=== PATIENT | female | born 1950 | race African-American/Black ===

== ENCOUNTER 2017-06-01 11:05 | Inpatient (IN) | payer MEDICARE, BC ==
[2017-06-01] VITALS (19 sets, daily range): BP systolic 58–170; BP diastolic 27–93; PULSE 69–98; RESP 14–34; TEMP 97.9–98; O2SAT 94–100
[~2017-06-01] VITALS: Ht 172.7 cm; Wt 122.0 kg
[~2017-06-01 11:05] MED LIST: ASPI81TA11 PO; BENZ100 PO; CLON.5 PO; COLA100C3 PO; CYCL1TAB29 PO; GABA300C5 PO; HYDR-3133 PO; HYDR-3535 PO; IPRASOL NEB; MIAC200S NASAL; MIDO10TA PO; NEXI40CA PO; PAXI30TA7 PO; PENT400T PO; RENATAB5 PO; SENS90TA PO; SEVE800T PO; SPIRCAP INH
--- NOTE | 2017-06-01 11:32 | PD ---
HPI Chief Complaint: CARDIAC ARREST Time Seen by Provider: 11:21 Travel History International Travel<30 days: No Contact w/Intl Traveler<30days: No Traveled to known affect area: No History of Present Illness HPI WHILE AT [facility], PATIENT BECAME UNRESPONSIVE, DIALYSIS WAS BARELY INITIATED. PATIENT HAD 10MIN OF CPR BY DAVITA, EMS ANOTHER 20MIN AND THEN CPR ON ARRIVAL TO ER IN WHICH WE HAD ROSC... PFSH Past Medical History Arthritis: Yes Asthma: Yes Blood Disorders: No Depression: Yes Heart Rhythm Problems: No Cancer: No Cardiovascular Problems: Yes High Cholesterol: No Chemotherapy: No Chest Pain: No Congestive Heart Failure: Yes Cerebrovascular Accident: Yes Diabetes: No Dialysis: Yes (MWF) Diminished Hearing: No Endocrine: Yes Gastrointestinal Disorders: Yes (GERD) GERD: Yes Glaucoma: No Gout: Yes Genitourinary: Yes Headaches: Yes Hepatitis: No Hiatal Hernia: No Hypertension: Yes Immune Disorder: No Implanted Vascular Access Dvce: No Kidney Stones: No Musculoskeletal: Yes (NO TOES ON EITHER FOOT) Neurologic: Yes (Pinched nerve in neck) Psychiatric: No Reproductive: No Respiratory: Yes Immunizations Current: Yes Migraines: No Radiation Therapy: No Renal Failure: Yes Seizures: No Sickle Cell Disease: No Sleep Apnea: Yes (C PAP AT HOME) Thyroid Disease: Yes (HYPOTHYROID) Menopausal: Yes : 3 Para: 3 Miscarriage: 0 : 0 Past Surgical History Abdominal Surgery: Yes (POSSIBLE MASS REMOVED 07/2011, PEG TUBE PLACEMENT/ REMOVED,CHOLECYSTECTOMY ) AICD: No Appendectomy: Yes Arteriovenous Shunt: Yes (LUE FISTULA) Body Medical Devices: VAS CATH RIGHT UPPER CHEST Cardiac Surgery: No Section: Yes (X 3) Cholecystectomy: Yes Ear Surgery: No Endocrine Surgery: No Genitourinary Surgery: No Gynecologic Surgery: No Hysterectomy: Yes (PARTIAL) Joint Replacement: No Neurologic Surgery: Yes Oral Surgery: No Pacemaker: No Thoracic Surgery: No Other Surgery: Yes (VAS CATH PLACEMENT, LEFT BREAST LUMPECTOMY , LUE FISTULA) Social History Alcohol Use: No Tobacco Use: No Substance Use: No Allergies-Medications (Allergen,Severity, Reaction): Coded Allergies: diatrizoate meglumine (Unverified Allergy, Severe, Joint Pain, 05/15/17) pt states she is not allergic to this gadobenic acid (Unverified Allergy, Severe, Joint Pain, 05/15/17) pt states she is not allergic to this gadodiamide (Unverified Allergy, Severe, Joint Pain, 05/15/17) pt states she is not allergic to this gadoteridol (Unverified Allergy, Severe, Joint Pain, 05/15/17) pt states she is not allergic to this iodine (Unverified Allergy, Severe, ORAL CONTRAST OK, 05/15/17) pt states she is not allergic to this iodixanol (Unverified Allergy, Severe, Joint Pain, 05/15/17) pt states she is not allergic to this iohexol (Unverified Allergy, Severe, Joint Pain, 05/15/17) pt states she is not allergic to this morphine (Unverified Allergy, Severe, ITCH, 05/15/17) pt states she is not allergic to this potassium iodide (Unverified Allergy, Severe, ORAL CONTRAST OK, 05/15/17) pt states she is not allergic to this povidone-iodine (Unverified Allergy, Severe, ORAL CONTRAST OK, 05/15/17) pt states she is not allergic to this sodium iodide (Unverified Allergy, Severe, ORAL CONTRAST OK, 05/15/17) pt states she is not allergic to this sodium iodide (Unverified Allergy, Severe, ORAL CONTRAST OK, 05/15/17) pt states she is not allergic to this vancomycin (Unverified Allergy, Unknown, 05/15/17) PT STATES UNKNOWN IF SHE IS ALLERGIC. *MDRO Multi-Drug Resistant Organism (Verified Adverse Reaction, Unknown, 09/09/16) KPC (sputum) - 09/09/11, 09/29/11 KPC & ESBL (wound) - 03/18/13 MRSA (wounds) - 02/12/13, 06/30/13, 02/25/14 Reported Meds & Prescriptions Reported Meds & Active Scripts Active Reported Colace (Docusate Sodium) 100 Mg Capsule 100 Mg PO DAILY Pentoxifylline ER (Pentoxifylline) 400 Mg Tab 400 Mg PO DAILY Spiriva Handihaler (Tiotropium Inh) 18 Mcg Cap 1 Puff INH DAILY 1 capsule = 18 mcg Renagel (Sevelamer HCl) 800 Mg Tab 800 Mg PO TID Nayely-Shadi (B-Complex W/ C & Folic Acid) 1 Tab 1 Tab PO DAILY Paxil (Paroxetine HCl) 30 Mg Tab 30 Mg PO DAILY Midodrine 10 Mg Tab 10 Mg PO Take 1 tablet (10mg) on Sunday,Sunday and Sunday Duoneb (Ipratropium-Albuterol Neb) 0.5-2.5 Mg/3 Ml Neb 1 Vial NEB Q6HR PRN Lortab (Hydrocodone-Acetaminophen) 10-325 Mg Tab 1 Tab PO Q4H PRN Gabapentin 300 Mg Cap 300 Mg PO TID Nexium (Esomeprazole DR) 40 Mg Capdr 40 Mg PO DAILY Flexeril (Cyclobenzaprine HCl) 10 Mg Tab 10 Mg PO HS PRN Klonopin (Clonazepam) 0.5 Mg Tab 0.5 Mg PO BID PRN Sensipar (Cinacalcet) 90 Mg Tab 90 Mg PO DAILY Miacalcin Nasal [place] (Calcitonin [place]) 200 Units/Act Soln 1 [place] NASAL DAILY Alternate Nostrils Tessalon Perles (Benzonatate) 100 Mg Cap 100 Mg PO DAILY PRN Hydroxyzine HCl 25 Mg Tab 25 Mg PO BID PRN Aspirin EC (Aspirin) 81 Mg Tabdr 81 Mg PO DAILY Review of Systems ROS Limitations: Clinical Condition Except as stated in HPI: all other systems reviewed are Neg Physical Exam Exam Limitations: Clinical Condition Narrative GENERAL: SKIN: Warm and dry. HEAD: Atraumatic. Normocephalic. EYES: Pupils equal and round. BUT WITHOUT REACTIVITY/ACCOMODATION ...neg oculocephalic reflex, neg corneal reflex ENT: No nasal bleeding or discharge. Mucous membranes pink and moist....neg gag reflex NECK: Trachea midline. No JVD. CARDIOVASCULAR: Regular rate and rhythm. RESPIRATORY: No respiratory drive noted, with respirator assistance has Clear to auscultation. Breath sounds equal bilaterally. INTUBATED WITH 7-0 ETT, 21 AT THE LIP GASTROINTESTINAL: Abdomen soft, non-tender, nondistended. MUSCULOSKELETAL: Extremities NOTED TO HAVE VARIOUS AMPUTATIONS (LEFT MIDFOOT, RIGHT TOE AMPUTATIONS). LEFT I/O IN PLACE USED DURING CODE NEUROLOGICAL: [id number] PSYCHIATRIC: unable to examine Data Data Last Documented VS Vital Signs Date Time Temp Pulse Resp B/P (MAP) Pulse Ox O2 Delivery O2 Flow Rate FiO2 06/01/17 14:34 94 60 06/01/17 14:30 98 16 128/61 (83) Ventilator 06/01/17 12:05 97.9 Orders Orders Electrocardiogram (06/01/17 11:21) Complete Blood Count With Diff (06/01/17 11:21) Comprehensive Metabolic Panel (06/01/17 11:21) Troponin I (06/01/17 11:21) Blood Culture (06/01/17 11:21) Lipase (06/01/17 11:21) Urine Culture (06/01/17 11:21) Influenzae A/B Antigen (06/01/17 11:21) Chest, Single Ap (06/01/17 11:21) Iv Access Insert/Monitor (06/01/17 11:21) Ecg Monitoring (06/01/17 11:21) Oximetry (06/01/17 11:21) Urinary Catheter Insert/Apply (06/01/17 11:21) Sharon-Gastric Tube Insert/Mon (06/01/17 11:21) Drug Screen, Random Urine (06/01/17 11:21) Alcohol (Ethanol) (06/01/17 11:21) Salicylates (Aspirin) (06/01/17 11:21) Tylenol (Acetaminophen) (06/01/17 11:21) Dopamine Inj Premix (Dopamine Inj Premix (06/01/17 11:45) Terbutaline Inj (Brethine Inj) (06/01/17 11:45) Calcium Gluconate Inj (Calcium Gluconate (06/01/17 13:30) Arterial Blood Gas (Abg) (06/01/17 13:35) Ct Brain W/O Iv Contrast(Rout) (06/01/17 14:06) Admit To Inpatient (06/01/17 ) Code Status (06/01/17 14:13) Vital Signs (Adult) BEV.Q1H (06/01/17 14:13) Activity Bed Rest (06/01/17 14:13) Elevate Head Of Bed (06/01/17 14:13) Neuro Checks . ORDERED (06/01/17 14:13) Pantoprazole Inj (Protonix Inj) (06/01/17 14:15) Albuterol-Ipratropium Neb (Duoneb Neb) (06/01/17 16:00) Complete Blood Count With Diff (06/02/17 04:00) Hearing Healthcare Practitioner / Telemetry BEV.Q8H (06/01/17 14:13) Scd Bilateral/Knee High BEV.BID (06/01/17 14:13) ^ Initiate Protocol (06/01/17 14:13) Instruction (06/01/17 14:13) [facility] (06/01/17 14:15) Chlorhexidine 2% Cloth (Chlorhexidine 2% (06/02/17 04:00) Chlorhexidine 2% Cloth (Chlorhexidine 2% (06/01/17 14:15) Mrsa Pcr Surveillance (06/01/17 14:13) Docusate Sodium-Senna (Pat-Colace) (06/01/17 21:00) Magnesium Hydroxide Liq (Milk Of Magnesi (06/01/17 14:15) Sennosides (Senokot) (06/01/17 14:15) Bisacodyl Supp (Dulcolax Supp) (06/01/17 14:15) Lactulose Liq (Lactulose Liq) (06/01/17 14:15) Inpatient Certification (06/01/17 ) Lactic Acid (06/01/17 14:13) Creatine Kinase (Cpk) (06/01/17 18:00) Ckmb (Isoenzyme) Profile (06/01/17 14:13) Troponin I (06/01/17 18:00) Troponin I (06/02/17 06:00) Prothrombin Time / Inr (Pt) (06/01/17 14:18) Consult Nephrology (06/01/17 ) Echo 2d Comp With Doppler (06/01/17 ) Neurological Rass Scale Q30MX2,Q2HX4,Q4H (06/01/17 14:18) Fentanyl Drip (Fentanyl Drip) (06/01/17 14:30) Sputum Culture And Gram Stain (06/01/17 14:18) (Hub Use Only)Inp Phy Cons/Ref (06/01/17 ) Admit Order (Ed Use Only) (06/01/17 15:27) CKMB (06/01/17 18:56) CKMB% (06/01/17 18:56) Basic Metabolic Panel (Bmp) (06/02/17 00:56) Labs Laboratory Tests Test 06/01/17 11:30 06/01/17 11:45 06/01/17 13:35 White Blood Count 12.7 TH/MM3 Red Blood Count 3.87 MIL/MM3 Hemoglobin 10.5 GM/DL Hematocrit 34.6 % Mean Corpuscular Volume 89.3 FL Mean Corpuscular Hemoglobin 27.1 PG Mean Corpuscular Hemoglobin Concent 30.3 % Red Cell Distribution Width 17.3 % Platelet Count 195 TH/MM3 Mean Platelet Volume 8.2 FL Neutrophils (%) (Auto) 66.9 % Lymphocytes (%) (Auto) 24.8 % Monocytes (%) (Auto) 6.1 % Eosinophils (%) (Auto) 1.4 % Basophils (%) (Auto) 0.8 % Neutrophils # (Auto) 8.5 TH/MM3 Lymphocytes # (Auto) 3.2 TH/MM3 Monocytes # (Auto) 0.8 TH/MM3 Eosinophils # (Auto) 0.2 TH/MM3 Basophils # (Auto) 0.1 TH/MM3 CBC Comment DIFF FINAL Differential Comment Blood Urea Nitrogen 40 MG/DL Creatinine 6.23 MG/DL Random Glucose 154 MG/DL Total Protein 7.5 GM/DL Albumin 2.5 GM/DL Calcium Level 7.4 MG/DL Alkaline Phosphatase 160 U/L Aspartate Amino Transf (AST/SGOT) 52 U/L Alanine Aminotransferase (ALT/SGPT) 28 U/L Total Bilirubin 0.8 MG/DL Sodium Level 135 MEQ/L Potassium Level 4.1 MEQ/L Chloride Level 96 MEQ/L Carbon Dioxide Level 24.4 MEQ/L Anion Gap 15 MEQ/L Estimat Glomerular Filtration Rate 8 ML/MIN Protein Corrected Calcium 7.3 MG/DL Troponin I 0.02 NG/ML Lipase 130 U/L Acetaminophen Level LESS THAN 2.0 MCG/ML Ethyl Alcohol Level LESS THAN 3 MG/DL Salicylates Level LESS THAN 1.7 MG/DL Blood Gas Puncture Site RT RADIAL Blood Gas Patient Temperature 98.6 Blood Gas HCO3 27 mmol/L Blood Gas Base Excess 2.1 mmol/L Blood Gas Oxygen Saturation 97 % Arterial Blood pH 7.39 Arterial Blood Partial Pressure CO2 45 mmHg Arterial Blood Partial Pressure O2 238 mmHG Arterial Blood Oxygen Content 16.2 Vol % Arterial Blood Carboxyhemoglobin 0.4 % Arterial Blood Methemoglobin 0.5 % Blood Gas Hemoglobin 11.4 G/DL Oxygen Delivery Device VENTILATOR Blood Gas Ventilator Setting 500/16/5PEEP Blood Gas Inspired Oxygen 100 % MDM Medical Decision Making Medical Screen Exam Complete: Yes Emergency Medical Condition: Yes Medical Record Reviewed: Yes Differential Diagnosis HYPERKALEMIA/CALCIUM ETC ABNORMALITY OF ELECTROLYTE, Narrative Course patient coded with cpr, 2 epi, 2 bicarb and 1 amp d50 given with eventual rosc, placed on dopamine post code resus ensued, hydraulic plumber helper made aware....due to nl temp, no gag/corneal reflex unlikely that code cool would help, patient will have continued management per hydraulic plumber helper. Critical Care Narrative CRITICAL CARE NOTE: With evaluation of the patient, labs, EKG, receipt of radiologic studies, administration of medications, reevaluation the patient and discussion of the patient with the admitting physicians, the total critical care time was [60] minutes. Time to perform other separately billable procedures was not included in the critical care time. Diagnosis Primary Impression: S/P CARDIAC ARREST WITH ROSC Edmund Marquis MD Jun 01, 2017 11:32
[2017-06-01] MEDS ORDERED: DOPamine INJ PREMIX 500 ML IV PRN (11:45)
[2017-06-01] MEDS ORDERED: TERBUTALINE INJ 1 MG/ML AMP SQ PRN (11:45)
[2017-06-01 12:07] LABS: AUTOMATED NEUTROPHIL # 8.5 TH/MM3 (1.8-7.7); BASOPHIL # 0.1 TH/MM3 (0-0.2); BASOPHIL % 0.8 % (0.0-2.0); EOSINOPHIL # 0.2 TH/MM3 (0-0.4); EOSINOPHIL % 1.4 % (0.0-4.0); HEMATOCRIT 34.6 % (35.0-46.0); HEMO FLAGS DIFF FINAL; LYMPH % 24.8 % (9.0-44.0); LYMPHOCYTE # 3.2 TH/MM3 (1.0-4.8); MEAN CELL VOLUME 89.3 FL (80.0-100.0); MEAN CORPUSCULAR HEMOGLOBIN 27.1 PG (27.0-34.0); MEAN CORPUSCULAR HGB CONC 30.3 % (32.0-36.0); MONO % 6.1 % (0.0-8.0); NEUT % 66.9 % (16.0-70.0); PLATELET COUNT 195 TH/MM3 (150-450); RED BLOOD COUNT 3.87 MIL/MM3 (4.00-5.30); RED CELL DISTRIBUTION WIDTH 17.3 % (11.6-17.2); WHITE BLOOD COUNT 12.7 TH/MM3 (4.0-11.0)
[2017-06-01] MEDS ORDERED: COLA100C PO (12:08)
[2017-06-01 12:49] LABS: ALKALINE PHOSPHATASE 160 U/L (45-117); ALT (GPT) 28 U/L (10-53); ANION GAP 15 MEQ/L (5-15); AST (GOT) 52 U/L (15-37); BICARBONATE 24.4 MEQ/L (21.0-32.0); BLOOD UREA NITROGEN 40 MG/DL (7-18); CHLORIDE 96 MEQ/L (98-107); GLOMERULAR FILTRATION RATE 8 ML/MIN (>89); POTASSIUM 4.1 MEQ/L (3.5-5.1); SODIUM (NA) 135 MEQ/L (136-145); TOTAL BILIRUBIN ADULT 0.8 MG/DL (0.2-1.0)
[2017-06-01 13:03] LABS: ACETAMINOPHEN LESS THAN 2.0 MCG/ML (10.0-30.0); ALCOHOL LESS THAN 3 MG/DL (0-5)
[2017-06-01 13:04] LABS: CALCIUM-PROTEIN CORRECTED 7.3 MG/DL (8.5-10.1)
[2017-06-01 13:42] LABS: BLOOD GAS BASE EXCESS 2.1 mmol/L (-2-2); BLOOD GAS CARBOXYHEMOGLOBIN 0.4 % (0-4); BLOOD GAS HCO3 27 mmol/L (22-26); BLOOD GAS METHEMOGLOBIN 0.5 % (0-2); BLOOD GAS O2 HGB SATURATION 97 % (90-100); BLOOD GAS OXYGEN CONTENT 16.2 Vol % (12.0-20.0); BLOOD GAS PCO2 45 mmHg (38-42); BLOOD GAS PO2 238 mmHG (61-120); BLOOD GAS TOTAL HGB 11.4 G/DL (12.0-16.0); CRITICAL VALUE NO; DRAW SITE RT RADIAL; FIO2 100 %; NUMBER OF ARTERIAL PUNCTURES 1; OXYGEN DEVICE VENTILATOR; STAT YES; TEMP CORR TO 98.6; ULNAR PULSE PRESENT; VENT SETTINGS 500/16/5PEEP
[2017-06-01] MEDS ORDERED: MISCELLANEOUS NURSING INFORMATION XX SCH (14:15)
[2017-06-01] MEDS: PANTOPRAZOLE SODIUM 40 MG VIAL IV SCH (14:15)
[2017-06-01] MEDS ORDERED: SENNOSIDES 8.6 MG TAB PO PRN (14:15)
[2017-06-01] MEDS ORDERED: LACTULOSE SYRUP 20 GM/30 ML CUP PO PRN (14:15)
[2017-06-01] MEDS ORDERED: MAGNESIUM HYDROXIDE SUSP 30 ML CUP PO PRN (14:15)
[2017-06-01] MEDS ORDERED: CHLORHEXIDINE GLUCONATE 2 % 1 PACK (2 CLOTHS) TOP PRN (14:15)
[2017-06-01] MEDS: CALCIUM GLUCONATE INJ 2 GM in DEXTROSE 5% IN WATER 100ML INJ 100 ML IV ONE ×4 (14:23→14:57)
[2017-06-01] MEDS ORDERED: PIPERACIL-TAZO 3.375 GM PREMIX 50 ML IV SCH (14:30)
--- NOTE | 2017-06-01 14:53 | RADRPT ---
EXAM DATE/TIME: 06/01/2017 13:54 [facility] COMPARISON: CHEST SINGLE AP, May 15, 2016, 11:23. INDICATIONS : Short of breath. Endotracheal tube placement. MEDICAL HISTORY : Chronic obstructive pulmonary disease. SURGICAL HISTORY : None. ENCOUNTER: Initial ACUITY: 1 day PAIN SCORE: Non-responsive. LOCATION: Bilateral chest FINDINGS: A single portable frontal view of the chest is oblique towards the right and breathing motion artifac t blurs the study. An endotracheal tube is seen with the tip approximately 4 cm cephalad to the sheela a. Nasogastric tube courses off the inferior margin of the film. Consolidation is seen involving the right perihilar region as well as the left perihilar region and left lower lobe. No gross effusions. Elevation of the right hemidiaphragm. Heart is mildly enlarged. Calcified pleural plaque involving th e right hemithorax laterally. CONCLUSION: 1. Limited study. 2. Bilateral pulmonary infiltrates. Timothy Roper Jr., MD on June 01, 2017 at 14:50 Board Certified Radiologist. This report was verified electronically.
--- NOTE | 2017-06-01 15:09 | PD.CONS ---
HPI Service Nephrology Consult Requested By Reason for Consult ESRD on HD Primary Care Physician Unknown History of Present Illness This is an obese chronically ill AAF 67 years of age. She has ESRD and we follow her outpatient, currently in the process of converting to home HD. She was to have HD Mon-Fri, 2.5 hrs/treatment.. She was at the center receiving training when she reported to staff that she did not feel well, could not articulate her concerns. I spoke with the granddaughter who reports she had been complaining of shortness of breath and recent GI issues. PMH listed below. She became unresponsive in the clinic, was given CPR for approximately 30 minutes. She was in a shockable rhythm on arrival to the hospital. She was intubated and is on dopamine. There are no acute electrolyte disorders, no evidence of fluid overload.She is a full code. We were consulted for dialysis management. She has her AVF still accessed on left arm from earlier today, had approximately 10 minutes. (Amberly Stevenson) Review of Systems ROS Limitations: Intubated, Unresponsive (Amberly Stevenson) Past Family Social History Allergies: Coded Allergies: diatrizoate meglumine (Unverified Allergy, Severe, Joint Pain, 05/15/17) pt states she is not allergic to this gadobenic acid (Unverified Allergy, Severe, Joint Pain, 05/15/17) pt states she is not allergic to this gadodiamide (Unverified Allergy, Severe, Joint Pain, 05/15/17) pt states she is not allergic to this gadoteridol (Unverified Allergy, Severe, Joint Pain, 05/15/17) pt states she is not allergic to this iodine (Unverified Allergy, Severe, ORAL CONTRAST OK, 05/15/17) pt states she is not allergic to this iodixanol (Unverified Allergy, Severe, Joint Pain, 05/15/17) pt states she is not allergic to this iohexol (Unverified Allergy, Severe, Joint Pain, 05/15/17) pt states she is not allergic to this morphine (Unverified Allergy, Severe, ITCH, 05/15/17) pt states she is not allergic to this potassium iodide (Unverified Allergy, Severe, ORAL CONTRAST OK, 05/15/17) pt states she is not allergic to this povidone-iodine (Unverified Allergy, Severe, ORAL CONTRAST OK, 05/15/17) pt states she is not allergic to this sodium iodide (Unverified Allergy, Severe, ORAL CONTRAST OK, 05/15/17) pt states she is not allergic to this sodium iodide (Unverified Allergy, Severe, ORAL CONTRAST OK, 05/15/17) pt states she is not allergic to this vancomycin (Unverified Allergy, Unknown, 05/15/17) PT STATES UNKNOWN IF SHE IS ALLERGIC. *MDRO Multi-Drug Resistant Organism (Verified Adverse Reaction, Unknown, 09/09/16) KPC (sputum) - 09/09/11, 09/29/11 KPC & ESBL (wound) - 03/18/13 MRSA (wounds) - 02/12/13, 06/30/13, 02/25/14 Past Medical History ESRD on HD M-W-F HTN with hypotension during dialysis Hyperlipidemia Anemia of chronic disease Arthritis CHf CVA GERD LIBERTAD on CPAP Qhs hypothyroid Vertigo Depression/Anxiety Past Surgical History bilateral midfoot Amputation Cesarian x 3 LUE AVF L breast lumpectomy Partial hysterectomy Reported Medications Colace (Docusate Sodium) 100 Mg Capsule 100 Mg PO DAILY Pentoxifylline ER (Pentoxifylline) 400 Mg Tab 400 Mg PO DAILY Spiriva Handihaler (Tiotropium Inh) 18 Mcg Cap 1 Puff INH DAILY 1 capsule = 18 mcg Renagel (Sevelamer HCl) 800 Mg Tab 800 Mg PO TID Nayely-Shadi (B-Complex W/ C & Folic Acid) 1 Tab 1 Tab PO DAILY Paxil (Paroxetine HCl) 30 Mg Tab 30 Mg PO DAILY Midodrine 10 Mg Tab 10 Mg PO MOWEFR Take 1 tablet (10mg) on Sunday,Sunday and Sunday Duoneb (Ipratropium-Albuterol Neb) 0.5-2.5 Mg/3 Ml Neb 1 Vial NEB Q6HR PRN Lortab (Hydrocodone-Acetaminophen) 10-325 Mg Tab 1 Tab PO Q4H PRN Gabapentin 300 Mg Cap 300 Mg PO TID Nexium (Esomeprazole DR) 40 Mg Capdr 40 Mg PO DAILY Flexeril (Cyclobenzaprine HCl) 10 Mg Tab 10 Mg PO HS PRN Klonopin (Clonazepam) 0.5 Mg Tab 0.5 Mg PO BID PRN Sensipar (Cinacalcet) 90 Mg Tab 90 Mg PO DAILY Miacalcin Nasal [place] (Calcitonin [place]) 200 Units/Act Soln 1 [place] NASAL DAILY Alternate Nostrils Tessalon Perles (Benzonatate) 100 Mg Cap 100 Mg PO DAILY PRN Hydroxyzine HCl 25 Mg Tab 25 Mg PO BID PRN Aspirin EC (Aspirin) 81 Mg Tabdr 81 Mg PO DAILY Active Ordered Medications Current Medications Medications (Trade) Dose Ordered Sig/Lois Route Start Time Stop Time Status Last Admin Dopamine HCl/ Dextrose 500 ml @ 13.5 mls/hr TITRATE PRN IV 06/01/17 11:45 06/01/17 14:25 (Brethine Inj) 1 mg UNSCH PRN SQ 06/01/17 11:45 (Protonix Inj) 40 mg DAILY IV 06/01/17 14:15 UNV (Duoneb Neb) 1 ampule Q6HR NEB INH 06/01/17 16:00 UNV Miscellaneous Information 1 Q361D XX 06/01/17 14:15 UNV (Chlorhexidine 2% Cloth) 3 pack Taper DAILY@04 TOP 06/02/17 04:00 05/29/18 03:59 UNV (Chlorhexidine 2% Cloth) 3 pack UNSCH PRN TOP 06/01/17 14:15 UNV (Pat-Colace) 1 tab BID PO 06/01/17 21:00 UNV (Milk Of Magnesia Liq) 30 ml Q12H PRN PO 06/01/17 14:15 UNV (Senokot) 17.2 mg Q12H PRN PO 06/01/17 14:15 UNV (Dulcolax Supp) 10 mg DAILY PRN RECTAL 06/01/17 14:15 UNV (Lactulose Liq) 30 ml DAILY PRN PO 06/01/17 14:15 UNV Fentanyl Citrate 250 ml @ 5 mls/hr TITRATE PRN IV 06/01/17 14:30 UNV Piperacillin Sod/ Tazobactam Sod 50 ml @ 100 mls/hr Q8H IV 06/01/17 14:30 UNV Family History unable to obtain Social History . lives with no smoking or ETOH uses walker unemployed full code (Amberly Stevenson) Physical Exam Vital Signs Vital Signs Date Time Temp Pulse Resp B/P (MAP) Pulse Ox O2 Delivery O2 Flow Rate FiO2 06/01/17 14:34 94 60 06/01/17 14:25 95 109/56 06/01/17 14:00 95 16 109/56 (73) 95 Ventilator 60 06/01/17 13:00 93 16 88/44 (59) 100 Ventilator 100 06/01/17 12:45 92 16 92/47 (62) 99 Ventilator 100 06/01/17 12:30 83 16 62/27 (39) 99 Ventilator 100 06/01/17 12:05 97.9 72 16 58/ 100 Ventilator 100 Automatic Cuff 06/01/17 11:50 69 16 100 Ventilator 100 06/01/17 11:30 72 16 100 Ventilator 100 06/01/17 11:25 83 16 84/50 (61) 100 Ventilator 100 06/01/17 11:20 100 100 06/01/17 11:20 100 06/01/17 11:20 71 16 100 Bag Valve 06/01/17 11:18 89 16 99/51 (67) 100 Ventilator 100 06/01/17 11:16 92 20 142/62 (88) 99 Physical Exam Obese AAF, intubated, unresponsive CV: S1,S2, RRR, rate 80s, no murmur Resp: vented lung sounds, decreased in bases GI: round, obese, soft Ext: no edema, bilateral midfoot amputation per hx AVF LUE, needles in place, no active bleeding Laboratory Laboratory Tests Test 06/01/17 11:30 06/01/17 11:45 06/01/17 13:35 White Blood Count 12.7 Red Blood Count 3.87 Hemoglobin 10.5 Hematocrit 34.6 Mean Corpuscular Volume 89.3 Mean Corpuscular Hemoglobin 27.1 Mean Corpuscular Hemoglobin Concent 30.3 Red Cell Distribution Width 17.3 Platelet Count 195 Mean Platelet Volume 8.2 Neutrophils (%) (Auto) 66.9 Lymphocytes (%) (Auto) 24.8 Monocytes (%) (Auto) 6.1 Eosinophils (%) (Auto) 1.4 Basophils (%) (Auto) 0.8 Neutrophils # (Auto) 8.5 Lymphocytes # (Auto) 3.2 Monocytes # (Auto) 0.8 Eosinophils # (Auto) 0.2 Basophils # (Auto) 0.1 CBC Comment DIFF FINAL Differential Comment Blood Urea Nitrogen 40 Creatinine 6.23 Random Glucose 154 Total Protein 7.5 Albumin 2.5 Calcium Level 7.4 Alkaline Phosphatase 160 Aspartate Amino Transf (AST/SGOT) 52 Alanine Aminotransferase (ALT/SGPT) 28 Total Bilirubin 0.8 Sodium Level 135 Potassium Level 4.1 Chloride Level 96 Carbon Dioxide Level 24.4 Anion Gap 15 Estimat Glomerular Filtration Rate 8 Protein Corrected Calcium 7.3 Troponin I 0.02 Lipase 130 Acetaminophen Level LESS THAN 2.0 Ethyl Alcohol Level LESS THAN 3 Salicylates Level LESS THAN 1.7 Blood Gas Puncture Site RT RADIAL Blood Gas Patient Temperature 98.6 Blood Gas HCO3 27 Blood Gas Base Excess 2.1 Blood Gas Oxygen Saturation 97 Arterial Blood pH 7.39 Arterial Blood Partial Pressure CO2 45 Arterial Blood Partial Pressure O2 238 Arterial Blood Oxygen Content 16.2 Arterial Blood Carboxyhemoglobin 0.4 Arterial Blood Methemoglobin 0.5 Blood Gas Hemoglobin 11.4 Oxygen Delivery Device VENTILATOR Blood Gas Ventilator Setting 500/16/5PEEP Blood Gas Inspired Oxygen 100 Date/Time Source Procedure Growth Status 06/01/17 11:40 Blood Peripheral Aerobic Blood Culture Pending Received 06/01/17 11:40 Blood Peripheral Anaerobic Blood Culture Pending Received 06/01/17 10:52 Nasal Washing Influenza Types A,B Antigen (SOHAIL) - Final NEGATIVE FOR FLU A AND B ANTIGEN.... Complete (Amberly Stevenson) Result Diagram: 06/01/17 1130 06/01/17 1130 Assessment and Plan Problem List: (1) Cardiac arrest ICD Codes: I46.9 - Cardiac arrest, cause unspecified Plan: she is unresponsive on ventilator etiology of cardiac arrest uncertain it remains to be seen if she will recover , consider palliative care evaluation vent settings: 16/500/60/5 (2) ESRD (end stage renal disease) ICD Codes: N18.6 - End stage renal disease Status: Chronic Plan: she is on Mon-Fri HD, had 10 min today we will dialyze her later today monitor electrolytes, fluid status (3) Metabolic bone disease ICD Codes: E88.9 - Metabolic disorder, unspecified; M90.80 - Osteopathy in diseases classified elsewhere, unspecified site Status: Acute Plan: monitor phosphorus level start binders if needed (4) Anemia of chronic renal failure Status: Chronic Plan: epogen with HD (5) Hypertension Status: Chronic Plan: monitor blood pressure, currently on dopamine for pressure support (Amberly Stevenson) Assessment and Plan patient was seen and examined. Agree with above assessment and plan. Discussed with piecer. On Dopamine. FiO2 50%. Xray with bilateral pulmonary infiltrates. Dialysis tomorrow. PEA cardiac arrest. Poor prognosis. Likely has suffered anoxic brain injury. (Tyler Ling MD) Amberly Stevenson Jun 01, 2017 15:09 Tyler Ling MD Jun 01, 2017 17:00
--- NOTE | 2017-06-01 15:59 | RADRPT ---
EXAM DATE/TIME: 06/01/2017 15:17 [facility] COMPARISON: CT BRAIN W/O CONTRAST, January 04, 2016, 17:05. INDICATIONS : Altered mental status. RADIATION DOSE: 56.35 CTDIvol (mGy) MEDICAL HISTORY : Stroke. Cardiovascular disease Hypertension. SURGICAL HISTORY : None. ENCOUNTER: Initial ACUITY: 1 day PAIN SCALE: Non-responsive LOCATION: cranial TECHNIQUE: Multiple contiguous axial images were obtained of the head. Using automated exposure control and adj ustment of the mA and/or kV according to patient size, radiation dose was kept as low as reasonably a chievable to obtain optimal diagnostic quality images. DICOM format image data is available electro nically for review and comparison. FINDINGS: There is marked central and cortical atrophy with dilatation of ventricular and sulcal spaces. There is no parenchymal hemorrhage, acute infarction or mass lesion identified. There are no extra-a xial fluid collections appreciated. The posterior fossa is unremarkable with midline fourth ventricl e. The portion of the orbits and paranasal sinuses visualized are unremarkable. Scattered posterior fossa calcifications are noted. CONCLUSION: Atrophy otherwise negative. Freddy Arguelles MD FACR on June 01, 2017 at 15:57 Board Certified Radiologist. This report was verified electronically.
[2017-06-01] MEDS: VITAMIN B CMPLX/VITC/FOLIC AC CAP PO SCH (16:00)
[2017-06-01] MEDS: CINACALCET HYDROCHLORIDE 30 MG TAB PO SCH (16:00)
--- NOTE | 2017-06-01 16:01 | PD.CONS ---
Consult Service Palliative Care Consult Requested By Dr. Major . Primary Care Physician Unknown . Reason for Consultation a. To assist with evaluation and management of symptoms including: dyspnea , pain b. To assist medical decision maker(s) with: better understanding of current medical conditions; weighing benefits/burdens of medical treatment options; making medical treatment decisions. . HPI History of Present Illness This 67-year-old female, with a past history of CHF, COPD, prior respiratory failure, peripheral vascular disease, hypertension, and gout, has had renal failure requiring dialysis for several years. She has had multiple prior hospitalizations here for dyspnea, CHF, COPD, and a hospitalization for prolonged respiratory failure with mechanical ventilation. Today, she was starting her dialysis treatment when she didn't feel well and then became unresponsive. She was pulseless, and resuscitation efforts were initiated. Resuscitation efforts began at the dialysis center, continued en route with the paramedics, and continued after arrival in the emergency department, where upon return of spontaneous circulation occurred, probably 30 or more minutes after the initial cardiac arrest. In the emergency department, findings included: * Unresponsive, intubated * Temp 97.9, blood pressure 85/44 * White count 12.7, hemoglobin 10.5 * Sodium 135, creatinine 6.23, albumin 2.5 * Chest x-ray with bilateral infiltrates * CT brain: atrophy, otherwise negative Following resuscitation, the patient remained unresponsive, and she was evaluated by scarf gluer Dr. Major who noted that her neurologic status was poor, the likelihood of significant brain injury was high, and he consulted Palliative Care to assist with symptom management, and to enter into discussions with the family regarding her past history, the current problems, the prognosis, and the benefits and burdens of the various treatment choices. . Function/Cognitive Trajectory The patient was reportedly getting around a few steps with a walker at home . Review of Systems ROS Limitations: Intubated Constitutional: COMPLAINS OF: Generalized weakness Endocrine: DENIES: Polyuria Eyes: DENIES: Eye inflammation Ears, nose, mouth, throat: DENIES: Epistaxis Respiratory: COMPLAINS OF: Shortness of breath Cardiovascular: COMPLAINS OF: Chest pain (prior admissions for chest pain) Gastrointestinal: DENIES: Bloody stools, Constipation, Diarrhea, Vomiting Genitourinary: DENIES: Hematuria Integumentary: DENIES: Rash Hematologic/Lymphatics: DENIES: Bruising Immunologic/Allergic: DENIES: Urticaria Neurologic: DENIES: Seizures Psychiatric: DENIES: Agitation Past Family Social History Coded Allergies: diatrizoate meglumine (Unverified Allergy, Severe, Joint Pain, 05/15/17) pt states she is not allergic to this gadobenic acid (Unverified Allergy, Severe, Joint Pain, 05/15/17) pt states she is not allergic to this gadodiamide (Unverified Allergy, Severe, Joint Pain, 05/15/17) pt states she is not allergic to this gadoteridol (Unverified Allergy, Severe, Joint Pain, 05/15/17) pt states she is not allergic to this iodine (Unverified Allergy, Severe, ORAL CONTRAST OK, 05/15/17) pt states she is not allergic to this iodixanol (Unverified Allergy, Severe, Joint Pain, 05/15/17) pt states she is not allergic to this iohexol (Unverified Allergy, Severe, Joint Pain, 05/15/17) pt states she is not allergic to this morphine (Unverified Allergy, Severe, ITCH, 05/15/17) pt states she is not allergic to this potassium iodide (Unverified Allergy, Severe, ORAL CONTRAST OK, 05/15/17) pt states she is not allergic to this povidone-iodine (Unverified Allergy, Severe, ORAL CONTRAST OK, 05/15/17) pt states she is not allergic to this sodium iodide (Unverified Allergy, Severe, ORAL CONTRAST OK, 05/15/17) pt states she is not allergic to this sodium iodide (Unverified Allergy, Severe, ORAL CONTRAST OK, 05/15/17) pt states she is not allergic to this vancomycin (Unverified Allergy, Unknown, 05/15/17) PT STATES UNKNOWN IF SHE IS ALLERGIC. *MDRO Multi-Drug Resistant Organism (Verified Adverse Reaction, Unknown, 09/09/16) KPC (sputum) - 09/09/11, 09/29/11 KPC & ESBL (wound) - 03/18/13 MRSA (wounds) - 02/12/13, 06/30/13, 02/25/14 Past Medical History * Cardiac arrest, with prolonged resuscitation * Probable anoxic brain injury * End-stage renal disease, dialysis * Congestive heart failure * COPD * Obesity * Peripheral vascular disease * Hypertension * Asthma * Gout * Hypothyroid * Depression * Arthritis * History of sleep apnea . Past Surgical History * AV fistulas * Vas catheters * Hysterectomy * Cholecystectomy * Appendectomy * Transmetatarsal amputations, bilateral * Left breast lumpectomy * Abdominal mass 2010 * 3 . Reported Medications Reported Meds & Active Scripts Active Reported Colace (Docusate Sodium) 100 Mg Capsule 100 Mg PO DAILY Pentoxifylline ER (Pentoxifylline) 400 Mg Tab 400 Mg PO DAILY Spiriva Handihaler (Tiotropium Inh) 18 Mcg Cap 1 Puff INH DAILY 1 capsule = 18 mcg Renagel (Sevelamer HCl) 800 Mg Tab 800 Mg PO TID Nayely-Shadi (B-Complex W/ C & Folic Acid) 1 Tab 1 Tab PO DAILY Paxil (Paroxetine HCl) 30 Mg Tab 30 Mg PO DAILY Midodrine 10 Mg Tab 10 Mg PO MOWEFR Take 1 tablet (10mg) on Sunday,Sunday and Sunday Duoneb (Ipratropium-Albuterol Neb) 0.5-2.5 Mg/3 Ml Neb 1 Vial NEB Q6HR PRN Lortab (Hydrocodone-Acetaminophen) 10-325 Mg Tab 1 Tab PO Q4H PRN Gabapentin 300 Mg Cap 300 Mg PO TID Nexium (Esomeprazole DR) 40 Mg Capdr 40 Mg PO DAILY Flexeril (Cyclobenzaprine HCl) 10 Mg Tab 10 Mg PO HS PRN Klonopin (Clonazepam) 0.5 Mg Tab 0.5 Mg PO BID PRN Sensipar (Cinacalcet) 90 Mg Tab 90 Mg PO DAILY Miacalcin Nasal [place] (Calcitonin [place]) 200 Units/Act Soln 1 [place] NASAL DAILY Alternate Nostrils Tessalon Perles (Benzonatate) 100 Mg Cap 100 Mg PO DAILY PRN Hydroxyzine HCl 25 Mg Tab 25 Mg PO BID PRN Aspirin EC (Aspirin) 81 Mg Tabdr 81 Mg PO DAILY . Current Medications Medications (Trade) Dose Ordered Sig/Lois Route Start Time Stop Time Status Last Admin Dopamine HCl/ Dextrose 500 ml @ 13.5 mls/hr TITRATE PRN IV 06/01/17 11:45 06/01/17 14:25 (Brethine Inj) 1 mg UNSCH PRN SQ 06/01/17 11:45 (Protonix Inj) 40 mg DAILY IV 06/01/17 14:15 (Duoneb Neb) 1 ampule Q6HR NEB INH 06/01/17 16:00 Miscellaneous Information 1 Q361D XX 06/01/17 14:15 (Chlorhexidine 2% Cloth) 3 pack Taper DAILY@04 TOP 06/02/17 04:00 05/29/18 03:59 (Chlorhexidine 2% Cloth) 3 pack UNSCH PRN TOP 06/01/17 14:15 (Pat-Colace) 1 tab BID PO 06/01/17 21:00 (Milk Of Magnesia Liq) 30 ml Q12H PRN PO 06/01/17 14:15 (Senokot) 17.2 mg Q12H PRN PO 06/01/17 14:15 (Dulcolax Supp) 10 mg DAILY PRN RECTAL 06/01/17 14:15 (Lactulose Liq) 30 ml DAILY PRN PO 06/01/17 14:15 Fentanyl Citrate 250 ml @ 5 mls/hr TITRATE PRN IV 06/01/17 14:30 (Ecotrin Ec) 81 mg DAILY PO 06/02/17 09:00 (Renvela) 800 mg TID PO 06/01/17 18:00 (Nephrocaps) 1 cap DAILY PO 06/01/17 16:00 (Sensipar) 90 mg DAILY PO 06/01/17 16:00 Piperacillin Sod/ Tazobactam Sod 50 ml @ 100 mls/hr Q8H IV 06/01/17 16:00 Family History The patient's mother reportedly had hypertension and hyperlipidemia. . Substance Use Tobacco: None Alcohol: None Prescription med abuse: None Illicits: None . Psychosocial History According to the patient's sister, she was born in [place] and moved to this area as a child and his lived here the rest of her life. She has been for more than 20 years. She has 2 sons, one living in [place] and one in [place], and has a daughter living in [place]. She has 5 living siblings/sisters. 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 . Spiritual/Cultural Factors [employer] background . Living Will: Never completed Health Care Surrogate: Never completed Durable Power of Anthropological Linguist: Never completed Family/friends goals: The patient's sister reports she assumes aggressive care would be desired at this point, although I've been unable to contact the patient's in spite of repeated attempts. . Ethical and Legal Issues There are no ethical issues that would impact her care or decision-making at this time. The patient lacks capacity for decision-making, and it seems unlikely that she will regain that capacity. Her is the decision making proxy. . Physical Exam Vital Signs Date Time Temp Pulse Resp B/P (MAP) Pulse Ox O2 Delivery O2 Flow Rate FiO2 06/01/17 15:46 06/01/17 15:40 99 100 06/01/17 14:34 94 60 06/01/17 14:30 98 16 128/61 (83) 95 Ventilator 60 06/01/17 14:25 95 109/56 06/01/17 14:00 95 16 109/56 (73) 95 Ventilator 60 06/01/17 13:00 93 16 88/44 (59) 100 Ventilator 100 06/01/17 12:45 92 16 92/47 (62) 99 Ventilator 100 06/01/17 12:30 83 16 62/27 (39) 99 Ventilator 100 06/01/17 12:05 97.9 72 16 58/ 100 Ventilator 100 Automatic Cuff 06/01/17 11:50 69 16 100 Ventilator 100 06/01/17 11:30 72 16 100 Ventilator 100 06/01/17 11:25 83 16 84/50 (61) 100 Ventilator 100 06/01/17 11:20 100 100 06/01/17 11:20 100 06/01/17 11:20 71 16 100 Bag Valve 06/01/17 11:18 89 16 99/51 (67) 100 Ventilator 100 06/01/17 11:16 92 20 142/62 (88) 99 Exam CONSTITUTIONAL/GENERAL: This is an elderly, obese, unresponsive patient, in no apparent distress. TUBES/LINES/DRAINS: ET tube, peripheral IVs, left tibia intraosseous access SKIN: No jaundice, rashes, or lesions. Ecchymoses on upper extremities. Open lesions at the incision line of the transmetatarsal amputations on the right. Skin temperature appropriate. Not diaphoretic. HEAD: Atraumatic. Normocephalic. EYES: Pupils equal and round but I cannot detect any reaction to light. No scleral icterus. No injection or drainage. Fundi not examined. ENT: Nose without bleeding or purulent drainage. NECK: Trachea midline. Supple, nontender. No palpable thyroid enlargement or nodularity. CARDIOVASCULAR: Regular rate and rhythm without murmurs, gallops, or rubs. Unable to palpate foot or ankle pulses. RESPIRATORY/CHEST: Symmetric, unlabored respirations with ventilator. Scattered rhonchi. GASTROINTESTINAL: Abdomen soft, non-tender, obese. No obvious hepato- splenomegaly, or palpable masses. No guarding. Bowel sounds present. GENITOURINARY: Without palpable bladder distension. MUSCULOSKELETAL: Extremities without clubbing, cyanosis, or edema. No joint tenderness or effusion noted. No calf tenderness. No mottling or clubbing. LYMPHATICS: No palpable cervical or supraclavicular adenopathy. NEUROLOGICAL: Unresponsive to voice or pain PSYCHIATRIC: Unable to assess due to clinical condition . Diagnostic Tests Laboratory Laboratory Tests Test 06/01/17 11:30 06/01/17 11:45 06/01/17 13:35 White Blood Count 12.7 TH/MM3 (4.0-11.0) Red Blood Count 3.87 MIL/MM3 (4.00-5.30) Hemoglobin 10.5 GM/DL (11.6-15.3) Hematocrit 34.6 % (35.0-46.0) Mean Corpuscular Volume 89.3 FL (80.0-100.0) Mean Corpuscular Hemoglobin 27.1 PG (27.0-34.0) Mean Corpuscular Hemoglobin Concent 30.3 % (32.0-36.0) Red Cell Distribution Width 17.3 % (11.6-17.2) Platelet Count 195 TH/MM3 (150-450) Mean Platelet Volume 8.2 FL (7.0-11.0) Neutrophils (%) (Auto) 66.9 % (16.0-70.0) Lymphocytes (%) (Auto) 24.8 % (9.0-44.0) Monocytes (%) (Auto) 6.1 % (0.0-8.0) Eosinophils (%) (Auto) 1.4 % (0.0-4.0) Basophils (%) (Auto) 0.8 % (0.0-2.0) Neutrophils # (Auto) 8.5 TH/MM3 (1.8-7.7) Lymphocytes # (Auto) 3.2 TH/MM3 (1.0-4.8) Monocytes # (Auto) 0.8 TH/MM3 (0-0.9) Eosinophils # (Auto) 0.2 TH/MM3 (0-0.4) Basophils # (Auto) 0.1 TH/MM3 (0-0.2) CBC Comment DIFF FINAL Differential Comment Blood Urea Nitrogen 40 MG/DL (7-18) Creatinine 6.23 MG/DL (0.50-1.00) Random Glucose 154 MG/DL (74-106) Total Protein 7.5 GM/DL (6.4-8.2) Albumin 2.5 GM/DL (3.4-5.0) Calcium Level 7.4 MG/DL (8.5-10.1) Alkaline Phosphatase 160 U/L (45-117) Aspartate Amino Transf (AST/SGOT) 52 U/L (15-37) Alanine Aminotransferase (ALT/SGPT) 28 U/L (10-53) Total Bilirubin 0.8 MG/DL (0.2-1.0) Sodium Level 135 MEQ/L (136-145) Potassium Level 4.1 MEQ/L (3.5-5.1) Chloride Level 96 MEQ/L (98-107) Carbon Dioxide Level 24.4 MEQ/L (21.0-32.0) Anion Gap 15 MEQ/L (5-15) Estimat Glomerular Filtration Rate 8 ML/MIN (>89) Protein Corrected Calcium 7.3 MG/DL (8.5-10.1) Troponin I 0.02 NG/ML (0.02-0.05) Lipase 130 U/L (73-393) Acetaminophen Level LESS THAN 2.0 MCG/ML Ethyl Alcohol Level LESS THAN 3 MG/DL (0-5) Salicylates Level LESS THAN 1.7 MG/DL Blood Gas Puncture Site RT RADIAL Blood Gas Patient Temperature 98.6 Blood Gas HCO3 27 mmol/L (22-26) Blood Gas Base Excess 2.1 mmol/L (-2-2) Blood Gas Oxygen Saturation 97 % (90-100) Arterial Blood pH 7.39 (7.380-7.420) Arterial Blood Partial Pressure CO2 45 mmHg (38-42) Arterial Blood Partial Pressure O2 238 mmHG (61-120) Arterial Blood Oxygen Content 16.2 Vol % (12.0-20.0) Arterial Blood Carboxyhemoglobin 0.4 % (0-4) Arterial Blood Methemoglobin 0.5 % (0-2) Blood Gas Hemoglobin 11.4 G/DL (12.0-16.0) Oxygen Delivery Device VENTILATOR Blood Gas Ventilator Setting 500/16/5PEEP Blood Gas Inspired Oxygen 100 % Result Diagram: 06/01/17 1130 06/01/17 1130 Microbiology Microbiology Date/Time Source Procedure Growth Status 06/01/17 11:40 Blood Peripheral Aerobic Blood Culture Pending Received 06/01/17 11:40 Blood Peripheral Anaerobic Blood Culture Pending Received 06/01/17 11:30 Blood Peripheral Aerobic Blood Culture Pending Received 06/01/17 11:30 Blood Peripheral Anaerobic Blood Culture Pending Received 06/01/17 10:52 Nasal Washing Influenza Types A,B Antigen (SOHAIL) - Final NEGATIVE FOR FLU A AND B ANTIGEN.... Complete Imaging Last Impressions Head CT 06/01/17 1406 Signed Impressions: Service Date/Time: Thursday, June 01, 2017 15:17 - CONCLUSION: Atrophy otherwise negative. Freddy Arguelles MD FACR Chest X-Ray 06/01/17 1121 Signed Impressions: Service Date/Time: Thursday, June 01, 2017 13:54 - CONCLUSION: 1. Limited study. 2. Bilateral pulmonary infiltrates. Timothy Roper Jr., MD . Procedures CPR, resuscitation 06/01/17 INTUBATION 06/01/17 Intraosseous needle placement in left tibia 06/01/17 Central line placement 06/01/17 . Patient/Family Conference Present at Family Conference: Patient's sister Jovanna . Family Conference Time (mins): 28 Family Conference Location: Consult Room Issues Discussed: * Palliative care role, purpose, approach * Additional medical, psychosocial, and spiritual history * Patients general health, functional status, and cognitive changes in the months leading up to the current hospitalization * Patient/family understanding of the current medical problems * Patient/family understanding of prognosis * Patients goals of care as best understood from advance directives and/or conversations and/or values * Current medical treatment options and benefits/burdens of those options * Likely scenarios comparing ongoing aggressive care with a transition to comfort measures only * Questions answered to the best of my ability * Palliative care contact information provided Although Dr. Major was able to speak with the in the ER, I have not been able to contact him either through his sister, by checking the ER in the second floor waiting room, or by his phone number. The patient's sister reports that she believes the family would want aggressive goals at this time, and that seems reasonable in the current setting as we await any neurologic change. . 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 Spiritual: [employer] background Legal: The patient lacks capacity for decision-making, and it seems unlikely that she will regain that capacity. Her is the decision making proxy. Ethical issues impacting care: None . Code Status: Full Code Plan * FULL CODE * DECISION-MAKING: The patient lacks capacity for decision-making, and it seems unlikely that she will regain that capacity. Her is the decision making proxy. * GOALS: Although Dr. Major was able to speak with the in the ER, I have not been able to contact him .....through his sister, by checking the ER and the second floor waiting room, or by his phone number. The patient's sister reports that she believes the family would want aggressive goals at this time, and that seems reasonable in the current setting as we await any neurologic change. * SYMPTOMS: Her dyspnea and likely pain is being managed in the [facility], I have no additional medication recommendations at this time. * Neurology has been consulted * Palliative Care will continue to follow the patient during this hospitalization. . Time Spent Total Floor Time (mins): 76 Face to Face Time (mins): 16 >50% Counseling/Coord of Care: Yes (d/w Dr. Major) Thank you for the opportunity to participate in the care of Ms. Maldonado. Attestation To help prompt me to consider important information that might be impacting today's encounter and assessment, information from prior notes written by myself or my colleagues may have been "brought forward" into today's note. My signature on this note, however, is an attestation that I personally performed the exam, history, and/or decision-making noted today, and, unless otherwise indicated, the interactions with patient, family, and staff as well as the review of records all occurred today. I also attest that the listed assessment and stated plan reflect my best clinical judgment today based on the combination of historical information, prior notes, and today's exam/ interactions. When time spent is documented, it refers only to time spent today by the signer, or if indicated, combined time spent today by collaborating physician/nurse practitioner. Rosy Reynoso MD Jun 01, 2017 16:01
[2017-06-01] MEDS: NOREPINEPHRINE 4 MG/D5W 250 ML IV PRN ×2 (16:15→23:21)
--- NOTE | 2017-06-01 16:42 | PD.PROCEDR ---
Central Line Procedure REASON FOR PROCEDURE Central venous access PROCEDURE PERFORMED Central line placement: Right femoral central line CONSENT Informed consent for procedure was obtained. The risks and benefits of the procedure were discussed to include but limited to bleeding, clot formation, infection, and even . ANESTHESIA Local injection of 1% Lidocaine DESCRIPTION OF THE PROCEDURE The patient was placed in supine, mild Trendelenburg position. The area was exposed and cleansed with ChloraPrep, times two. Large sterile drape was used to cover the patient, with the site exposed, under sterile conditions including cap, face mask, sterile gown, and sterile gloves. On single attempt, the introducer needle was inserted with negative pressure in syringe and venous flash was obtained. The guide wire was then advanced without any restriction and the needle was removed. The dilator was used without any complications. Using Seldinger technique the catheter was advanced over the guide wire to a depth of 20 centimeters. The guide wire was removed. All ports were aspirated with dark venous blood return and flushed easily with sterile saline. All ports were capped. Antibiotic disc was placed around central line at puncture site. The central line was secured to the skin with two interrupted 2.0 silk sutures. The area was bandaged with sterile see-through central line bandage. COMPLICATIONS: No apparent complications ESTIMATED BLOOD LOSS: Less than 1 cc. Cami Mancilla MD Jun 01, 2017 16:42
--- NOTE | 2017-06-01 17:12 | MH ---
cc: TIN REED M.D. DATE OF ADMISSION: 06/01/2017 DATE OF : 1950 HISTORY: the patient is 67-year-old female with multiple comorbidities which include end-stage renal disease on hemodialysis Sunday, Sunday, Sunday, hypertension, COPD on home oxygen, morbid obesity with obstructive sleep apnea, CHF. The patient was at the dialysis center today, she reported to the staff that she did not feel well and all the sudden she became unresponsive. The patient was given CPR which was continued in en route to the hospital. She was in PEA arrest. The patient was given epi, bicarb and D50. After approximately 30 minutes. She had successful return of spontaneous circulation and was started on dopamine. The patient also was intubated and placed on full mechanical ventilation. Her ABG post intubation showed a pH of 7.39, CO2 45, pAO2 238 and bicarb 27 and saturation of 97%. Her laboratory data showed the potassium 4.1, creatinine 6.23 and corrected calcium of 7.3. Other significant labs showed mild leukocytosis with a Review WBC of 12.7. A chest x-ray post intubation showed a bilateral pulmonary infiltrates and ET tube approximately 4 cm above the isabel. In the ER she was given calcium gluconate and started on dopamine as stated above. Right femoral central line was attempted by the ED physician without any success. The patient was also seen by Dr. Macho francois in the ER from nephrology service and she is scheduled to undergo CT scan of the brain. The patient is unresponsive. PAST MEDICAL HISTORY: Past medical history significant for end-stage renal disease on hemodialysis Sunday, Sunday, Sunday Hypertension Hyperlipidemia anemia of chronic disease Arthritis. Congestive heart failure. Cerebrovascular accident. Gastroesophageal reflux disease. Obstructive sleep apnea on C-PAP q.h.s. Hypothyroidism Vertigo Anxiety / depression Chronic obstructive pulmonary disease. PAST SURGICAL HISTORY Previous bilateral mid foot amputation previous x3 left upper extremity AV fistula previous left breast lumpectomy partial hysterectomy. FAMILY HISTORY Noncontributory. SOCIAL HISTORY Nonsmoker no history of alcohol or illicit drug use per records ALLERGIES Multiple which include IODINE VANCOMYCIN MORPHINE MEDICATIONS Medications include 1. DuoNeb. 2. Spiriva 3. Minitran. 4. Flexeril. 5. Aspirin. 6. Lortab 7. Gabapentin 8. Prinivil 9. Nexium 10. Renagel 11. Nayely-Shadi. 12. Sensipar. REVIEW OF SYSTEMS As per HPI. Rest of the system unobtainable. PHYSICAL EXAMINATION IN GENERAL: 67-year-old female status post PEA arrest, intubated, unresponsive. VITAL SIGNS: Temperature 97.9, pulse of 98, respiratory rate 16, blood pressure 128/61, saturation 94% on his. Vent setting PRVC rate of 16, tidal volume 500, PEEP of five, FIO2 60%. I time 1.0. HEAD, EYES, EARS, NOSE, AND THROAT: Atraumatic, normocephalic pupil equal, round, no. No reactivity NECK: Supple. No JVD, adenopathy or thyromegaly. Trachea midline. CARDIOVASCULAR SYSTEM: regular rate and rhythm. Normal S1-S2. No murmurs, rubs or gallops noted. LUNGS: Pulmonary exam bilateral air entry. No rales or wheezing. Few coarse breath sounds. ABDOMEN: Soft, obese, nontender, no distension. Positive bowel sounds. EXTREMITIES: Amputation left midfoot right toe amputation left interosseous and place. NEUROLOGIC: Unresponsive. No cough or gag reflex. LABORATORY DATA WBC 12.7, hemoglobin 10.5, hematocrit 34, platelet count 195, sodium of 135, Potassium 4.1, chloride 96, CO2 24, BUN 40, creatinine 6.23, glucose 154, corrected calcium is 7.3, AST 52, ALT 28, total bilirubin 0.8. RADIOGRAPHY Chest x-ray showed bilateral pulmonary infiltrates. ET tube above the isabel. EKG sinus rhythm rate 67 beats per minute, possible left atrial enlargement. Right bundle-branch block. IMPRESSION 1. Status post PEA arrest. 2. Vent dependent respiratory failure. 3. End-stage renal disease. 4. Likely anoxic brain injury. 5. History of hypertension. 6. Chronic obstructive pulmonary disease on home oxygen. 7. Morbid obesity and a history of obstructive sleep apnea. 8. History of congestive heart failure. 9. Anemia of chronic disease. RECOMMENDATIONS: 1. Monitor neuro status closely and avoid any sedatives. 2. The patient for CT scan of the brain without contrast, rule out anoxic brain injury. In addition we will obtain an EEG. And consult neurology service. 3. Continue with vent support and maintain sats above 92%. 4. Bronchodilators in the form of DuoNeb q. six. 5. Wean off dopamine monitor heart rate and blood pressure closely and maintain MAP greater than 65 mmHg. 6. Monitor cardiac enzymes with troponins and will obtain 2-D echo to evaluate LV function, rule out regional wall motion abnormalities. She had an echocardiogram in May 2016 which showed EF of 55-60% and moderate pulmonary hypertension. 7. Continue with aspirin 81 mg daily. 8. Monitor renal function Is and Os and avoid nephrotoxins. The patient is currently being seen by <<11:06>> from nephrology service. She is on hemodialysis Sunday, Sunday, Sunday. 9. Keep n.p.o. for now and place on Protonix 40 mg IV daily. 10. Place on empiric antibiotics in the form of Zosyn and monitor for signs of infections which include fever and WBC. 11. Follow up on blood cultures. 12. Nasal washing and is negative for influenza in the ED. 13. Will obtain a sputum culture with gram stain. 14. Of note the patient is allergic to VANCOMYCIN. 15. Monitor CBC. 16. Place on sliding scale insulin with Accu-Chek's for glycemic control. 17. GI prophylaxis with Protonix 40 mg daily 18. DVT prophylaxis with SCDs. 19. Start heparin Subcu prophylaxis if CT scan of the brain negative for acute process. 20. Place central line. 21. I discussed the patient's prognosis with her and up dated him on her condition. Overall prognosis guarded at this time. 22. The patient is critically ill status post cardiopulmonary arrest on pressors and likely with anoxic brain injury. Critical care time 35 minutes excluding procedures. MD JADEN Bustos/eboni /3:14 PM /4:51 PM
[2017-06-01] MEDS: RESP: ALBUTEROL 2.5 MG/IPRATROPIUM 0.5 MG NEB (SCH) INH ×2 (17:28→21:12)
--- NOTE | 2017-06-01 17:57 | ECHRPT ---
Indication: assrss chf CONCLUSIONS The left ventricular systolic function is normal with an estimated ejection fraction in the range of 55-60%. Normal left ventricular size. Mild concentric left ventricular hypertrophy. . Mild thickening of the mitral valve leaflets. There is mild tricuspid valve regurgitation. There is estimated severe pulmonary hypertension present ( > 70 mmHg). The pulmonary valve is not well visualized. BP: / HR: Rhythm: MEASUREMENTS (Male / Female) Normal Values Technical Quality:Fair 2D ECHO LV Diastolic Diameter PLAX 3.5 cm 4.2 - 5.9 / 3.9 - 5.3 cm LV Systolic Diameter PLAX 2.7 cm IVS Diastolic Thickness 1.3 cm 0.6 - 1.0 / 0.6 - 0.9 cm LVPW Diastolic Thickness 1.3 cm 0.6 - 1.0 / 0.6 - 0.9 cm LV Relative Wall Thickness 0.7 RV Internal Dim ED PLAX 4.0 cm LVOT Diameter 2.2 cm DOPPLER AV Peak Velocity 259.0 cm/s AV Peak Gradient 26.8 mmHg AV Mean Gradient 12.0 mmHg AV Velocity Time Integral 42.4 cm LVOT Peak Velocity 88.7 cm/s LVOT Peak Gradient 3.1 mmHg LVOT Velocity Time Integral 17.7 cm AV Area Cont Eq vti 1.6 cm AV Area Cont Eq pk 1.3 cm Mitral E Point Velocity 49.9 cm/s Mitral A Point Velocity 33.1 cm/s Mitral E to A Ratio 1.5 TR Peak Velocity 343.7 cm/s TR Peak Gradient 47.2 mmHg FINDINGS LEFT VENTRICLE The left ventricular systolic function is normal with an estimated ejection fraction in the range of 55-60%. Normal left ventricular size. Mild concentric left ventricular hypertrophy. RIGHT VENTRICLE Normal right ventricular size and systolic function. LEFT ATRIUM The left atrial size is normal. RIGHT ATRIUM The right atrial size is normal. ATRIAL SEPTUM Normal atrial septal thickness without atrial level shunting by limited color doppler interrogation. AORTA The aortic root and proximal ascending aorta are normal in size on limited imaging. MITRAL VALVE . No mitral valve stenosis or regurgitation. Mild thickening of the mitral valve leaflets. AORTIC VALVE Trileaflet aortic valve. No aortic valve stenosis or regurgitation. TRICUSPID VALVE There is mild tricuspid valve regurgitation. There is estimated severe pulmonary hypertension present ( > 70 mmHg). PULMONARY VALVE The pulmonary valve is not well visualized. VESSELS The inferior vena cava is normal in size. PERICARDIUM No pericardial effusion. Raya Irving [place] MD, FACC (Electronically Signed) Final Date:01 June 2017 17:56
[2017-06-01] MEDS: SEVELAMER CARBONATE 800 MG TAB PO SCH ×2 (18:00→18:50)
[2017-06-01] MEDS: PIPERACIL-TAZO 2.25 GM PREMIX 50 ML IV SCH ×2 (18:50→23:20)
[2017-06-01 19:40] LABS: CREATINE KINASE 187 U/L (26-192)
[2017-06-01 19:52] LABS: C. DIFF EPI 027 PRESUMPTIVE NEGATIVE (NEGATIVE)
[2017-06-01] MEDS: fentaNYL DRIP 250 ML IV PRN (21:00)
[2017-06-01] MEDS: DOCUSATE SODIUM 50 MG/SENNA 8.6 MG TAB PO SCH (21:00)
[2017-06-02] VITALS (55 sets, daily range): BP systolic 58–128; BP diastolic 25–63; PULSE 70–101; RESP 14–26; TEMP 97.4–98.9; O2SAT 81–100
[2017-06-02 03:01] LABS: AUTOMATED NEUTROPHIL # 16.9 TH/MM3 (1.8-7.7); BASOPHIL # 0.1 TH/MM3 (0-0.2); BASOPHIL % 0.3 % (0.0-2.0); EOSINOPHIL % 0.2 % (0.0-4.0); HEMATOCRIT 33.9 % (35.0-46.0); HEMO FLAGS DIFF FINAL; LYMPH % 5.1 % (9.0-44.0); LYMPHOCYTE # 0.9 TH/MM3 (1.0-4.8); MEAN CELL VOLUME 86.4 FL (80.0-100.0); MEAN CORPUSCULAR HEMOGLOBIN 27.1 PG (27.0-34.0); MEAN CORPUSCULAR HGB CONC 31.3 % (32.0-36.0); MONO % 3.2 % (0.0-8.0); NEUT % 91.2 % (16.0-70.0); PLATELET COUNT 215 TH/MM3 (150-450); RED BLOOD COUNT 3.92 MIL/MM3 (4.00-5.30); RED CELL DISTRIBUTION WIDTH 16.7 % (11.6-17.2); WHITE BLOOD COUNT 18.5 TH/MM3 (4.0-11.0)
[2017-06-02 03:37] LABS: BICARBONATE 28.7 MEQ/L (21.0-32.0)
[2017-06-02] MEDS: RESP: ALBUTEROL 2.5 MG/IPRATROPIUM 0.5 MG NEB (SCH) INH ×4 (03:40→21:48)
[2017-06-02 03:48] LABS: POTASSIUM 2.9 MEQ/L (3.5-5.1)
[2017-06-02] MEDS ORDERED: POTASSIUM CHLOR 40 MEQ PREMIX 100 ML IV ONE (04:00)
[2017-06-02] MEDS: CHLORHEXIDINE GLUCONATE 2 % 1 PACK (2 CLOTHS) TOP SCH (04:34)
[2017-06-02] MEDS: DOCUSATE SODIUM 50 MG/SENNA 8.6 MG TAB PO SCH ×2 (09:00→11:31)
[2017-06-02] MEDS: SEVELAMER CARBONATE 800 MG TAB PO SCH ×3 (09:00→18:00)
[2017-06-02] MEDS: CINACALCET HYDROCHLORIDE 30 MG TAB PO SCH (09:00)
[2017-06-02] MEDS: VITAMIN B CMPLX/VITC/FOLIC AC CAP PO SCH (09:00)
[2017-06-02] MEDS: ASPIRIN EC 81 MG TABEC PO SCH (09:37)
[2017-06-02] MEDS: PANTOPRAZOLE SODIUM 40 MG VIAL IV SCH (09:37)
[2017-06-02] MEDS: PIPERACIL-TAZO 2.25 GM PREMIX 50 ML IV SCH ×2 (09:37→15:33)
[2017-06-02] MEDS ORDERED: PNEUMOCOCCAL POLYVALENT INJ 25 MCG/0.5 ML SYR IM ONE (10:00)
--- NOTE | 2017-06-02 10:01 | EKG ---
Date Performed: 06/01/2017 Time Performed: 11:59:51 PTAGE: 67 years EKG: Sinus rhythm POSSIBLE LEFT ATRIAL ENLARGEMENT INDETERMINATE AXIS RIGHT BUNDLE BRANCH BLOCK ABNORMAL ECG PREVIOUS TRACING : 05/15/2016 22.24 DOCTOR: Hernandez Melissa Interpretating Date/Time 06/02/2017 09:59:56
--- NOTE | 2017-06-02 10:18 | HHI.CCPN ---
Subjective Remarks/Hospital Course Patient is 67-year-old female with multiple comorbidities which include end- stage renal disease on hemodialysis Sunday, Sunday, Sunday, hypertension, COPD on home oxygen, morbid obesity with obstructive sleep apnea, CHF. The patient was at the dialysis center today, she reported to the staff that she did not feel well and all the sudden she became unresponsive. The patient was given CPR which was continued in en route to the hospital. She was in PEA arrest. The patient was given epi, bicarb and D50. After approximately 30 minutes. She had successful return of spontaneous circulation and was started on dopamine. The patient also was intubated and placed on full mechanical ventilation. Her ABG post intubation showed a pH of 7.39, CO2 45, pAO2 238 and bicarb 27 and saturation of 97%. Her laboratory data showed the potassium 4.1, creatinine 6.23 and corrected calcium of 7.3. Other significant labs showed mild leukocytosis with a Review WBC of 12.7. A chest x-ray post intubation showed a bilateral pulmonary infiltrates and ET tube approximately 4 cm above the isabel. In the ER she was given calcium gluconate and started on dopamine as stated above. Right femoral central line was attempted by the ED physician without any success. The patient was also seen by Dr. Macho francois in the ER from nephrology service and she is scheduled to undergo CT scan of the brain. The patient is unresponsive. 06/02 No events overnight. On fentanyl infusion for sedation however patient has her eyes open unresponsive. Afebrile. Objective Vital Signs Date Time Temp Pulse Resp B/P (MAP) Pulse Ox O2 Delivery O2 Flow Rate FiO2 06/02/17 08:27 100 35 06/02/17 06:00 75 06/02/17 04:00 97.6 14 87/50 (62) 06/01/17 14:30 Ventilator Intake and Output 06/02/17 06/02/17 06/03/17 08:00 16:00 00:00 Intake Total 0 ml 100 ml Balance 0 ml 100 ml Result Diagram: 06/02/17 0230 06/02/17 0230 Other Results Laboratory Tests Test 06/01/17 11:30 06/01/17 11:45 06/01/17 13:35 06/01/17 15:50 White Blood Count 12.7 TH/MM3 Red Blood Count 3.87 MIL/MM3 Hemoglobin 10.5 GM/DL Hematocrit 34.6 % Mean Corpuscular Volume 89.3 FL Mean Corpuscular Hemoglobin 27.1 PG Mean Corpuscular Hemoglobin Concent 30.3 % Red Cell Distribution Width 17.3 % Platelet Count 195 TH/MM3 Mean Platelet Volume 8.2 FL Neutrophils (%) (Auto) 66.9 % Lymphocytes (%) (Auto) 24.8 % Monocytes (%) (Auto) 6.1 % Eosinophils (%) (Auto) 1.4 % Basophils (%) (Auto) 0.8 % Neutrophils # (Auto) 8.5 TH/MM3 Lymphocytes # (Auto) 3.2 TH/MM3 Monocytes # (Auto) 0.8 TH/MM3 Eosinophils # (Auto) 0.2 TH/MM3 Basophils # (Auto) 0.1 TH/MM3 CBC Comment DIFF FINAL Differential Comment Blood Urea Nitrogen 40 MG/DL Creatinine 6.23 MG/DL Random Glucose 154 MG/DL Total Protein 7.5 GM/DL Albumin 2.5 GM/DL Calcium Level 7.4 MG/DL Alkaline Phosphatase 160 U/L Aspartate Amino Transf (AST/SGOT) 52 U/L Alanine Aminotransferase (ALT/SGPT) 28 U/L Total Bilirubin 0.8 MG/DL Sodium Level 135 MEQ/L Potassium Level 4.1 MEQ/L Chloride Level 96 MEQ/L Carbon Dioxide Level 24.4 MEQ/L Anion Gap 15 MEQ/L Estimat Glomerular Filtration Rate 8 ML/MIN Protein Corrected Calcium 7.3 MG/DL Troponin I 0.02 NG/ML Lipase 130 U/L Acetaminophen Level LESS THAN 2.0 MCG/ML Ethyl Alcohol Level LESS THAN 3 MG/DL Salicylates Level LESS THAN 1.7 MG/DL Blood Gas Puncture Site RT RADIAL Blood Gas Patient Temperature 98.6 Blood Gas HCO3 27 mmol/L Blood Gas Base Excess 2.1 mmol/L Blood Gas Oxygen Saturation 97 % Arterial Blood pH 7.39 Arterial Blood Partial Pressure CO2 45 mmHg Arterial Blood Partial Pressure O2 238 mmHG Arterial Blood Oxygen Content 16.2 Vol % Arterial Blood Carboxyhemoglobin 0.4 % Arterial Blood Methemoglobin 0.5 % Blood Gas Hemoglobin 11.4 G/DL Oxygen Delivery Device VENTILATOR Blood Gas Ventilator Setting 500/16/5PEEP Blood Gas Inspired Oxygen 100 % Nasal Screen MRSA (PCR) MRSA NOT DETECTED Test 06/01/17 17:07 06/01/17 18:56 06/02/17 02:30 Stool C. difficile Toxin (PCR) NEGATIVE Stl C. difficile Toxin Epiderm 027 PRESUMPTIVE NEGATIVE Prothrombin Time 11.0 SEC Prothromb Time International Ratio 1.0 RATIO Lactic Acid Level 1.2 mmol/L Total Creatine Kinase 187 U/L 156 U/L Creatine Kinase MB 4.0 NG/ML White Blood Count 18.5 TH/MM3 Red Blood Count 3.92 MIL/MM3 Hemoglobin 10.6 GM/DL Hematocrit 33.9 % Mean Corpuscular Volume 86.4 FL Mean Corpuscular Hemoglobin 27.1 PG Mean Corpuscular Hemoglobin Concent 31.3 % Red Cell Distribution Width 16.7 % Platelet Count 215 TH/MM3 Mean Platelet Volume 7.7 FL Neutrophils (%) (Auto) 91.2 % Lymphocytes (%) (Auto) 5.1 % Monocytes (%) (Auto) 3.2 % Eosinophils (%) (Auto) 0.2 % Basophils (%) (Auto) 0.3 % Neutrophils # (Auto) 16.9 TH/MM3 Lymphocytes # (Auto) 0.9 TH/MM3 Monocytes # (Auto) 0.6 TH/MM3 Eosinophils # (Auto) 0.0 TH/MM3 Basophils # (Auto) 0.1 TH/MM3 CBC Comment DIFF FINAL Differential Comment Blood Urea Nitrogen 52 MG/DL Creatinine 7.35 MG/DL Random Glucose 119 MG/DL Calcium Level 7.7 MG/DL Sodium Level 139 MEQ/L Potassium Level 2.9 MEQ/L Chloride Level 96 MEQ/L Carbon Dioxide Level 28.7 MEQ/L Anion Gap 14 MEQ/L Estimat Glomerular Filtration Rate 7 ML/MIN Troponin I 0.21 NG/ML Imaging Last Impressions Head CT 06/01/17 1406 Signed Impressions: Service Date/Time: Thursday, June 01, 2017 15:17 - CONCLUSION: Atrophy otherwise negative. Freddy Arguelles MD FACR Chest X-Ray 06/01/17 1121 Signed Impressions: Service Date/Time: Thursday, June 01, 2017 13:54 - CONCLUSION: 1. Limited study. 2. Bilateral pulmonary infiltrates. Timothy Roper Jr., MD Objective Remarks GENERAL: Patient is 67yo s/p PEA arrest intubated unresponsive SKIN: Warm and dry. HEAD: Normocephalic. EYES: No scleral icterus. No injection or drainage. NECK: Supple, trachea midline. No JVD or lymphadenopathy. Orally intubated CARDIOVASCULAR: Regular rate and rhythm without murmurs, gallops, or rubs. RESPIRATORY: Breath sounds equal bilaterally. No accessory muscle use. GASTROINTESTINAL: Abdomen soft, non-tender, nondistended. MUSCULOSKELETAL: No cyanosis, b/l mid foot amputation Neuro: Intubated, doesn't follow commands A/P Assessment and Plan 1. Status post PEA arrest. 2. VDRF 3. End-stage renal disease. 4. Likely anoxic brain injury. 5. History of hypertension. 6. COPD on home oxygen. 7. Morbid obesity and a history of obstructive sleep apnea. 8. History of congestive heart failure. 9. Anemia of chronic disease. 10 Hypokalemia Plan Neuro: On fentanyl infusion for sedation. Monitor neuro status closely CT brain: atrophy no acute findings, for EEG today, neurology consulted Pulm: Continue with vent support and maintain sats above 92%. Bronchodilators, ICU vent bundle. CV: Monitor HR and BP maintain MAP> 65 mmHg. Lactic acid 1.2 Echo 06/01: EF 55-60%. Continue Aspirin 81 mg daily. Monitor renal function Is and Os and avoid nephrotoxins. Renal is following- Dr. Ling, for HD today On Sensipar and Renvela. GI: Protonix 40 mg IV daily. Start tube feeds- Nepro with goal 40ml/hr ID: Continue abx (Zosyn) monitor for signs of infections( fever and WBC). Follow up on blood and sputum cultures. Nasal washing and is negative for influenza in the ED. Of note the patient is allergic to VANCOMYCIN. Heme: Monitor CBC. Endo: SSI with Accu-Chek's for glycemic control. GI prophylaxis with Protonix 40 mg daily, DVT prophylaxis with SCDs./heparin Subcu prophylaxis Lines: Right femoral central line placed 06/01 Palliative care is following Prognosis is critically ill s/p PEA arrest, resp failure, ESRD and likely anoxic brain injury Level 3 Cami Mancilla MD Jun 02, 2017 10:18
[2017-06-02] MEDS ORDERED: LORazepam 2 MG/ML VIAL ONE (11:51)
[2017-06-02] MEDS ORDERED: SODIUM CHLOR 0.9% 1000 ML INJ 1,000 ML OTHER PRN (11:59)
[2017-06-02] MEDS ORDERED: SODIUM CHLOR 0.9% 1000 ML INJ 1,000 ML IV PRN (11:59)
[2017-06-02] MEDS ORDERED: HEPARIN SODIUM - IV 10,000 UNITS/10 ML VIAL IVF PRN (12:00)
[2017-06-02] MEDS ORDERED: HEPARIN SODIUM - IV 10,000 UNITS/10 ML VIAL PRN (12:00)
[2017-06-02] MEDS ORDERED: FOSPHENYTOIN INJ 1,000 MGPE in SODIUM CHLORIDE 0.9% INJ 50 ML IV ONE (12:00)
[2017-06-02] MEDS ORDERED: diphenhydrAMINE HCL 25 MG CAP PO PRN (12:00)
[2017-06-02] MEDS ORDERED: MANNITOL 12.5 GM/50 ML VIAL IV PRN (12:00)
[2017-06-02] MEDS ORDERED: NITROGLYCERIN 0.4 MG SL 25 TABS/BTL SL PRN (12:00)
[2017-06-02] MEDS ORDERED: ONDANSETRON HCL 4 MG/2 ML VIAL IV PRN (12:00)
[2017-06-02] MEDS ORDERED: SODIUM CHLORIDE 0.9% FLUSH 10 ML FLUSH IV FLUSH PRN (12:00)
[2017-06-02] MEDS ORDERED: GENTAMICIN SULFATE (DIALYSIS USE ONLY) 20 MG/2 ML VIAL IV PRN (12:00)
[2017-06-02] MEDS ORDERED: cloNIDine HCL 0.1 MG TAB PO PRN (12:00)
[2017-06-02] MEDS ORDERED: LORazepam 2 MG/ML VIAL IV STA ×2 (12:21→12:27)
--- NOTE | 2017-06-02 12:46 | HHI.NPPN ---
Subjective General Problems: Anemia History of Present Illness 67 years old female, with past history of ESRD and was currently in the process of converting to home HD. She was to have HD Mon-Fri, 2.5 hrs/treatment.. She was at the center receiving training when she reported to staff that she did not feel well, could not articulate her concerns. I spoke with the granddaughter who reports she had been complaining of shortness of breath and recent GI issues. She became unresponsive in the clinic, was given CPR for approximately 30 minutes. Additional Remarks Patient is now on the vent. has low BP and on pressors, just started on HD. Objective Data Data 06/02/17 06/03/17 19:00 07:00 Intake Total 100 ml Balance 100 ml IV Total 100 ml Vital Signs Date Time Temp Pulse Resp B/P (MAP) Pulse Ox O2 Delivery O2 Flow Rate FiO2 06/02/17 12:03 100 35 06/02/17 10:00 80 06/02/17 08:27 100 35 06/02/17 08:00 84 06/02/17 08:00 98.1 84 17 112/56 (74) 99 06/02/17 08:00 84 06/02/17 06:00 75 06/02/17 04:26 98 45 06/02/17 04:00 97.6 73 14 87/50 (62) 99 06/02/17 04:00 73 06/02/17 02:00 70 06/02/17 01:18 98 50 06/02/17 00:00 97.4 70 14 101/58 (72) 98 06/02/17 00:00 70 06/01/17 23:21 67 118/65 06/01/17 22:00 77 06/01/17 21:12 100 50 06/01/17 20:00 98.0 81 34 170/93 (118) 100 06/01/17 20:00 81 06/01/17 20:00 98.0 81 34 170/93 (118) 100 06/01/17 20:00 81 06/01/17 17:29 99 50 06/01/17 17:00 71 95/52 06/01/17 17:00 71 95/52 06/01/17 16:45 78 95/52 06/01/17 16:30 80 86/43 06/01/17 16:15 91 88/49 06/01/17 16:15 91 88/49 06/01/17 16:00 94 14 118/62 (80) 100 Manual Cuff/Auscultation 06/01/17 16:00 90 95/50 06/01/17 15:46 06/01/17 15:42 95 118/62 06/01/17 15:40 99 100 06/01/17 14:34 94 60 06/01/17 14:30 98 16 128/61 (83) 95 Ventilator 60 06/01/17 14:25 95 109/56 06/01/17 14:00 95 16 109/56 (73) 95 Ventilator 60 06/01/17 13:00 93 16 88/44 (59) 100 Ventilator 100 06/01/17 12:45 92 16 92/47 (62) 99 Ventilator 100 -: 06/02/17 0230 06/02/17 0230 Microbiology 06/01/17 Gram Stain - Final, Resulted 06/01/17 Sputum Culture, Resulted Pending Physical Exam General Appearance Remarks Intubated and unresponsive. Eyes Eye Exam: Pupils Equal Throat Throat Exam: Oral Mucosa [place] & Moist Neck Neck Exam: Neck Supple Pulmonary Resp Exam: Breath Sounds Equal, No Distress, Rhonchi, Decreased Bases Cardiology CV Exam: Regular, Normal Sinus Rhythm Gastrointestinal/Abdomen GI Exam: Soft, Non-Tender, Bowel Sounds Present Extremeties Extremities Exam: Moderate Edema, Pitting Edema, Dependent Edema Neurologic Neuro Exam: Unresponsive Assessment/Plan Problem List: (1) Cardiac arrest ICD Codes: I46.9 - Cardiac arrest, cause unspecified Plan: she is unresponsive on ventilator etiology of cardiac arrest uncertain it remains to be seen if she will recover , consider palliative care evaluation BP is low, on pressors. (2) ESRD (end stage renal disease) ICD Codes: N18.6 - End stage renal disease Status: Chronic Plan: she is on Sun-Sun HD, had 10 min on Sunday. we will dialyze her later today monitor electrolytes, fluid status. HD now, not removing fluid as BP is low. (3) Metabolic bone disease ICD Codes: E88.9 - Metabolic disorder, unspecified; M90.80 - Osteopathy in diseases classified elsewhere, unspecified site Status: Acute Plan: monitor phosphorus level start binders if needed (4) Anemia of chronic renal failure Status: Chronic Plan: epogen with HD (5) Hypertension Status: Chronic Plan: monitor blood pressure, currently on dopamine for pressure support Robina Juan MD Jun 02, 2017 12:46
[2017-06-02] MEDS: EPOETIN ALFA 10,000 UNITS/ML VIAL IV PRN (12:50)
[2017-06-02] MEDS: ALBUMIN HUMAN 25% 25 GM/100 ML BAGP IV PRN ×2 (12:50→12:53)
[2017-06-02] MEDS: GELATIN 12 MM/7 MM FOAM TOP PRN (12:51)
[2017-06-02] MEDS: NOREPINEPHRINE 4 MG/D5W 250 ML IV PRN ×2 (14:26→20:05)
--- NOTE | 2017-06-02 15:58 | MB ---
cc: KELIN BHATIA M.D. DATE OF CONSULTATION 06/02/17 DATE OF 1950 AGE [id number]. REASON FOR CONSULTATION Possible anoxic encephalopathy. HISTORY OF PRESENT ILLNESS A 67-year-old woman who was at a dialysis center the day of admission, did not feel well and became unresponsive, went into PEA. CPR was started. Given epi and bicarb 30 minutes of treatment, successfully returned circulation, pulse, started on dopamine, intubated. Today she has her eyes open. PAST MEDICAL HISTORY She has a past medical history of end-stage renal disease on hemodialysis, hypertension, hyperlipidemia, anemia of chronic disease, arthritis, congestive heart failure, stroke history, reflux, LIBERTAD on C-PAP, hypothyroidism, vertigo, anxiety, depression. PAST SURGICAL HISTORY Bilateral midfoot amputations, AV fistula, left breast lumpectomy, hysterectomy. SOCIAL HISTORY Nonsmoker. No alcohol. FAMILY HISTORY Noncontributory. ALLERGIES ALLERGIES ARE IODINE, VANCO, MORPHINE. MEDICATIONS Medicines at home please refer to NOV. PHYSICAL EXAMINATION VITAL SIGNS: Temperature 97.6, pulse 80, respiratory rate 14, blood pressure is 87/50, satting 100% FIO2 of 35%. NEURO: She is intubated on the ventilator, sedated. Pupils are reactive. She has a left gaze preference. She has spontaneous blinking. Eyes are open but does not open or close on command. Does not blink to threat. Does not follow the examiner or track. Does not follow any commands. She does try to move her right arm but not on command, however, she has tone, decreased on the left. Babinski's cannot be assessed. She has bilateral amputation midfoot. Reflexes are blunted throughout. LABORATORY DATA White count 18.5, hemoglobin 10.6, hematocrit 33.9, platelets are 250,000. Coag panel is unremarkable. Potassium 2.9, BUN 52, creatinine 7.35. Troponin 0.21. Toxicology screen unremarkable. Cultures are pending. IMAGING STUDIES CT head atrophy. IMPRESSION A 67-year-old woman status post code, PEA arrest, now with possible anoxic encephalopathy. She is still on fentanyl infusion for sedation. Will get an EEG today and continue to monitor her neuro status. May need to repeat a CT in the next 24-48 hours. If there is no change consider sedation vacation, will defer to the milieu coordinator for that. Continue other medical treatments per their expertise, nephrology and dialysis. Further recommendations to be made accordingly. MD AZUCENA Ayala/PETER /11:10 AM /3:39 PM
[2017-06-02] MEDS: FOSPHENYTOIN SODIUM 100 MG PE/2 ML VIAL IM SCH (20:04)
[2017-06-02] MEDS: fentaNYL DRIP 250 ML IV PRN (20:05)
--- NOTE | 2017-06-02 20:33 | MG ---
cc: JOIE GARCIA M.D. Lab No: [id number] Date: 06/02/17 Age:67 Sex: F Race: DATE OF 1950 AGE [id number]. REFERRING PHYSICIAN Laurent ROOM 525. Intubated, sedated on fentanyl. The patient starts twitching, eyes deviate up and to the right. CT atrophy, female admitted with, 67-year-old, unresponsive, CPR, PEA, on dialysis. Her medicines are sedating medications as stated and antibiotics, __00:34. The patient is ___. DESCRIPTION OF RECORD The patient has bipolar discharges seen with the face twitching, this is bilaterally. This is seen throughout the recording. IMPRESSION Abnormal EEG due to bipolar discharges seen throughout the recording consistent with active seizure like event. The patient was started on Cerebyx immediately after EEG. This may be secondary to anoxic brain injury, further recommendations will be made. Clinical correlation. Joie Garcia MD DF/PETER /6:54 PM /8:16 PM
[2017-06-03] VITALS (18 sets, daily range): BP systolic 93–114; BP diastolic 52–59; PULSE 76–100; RESP 14–16; TEMP 98–100.8; O2SAT 96–100
[2017-06-03] MEDS: PIPERACIL-TAZO 2.25 GM PREMIX 50 ML IV SCH ×3 (00:05→15:39)
[2017-06-03] MEDS: CHLORHEXIDINE GLUCONATE 2 % 1 PACK (2 CLOTHS) TOP SCH (04:00)
[2017-06-03] MEDS: RESP: ALBUTEROL 2.5 MG/IPRATROPIUM 0.5 MG NEB (SCH) INH ×3 (04:25→21:12)
[2017-06-03] MEDS: FOSPHENYTOIN SODIUM 100 MG PE/2 ML VIAL IM SCH (04:38)
[2017-06-03] MEDS: NOREPINEPHRINE 4 MG/D5W 250 ML IV PRN ×3 (05:33→11:26)
[2017-06-03] MEDS: ACETAMINOPHEN 325 MG TAB PO PRN ×3 (05:47→20:09)
[2017-06-03 05:56] LABS: AUTOMATED NEUTROPHIL # 15.2 TH/MM3 (1.8-7.7); BASOPHIL # 0.1 TH/MM3 (0-0.2); BASOPHIL % 0.7 % (0.0-2.0); EOSINOPHIL # 1.1 TH/MM3 (0-0.4); EOSINOPHIL % 5.6 % (0.0-4.0); HEMATOCRIT 29.4 % (35.0-46.0); HEMO FLAGS DIFF FINAL; LYMPH % 7.5 % (9.0-44.0); LYMPHOCYTE # 1.5 TH/MM3 (1.0-4.8); MEAN CELL VOLUME 86.3 FL (80.0-100.0); MEAN CORPUSCULAR HEMOGLOBIN 27.2 PG (27.0-34.0); MEAN CORPUSCULAR HGB CONC 31.5 % (32.0-36.0); MONO % 7.6 % (0.0-8.0); NEUT % 78.6 % (16.0-70.0); PLATELET COUNT 224 TH/MM3 (150-450); RED BLOOD COUNT 3.41 MIL/MM3 (4.00-5.30); WHITE BLOOD COUNT 19.3 TH/MM3 (4.0-11.0)
[2017-06-03 06:11] LABS: BICARBONATE 30.5 MEQ/L (21.0-32.0); POTASSIUM 3.5 MEQ/L (3.5-5.1)
--- NOTE | 2017-06-03 08:03 | HHI.CCPN ---
Subjective Remarks/Hospital Course Patient is 67-year-old female with multiple comorbidities which include end- stage renal disease on hemodialysis Sunday, Sunday, Sunday, hypertension, COPD on home oxygen, morbid obesity with obstructive sleep apnea, CHF. The patient was at the dialysis center today, she reported to the staff that she did not feel well and all the sudden she became unresponsive. The patient was given CPR which was continued in en route to the hospital. She was in PEA arrest. The patient was given epi, bicarb and D50. After approximately 30 minutes. She had successful return of spontaneous circulation and was started on dopamine. The patient also was intubated and placed on full mechanical ventilation. Her ABG post intubation showed a pH of 7.39, CO2 45, pAO2 238 and bicarb 27 and saturation of 97%. Her laboratory data showed the potassium 4.1, creatinine 6.23 and corrected calcium of 7.3. Other significant labs showed mild leukocytosis with a Review WBC of 12.7. A chest x-ray post intubation showed a bilateral pulmonary infiltrates and ET tube approximately 4 cm above the isabel. In the ER she was given calcium gluconate and started on dopamine as stated above. Right femoral central line was attempted by the ED physician without any success. The patient was also seen by Dr. Macho francois in the ER from nephrology service and she is scheduled to undergo CT scan of the brain. The patient is unresponsive. 06/02 No events overnight. On fentanyl infusion for sedation however patient has her eyes open unresponsive. Afebrile. 06/03 No events overnight. Sedated with Fentanyl and intubated. On Levophed 11mics. EEG yesterday showed seizures started on Cerebyx. Objective Vital Signs Date Time Temp Pulse Resp B/P (MAP) Pulse Ox O2 Delivery O2 Flow Rate FiO2 06/03/17 06:00 89 06/03/17 05:36 101/53 06/03/17 04:26 100 35 06/03/17 04:00 98.0 14 06/01/17 14:30 Ventilator Intake and Output 06/03/17 06/03/17 06/04/17 08:00 16:00 00:00 Intake Total 901 ml Output Total 0 ml Balance 901 ml Result Diagram: 06/03/1730 06/03/1730 Other Results Laboratory Tests Test 06/02/17 13:15 06/03/17 05:30 Troponin I 0.14 NG/ML White Blood Count 19.3 TH/MM3 Red Blood Count 3.41 MIL/MM3 Hemoglobin 9.3 GM/DL Hematocrit 29.4 % Mean Corpuscular Volume 86.3 FL Mean Corpuscular Hemoglobin 27.2 PG Mean Corpuscular Hemoglobin Concent 31.5 % Red Cell Distribution Width 17.0 % Platelet Count 224 TH/MM3 Mean Platelet Volume 8.2 FL Neutrophils (%) (Auto) 78.6 % Lymphocytes (%) (Auto) 7.5 % Monocytes (%) (Auto) 7.6 % Eosinophils (%) (Auto) 5.6 % Basophils (%) (Auto) 0.7 % Neutrophils # (Auto) 15.2 TH/MM3 Lymphocytes # (Auto) 1.5 TH/MM3 Monocytes # (Auto) 1.5 TH/MM3 Eosinophils # (Auto) 1.1 TH/MM3 Basophils # (Auto) 0.1 TH/MM3 CBC Comment DIFF FINAL Differential Comment Blood Urea Nitrogen 37 MG/DL Creatinine 5.98 MG/DL Random Glucose 100 MG/DL Calcium Level 8.0 MG/DL Sodium Level 140 MEQ/L Potassium Level 3.5 MEQ/L Chloride Level 99 MEQ/L Carbon Dioxide Level 30.5 MEQ/L Anion Gap 11 MEQ/L Estimat Glomerular Filtration Rate 9 ML/MIN Phenytoin (Dilantin) Level 6.5 MCG/ML Imaging Last Impressions Head CT 06/01/17 1406 Signed Impressions: Service Date/Time: Thursday, June 01, 2017 15:17 - CONCLUSION: Atrophy otherwise negative. Freddy Arguelles MD FACR Chest X-Ray 06/01/17 1121 Signed Impressions: Service Date/Time: Thursday, June 01, 2017 13:54 - CONCLUSION: 1. Limited study. 2. Bilateral pulmonary infiltrates. Timothy Roper Jr., MD Objective Remarks GENERAL: Patient is 67yo s/p PEA arrest intubated unresponsive SKIN: Warm and dry. HEAD: Normocephalic. EYES: No scleral icterus. No injection or drainage. NECK: Supple, trachea midline. No JVD or lymphadenopathy. Orally intubated CARDIOVASCULAR: Regular rate and rhythm without murmurs, gallops, or rubs. RESPIRATORY: Breath sounds equal bilaterally. No accessory muscle use. GASTROINTESTINAL: Abdomen soft, non-tender, nondistended. MUSCULOSKELETAL: No cyanosis, b/l mid foot amputation Neuro: Intubated, doesn't follow commands A/P Assessment and Plan 1. Status post PEA arrest. 2. VDRF 3. End-stage renal disease. 4. Likely anoxic brain injury. 5. History of hypertension. 6. COPD on home oxygen. 7. Morbid obesity and a history of obstructive sleep apnea. 8. History of congestive heart failure. 9. Anemia of chronic disease. 10 Hypokalemia Plan Neuro: On fentanyl infusion for sedation. Monitor neuro status closely CT brain: atrophy no acute findings, EEG 06/02: Seizure activity, on Cerebyx 100mg Q8, Ativan 1mg Q4 PRN Neuro is following- Dr. Garcia. Dilantin level 6.5 this morning Pulm: Continue with vent support and maintain sats above 92%. Bronchodilators, ICU vent bundle. CV: Wean off Levophed Monitor HR and BP maintain MAP> 65 mmHg. Lactic acid 1.2 Add HC 100mg IV Q8 Echo 06/01: EF 55-60%. Continue Aspirin 81 mg daily. Stress dose steroids- HC 100mg IV Q8 Monitor renal function Is and Os and avoid nephrotoxins. Renal is following- Dr. Ling,s/p HD 06/02 On Sensipar and Renvela. Cr: 5.98 from 7.35 GI: Protonix 40 mg IV daily. tube feeds- Nepro with goal 40ml/hr ID: Continue abx (Zosyn) add Azithromycin monitor for signs of infections( fever and WBC). Follow up on blood 06/01: NGTD Nasal washing and is negative for influenza in the ED. Of note the patient is allergic to VANCOMYCIN. Heme: Monitor CBC. Endo: SSI with Accu-Chek's for glycemic control. GI prophylaxis with Protonix 40 mg daily, DVT prophylaxis with SCDs./heparin Subcu prophylaxis Lines: Right femoral central line placed 06/01 Palliative care is following Prognosis is critically ill s/p PEA arrest, resp failure, ESRD and likely anoxic brain injury Level 3 Cami Mancilla MD Jun 03, 2017 08:03
[2017-06-03] MEDS: ASPIRIN EC 81 MG TABEC PO SCH (08:21)
[2017-06-03] MEDS: SEVELAMER CARBONATE 800 MG TAB PO SCH ×3 (08:22→18:00)
[2017-06-03] MEDS: VITAMIN B CMPLX/VITC/FOLIC AC CAP PO SCH (08:22)
[2017-06-03] MEDS: CINACALCET HYDROCHLORIDE 30 MG TAB PO SCH (08:22)
[2017-06-03] MEDS: PANTOPRAZOLE SODIUM 40 MG VIAL IV SCH (08:22)
[2017-06-03] MEDS: LORazepam 2 MG/ML VIAL IV PUSH PRN ×2 (09:17→09:30)
[2017-06-03] MEDS ORDERED: FOSPHENYTOIN SODIUM 100 MG PE/2 ML VIAL IV ONE (09:30)
[2017-06-03] MEDS ORDERED: LORazepam 2 MG/ML VIAL IV PUSH ONE (09:30)
[2017-06-03] MEDS ORDERED: FOSPHENYTOIN INJ 300 MGPE in SODIUM CHLORIDE 0.9% INJ 50 ML IV ONE (09:45)
[2017-06-03] MEDS: MIDAZOLAM 100 MG/100 ML INJ 100 ML IV PRN (09:56)
[2017-06-03] MEDS: FOSPHENYTOIN SODIUM 100 MG PE/2 ML VIAL IV SCH ×2 (12:00→19:55)
[2017-06-03] MEDS ORDERED: GLUCAGON 1 MG/ML VIAL OTHER PRN (14:00)
[2017-06-03] MEDS ORDERED: DEXTROSE 50% IN WATER 50 ML VIAL(D50) IV PRN (14:00)
[2017-06-03] MEDS: INSULIN NovoLIN REGULAR SUPPLEMENTAL SCALE SQ SCH ×3 (14:20→19:56)
[2017-06-03] MEDS: HYDROCORTISONE SOD SUCCINATE 100 MG VIAL IV PUSH SCH ×2 (14:44→19:56)
--- NOTE | 2017-06-03 14:52 | HHI.NPPN ---
Subjective General Problems: Anemia History of Present Illness 67 years old female, with past history of ESRD and was currently in the process of converting to home HD. She was to have HD Mon-Fri, 2.5 hrs/treatment.. She was at the center receiving training when she reported to staff that she did not feel well, could not articulate her concerns. I spoke with the granddaughter who reports she had been complaining of shortness of breath and recent GI issues. She became unresponsive in the clinic, was given CPR for approximately 30 minutes. Additional Remarks Patient remain on the vent. has low BP and on pressors, remain unresponsive. Objective Data Data 06/03/17 06/04/17 19:00 07:00 Intake Total 106 ml Balance 106 ml IV Total 106 ml Vital Signs Date Time Temp Pulse Resp B/P (MAP) Pulse Ox O2 Delivery O2 Flow Rate FiO2 06/03/17 14:00 94 06/03/17 12:00 90 06/03/17 12:00 99.8 93 14 99/52 (68) 96 06/03/17 11:26 87 87/47 06/03/17 10:10 86 88/53 06/03/17 10:05 85 85/47 06/03/17 10:00 78 06/03/17 10:00 86 82/46 06/03/17 08:25 100 35 06/03/17 08:00 89 06/03/17 08:00 100.1 89 14 114/58 (76) 100 06/03/17 07:30 89 115/59 06/03/17 07:00 86 06/03/17 06:50 14 06/03/17 06:00 89 06/03/17 05:36 92 101/53 06/03/17 05:33 92 97/53 06/03/17 04:26 100 35 06/03/17 04:00 98.0 88 14 93/52 (66) 100 06/03/17 04:00 90 06/03/17 02:00 92 06/03/17 01:12 100 35 06/03/17 00:00 98.4 96 16 112/59 (76) 100 06/03/17 00:00 93 06/02/17 22:04 100 35 06/02/17 22:00 96 06/02/17 20:17 100 35 06/02/17 20:05 84 104/55 06/02/17 20:00 98.9 84 17 103/55 (71) 100 06/02/17 20:00 93 06/02/17 18:00 85 06/02/17 16:39 100 35 06/02/17 16:00 92 06/02/17 16:00 98.9 92 23 125/61 (82) 100 -: 06/03/17 0530 06/03/17 0530 Physical Exam General Appearance Remarks Intubated and unresponsive. Eyes Eye Exam: Pupils Equal Throat Throat Exam: Oral Mucosa [place] & Moist Neck Neck Exam: Neck Supple Pulmonary Resp Exam: Breath Sounds Equal, No Distress, Rhonchi, Decreased Bases Cardiology CV Exam: Regular, Normal Sinus Rhythm Gastrointestinal/Abdomen GI Exam: Soft, Non-Tender, Bowel Sounds Present Extremeties Extremities Exam: Moderate Edema, Pitting Edema, Dependent Edema Neurologic Neuro Exam: Unresponsive Assessment/Plan Problem List: (1) Cardiac arrest ICD Codes: I46.9 - Cardiac arrest, cause unspecified Plan: she is unresponsive on ventilator etiology of cardiac arrest uncertain BP is low, on pressors. Seen by Neurology, EEG showing seizure activity. HD is due in AM, Dr. Ling will follow. (2) ESRD (end stage renal disease) ICD Codes: N18.6 - End stage renal disease Status: Chronic Plan: she is on Sun-Sun HD, had 10 min on Sunday. we will dialyze her later today monitor electrolytes, fluid status. HD now, not removing fluid as BP is low. (3) Metabolic bone disease ICD Codes: E88.9 - Metabolic disorder, unspecified; M90.80 - Osteopathy in diseases classified elsewhere, unspecified site Status: Acute Plan: monitor phosphorus level start binders if needed (4) Anemia of chronic renal failure Status: Chronic Plan: epogen with HD (5) Hypertension Status: Chronic Plan: monitor blood pressure, currently on dopamine for pressure support Robina Juan MD Jun 03, 2017 14:52
[2017-06-03] MEDS ORDERED: VASOPRESSIN INJ 40 UNITS in DEXTROSE 5% IN WATER 100ML INJ 98 ML IV SCH ×2 (15:14)
[2017-06-03] MEDS: AZITHROMYCIN INJ 500 MG in SODIUM CHLOR 0.9% 250 ML INJ 250 ML IV SCH (15:40)
[2017-06-03] MEDS: VASOPRESSIN INJ 40 UNITS in DEXTROSE 5% IN WATER 100ML INJ 98 ML IV SCH ×2 (16:22)
[2017-06-03] MEDS: DOCUSATE SODIUM 50 MG/SENNA 8.6 MG TAB PO SCH (19:56)
[2017-06-03] MEDS: fentaNYL DRIP 250 ML IV PRN (20:09)
--- NOTE | 2017-06-03 22:09 | MG ---
cc: KELIN BHATIA M.D. Lab No: Date: 06/03/2017 Age: Sex: F Race: DATE OF 1950, 67 years old EEG NUMBER [id number] ROOM 527 Intubated. No hyperventilation or photic done. Sedated with fentanyl 100 micrograms. One mg of Ativan given at 8 minutes, 1 mg of Ativan at 18 minutes. IV Cerebyx started at 27 minutes. A 67-year-old woman status post PEA. Last EEG showed abnormalities due to bihemispheric discharges, epileptic discharges likely anoxic. History of renal disease, dialysis, hypothyroidism, vertigo, sleep apnea. MEDICATIONS Are: 1. Norepinephrine. 2. Fentanyl. 3. . 4. Cerebyx. 5. Tylenol. DESCRIPTION OF RECORD The patient starts out with spike and wave discharges bilaterally in a continuous fashion. Ativan was given at epoch 48 without any significant change in pattern. Then by epoch 100 another 1 mg was given. Nurse is suctioning the patient. Artifact with biting the tube. IMPRESSION Ongoing epileptiform discharges may be PLED like also, however, this may be consistent with an anoxic encephalopathy. The patient was already loaded with Dilantin the day prior. Continued on maintenance dose and given an extra 300 at the time of the EEG. Recommend a repeat study. Clinical correlation possibly and adding second agent if needed. MD AZUCENA Ayala/KERRI /8:35 PM /9:49 PM
[2017-06-04] VITALS (16 sets, daily range): BP systolic 93–111; BP diastolic 51–61; PULSE 66–80; RESP 14–16; TEMP 97.6–99.3; O2SAT 96–100
[2017-06-04] MEDS: VALPROATE INJ 500 MG in SODIUM CHLORIDE 0.9% INJ 100 ML IV SCH ×4 (00:16→23:29)
[2017-06-04] MEDS: PIPERACIL-TAZO 2.25 GM PREMIX 50 ML IV SCH ×4 (00:17→23:29)
[2017-06-04] MEDS: INSULIN NovoLIN REGULAR SUPPLEMENTAL SCALE SQ SCH ×6 (02:00→20:12)
[2017-06-04] MEDS: LORazepam 2 MG/ML VIAL IV PUSH PRN (02:25)
[2017-06-04] MEDS: RESP: ALBUTEROL 2.5 MG/IPRATROPIUM 0.5 MG NEB (SCH) INH ×4 (03:36→20:48)
[2017-06-04] MEDS: CHLORHEXIDINE GLUCONATE 2 % 1 PACK (2 CLOTHS) TOP SCH ×2 (04:00→20:12)
[2017-06-04] MEDS: HYDROCORTISONE SOD SUCCINATE 100 MG VIAL IV PUSH SCH ×3 (04:33→20:12)
[2017-06-04] MEDS: FOSPHENYTOIN SODIUM 100 MG PE/2 ML VIAL IV SCH ×3 (04:33→20:11)
[2017-06-04] MEDS: VASOPRESSIN INJ 40 UNITS in DEXTROSE 5% IN WATER 100ML INJ 98 ML IV SCH ×4 (05:27→21:05)
[2017-06-04 05:49] LABS: AUTOMATED NEUTROPHIL # 13.9 TH/MM3 (1.8-7.7); BASOPHIL # 0.1 TH/MM3 (0-0.2); BASOPHIL % 0.5 % (0.0-2.0); EOSINOPHIL % 0.2 % (0.0-4.0); HEMATOCRIT 28.4 % (35.0-46.0); HEMO FLAGS DIFF FINAL; LYMPH % 6.7 % (9.0-44.0); LYMPHOCYTE # 1.1 TH/MM3 (1.0-4.8); MEAN CELL VOLUME 87.1 FL (80.0-100.0); NEUT % 86.6 % (16.0-70.0); PLATELET COUNT 224 TH/MM3 (150-450); RED BLOOD COUNT 3.26 MIL/MM3 (4.00-5.30); RED CELL DISTRIBUTION WIDTH 17.1 % (11.6-17.2)
[2017-06-04 06:21] LABS: ALKALINE PHOSPHATASE 109 U/L (45-117); ALT (GPT) 20 U/L (10-53); ANION GAP 12 MEQ/L (5-15); AST (GOT) 49 U/L (15-37); BICARBONATE 27.7 MEQ/L (21.0-32.0); BLOOD UREA NITROGEN 53 MG/DL (7-18); CHLORIDE 97 MEQ/L (98-107); GLOMERULAR FILTRATION RATE 7 ML/MIN (>89); POTASSIUM 3.8 MEQ/L (3.5-5.1); SODIUM (NA) 137 MEQ/L (136-145); TOTAL BILIRUBIN ADULT 0.6 MG/DL (0.2-1.0)
--- NOTE | 2017-06-04 08:18 | HHI.CCPN ---
Subjective Remarks/Hospital Course Patient is 67-year-old female with multiple comorbidities which include end- stage renal disease on hemodialysis Sunday, Sunday, Sunday, hypertension, COPD on home oxygen, morbid obesity with obstructive sleep apnea, CHF. The patient was at the dialysis center today, she reported to the staff that she did not feel well and all the sudden she became unresponsive. The patient was given CPR which was continued in en route to the hospital. She was in PEA arrest. The patient was given epi, bicarb and D50. After approximately 30 minutes. She had successful return of spontaneous circulation and was started on dopamine. The patient also was intubated and placed on full mechanical ventilation. Her ABG post intubation showed a pH of 7.39, CO2 45, pAO2 238 and bicarb 27 and saturation of 97%. Her laboratory data showed the potassium 4.1, creatinine 6.23 and corrected calcium of 7.3. Other significant labs showed mild leukocytosis with a Review WBC of 12.7. A chest x-ray post intubation showed a bilateral pulmonary infiltrates and ET tube approximately 4 cm above the isabel. In the ER she was given calcium gluconate and started on dopamine as stated above. Right femoral central line was attempted by the ED physician without any success. The patient was also seen by Dr. Macho francois in the ER from nephrology service and she is scheduled to undergo CT scan of the brain. The patient is unresponsive. 06/02 No events overnight. On fentanyl infusion for sedation however patient has her eyes open unresponsive. Afebrile. 06/03 No events overnight. Sedated with Fentanyl and intubated. On Levophed 11mics. EEG yesterday showed seizures started on Cerebyx. 06/04 Patient remains intubated and sedated with Versed and Fentanyl drip. Had seizure overnight given Ativan 1mg x1. Levophed down 1mic and on vasopressin. For HD today. T:100.4 last night Objective Vital Signs Date Time Temp Pulse Resp B/P (MAP) Pulse Ox O2 Delivery O2 Flow Rate FiO2 06/04/17 07:54 100 35 06/04/17 06:00 76 06/04/17 05:27 103/56 06/04/17 04:00 98.8 14 06/01/17 14:30 Ventilator Intake and Output 06/04/17 06/04/17 06/05/17 08:00 16:00 00:00 Intake Total 1026 ml Output Total 0 ml Balance 1026 ml Result Diagram: 06/04/17 0520 06/04/17 0520 Other Results Laboratory Tests Test 06/04/17 05:20 White Blood Count 16.0 TH/MM3 Red Blood Count 3.26 MIL/MM3 Hemoglobin 8.8 GM/DL Hematocrit 28.4 % Mean Corpuscular Volume 87.1 FL Mean Corpuscular Hemoglobin 27.0 PG Mean Corpuscular Hemoglobin Concent 31.0 % Red Cell Distribution Width 17.1 % Platelet Count 224 TH/MM3 Mean Platelet Volume 8.2 FL Neutrophils (%) (Auto) 86.6 % Lymphocytes (%) (Auto) 6.7 % Monocytes (%) (Auto) 6.0 % Eosinophils (%) (Auto) 0.2 % Basophils (%) (Auto) 0.5 % Neutrophils # (Auto) 13.9 TH/MM3 Lymphocytes # (Auto) 1.1 TH/MM3 Monocytes # (Auto) 1.0 TH/MM3 Eosinophils # (Auto) 0.0 TH/MM3 Basophils # (Auto) 0.1 TH/MM3 CBC Comment DIFF FINAL Differential Comment Blood Urea Nitrogen 53 MG/DL Creatinine 7.40 MG/DL Random Glucose 142 MG/DL Total Protein 7.1 GM/DL Albumin 2.5 GM/DL Calcium Level 8.1 MG/DL Alkaline Phosphatase 109 U/L Aspartate Amino Transf (AST/SGOT) 49 U/L Alanine Aminotransferase (ALT/SGPT) 20 U/L Total Bilirubin 0.6 MG/DL Sodium Level 137 MEQ/L Potassium Level 3.8 MEQ/L Chloride Level 97 MEQ/L Carbon Dioxide Level 27.7 MEQ/L Anion Gap 12 MEQ/L Estimat Glomerular Filtration Rate 7 ML/MIN Phenytoin (Dilantin) Level 6.1 MCG/ML Imaging Last Impressions Head CT 06/01/17 1406 Signed Impressions: Service Date/Time: Thursday, June 01, 2017 15:17 - CONCLUSION: Atrophy otherwise negative. Freddy Arguelles MD FACR Chest X-Ray 06/01/17 1121 Signed Impressions: Service Date/Time: Thursday, June 01, 2017 13:54 - CONCLUSION: 1. Limited study. 2. Bilateral pulmonary infiltrates. Timothy Roper Jr., MD Objective Remarks GENERAL: Patient is 67yo s/p PEA arrest intubated unresponsive SKIN: Warm and dry. HEAD: Normocephalic. EYES: No scleral icterus. No injection or drainage. NECK: Supple, trachea midline. No JVD or lymphadenopathy. Orally intubated CARDIOVASCULAR: Regular rate and rhythm without murmurs, gallops, or rubs. RESPIRATORY: Breath sounds equal bilaterally. No accessory muscle use. GASTROINTESTINAL: Abdomen soft, non-tender, nondistended. MUSCULOSKELETAL: No cyanosis, b/l mid foot amputation Neuro: Intubated, doesn't follow commands A/P Assessment and Plan 1. Status post PEA arrest. 2. VDRF 3. End-stage renal disease. 4. Likely anoxic brain injury. 5. History of hypertension. 6. COPD on home oxygen. 7. Morbid obesity and a history of obstructive sleep apnea. 8. History of congestive heart failure. 9. Anemia of chronic disease. 10 Status Epilepticus Plan Neuro: On fentanyl/Versed infusion for sedation. Monitor neuro status closely CT brain: atrophy no acute findings, EEG 06/03: Epileptiform discharges EEG 06/02: Seizure activity, on Cerebyx 100mg Q8, Depakote, Ativan 1mg Q4 PRN Neuro is following- Dr. Garcia. Dilantin level 6.1 this morning Pulm: Continue with vent support and maintain sats above 92%. Bronchodilators, ICU vent bundle. CV: On Levophed 1mic and vasopressin 0.04. Monitor HR and BP maintain MAP> 65 mmHg. Lactic acid 1.2 Echo 06/01: EF 55-60%. Continue Aspirin 81 mg daily. Stress dose steroids- HC 100mg IV Q8 Monitor renal function Is and Os and avoid nephrotoxins. Renal is following- Dr. Ling s/p HD 06/02 On Sensipar and Renvela. Cr: 7.40 today GI: Protonix 40 mg IV daily. tube feeds- Nepro with goal 40ml/hr ID: Continue abx (Zosyn, Azithromycin monitor for signs of infections( fever and WBC). Follow up on blood 06/01: NGTD, sputum 06/01: normal resp kaylene Nasal washing and is negative for influenza in the ED. Of note the patient is allergic to VANCOMYCIN. Heme: Monitor CBC. Endo: SSI with Accu-Chek's for glycemic control. GI prophylaxis with Protonix 40 mg daily, DVT prophylaxis with SCDs./heparin Subcu prophylaxis Lines: Right femoral central line placed 06/01 Palliative care is following Prognosis is critically ill s/p PEA arrest, resp failure, ESRD and likely anoxic brain injury Level 3 Cami Mancilla MD Jun 04, 2017 08:18
[2017-06-04] MEDS: DOCUSATE SODIUM 50 MG/SENNA 8.6 MG TAB PO SCH ×2 (09:00→20:11)
[2017-06-04] MEDS: SEVELAMER CARBONATE 800 MG TAB PO SCH ×3 (09:00→16:27)
[2017-06-04] MEDS: ASPIRIN EC 81 MG TABEC PO SCH (09:00)
[2017-06-04] MEDS: VITAMIN B CMPLX/VITC/FOLIC AC CAP PO SCH (09:00)
[2017-06-04] MEDS: CINACALCET HYDROCHLORIDE 30 MG TAB PO SCH (09:00)
[2017-06-04] MEDS: PANTOPRAZOLE SODIUM 40 MG VIAL IV SCH (09:04)
[2017-06-04] MEDS: HEPARIN SODIUM - SQ 10,000 UNITS/ML VIAL SQ SCH ×2 (10:30→20:12)
--- NOTE | 2017-06-04 11:07 | HHI.HCPN ---
Reason for visit a. To assist with evaluation and management of symptoms including: dyspnea , pain b. To assist medical decision maker(s) with: better understanding of current medical conditions; weighing benefits/burdens of medical treatment options; making medical treatment decisions. . Subjective/Interval History INTERVAL NOTE: The patient remains unresponsive. She has had seizure activity, and the EEGs have shown seizure activity that is felt to be due to the anoxic injury. She is now on Cerebyx and Depakote, as well as PRN lorazepam. She continues to have some low-grade fever, as high as 100.8 yesterday p.m. . Family/friend interactions Patient's was at the bedside, and I was able to speak with him at length. They have been 32 years. She has 3 children (a son age 45, a son age 40 , and a daughter age 38), with only the daughter in [place]. The patient's notes that she was quite ill 5 or 6 years ago, was on mechanical ventilation for several months and had a tracheostomy then, but he eventually recovered, went to rehabilitation, and was able to get back home. She was functioning independently at home and the couple years prior to this hospitalization. I did make him aware -- and he does seem to understand -- that this is different because of the "permanent brain damage," and he notes that his goals remain aggressive. . Advance Directives Living Will: Never completed Health Care Surrogate: Never completed Durable Power of Practice Coordinator: Never completed Objective Vital Signs Date Time Temp Pulse Resp B/P (MAP) Pulse Ox O2 Delivery O2 Flow Rate FiO2 06/04/17 07:54 100 35 06/04/17 06:00 76 06/04/17 05:27 75 103/56 06/04/17 04:40 100 35 06/04/17 04:00 98.8 72 14 93/53 (66) 100 06/04/17 04:00 35 06/04/17 04:00 72 06/04/17 02:00 70 06/04/17 01:06 100 35 06/04/17 00:00 35 06/04/17 00:00 99.3 77 14 97/51 (66) 100 06/04/17 00:00 75 06/03/17 22:10 100 35 06/03/17 22:00 76 06/03/17 20:03 100 35 06/03/17 20:00 35 06/03/17 20:00 77 06/03/17 20:00 100.4 84 14 113/58 (76) 100 06/03/17 18:45 84 117/56 06/03/17 18:00 84 06/03/17 17:55 88 126/61 06/03/17 17:45 90 139/66 06/03/17 17:30 92 135/64 06/03/17 17:15 96 126/61 06/03/17 17:00 98 116/59 06/03/17 16:30 99 101/53 06/03/17 16:22 96 100/53 06/03/17 16:00 100.8 93 14 105/57 (73) 100 06/03/17 16:00 35 06/03/17 16:00 100 06/03/17 16:00 93 105/57 06/03/17 15:57 100 35 06/03/17 14:00 94 06/03/17 12:00 35 06/03/17 12:00 90 06/03/17 12:00 99.8 93 14 99/52 (68) 96 06/03/17 11:26 87 87/47 Intake & Output 06/04/17 06/04/17 07:00 19:00 Intake Total 1026 ml Output Total 0 ml Balance 1026 ml Tube Feeding 426 ml Other 600 ml Output Urine Total 0 ml # Bowel Movements 2 Physical Exam CONSTITUTIONAL/GENERAL: This is an elderly, obese, unresponsive patient, in no apparent distress. TUBES/LINES/DRAINS: ET tube, peripheral IVs, left tibia intraosseous access EYES: Pupils equal and round but I cannot detect any reaction to light. No scleral icterus. No injection or drainage. Fundi not examined. NECK: Trachea midline. Supple, nontender. No palpable thyroid enlargement or nodularity. CARDIOVASCULAR: Regular rate and rhythm without murmurs, gallops, or rubs. Unable to palpate foot or ankle pulses. RESPIRATORY/CHEST: Symmetric, unlabored respirations with ventilator. Scattered rhonchi. GASTROINTESTINAL: Abdomen soft, non-tender, obese. No obvious hepato- splenomegaly, or palpable masses. No guarding. Bowel sounds present. MUSCULOSKELETAL: Extremities without clubbing, cyanosis, or edema. No joint tenderness or effusion noted. No calf tenderness. No mottling or clubbing. NEUROLOGICAL: Unresponsive to voice or pain PSYCHIATRIC: Unable to assess due to clinical condition . Diagnostic Tests Laboratory Laboratory Tests Test 06/01/17 11:30 06/01/17 11:45 06/01/17 13:35 06/01/17 15:50 White Blood Count 12.7 TH/MM3 (4.0-11.0) Red Blood Count 3.87 MIL/MM3 (4.00-5.30) Hemoglobin 10.5 GM/DL (11.6-15.3) Hematocrit 34.6 % (35.0-46.0) Mean Corpuscular Volume 89.3 FL (80.0-100.0) Mean Corpuscular Hemoglobin 27.1 PG (27.0-34.0) Mean Corpuscular Hemoglobin Concent 30.3 % (32.0-36.0) Red Cell Distribution Width 17.3 % (11.6-17.2) Platelet Count 195 TH/MM3 (150-450) Mean Platelet Volume 8.2 FL (7.0-11.0) Neutrophils (%) (Auto) 66.9 % (16.0-70.0) Lymphocytes (%) (Auto) 24.8 % (9.0-44.0) Monocytes (%) (Auto) 6.1 % (0.0-8.0) Eosinophils (%) (Auto) 1.4 % (0.0-4.0) Basophils (%) (Auto) 0.8 % (0.0-2.0) Neutrophils # (Auto) 8.5 TH/MM3 (1.8-7.7) Lymphocytes # (Auto) 3.2 TH/MM3 (1.0-4.8) Monocytes # (Auto) 0.8 TH/MM3 (0-0.9) Eosinophils # (Auto) 0.2 TH/MM3 (0-0.4) Basophils # (Auto) 0.1 TH/MM3 (0-0.2) CBC Comment DIFF FINAL Differential Comment Blood Urea Nitrogen 40 MG/DL (7-18) Creatinine 6.23 MG/DL (0.50-1.00) Random Glucose 154 MG/DL (74-106) Total Protein 7.5 GM/DL (6.4-8.2) Albumin 2.5 GM/DL (3.4-5.0) Calcium Level 7.4 MG/DL (8.5-10.1) Alkaline Phosphatase 160 U/L (45-117) Aspartate Amino Transf (AST/SGOT) 52 U/L (15-37) Alanine Aminotransferase (ALT/SGPT) 28 U/L (10-53) Total Bilirubin 0.8 MG/DL (0.2-1.0) Sodium Level 135 MEQ/L (136-145) Potassium Level 4.1 MEQ/L (3.5-5.1) Chloride Level 96 MEQ/L (98-107) Carbon Dioxide Level 24.4 MEQ/L (21.0-32.0) Anion Gap 15 MEQ/L (5-15) Estimat Glomerular Filtration Rate 8 ML/MIN (>89) Protein Corrected Calcium 7.3 MG/DL (8.5-10.1) Troponin I 0.02 NG/ML (0.02-0.05) Lipase 130 U/L (73-393) Acetaminophen Level LESS THAN 2.0 MCG/ML Ethyl Alcohol Level LESS THAN 3 MG/DL (0-5) Salicylates Level LESS THAN 1.7 MG/DL Blood Gas Puncture Site RT RADIAL Blood Gas Patient Temperature 98.6 Blood Gas HCO3 27 mmol/L (22-26) Blood Gas Base Excess 2.1 mmol/L (-2-2) Blood Gas Oxygen Saturation 97 % (90-100) Arterial Blood pH 7.39 (7.380-7.420) Arterial Blood Partial Pressure CO2 45 mmHg (38-42) Arterial Blood Partial Pressure O2 238 mmHG (61-120) Arterial Blood Oxygen Content 16.2 Vol % (12.0-20.0) Arterial Blood Carboxyhemoglobin 0.4 % (0-4) Arterial Blood Methemoglobin 0.5 % (0-2) Blood Gas Hemoglobin 11.4 G/DL (12.0-16.0) Oxygen Delivery Device VENTILATOR Blood Gas Ventilator Setting 500/16/5PEEP Blood Gas Inspired Oxygen 100 % Nasal Screen MRSA (PCR) MRSA NOT DETECTED (NOT Test 06/01/17 17:07 06/01/17 18:56 06/02/17 02:30 06/02/17 13:15 Stool C. difficile Toxin (PCR) NEGATIVE (NEGATIVE) Stl C. difficile Toxin Epiderm 027 PRESUMPTIVE NEGATIVE Prothrombin Time 11.0 SEC (9.8-11.6) Prothromb Time International Ratio 1.0 RATIO Lactic Acid Level 1.2 mmol/L (0.4-2.0) Total Creatine Kinase 187 U/L (26-192) 156 U/L (26-192) Creatine Kinase MB 4.0 NG/ML (0.5-3.6) White Blood Count 18.5 TH/MM3 (4.0-11.0) Red Blood Count 3.92 MIL/MM3 (4.00-5.30) Hemoglobin 10.6 GM/DL (11.6-15.3) Hematocrit 33.9 % (35.0-46.0) Mean Corpuscular Volume 86.4 FL (80.0-100.0) Mean Corpuscular Hemoglobin 27.1 PG (27.0-34.0) Mean Corpuscular Hemoglobin Concent 31.3 % (32.0-36.0) Red Cell Distribution Width 16.7 % (11.6-17.2) Platelet Count 215 TH/MM3 (150-450) Mean Platelet Volume 7.7 FL (7.0-11.0) Neutrophils (%) (Auto) 91.2 % (16.0-70.0) Lymphocytes (%) (Auto) 5.1 % (9.0-44.0) Monocytes (%) (Auto) 3.2 % (0.0-8.0) Eosinophils (%) (Auto) 0.2 % (0.0-4.0) Basophils (%) (Auto) 0.3 % (0.0-2.0) Neutrophils # (Auto) 16.9 TH/MM3 (1.8-7.7) Lymphocytes # (Auto) 0.9 TH/MM3 (1.0-4.8) Monocytes # (Auto) 0.6 TH/MM3 (0-0.9) Eosinophils # (Auto) 0.0 TH/MM3 (0-0.4) Basophils # (Auto) 0.1 TH/MM3 (0-0.2) CBC Comment DIFF FINAL Differential Comment Blood Urea Nitrogen 52 MG/DL (7-18) Creatinine 7.35 MG/DL (0.50-1.00) Random Glucose 119 MG/DL (74-106) Calcium Level 7.7 MG/DL (8.5-10.1) Sodium Level 139 MEQ/L (136-145) Potassium Level 2.9 MEQ/L (3.5-5.1) Chloride Level 96 MEQ/L (98-107) Carbon Dioxide Level 28.7 MEQ/L (21.0-32.0) Anion Gap 14 MEQ/L (5-15) Estimat Glomerular Filtration Rate 7 ML/MIN (>89) Troponin I 0.21 NG/ML (0.02-0.05) 0.14 NG/ML (0.02-0.05) Test 06/03/17 05:30 06/04/17 05:20 White Blood Count 19.3 TH/MM3 (4.0-11.0) 16.0 TH/MM3 (4.0-11.0) Red Blood Count 3.41 MIL/MM3 (4.00-5.30) 3.26 MIL/MM3 (4.00-5.30) Hemoglobin 9.3 GM/DL (11.6-15.3) 8.8 GM/DL (11.6-15.3) Hematocrit 29.4 % (35.0-46.0) 28.4 % (35.0-46.0) Mean Corpuscular Volume 86.3 FL (80.0-100.0) 87.1 FL (80.0-100.0) Mean Corpuscular Hemoglobin 27.2 PG (27.0-34.0) 27.0 PG (27.0-34.0) Mean Corpuscular Hemoglobin Concent 31.5 % (32.0-36.0) 31.0 % (32.0-36.0) Red Cell Distribution Width 17.0 % (11.6-17.2) 17.1 % (11.6-17.2) Platelet Count 224 TH/MM3 (150-450) 224 TH/MM3 (150-450) Mean Platelet Volume 8.2 FL (7.0-11.0) 8.2 FL (7.0-11.0) Neutrophils (%) (Auto) 78.6 % (16.0-70.0) 86.6 % (16.0-70.0) Lymphocytes (%) (Auto) 7.5 % (9.0-44.0) 6.7 % (9.0-44.0) Monocytes (%) (Auto) 7.6 % (0.0-8.0) 6.0 % (0.0-8.0) Eosinophils (%) (Auto) 5.6 % (0.0-4.0) 0.2 % (0.0-4.0) Basophils (%) (Auto) 0.7 % (0.0-2.0) 0.5 % (0.0-2.0) Neutrophils # (Auto) 15.2 TH/MM3 (1.8-7.7) 13.9 TH/MM3 (1.8-7.7) Lymphocytes # (Auto) 1.5 TH/MM3 (1.0-4.8) 1.1 TH/MM3 (1.0-4.8) Monocytes # (Auto) 1.5 TH/MM3 (0-0.9) 1.0 TH/MM3 (0-0.9) Eosinophils # (Auto) 1.1 TH/MM3 (0-0.4) 0.0 TH/MM3 (0-0.4) Basophils # (Auto) 0.1 TH/MM3 (0-0.2) 0.1 TH/MM3 (0-0.2) CBC Comment DIFF FINAL DIFF FINAL Differential Comment Blood Urea Nitrogen 37 MG/DL (7-18) 53 MG/DL (7-18) Creatinine 5.98 MG/DL (0.50-1.00) 7.40 MG/DL (0.50-1.00) Random Glucose 100 MG/DL (74-106) 142 MG/DL (74-106) Calcium Level 8.0 MG/DL (8.5-10.1) 8.1 MG/DL (8.5-10.1) Sodium Level 140 MEQ/L (136-145) 137 MEQ/L (136-145) Potassium Level 3.5 MEQ/L (3.5-5.1) 3.8 MEQ/L (3.5-5.1) Chloride Level 99 MEQ/L (98-107) 97 MEQ/L (98-107) Carbon Dioxide Level 30.5 MEQ/L (21.0-32.0) 27.7 MEQ/L (21.0-32.0) Anion Gap 11 MEQ/L (5-15) 12 MEQ/L (5-15) Estimat Glomerular Filtration Rate 9 ML/MIN (>89) 7 ML/MIN (>89) Phenytoin (Dilantin) Level 6.5 MCG/ML (10.0-20.0) 6.1 MCG/ML (10.0-20.0) Total Protein 7.1 GM/DL (6.4-8.2) Albumin 2.5 GM/DL (3.4-5.0) Alkaline Phosphatase 109 U/L (45-117) Aspartate Amino Transf (AST/SGOT) 49 U/L (15-37) Alanine Aminotransferase (ALT/SGPT) 20 U/L (10-53) Total Bilirubin 0.6 MG/DL (0.2-1.0) Result Diagram: 06/04/1751906/04/17519 Microbiology Microbiology Date/Time Source Procedure Growth Status 06/01/17 11:40 Blood Peripheral Aerobic Blood Culture - Preliminary NO GROWTH IN 2 DAYS Resulted 06/01/17 11:40 Blood Peripheral Anaerobic Blood Culture - Preliminary NO GROWTH IN 2 DAYS Resulted 06/01/17 11:30 Blood Peripheral Aerobic Blood Culture - Preliminary NO GROWTH IN 2 DAYS Resulted 06/01/17 11:30 Blood Peripheral Anaerobic Blood Culture - Preliminary NO GROWTH IN 2 DAYS Resulted 06/04/17 05:00 Sputum Endotracheal Gram Stain - Final Resulted 06/04/17 05:00 Sputum Endotracheal Sputum Culture Pending Resulted 06/01/17 17:07 Sputum Endotracheal Gram Stain - Final Complete 06/01/17 17:07 Sputum Endotracheal Sputum Culture - Final RARE GROWTH NORMAL RESPIRATORY CLEMENTINE Complete Imaging Last Impressions Head CT 06/01/17 1406 Signed Impressions: Service Date/Time: Thursday, June 01, 2017 15:17 - CONCLUSION: Atrophy otherwise negative. Freddy Arguelles MD FACR Chest X-Ray 06/01/17 1121 Signed Impressions: Service Date/Time: Thursday, June 01, 2017 13:54 - CONCLUSION: 1. Limited study. 2. Bilateral pulmonary infiltrates. Timothy Roper Jr., MD Procedures CPR, resuscitation 06/01/17 INTUBATION 06/01/17 Intraosseous needle placement in left tibia 06/01/17 Central line placement 06/01/17 . Assessment and Plan Disease Oriented Problem List: (1) cardiac arrest, prolonged resuscitation (2) probable anoxic brain injury (3) end-stage renal disease (4) CHF (5) COPD (6) peripheral vascular disease (7) hypertension (8) obesity (9) asthma (10) gout (11) hypothyroidism (12) depression (13) arthritis (14) history of sleep apnea Symptom Scale: (1) dyspnea 0-10 Scale: Unable to quantify (2) pain 0-10 Scale: Unable to quantify (likely has musculoskeletal pain after the prolonged resuscitation) Pertinent Non-Medical Issues Psychosocial: for 32 years, 3 children (son age 45 in [place], son age 40 in [place], daughter age 38 in [facility]);, 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 Spiritual: Muslim background Legal: The patient lacks capacity for decision-making, and it seems unlikely that she will regain that capacity. Her is the decision making proxy. Ethical issues impacting care: None . Important Contacts [place] -- [phone] . Prognosis Her prognosis is quite poor, as it appears she has had a profound anoxic brain injury, and she has multiple other comorbidities. . Code Status: Full Code Plan * FULL CODE -- confirmed aggressive goals with on 06/04/17 * DECISION-MAKING: The patient lacks capacity for decision-making, and it seems unlikely that she will regain that capacity. Her is the decision making proxy. * GOALS: 06/04/17: The patient's notes that she was on prolonged mechanical ventilation with tracheostomy and long-term nursing facility stay for several months 5 or 6 years ago and recovered to the point of being independent at home again. He does understand that this is different this time due to the permanent brain injury, but he wants to "give her more chance" and continue full aggressive care for now. I made him aware of the withdrawal of life support choice that is available to him and the family to allow her to naturally and peacefully, but he notes "we are not there yet." * SYMPTOMS: Her dyspnea and likely pain is being managed in the C, I have no additional medication recommendations at this time. * Palliative Care will continue to follow the patient during this hospitalization. . Time Spent Total Floor Time (mins): 41 Face to Face Time (mins): 12 >50% Counseling/Coord of Care: Yes (d/w Dr. Major) Attestation To help prompt me to consider important information that might be impacting today's encounter and assessment, information from prior notes written by myself or my colleagues may have been "brought forward" into today's note. My signature on this note, however, is an attestation that I personally performed the exam, history, and/or decision-making noted today, and, unless otherwise indicated, the interactions with patient, family, and staff as well as the review of records all occurred today. I also attest that the listed assessment and stated plan reflect my best clinical judgment today based on the combination of historical information, prior notes, and today's exam/ interactions. When time spent is documented, it refers only to time spent today by the signer, or if indicated, combined time spent today by collaborating physician/nurse practitioner. Rosy Reynoso MD Jun 04, 2017 11:07
--- NOTE | 2017-06-04 11:21 | HHI.NPPN ---
Subjective General Problems: Anemia History of Present Illness 67 years old female, with past history of ESRD and was currently in the process of converting to home HD. She was to have HD Mon-Sun, 2.5 hrs/treatment.. She was at the center receiving training when she reported to staff that she did not feel well, could not articulate her concerns. I spoke with the granddaughter who reports she had been complaining of shortness of breath and recent GI issues. She became unresponsive in the clinic, was given CPR for approximately 30 minutes. Interval History Unresponsive on the vent, although the RN reports that the patient squeezed her fingers. On Levophed. Had dialysis on Sunday. Had an episode of seizure yesterday. Low grade fever yesterday. Objective Data Data Vital Signs Date Time Temp Pulse Resp B/P (MAP) Pulse Ox O2 Delivery O2 Flow Rate FiO2 06/04/17 07:54 100 35 06/04/17 06:00 76 06/04/17 05:27 75 103/56 06/04/17 04:40 100 35 06/04/17 04:00 98.8 72 14 93/53 (66) 100 06/04/17 04:00 35 06/04/17 04:00 72 06/04/17 02:00 70 06/04/17 01:06 100 35 06/04/17 00:00 35 06/04/17 00:00 99.3 77 14 97/51 (66) 100 06/04/17 00:00 75 06/03/17 22:10 100 35 06/03/17 22:00 76 06/03/17 20:03 100 35 06/03/17 20:00 35 06/03/17 20:00 77 06/03/17 20:00 100.4 84 14 113/58 (76) 100 06/03/17 18:45 84 117/56 06/03/17 18:00 84 06/03/17 17:55 88 126/61 06/03/17 17:45 90 139/66 06/03/17 17:30 92 135/64 06/03/17 17:15 96 126/61 06/03/17 17:00 98 116/59 06/03/17 16:30 99 101/53 06/03/17 16:22 96 100/53 06/03/17 16:00 100.8 93 14 105/57 (73) 100 06/03/17 16:00 35 06/03/17 16:00 100 06/03/17 16:00 93 105/57 06/03/17 15:57 100 35 06/03/17 14:00 94 06/03/17 12:00 35 06/03/17 12:00 90 06/03/17 12:00 99.8 93 14 99/52 (68) 96 06/03/17 11:26 87 87/47 -: 06/04/17 0520 06/04/17 0520 Microbiology 06/04/17 Gram Stain - Final, Resulted 06/04/17 Sputum Culture, Resulted Pending Physical Exam Eyes Eye Exam: Pupils Equal Throat Throat Exam: Oral Mucosa [place] & Moist Neck Neck Exam: Neck Supple Pulmonary Resp Exam: Breath Sounds Equal, No Distress, Rhonchi Cardiology CV Exam: Regular, Normal Sinus Rhythm Gastrointestinal/Abdomen GI Exam: Soft, Non-Tender, Bowel Sounds Present Extremeties Extremities Exam: Moderate Edema, Pitting Edema, Dependent Edema Neurologic Neuro Exam: Unresponsive Assessment/Plan Problem List: (1) Cardiac arrest ICD Codes: I46.9 - Cardiac arrest, cause unspecified Plan: she is unresponsive on ventilator etiology of cardiac arrest uncertain BP is low, on pressors. Seen by Neurology, EEG showing seizure activity. HD tomorrow and we will continue TTS. (2) ESRD (end stage renal disease) ICD Codes: N18.6 - End stage renal disease Status: Chronic Plan: Dialysis tomorrow. Continue TTS. She was training for HHD, but unlikely to resume HHD if she survives this hospitalization. (3) Metabolic bone disease ICD Codes: E88.9 - Metabolic disorder, unspecified; M90.80 - Osteopathy in diseases classified elsewhere, unspecified site Status: Acute Plan: monitor phosphorus level start binders if needed (4) Anemia of chronic renal failure Status: Chronic Plan: epogen with HD (5) Hypertension Status: Chronic Plan: Antihypertensives on hold, currently on Levophed. Tyler Ling MD Jun 04, 2017 11:21
--- NOTE | 2017-06-04 11:45 | HHI.PR ---
Subjective Remarks EEG abnl c/w sz likely from anoxic injury. on cerebyx,added depacon repeat eeg and ct today. Objective Vital Signs Date Time Temp Pulse Resp B/P (MAP) Pulse Ox O2 Delivery O2 Flow Rate FiO2 06/04/17 11:33 100 35 06/04/17 07:54 100 35 06/04/17 06:00 76 06/04/17 05:27 75 103/56 06/04/17 04:40 100 35 06/04/17 04:00 98.8 72 14 93/53 (66) 100 06/04/17 04:00 35 06/04/17 04:00 72 06/04/17 02:00 70 06/04/17 01:06 100 35 06/04/17 00:00 35 06/04/17 00:00 99.3 77 14 97/51 (66) 100 06/04/17 00:00 75 06/03/17 22:10 100 35 06/03/17 22:00 76 06/03/17 20:03 100 35 06/03/17 20:00 35 06/03/17 20:00 77 06/03/17 20:00 100.4 84 14 113/58 (76) 100 06/03/17 18:45 84 117/56 06/03/17 18:00 84 06/03/17 17:55 88 126/61 06/03/17 17:45 90 139/66 06/03/17 17:30 92 135/64 06/03/17 17:15 96 126/61 06/03/17 17:00 98 116/59 06/03/17 16:30 99 101/53 06/03/17 16:22 96 100/53 06/03/17 16:00 100.8 93 14 105/57 (73) 100 06/03/17 16:00 35 06/03/17 16:00 100 06/03/17 16:00 93 105/57 06/03/17 15:57 100 35 06/03/17 14:00 94 06/03/17 12:00 35 06/03/17 12:00 90 06/03/17 12:00 99.8 93 14 99/52 (68) 96 I/O 06/03/17 06/03/17 06/03/17 06/04/17 06/04/17 06/04/17 06:59 14:59 22:59 06:59 14:59 22:59 Intake Total 901 ml 106 ml 753 ml 1026 ml Output Total 0 ml 0 ml Balance 901 ml 106 ml 753 ml 1026 ml IV Total 106 ml 300 ml Tube Feeding 401 ml 453 ml 426 ml Other 500 ml 600 ml Output Urine Total 0 ml 0 ml # Bowel Movements 0 2 Result Diagram: 06/04/1751906/04/17519 Objective Remarks intubated sedated vent does not overbreath pp pupils no gaze not following Assessment and Plan Assessment and Plan a/p anoxic encephalopathy/sz eeg vpa/pht,levels ct brain palliative poor prognosis for neurological recovery. Joie Garcia MD Jun 04, 2017 11:45
[2017-06-04] MEDS: BISACODYL 10 MG SUPP RECTAL PRN (12:17)
[2017-06-04] MEDS: MIDAZOLAM 100 MG/100 ML INJ 100 ML IV PRN ×2 (15:31→21:05)
[2017-06-04] MEDS: AZITHROMYCIN INJ 500 MG in SODIUM CHLOR 0.9% 250 ML INJ 250 ML IV SCH (16:47)
[2017-06-04] MEDS: fentaNYL DRIP 250 ML IV PRN ×2 (18:36→21:05)
[2017-06-04] MEDS: NOREPINEPHRINE 4 MG/D5W 250 ML IV PRN (21:04)
--- NOTE | 2017-06-04 21:34 | MG ---
cc: JOIE GARCIA M.D. Lab No: [id number] Date: 06/04/17 Age: 67 Sex: F Race: DATE OF 1950 AGE [id number]. ROOM 525 This is a repeat. Intubated, fentanyl at 100 micrograms then increased to 125 micrograms, Versed is at 4 milligrams and up to 7 milligrams. No photic. No hyperventilation, intubated. Last EEG ongoing epileptiform discharges. History of PEA. Currently on fentanyl, Versed, Depacon, Cerebyx and Ativan. The patient still has what appears to be spike waves bilaterally. Versed is __ by EPOC 50, does not change the background, continues with spikes and sharps. IMPRESSION Abnormal EEG due to ongoing what appears to be seizure like activity likely consistent with significant severe anoxic injury despite antiepileptic medication and sedation. Clinical correlation. Joie Garcia MD DF/PETER /9:10 PM /9:23 PM
[2017-06-05] VITALS (18 sets, daily range): BP systolic 99–124; BP diastolic 56–59; PULSE 68–92; RESP 14–18; TEMP 97.9–99.2; O2SAT 72–100
[2017-06-05] MEDS: INSULIN NovoLIN REGULAR SUPPLEMENTAL SCALE SQ SCH ×7 (01:17→22:00)
[2017-06-05] MEDS: FOSPHENYTOIN SODIUM 100 MG PE/2 ML VIAL IV SCH ×3 (03:41→20:29)
[2017-06-05] MEDS: HYDROCORTISONE SOD SUCCINATE 100 MG VIAL IV PUSH SCH ×3 (03:41→22:14)
[2017-06-05] MEDS: RESP: ALBUTEROL 2.5 MG/IPRATROPIUM 0.5 MG NEB (SCH) INH ×3 (04:57→15:44)
[2017-06-05 06:21] LABS: AUTOMATED NEUTROPHIL # 17.1 TH/MM3 (1.8-7.7); BASOPHIL % 0.1 % (0.0-2.0); HEMATOCRIT 28.1 % (35.0-46.0); HEMO FLAGS DIFF FINAL; LYMPH % 4.9 % (9.0-44.0); LYMPHOCYTE # 0.9 TH/MM3 (1.0-4.8); MEAN CELL VOLUME 87.4 FL (80.0-100.0); MEAN CORPUSCULAR HEMOGLOBIN 27.5 PG (27.0-34.0); MEAN CORPUSCULAR HGB CONC 31.5 % (32.0-36.0); MONO % 2.8 % (0.0-8.0); NEUT % 92.2 % (16.0-70.0); PLATELET COUNT 244 TH/MM3 (150-450); RED BLOOD COUNT 3.21 MIL/MM3 (4.00-5.30); RED CELL DISTRIBUTION WIDTH 17.3 % (11.6-17.2); WHITE BLOOD COUNT 18.5 TH/MM3 (4.0-11.0)
[2017-06-05 07:11] LABS: BICARBONATE 25.6 MEQ/L (21.0-32.0); POTASSIUM 3.9 MEQ/L (3.5-5.1)
[2017-06-05] MEDS: PIPERACIL-TAZO 2.25 GM PREMIX 50 ML IV SCH (07:47)
[2017-06-05] MEDS: BISACODYL 10 MG SUPP RECTAL PRN (07:48)
[2017-06-05] MEDS: PANTOPRAZOLE SODIUM 40 MG VIAL IV SCH (08:30)
[2017-06-05] MEDS: HEPARIN SODIUM - SQ 10,000 UNITS/ML VIAL SQ SCH ×2 (08:30→20:29)
[2017-06-05] MEDS: ASPIRIN EC 81 MG TABEC PO SCH (09:00)
[2017-06-05] MEDS: CINACALCET HYDROCHLORIDE 30 MG TAB PO SCH (09:00)
[2017-06-05] MEDS: VITAMIN B CMPLX/VITC/FOLIC AC CAP PO SCH (09:00)
[2017-06-05] MEDS: SEVELAMER CARBONATE 800 MG TAB PO SCH ×3 (09:00→16:48)
[2017-06-05] MEDS: DOCUSATE SODIUM 50 MG/SENNA 8.6 MG TAB PO SCH ×2 (09:00→20:29)
--- NOTE | 2017-06-05 09:22 | HHI.NPPN ---
Subjective General Problems: Anemia History of Present Illness 67 years old female, with past history of ESRD and was currently in the process of converting to home HD. She was to have HD Mon-Fri, 2.5 hrs/treatment.. She was at the center receiving training when she reported to staff that she did not feel well, could not articulate her concerns. I spoke with the granddaughter who reports she had been complaining of shortness of breath and recent GI issues. She became unresponsive in the clinic, was given CPR for approximately 30 minutes. Interval History patient is unresponsive on the ventilator. EEG revealed seizure activity. She has suffered anoxic brain injury Objective Data Data Vital Signs Date Time Temp Pulse Resp B/P (MAP) Pulse Ox O2 Delivery O2 Flow Rate FiO2 06/05/17 08:51 100 35 06/05/17 08:00 35 06/05/17 06:00 68 06/05/17 04:54 97 35 06/05/17 04:00 97.9 73 16 108/58 (75) 96 06/05/17 04:00 73 06/05/17 04:00 35 06/05/17 02:00 71 06/05/17 00:09 99 35 06/05/17 00:00 72 06/05/17 00:00 98.0 72 14 121/59 (79) 100 06/05/17 00:00 35 06/04/17 22:00 70 06/04/17 21:05 88 99/56 06/04/17 21:04 88 99/56 06/04/17 20:47 98.0 80 16 100/54 (69) 96 06/04/17 20:43 100 35 06/04/17 20:43 100 Ventilator 35 06/04/17 20:00 80 06/04/17 20:00 35 06/04/17 16:30 100 35 06/04/17 16:00 98.1 66 14 102/58 (73) 99 06/04/17 16:00 35 06/04/17 16:00 35 06/04/17 12:00 97.6 71 14 111/61 (78) 100 06/04/17 12:00 35 06/04/17 11:33 100 35 -: 06/05/17 0600 06/05/17 0600 Physical Exam Eyes Eye Exam: Pupils Equal Throat Throat Exam: Oral Mucosa [place] & Moist Neck Neck Exam: Neck Supple Pulmonary Resp Exam: Breath Sounds Equal, No Distress, Rhonchi Cardiology CV Exam: Regular, Normal Sinus Rhythm Gastrointestinal/Abdomen GI Exam: Soft, Non-Tender, Bowel Sounds Present Extremeties Extremities Exam: Pitting Edema, Dependent Edema Neurologic Neuro Exam: Unresponsive Assessment/Plan Problem List: (1) Cardiac arrest ICD Codes: I46.9 - Cardiac arrest, cause unspecified Plan: she is unresponsive on ventilator etiology of cardiac arrest uncertain. Seen by Neurology, EEG showing seizure activity. HD is scheduled for today. (2) ESRD (end stage renal disease) ICD Codes: N18.6 - End stage renal disease Status: Chronic Plan: Continue dialysis TTS. She was training for HHD, but unlikely to resume HHD if she survives this hospitalization. (3) Metabolic bone disease ICD Codes: E88.9 - Metabolic disorder, unspecified; M90.80 - Osteopathy in diseases classified elsewhere, unspecified site Status: Acute Plan: monitor phosphorus level On Renvela. May need to switch to Calcium acetate. (4) Anemia of chronic renal failure Status: Chronic Plan: epogen with HD (5) Hypertension Status: Chronic Plan: Antihypertensives on hold, currently on Levophed. Tyler Ling MD Jun 05, 2017 09:22
--- NOTE | 2017-06-05 09:40 | HHI.CCPN ---
Subjective Remarks/Hospital Course Patient is 67-year-old female with multiple comorbidities which include end- stage renal disease on hemodialysis Sunday, Sunday, Sunday, hypertension, COPD on home oxygen, morbid obesity with obstructive sleep apnea, CHF. The patient was at the dialysis center today, she reported to the staff that she did not feel well and all the sudden she became unresponsive. The patient was given CPR which was continued in en route to the hospital. She was in PEA arrest. The patient was given epi, bicarb and D50. After approximately 30 minutes. She had successful return of spontaneous circulation and was started on dopamine. The patient also was intubated and placed on full mechanical ventilation. Her ABG post intubation showed a pH of 7.39, CO2 45, pAO2 238 and bicarb 27 and saturation of 97%. Her laboratory data showed the potassium 4.1, creatinine 6.23 and corrected calcium of 7.3. Other significant labs showed mild leukocytosis with a Review WBC of 12.7. A chest x-ray post intubation showed a bilateral pulmonary infiltrates and ET tube approximately 4 cm above the isabel. In the ER she was given calcium gluconate and started on dopamine as stated above. Right femoral central line was attempted by the ED physician without any success. The patient was also seen by Dr. Macho francois in the ER from nephrology service and she is scheduled to undergo CT scan of the brain. The patient is unresponsive. 06/02 No events overnight. On fentanyl infusion for sedation however patient has her eyes open unresponsive. Afebrile. 06/03 No events overnight. Sedated with Fentanyl and intubated. On Levophed 11mics. EEG yesterday showed seizures started on Cerebyx. 06/04 Patient remains intubated and sedated with Versed and Fentanyl drip. Had seizure overnight given Ativan 1mg x1. Levophed down 1mic and on vasopressin. For HD today. T:100.4 last night 06/05 Patient remains intubated and sedated. On Levophed 1mic and Vasopressin. afebrile. Repeat EEG yesterday showed seizure like activity. Objective Vital Signs Date Time Temp Pulse Resp B/P (MAP) Pulse Ox O2 Delivery O2 Flow Rate FiO2 06/05/17 08:51 100 35 06/05/17 06:00 68 06/05/17 04:00 97.9 16 108/58 (75) 06/04/17 20:43 Ventilator Intake and Output 06/05/17 06/05/17 06/05/17 07:59 15:59 23:59 Intake Total 1018 ml Output Total 0 ml Balance 1018 ml Result Diagram: 06/05/17 0600 06/05/17 0600 Other Results Laboratory Tests Test 06/05/17 06:00 White Blood Count 18.5 TH/MM3 Red Blood Count 3.21 MIL/MM3 Hemoglobin 8.8 GM/DL Hematocrit 28.1 % Mean Corpuscular Volume 87.4 FL Mean Corpuscular Hemoglobin 27.5 PG Mean Corpuscular Hemoglobin Concent 31.5 % Red Cell Distribution Width 17.3 % Platelet Count 244 TH/MM3 Mean Platelet Volume 8.7 FL Neutrophils (%) (Auto) 92.2 % Lymphocytes (%) (Auto) 4.9 % Monocytes (%) (Auto) 2.8 % Eosinophils (%) (Auto) 0.0 % Basophils (%) (Auto) 0.1 % Neutrophils # (Auto) 17.1 TH/MM3 Lymphocytes # (Auto) 0.9 TH/MM3 Monocytes # (Auto) 0.5 TH/MM3 Eosinophils # (Auto) 0.0 TH/MM3 Basophils # (Auto) 0.0 TH/MM3 CBC Comment DIFF FINAL Differential Comment Blood Urea Nitrogen 70 MG/DL Creatinine 8.45 MG/DL Random Glucose 107 MG/DL Calcium Level 8.1 MG/DL Phosphorus Level 5.8 MG/DL Sodium Level 136 MEQ/L Potassium Level 3.9 MEQ/L Chloride Level 97 MEQ/L Carbon Dioxide Level 25.6 MEQ/L Anion Gap 13 MEQ/L Estimat Glomerular Filtration Rate 6 ML/MIN Imaging Last Impressions Head CT 06/01/17 1406 Signed Impressions: Service Date/Time: Thursday, June 01, 2017 15:17 - CONCLUSION: Atrophy otherwise negative. Freddy Arguelles MD FACR Chest X-Ray 06/01/17 1121 Signed Impressions: Service Date/Time: Thursday, June 01, 2017 13:54 - CONCLUSION: 1. Limited study. 2. Bilateral pulmonary infiltrates. Timothy Roper Jr., MD Objective Remarks GENERAL: Patient is 67yo s/p PEA arrest intubated unresponsive SKIN: Warm and dry. HEAD: Normocephalic. EYES: No scleral icterus. No injection or drainage. NECK: Supple, trachea midline. No JVD or lymphadenopathy. Orally intubated CARDIOVASCULAR: Regular rate and rhythm without murmurs, gallops, or rubs. RESPIRATORY: Breath sounds equal bilaterally. No accessory muscle use. GASTROINTESTINAL: Abdomen soft, non-tender, nondistended. MUSCULOSKELETAL: No cyanosis, b/l mid foot amputation Neuro: Intubated, doesn't follow commands A/P Assessment and Plan 1. Status post PEA arrest. 2. VDRF 3. End-stage renal disease. 4. Likely anoxic brain injury. 5. History of hypertension. 6. COPD on home oxygen. 7. Morbid obesity and a history of obstructive sleep apnea. 8. History of congestive heart failure. 9. Anemia of chronic disease. 10 Status Epilepticus Plan Neuro: On fentanyl/Versed infusion for sedation. Monitor neuro status closely For repeat CT brain today CT brain 06/01: atrophy no acute findings, EEG 06/04: Seizure like activity likely related to severe anoxic brain injury. EEG 06/03: Epileptiform discharges EEG 06/02: Seizure activity, on Cerebyx 100mg Q8, Depakote, Ativan 1mg Q4 PRN. Dilantin level: 6.1, Depakote level: 25 on 06/04 Neuro is following- Dr. Garcia. Pulm: Continue with vent support and maintain sats above 92%. Bronchodilators, ICU vent bundle. Check CXR CV: On Levophed 1mic and vasopressin 0.04. Monitor HR and BP maintain MAP> 65 mmHg. Lactic acid 1.2 Echo 06/01: EF 55-60%. Continue Aspirin 81 mg daily. Stress dose steroids- HC 100mg IV Q8 Monitor renal function Is and Os and avoid nephrotoxins. Renal is following- Dr. Ling HD per renal. On Sensipar and Renvela. GI: Protonix 40 mg IV daily. tube feeds- Nepro with goal 40ml/hr ID: Continue abx (Zosyn, Azithromycin) monitor for signs of infections( fever and WBC). ID eval Follow up on blood 06/01: NGTD, sputum 06/01: normal resp kaylene, sputum 06/04 pending Nasal washing and is negative for influenza in the ED. Of note the patient is allergic to VANCOMYCIN. Heme: Monitor CBC. Endo: SSI with Accu-Chek's for glycemic control. GI prophylaxis with Protonix 40 mg daily, DVT prophylaxis with SCDs./heparin Subcu prophylaxis Lines: Right femoral central line placed 06/01 Palliative care is following Prognosis is critically ill s/p PEA arrest, resp failure, ESRD and likely anoxic brain injury Level 3 Cami Mancilla MD Jun 05, 2017 09:39
[2017-06-05] MEDS: VASOPRESSIN INJ 40 UNITS in DEXTROSE 5% IN WATER 100ML INJ 98 ML IV SCH ×2 (10:40)
--- NOTE | 2017-06-05 11:01 | HHI.HCPN ---
Reason for visit a. To assist with evaluation and management of symptoms including: dyspnea , pain, seizures b. To assist medical decision maker(s) with: better understanding of current medical conditions; weighing benefits/burdens of medical treatment options; making medical treatment decisions. . Subjective/Interval History INTERVAL NOTE: The patient remains unresponsive. She has had seizure activity, and the EEGs have shown seizure activity that is felt to be due to the anoxic injury. She is now on Cerebyx, phenobarbital, and Depakote, as well as PRN lorazepam. She has had no fever in the past 24 hours . Advance Directives Living Will: Never completed Health Care Surrogate: Never completed Durable Power of Container Shop [employer]: Never completed Objective Vital Signs Date Time Temp Pulse Resp B/P (MAP) Pulse Ox O2 Delivery O2 Flow Rate FiO2 06/05/17 10:40 68 104/59 06/05/17 10:00 68 06/05/17 08:51 100 35 06/05/17 08:00 35 06/05/17 08:00 98.2 72 14 99/56 (70) 97 06/05/17 06:00 68 06/05/17 04:54 97 35 06/05/17 04:00 97.9 73 16 108/58 (75) 96 06/05/17 04:00 73 06/05/17 04:00 35 06/05/17 02:00 71 06/05/17 00:09 99 35 06/05/17 00:00 72 06/05/17 00:00 98.0 72 14 121/59 (79) 100 06/05/17 00:00 35 06/04/17 22:00 70 06/04/17 21:05 88 99/56 06/04/17 21:04 88 99/56 06/04/17 20:47 98.0 80 16 100/54 (69) 96 06/04/17 20:43 100 35 06/04/17 20:43 100 Ventilator 35 06/04/17 20:00 80 06/04/17 20:00 35 06/04/17 16:30 100 35 06/04/17 16:00 98.1 66 14 102/58 (73) 99 06/04/17 16:00 35 06/04/17 16:00 35 06/04/17 12:00 97.6 71 14 111/61 (78) 100 06/04/17 12:00 35 06/04/17 11:33 100 35 Intake & Output 06/05/17 06/05/17 07:00 19:00 Intake Total 1018 ml Output Total 0 ml Balance 1018 ml Tube Feeding 418 ml Other 600 ml Output Urine Total 0 ml # Bowel Movements 2 Physical Exam CONSTITUTIONAL/GENERAL: This is an elderly, obese, unresponsive patient, in no apparent distress. TUBES/LINES/DRAINS: ET tube, peripheral IVs, left tibia intraosseous access EYES: Pupils equal and round but I cannot detect any reaction to light. No scleral icterus. No injection or drainage. Fundi not examined. NECK: Trachea midline. Supple, nontender. No palpable thyroid enlargement or nodularity. CARDIOVASCULAR: Regular rate and rhythm without murmurs, gallops, or rubs. Unable to palpate foot or ankle pulses. RESPIRATORY/CHEST: Symmetric, unlabored respirations with ventilator. Scattered rhonchi. GASTROINTESTINAL: Abdomen soft, obese. No obvious hepato-splenomegaly, or palpable masses. No guarding. Bowel sounds present. MUSCULOSKELETAL: Extremities without clubbing, cyanosis, or edema. No mottling or clubbing. NEUROLOGICAL: Unresponsive to voice or pain PSYCHIATRIC: Unable to assess due to clinical condition . Diagnostic Tests Laboratory Laboratory Tests Test 06/02/17 13:15 06/03/17 05:30 06/04/17 05:20 06/04/17 05:30 Troponin I 0.14 NG/ML (0.02-0.05) White Blood Count 19.3 TH/MM3 (4.0-11.0) 16.0 TH/MM3 (4.0-11.0) Red Blood Count 3.41 MIL/MM3 (4.00-5.30) 3.26 MIL/MM3 (4.00-5.30) Hemoglobin 9.3 GM/DL (11.6-15.3) 8.8 GM/DL (11.6-15.3) Hematocrit 29.4 % (35.0-46.0) 28.4 % (35.0-46.0) Mean Corpuscular Volume 86.3 FL (80.0-100.0) 87.1 FL (80.0-100.0) Mean Corpuscular Hemoglobin 27.2 PG (27.0-34.0) 27.0 PG (27.0-34.0) Mean Corpuscular Hemoglobin Concent 31.5 % (32.0-36.0) 31.0 % (32.0-36.0) Red Cell Distribution Width 17.0 % (11.6-17.2) 17.1 % (11.6-17.2) Platelet Count 224 TH/MM3 (150-450) 224 TH/MM3 (150-450) Mean Platelet Volume 8.2 FL (7.0-11.0) 8.2 FL (7.0-11.0) Neutrophils (%) (Auto) 78.6 % (16.0-70.0) 86.6 % (16.0-70.0) Lymphocytes (%) (Auto) 7.5 % (9.0-44.0) 6.7 % (9.0-44.0) Monocytes (%) (Auto) 7.6 % (0.0-8.0) 6.0 % (0.0-8.0) Eosinophils (%) (Auto) 5.6 % (0.0-4.0) 0.2 % (0.0-4.0) Basophils (%) (Auto) 0.7 % (0.0-2.0) 0.5 % (0.0-2.0) Neutrophils # (Auto) 15.2 TH/MM3 (1.8-7.7) 13.9 TH/MM3 (1.8-7.7) Lymphocytes # (Auto) 1.5 TH/MM3 (1.0-4.8) 1.1 TH/MM3 (1.0-4.8) Monocytes # (Auto) 1.5 TH/MM3 (0-0.9) 1.0 TH/MM3 (0-0.9) Eosinophils # (Auto) 1.1 TH/MM3 (0-0.4) 0.0 TH/MM3 (0-0.4) Basophils # (Auto) 0.1 TH/MM3 (0-0.2) 0.1 TH/MM3 (0-0.2) CBC Comment DIFF FINAL DIFF FINAL Differential Comment Blood Urea Nitrogen 37 MG/DL (7-18) 53 MG/DL (7-18) Creatinine 5.98 MG/DL (0.50-1.00) 7.40 MG/DL (0.50-1.00) Random Glucose 100 MG/DL (74-106) 142 MG/DL (74-106) Calcium Level 8.0 MG/DL (8.5-10.1) 8.1 MG/DL (8.5-10.1) Sodium Level 140 MEQ/L (136-145) 137 MEQ/L (136-145) Potassium Level 3.5 MEQ/L (3.5-5.1) 3.8 MEQ/L (3.5-5.1) Chloride Level 99 MEQ/L (98-107) 97 MEQ/L (98-107) Carbon Dioxide Level 30.5 MEQ/L (21.0-32.0) 27.7 MEQ/L (21.0-32.0) Anion Gap 11 MEQ/L (5-15) 12 MEQ/L (5-15) Estimat Glomerular Filtration Rate 9 ML/MIN (>89) 7 ML/MIN (>89) Phenytoin (Dilantin) Level 6.5 MCG/ML (10.0-20.0) 6.1 MCG/ML (10.0-20.0) Total Protein 7.1 GM/DL (6.4-8.2) Albumin 2.5 GM/DL (3.4-5.0) Alkaline Phosphatase 109 U/L (45-117) Aspartate Amino Transf (AST/SGOT) 49 U/L (15-37) Alanine Aminotransferase (ALT/SGPT) 20 U/L (10-53) Total Bilirubin 0.6 MG/DL (0.2-1.0) Valproic Acid (Depakene) Level 25 MCG/ML (50-100) Test 06/05/17 06:00 White Blood Count 18.5 TH/MM3 (4.0-11.0) Red Blood Count 3.21 MIL/MM3 (4.00-5.30) Hemoglobin 8.8 GM/DL (11.6-15.3) Hematocrit 28.1 % (35.0-46.0) Mean Corpuscular Volume 87.4 FL (80.0-100.0) Mean Corpuscular Hemoglobin 27.5 PG (27.0-34.0) Mean Corpuscular Hemoglobin Concent 31.5 % (32.0-36.0) Red Cell Distribution Width 17.3 % (11.6-17.2) Platelet Count 244 TH/MM3 (150-450) Mean Platelet Volume 8.7 FL (7.0-11.0) Neutrophils (%) (Auto) 92.2 % (16.0-70.0) Lymphocytes (%) (Auto) 4.9 % (9.0-44.0) Monocytes (%) (Auto) 2.8 % (0.0-8.0) Eosinophils (%) (Auto) 0.0 % (0.0-4.0) Basophils (%) (Auto) 0.1 % (0.0-2.0) Neutrophils # (Auto) 17.1 TH/MM3 (1.8-7.7) Lymphocytes # (Auto) 0.9 TH/MM3 (1.0-4.8) Monocytes # (Auto) 0.5 TH/MM3 (0-0.9) Eosinophils # (Auto) 0.0 TH/MM3 (0-0.4) Basophils # (Auto) 0.0 TH/MM3 (0-0.2) CBC Comment DIFF FINAL Differential Comment Blood Urea Nitrogen 70 MG/DL (7-18) Creatinine 8.45 MG/DL (0.50-1.00) Random Glucose 107 MG/DL (74-106) Calcium Level 8.1 MG/DL (8.5-10.1) Phosphorus Level 5.8 MG/DL (2.5-4.9) Sodium Level 136 MEQ/L (136-145) Potassium Level 3.9 MEQ/L (3.5-5.1) Chloride Level 97 MEQ/L (98-107) Carbon Dioxide Level 25.6 MEQ/L (21.0-32.0) Anion Gap 13 MEQ/L (5-15) Estimat Glomerular Filtration Rate 6 ML/MIN (>89) Result Diagram: 06/05/17 0600 06/05/17 0600 Microbiology Microbiology Date/Time Source Procedure Growth Status 06/04/17 05:00 Sputum Endotracheal Gram Stain - Final Resulted 06/04/17 05:00 Sputum Endotracheal Sputum Culture Pending Resulted Imaging Last Impressions Head CT 06/01/17 5206 Signed Impressions: Service Date/Time: Thursday, June 01, 2017 15:17 - CONCLUSION: Atrophy otherwise negative. Freddy Arguelles MD FACR Chest X-Ray 06/01/17 1121 Signed Impressions: Service Date/Time: Thursday, June 01, 2017 13:54 - CONCLUSION: 1. Limited study. 2. Bilateral pulmonary infiltrates. Timothy Roper Jr., MD Procedures CPR, resuscitation 06/01/17 INTUBATION 06/01/17 Intraosseous needle placement in left tibia 06/01/17 Central line placement 06/01/17 . Assessment and Plan Disease Oriented Problem List: (1) cardiac arrest, prolonged resuscitation (2) probable anoxic brain injury Comment: With seizure activity (3) end-stage renal disease (4) CHF (5) COPD (6) peripheral vascular disease (7) hypertension (8) obesity (9) asthma (10) gout (11) hypothyroidism (12) depression (13) arthritis (14) history of sleep apnea Symptom Scale: (1) dyspnea 0-10 Scale: Unable to quantify (2) pain 0-10 Scale: Unable to quantify (likely has musculoskeletal pain after the prolonged resuscitation) Pertinent Non-Medical Issues Psychosocial: for 32 years, 3 children (son age 45 in [place], son age 40 in [place], daughter age 38 in [facility]);, former [employer], 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 Spiritual: Yarsani background Legal: The patient lacks capacity for decision-making, and it seems unlikely that she will regain that capacity. Her is the decision making proxy. Ethical issues impacting care: None . Important Contacts [place] -- [phone] . Prognosis Her prognosis is quite poor, as it appears she has had a profound anoxic brain injury, and she has multiple other comorbidities. . Code Status: Full Code Plan * FULL CODE -- confirmed aggressive goals with on 06/04/17 * DECISION-MAKING: The patient lacks capacity for decision-making, and she will not regain that capacity. Her is the decision making proxy. * GOALS: 06/04/17: The patient's notes that she was on prolonged mechanical ventilation with tracheostomy and long-term nursing facility stay for several months 5 or 6 years ago and recovered to the point of being independent at home again. He does understand that this is different this time due to the permanent brain injury, but he wants to "give her more chance" and continue full aggressive care for now. I made him aware of the withdrawal of life support choice that is available to him and the family to allow her to naturally and peacefully, but he notes "we are not there yet." * SYMPTOMS: Her dyspnea and likely pain is being managed in the [facility], I have no additional medication recommendations at this time. * Palliative Care will continue to follow the patient during this hospitalization. . Attestation To help prompt me to consider important information that might be impacting today's encounter and assessment, information from prior notes written by myself or my colleagues may have been "brought forward" into today's note. My signature on this note, however, is an attestation that I personally performed the exam, history, and/or decision-making noted today, and, unless otherwise indicated, the interactions with patient, family, and staff as well as the review of records all occurred today. I also attest that the listed assessment and stated plan reflect my best clinical judgment today based on the combination of historical information, prior notes, and today's exam/ interactions. When time spent is documented, it refers only to time spent today by the signer, or if indicated, combined time spent today by collaborating physician/nurse practitioner. Rosy Reynoso MD Jun 05, 2017 11:01
--- NOTE | 2017-06-05 11:16 | RADRPT ---
EXAM DATE/TIME: 06/05/2017 10:09 [facility] COMPARISON: CHEST SINGLE AP, June 01, 2017, 13:54. INDICATIONS : Short of breath. MEDICAL HISTORY : Chronic obstructive pulmonary disease. SURGICAL HISTORY : None. ENCOUNTER: Subsequent ACUITY: 4 - 6 days PAIN SCORE: Non-responsive. LOCATION: Bilateral chest FINDINGS: The cardiac silhouette is enlarged in transverse diameter. Support lines and tubes are in satisfactor y position. There is prominence of the central pulmonary vasculature with indistinct vascular margins compatible with vascular congestion but no evidence of overt failure. There has been no significant change when compared to the prior exam. CONCLUSION: 1. Cardiomegaly and findings of vascular congestion without overt failure. There has been no signific ant change when compared to the prior exam. Giovanny Newton MD on June 05, 2017 at 11:13 Board Certified Radiologist. This report was verified electronically.
[2017-06-05] MEDS: ALBUMIN HUMAN 25% 25 GM/100 ML BAGP IV PRN (13:58)
[2017-06-05] MEDS: EPOETIN ALFA 10,000 UNITS/ML VIAL IV PRN (13:58)
[2017-06-05] MEDS: GELATIN 12 MM/7 MM FOAM TOP PRN (13:58)
[2017-06-05] MEDS: SODIUM CHLOR 0.9% 1000 ML INJ 1,000 ML OTHER PRN (13:59)
--- NOTE | 2017-06-05 15:10 | PD.CONS ---
History of Present Illness Service Infectious disease Consult Requested By Dr Tammie Mancilla Reason for Consult Evaluate patient with fever and leukocytosis Primary Care Physician Unknown Diagnoses: History of Present Illness Patient seen and examined. Records reviewed. Patient is a 67-year-old female, brought into the hospital after she became unresponsive during her hemodialysis. She has end-stage renal disease, and goes to dialysis every Sunday and Sunday. She was apparently undergoing dialysis on the day of admission, and she told the staff that she was not feeling well. She suddenly became unresponsive. EMS was called, and patient was found to be in PEA arrest. She underwent CPR, and intubation. After about 30 minutes she was successfully resuscitated and was on pressors. Patient has remained intubated since. She has since then been having problem with seizure activity on her EEG. Patient is currently on multiple anticonvulsant agents. Her WBC has remained elevated. She started having fevers about 2 days ago. She's had blood culture that were negative, and sputum culture with normal respiratory [place]. Patient is anuric. She has been on Zosyn empirically. She has a femoral line on the right. She's had diarrhea , and stool for C. difficile is negative. Patient currently is sedated on the vent. She is still on pressors. Infectious disease consultation has been requested to evaluate the patient with fevers and persistent leukocytosis. Review of Systems ROS Limitations: Clinical Condition, Intubated, Unresponsive Past Family Social History Allergies: Coded Allergies: diatrizoate meglumine (Unverified Allergy, Severe, Joint Pain, 05/15/17) pt states she is not allergic to this gadobenic acid (Unverified Allergy, Severe, Joint Pain, 05/15/17) pt states she is not allergic to this gadodiamide (Unverified Allergy, Severe, Joint Pain, 05/15/17) pt states she is not allergic to this gadoteridol (Unverified Allergy, Severe, Joint Pain, 05/15/17) pt states she is not allergic to this iodine (Unverified Allergy, Severe, ORAL CONTRAST OK, 05/15/17) pt states she is not allergic to this iodixanol (Unverified Allergy, Severe, Joint Pain, 05/15/17) pt states she is not allergic to this iohexol (Unverified Allergy, Severe, Joint Pain, 05/15/17) pt states she is not allergic to this morphine (Unverified Allergy, Severe, ITCH, 05/15/17) pt states she is not allergic to this potassium iodide (Unverified Allergy, Severe, ORAL CONTRAST OK, 05/15/17) pt states she is not allergic to this povidone-iodine (Unverified Allergy, Severe, ORAL CONTRAST OK, 05/15/17) pt states she is not allergic to this sodium iodide (Unverified Allergy, Severe, ORAL CONTRAST OK, 05/15/17) pt states she is not allergic to this sodium iodide (Unverified Allergy, Severe, ORAL CONTRAST OK, 05/15/17) pt states she is not allergic to this vancomycin (Unverified Allergy, Unknown, 05/15/17) PT STATES UNKNOWN IF SHE IS ALLERGIC. Past Medical History End-stage renal disease on hemodialysis Sunday, Sunday, Sunday Hypertension Hyperlipidemia anemia of chronic disease Arthritis. Congestive heart failure. Cerebrovascular accident. Gastroesophageal reflux disease. Obstructive sleep apnea on C-PAP q.h.s. Hypothyroidism Vertigo Anxiety / depression Chronic obstructive pulmonary disease. Past Surgical History Previous bilateral TMA x3 Left upper extremity AV fistula Left breast lumpectomy Partial hysterectomy. Active Ordered Medications Tylenol Albumin Albuterol Aspirin Zithromax Dulcolax Sensipar Clonidine Benadryl Epogen Fentanyl Cerebyx Heparin Solu-Cortef Insulin Lactulose Ativan MOM Mannitol Versed SL NTG Levophed Zofran Protonix Phenobarbital Zosyn Pat-Colace Senokot Renvela Valproate Vasopressin Nephrocaps Family History Noncontributory Social History Denies smoking No alcohol abuse No illicit drugs Physical Exam Vital Signs Vital Signs Date Time Temp Pulse Resp B/P (MAP) Pulse Ox O2 Delivery O2 Flow Rate FiO2 06/05/17 13:01 100 35 06/05/17 12:00 98.0 70 17 105/58 (74) 72 06/05/17 12:00 35 06/05/17 12:00 73 06/05/17 10:40 68 104/59 06/05/17 10:00 68 06/05/17 08:51 100 35 06/05/17 08:00 35 06/05/17 08:00 98.2 72 14 99/56 (70) 97 06/05/17 06:00 68 06/05/17 04:54 97 35 06/05/17 04:00 97.9 73 16 108/58 (75) 96 06/05/17 04:00 73 06/05/17 04:00 35 06/05/17 02:00 71 06/05/17 00:09 99 35 06/05/17 00:00 72 06/05/17 00:00 98.0 72 14 121/59 (79) 100 06/05/17 00:00 35 06/04/17 22:00 70 06/04/17 21:05 88 99/56 06/04/17 21:04 88 99/56 06/04/17 20:47 98.0 80 16 100/54 (69) 96 06/04/17 20:43 100 35 06/04/17 20:43 100 Ventilator 35 06/04/17 20:00 80 06/04/17 20:00 35 06/04/17 16:30 100 35 06/04/17 16:00 98.1 66 14 102/58 (73) 99 06/04/17 16:00 35 06/04/17 16:00 35 Physical Exam GENERAL: Patient is an obese, well-developed female, sedated, on the vent, not in respiratory distress. Getting HD currently SKIN: Warm and dry. No generalized rash, no ecchymoses and no evidence of embolic lesions. HEAD: Atraumatic. Normocephalic. No temporal wasting, or tenderness. EYES: [place] conjunctiva. No petechia or hemorrhage. Pupils equal, round and reactive to light. Has dirty sclera. No injection or drainage. EARS, NOSE AND THROAT: Nose without bleeding or purulent nasal discharge. She is orally intubated. NECK: Trachea midline. Supple, no meningeal signs CARDIOVASCULAR: Regular rate and rhythm. No murmurs, rubs or gallops heard RESPIRATORY: Coarse breath sounds bilaterally, decreased at the bases. ABDOMEN: Soft, obese, no reaction to palpation, Bowel sounds present and normoactive. No organomegaly. EXTREMITIES: No clubbing, cyanosis, or edema. Kush TMA, has dry ulcer L foot about pea sized, with no evidence of infection. Well perfused and warm. NEUROLOGICAL: Sedated PSYCHIATRIC: Unable to assess LINE: R groin line with no evidence of infection Laboratory Laboratory Tests Test 06/05/17 06:00 White Blood Count 18.5 Red Blood Count 3.21 Hemoglobin 8.8 Hematocrit 28.1 Mean Corpuscular Volume 87.4 Mean Corpuscular Hemoglobin 27.5 Mean Corpuscular Hemoglobin Concent 31.5 Red Cell Distribution Width 17.3 Platelet Count 244 Mean Platelet Volume 8.7 Neutrophils (%) (Auto) 92.2 Lymphocytes (%) (Auto) 4.9 Monocytes (%) (Auto) 2.8 Eosinophils (%) (Auto) 0.0 Basophils (%) (Auto) 0.1 Neutrophils # (Auto) 17.1 Lymphocytes # (Auto) 0.9 Monocytes # (Auto) 0.5 Eosinophils # (Auto) 0.0 Basophils # (Auto) 0.0 CBC Comment DIFF FINAL Differential Comment Blood Urea Nitrogen 70 Creatinine 8.45 Random Glucose 107 Calcium Level 8.1 Phosphorus Level 5.8 Sodium Level 136 Potassium Level 3.9 Chloride Level 97 Carbon Dioxide Level 25.6 Anion Gap 13 Estimat Glomerular Filtration Rate 6 Date/Time Source Procedure Growth Status 06/01/17 11:40 Blood Peripheral Aerobic Blood Culture - Preliminary NO GROWTH IN 4 DAYS Resulted 06/01/17 11:40 Blood Peripheral Anaerobic Blood Culture - Preliminary NO GROWTH IN 4 DAYS Resulted 06/04/17 05:00 Sputum Endotracheal Gram Stain - Final Resulted 06/04/17 05:00 Sputum Endotracheal Sputum Culture - Preliminary MODERATE GROWTH NORMAL RESPIRATORY FL... Resulted Result Diagram: 06/05/17 0600 06/05/17 0600 Imaging RADIOLOGY STUDIES/FILMS REVIEWED Chest X-Ray 06/05/17 0000 Signed Impressions: Service Date/Time: Monday, June 05, 2017 10:09 - CONCLUSION: 1. Cardiomegaly and findings of vascular congestion without overt failure. There has been no significant change when compared to the prior exam. Giovanny Newton MD Head CT 06/01/17 1406 Signed Impressions: Service Date/Time: Thursday, June 01, 2017 15:17 - CONCLUSION: Atrophy otherwise negative. 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
[2017-06-05] MEDS: AZITHROMYCIN INJ 500 MG in SODIUM CHLOR 0.9% 250 ML INJ 250 ML IV SCH (15:36)
--- NOTE | 2017-06-05 15:57 | MG ---
cc: DEANDRA CLAY MD Lab No: [id number] Date: 06/05/2017 Age: f Sex: F Race: DATE OF : 1950 HISTORY: 67 year-old female, intubated on Versed drip, fentanyl given mental status changes. PROCEDURE: Generalized periodic sharp waves occurring for 1-2 seconds with underlying suppressed delta activity occurring every 1 second times 1-2 seconds, 20-70 microvolts. Single EKG showing sinus rhythm. No driving with photic stimulation. INTERPRETATION Frequent generalized discharges occurring with bursts mild suppression EEG pattern. Clinical correlation Deandra Clay MD MG/ /3:29 PM /3:48 PM
[2017-06-05] MEDS: CEFEPIME INJ 1,000 MG in SODIUM CHLORIDE 0.9% INJ 100 ML IV SCH (16:00)
[2017-06-05] MEDS: VALPROATE INJ 500 MG in SODIUM CHLORIDE 0.9% INJ 100 ML IV SCH ×2 (16:48→22:13)
[2017-06-05] MEDS: fentaNYL DRIP 250 ML IV PRN (16:50)
[2017-06-05] MEDS: MIDAZOLAM 100 MG/100 ML INJ 100 ML IV PRN (19:41)
[2017-06-06] VITALS (17 sets, daily range): BP systolic 110–130; BP diastolic 58–75; PULSE 66–79; RESP 14; TEMP 97.7–98.9; O2SAT 96–100
[2017-06-06] MEDS: INSULIN NovoLIN REGULAR SUPPLEMENTAL SCALE SQ SCH ×6 (02:00→22:00)
[2017-06-06] MEDS: CHLORHEXIDINE GLUCONATE 2 % 1 PACK (2 CLOTHS) TOP SCH (04:00)
[2017-06-06] MEDS: FOSPHENYTOIN SODIUM 100 MG PE/2 ML VIAL IV SCH ×3 (04:11→20:31)
[2017-06-06 04:55] LABS: AUTOMATED NEUTROPHIL # 15.3 TH/MM3 (1.8-7.7); BASOPHIL % 0.3 % (0.0-2.0); EOSINOPHIL % 0.1 % (0.0-4.0); HEMATOCRIT 27.1 % (35.0-46.0); HEMO FLAGS DIFF FINAL; LYMPHOCYTE # 0.9 TH/MM3 (1.0-4.8); MEAN CELL VOLUME 86.6 FL (80.0-100.0); MEAN CORPUSCULAR HGB CONC 31.2 % (32.0-36.0); MONO % 5.4 % (0.0-8.0); NEUT % 89.2 % (16.0-70.0); PLATELET COUNT 269 TH/MM3 (150-450); RED BLOOD COUNT 3.13 MIL/MM3 (4.00-5.30); WHITE BLOOD COUNT 17.2 TH/MM3 (4.0-11.0)
[2017-06-06 05:20] LABS: BLOOD UREA NITROGEN 47 MG/DL (7-18)
[2017-06-06 05:21] LABS: ALKALINE PHOSPHATASE 82 U/L (45-117); ALT (GPT) 28 U/L (10-53); ANION GAP 11 MEQ/L (5-15); AST (GOT) 91 U/L (15-37); BICARBONATE 29.3 MEQ/L (21.0-32.0); CHLORIDE 100 MEQ/L (98-107); GLOMERULAR FILTRATION RATE 9 ML/MIN (>89); PHENOBARBITAL 2.3 MCG/ML (15.0-40.0); POTASSIUM 3.3 MEQ/L (3.5-5.1); SODIUM (NA) 140 MEQ/L (136-145); TOTAL BILIRUBIN ADULT 0.5 MG/DL (0.2-1.0)
--- NOTE | 2017-06-06 05:34 | RADRPT ---
EXAM DATE/TIME: 06/06/2017 03:30 [facility] COMPARISON: CHEST SINGLE AP, June 05, 2017, 10:09. INDICATIONS : Short of breath. MEDICAL HISTORY : Chronic obstructive pulmonary disease. SURGICAL HISTORY : None. ENCOUNTER: Subsequent ACUITY: 4 - 6 days PAIN SCORE: 0/10 LOCATION: Bilateral chest FINDINGS: Stable ETT and NGT. Mild bibasilar airspace disease and interstitial prominence. Cardiac silhouette i s enlarged with prominence of the central part of vasculature. Remainder of exam is unchanged. CONCLUSION: 1. Cardiomegaly with positive fluid balance. 2. Stable mild bibasilar airspace disease, likely atelectasis. 3. No significant interval change. Rodri Leung MD on June 06, 2017 at 5:31 Board Certified Radiologist. This report was verified electronically.
--- NOTE | 2017-06-06 05:37 | RADRPT ---
EXAM DATE/TIME: 06/06/2017 04:41 [facility] COMPARISON: CT BRAIN W/O CONTRAST, June 01, 2017, 15:17. INDICATIONS : Follow up stroke. RADIATION DOSE: 51.07 CTDIvol (mGy) ; Tabletop CT Head MEDICAL HISTORY : Cerebrovascular disease. Cardiovascular disease Hypertension.Renal failure SURGICAL HISTORY : Hysterectomy. AV shunt ENCOUNTER: Subsequent ACUITY: 4 - 6 days PAIN SCALE: Non-responsive LOCATION: cranial TECHNIQUE: Multiple contiguous axial images were obtained of the head. Using automated exposure control and adj ustment of the mA and/or kV according to patient size, radiation dose was kept as low as reasonably a chievable to obtain optimal diagnostic quality images. DICOM format image data is available electro nically for review and comparison. FINDINGS: CEREBRUM: Mild diffuse cerebral atrophy. The ventricles are normal for age. Nonspecific bilateral basal gangli a calcifications. No evidence of midline shift, mass lesion, hemorrhage or acute infarction. No extr a-axial fluid collections are seen. POSTERIOR FOSSA: The cerebellum and brainstem are intact. The 4th ventricle is midline. The cerebellopontine angle i s unremarkable. EXTRACRANIAL: The visualized portion of the orbits is intact. Fluid is noted in the ethmoid air cells and right max illary sinus in this intubated patient. SKULL: The calvaria is intact. No evidence of skull fracture. CONCLUSION: 1. Senescent changes. 2. No significant interval change or acute intracranial abnormality. Rodri Leung MD on June 06, 2017 at 5:33 Board Certified Radiologist. This report was verified electronically.
[2017-06-06] MEDS: VALPROATE INJ 500 MG in SODIUM CHLORIDE 0.9% INJ 100 ML IV SCH ×3 (06:00→22:11)
[2017-06-06] MEDS: HYDROCORTISONE SOD SUCCINATE 100 MG VIAL IV PUSH SCH ×3 (06:00→22:12)
[2017-06-06] MEDS: MIDAZOLAM 100 MG/100 ML INJ 100 ML IV PRN ×2 (06:10→19:04)
[2017-06-06] MEDS: DOCUSATE SODIUM 50 MG/SENNA 8.6 MG TAB PO SCH ×2 (08:21→20:31)
[2017-06-06] MEDS: CINACALCET HYDROCHLORIDE 30 MG TAB PO SCH (08:22)
[2017-06-06] MEDS: SEVELAMER CARBONATE 800 MG TAB PO SCH ×2 (08:22→12:56)
[2017-06-06] MEDS: ASPIRIN EC 81 MG TABEC PO SCH (09:41)
[2017-06-06] MEDS: HEPARIN SODIUM - SQ 10,000 UNITS/ML VIAL SQ SCH ×2 (09:42→20:31)
[2017-06-06] MEDS: PANTOPRAZOLE SODIUM 40 MG VIAL IV SCH (09:42)
[2017-06-06] MEDS: VITAMIN B CMPLX/VITC/FOLIC AC CAP PO SCH (09:45)
--- NOTE | 2017-06-06 10:17 | HHI.IDPN ---
Subjective Subjective Remarks Patient is a 67-year-old female, brought into the hospital after she became unresponsive during her hemodialysis. She has end-stage renal disease, and goes to dialysis every Sunday and Sunday. She was apparently undergoing dialysis on the day of admission, and she told the staff that she was not feeling well. She suddenly became unresponsive. EMS was called, and patient was found to be in PEA arrest. She underwent CPR, and intubation. After about 30 minutes she was successfully resuscitated and was on pressors. Patient has remained intubated since. She has since then been having problem with seizure activity on her EEG. Patient is currently on multiple anticonvulsant agents. Her WBC has remained elevated. She started having fevers about 2 days ago. She's had blood culture that were negative, and sputum culture with normal respiratory [place]. Patient is anuric. She has been on Zosyn empirically. She has a femoral line on the right. She's had diarrhea , and stool for C. difficile is negative. Patient currently is sedated on the vent. She is still on pressors. Infectious disease consultation has been requested to evaluate the patient with fevers and persistent leukocytosis. Notes reviewed D/W RN Temps ok Sedated on the vent On low dose levophed WBC same Antibiotics Cefepime Zithromax Past Medical History End-stage renal disease on hemodialysis Sunday, Sunday, Sunday Hypertension Hyperlipidemia anemia of chronic disease Arthritis. Congestive heart failure. Cerebrovascular accident. Gastroesophageal reflux disease. Obstructive sleep apnea on C-PAP q.h.s. Hypothyroidism Vertigo Anxiety / depression Chronic obstructive pulmonary disease. Past Surgical History Previous bilateral TMA x3 Left upper extremity AV fistula Left breast lumpectomy Partial hysterectomy. Allergies: Coded Allergies: diatrizoate meglumine (Unverified Allergy, Severe, Joint Pain, 05/15/17) pt states she is not allergic to this gadobenic acid (Unverified Allergy, Severe, Joint Pain, 05/15/17) pt states she is not allergic to this gadodiamide (Unverified Allergy, Severe, Joint Pain, 05/15/17) pt states she is not allergic to this gadoteridol (Unverified Allergy, Severe, Joint Pain, 05/15/17) pt states she is not allergic to this iodine (Unverified Allergy, Severe, ORAL CONTRAST [place], 05/15/17) pt states she is not allergic to this iodixanol (Unverified Allergy, Severe, Joint Pain, 05/15/17) pt states she is not allergic to this iohexol (Unverified Allergy, Severe, Joint Pain, 05/15/17) pt states she is not allergic to this morphine (Unverified Allergy, Severe, ITCH, 05/15/17) pt states she is not allergic to this potassium iodide (Unverified Allergy, Severe, ORAL CONTRAST [place], 05/15/17) pt states she is not allergic to this povidone-iodine (Unverified Allergy, Severe, ORAL CONTRAST [place], 05/15/17) pt states she is not allergic to this sodium iodide (Unverified Allergy, Severe, ORAL CONTRAST [place], 05/15/17) pt states she is not allergic to this sodium iodide (Unverified Allergy, Severe, ORAL CONTRAST [place], 05/15/17) pt states she is not allergic to this vancomycin (Unverified Allergy, Unknown, 05/15/17) PT STATES UNKNOWN IF SHE IS ALLERGIC. Objective . Vital Signs Date Time Temp Pulse Resp B/P (MAP) Pulse Ox O2 Delivery O2 Flow Rate FiO2 06/06/17 08:47 100 30 06/06/17 07:00 68 89/54 06/06/17 06:00 79 06/06/17 06:00 79 117/84 06/06/17 06:00 79 117/64 06/06/17 04:28 100 100 06/06/17 04:18 98 35 06/06/17 04:00 72 06/06/17 04:00 35 06/06/17 04:00 98.8 72 14 120/67 (84) 100 06/06/17 02:00 72 06/06/17 00:00 72 06/06/17 00:00 98.9 72 14 130/69 (89) 99 06/06/17 00:00 35 06/05/17 22:23 100 35 06/05/17 22:00 74 06/05/17 20:00 99.2 80 15 124/59 (80) 100 06/05/17 20:00 35 06/05/17 20:00 80 06/05/17 20:00 100 35 06/05/17 18:00 92 06/05/17 16:06 98 35 06/05/17 16:00 79 06/05/17 16:00 98.5 79 18 109/59 (76) 97 06/05/17 16:00 35 06/05/17 14:00 72 06/05/17 14:00 98.5 79 18 109/59 (76) 97 06/05/17 13:01 100 35 06/05/17 12:00 98.0 70 17 105/58 (74) 72 06/05/17 12:00 35 06/05/17 12:00 73 06/05/17 10:40 68 104/59 . Laboratory Tests Test 06/05/17 06:00 06/06/17 03:50 White Blood Count 18.5 TH/MM3 17.2 TH/MM3 Red Blood Count 3.21 MIL/MM3 3.13 MIL/MM3 Hemoglobin 8.8 GM/DL 8.5 GM/DL Hematocrit 28.1 % 27.1 % Mean Corpuscular Volume 87.4 FL 86.6 FL Mean Corpuscular Hemoglobin 27.5 PG 27.0 PG Mean Corpuscular Hemoglobin Concent 31.5 % 31.2 % Red Cell Distribution Width 17.3 % 17.0 % Platelet Count 244 TH/MM3 269 TH/MM3 Mean Platelet Volume 8.7 FL 8.3 FL Neutrophils (%) (Auto) 92.2 % 89.2 % Lymphocytes (%) (Auto) 4.9 % 5.0 % Monocytes (%) (Auto) 2.8 % 5.4 % Eosinophils (%) (Auto) 0.0 % 0.1 % Basophils (%) (Auto) 0.1 % 0.3 % Neutrophils # (Auto) 17.1 TH/MM3 15.3 TH/MM3 Lymphocytes # (Auto) 0.9 TH/MM3 0.9 TH/MM3 Monocytes # (Auto) 0.5 TH/MM3 0.9 TH/MM3 Eosinophils # (Auto) 0.0 TH/MM3 0.0 TH/MM3 Basophils # (Auto) 0.0 TH/MM3 0.0 TH/MM3 CBC Comment DIFF FINAL DIFF FINAL Differential Comment Laboratory Tests Test 06/05/17 06:00 06/06/17 03:50 Blood Urea Nitrogen 70 MG/DL 47 MG/DL Creatinine 8.45 MG/DL 5.83 MG/DL Random Glucose 107 MG/DL 114 MG/DL Calcium Level 8.1 MG/DL 8.3 MG/DL Phosphorus Level 5.8 MG/DL Sodium Level 136 MEQ/L 140 MEQ/L Potassium Level 3.9 MEQ/L 3.3 MEQ/L Chloride Level 97 MEQ/L 100 MEQ/L Carbon Dioxide Level 25.6 MEQ/L 29.3 MEQ/L Anion Gap 13 MEQ/L 11 MEQ/L Estimat Glomerular Filtration Rate 6 ML/MIN 9 ML/MIN Total Protein 7.2 GM/DL Albumin 3.0 GM/DL Alkaline Phosphatase 82 U/L Aspartate Amino Transf (AST/SGOT) 91 U/L Alanine Aminotransferase (ALT/SGPT) 28 U/L Total Bilirubin 0.5 MG/DL Microbiology Date/Time Source Procedure Growth Status 06/04/17 05:00 Sputum Endotracheal Gram Stain - Final Resulted 06/04/17 05:00 Sputum Endotracheal Sputum Culture - Preliminary MODERATE GROWTH NORMAL RESPIRATORY FL... Resulted Imaging Chest X-Ray 06/06/17 0000 Signed Impressions: Service Date/Time: Tuesday, June 06, 2017 03:30 - CONCLUSION: 1. Cardiomegaly with positive fluid balance. 2. Stable mild bibasilar airspace disease, likely atelectasis. 3. No significant interval change. Rodri Leung MD Head CT 06/05/17 0000 Signed Impressions: Service Date/Time: Tuesday, June 06, 2017 04:41 - CONCLUSION: 1. Senescent changes. 2. No significant interval change or acute intracranial abnormality. Rodri Leung MD Physical Exam GENERAL: , sedated, on the vent, not in respiratory distress. SKIN: Warm and dry. No generalized rash, no ecchymoses and no evidence of embolic lesions. HEAD: Atraumatic. Normocephalic. No temporal wasting, or tenderness. EYES: [place] conjunctiva. No petechia or hemorrhage. Pupils equal, round and reactive to light. Has dirty sclera. No injection or drainage. EARS, NOSE AND THROAT: Nose without bleeding or purulent nasal discharge. She is orally intubated. NECK: Trachea midline. Supple, no meningeal signs CARDIOVASCULAR: Regular rate and rhythm. No murmurs, rubs or gallops heard RESPIRATORY: Coarse breath sounds bilaterally, decreased at the bases. ABDOMEN: Soft, obese, no reaction to palpation, Bowel sounds present and normoactive. No organomegaly. EXTREMITIES: No clubbing, cyanosis, or edema. Kush TMA, has dry ulcer L foot about pea sized, with no evidence of infection. Well perfused and warm. 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
--- NOTE | 2017-06-06 11:15 | HHI.HCPN ---
Reason for visit a. To assist with evaluation and management of symptoms including: dyspnea , pain, seizures b. To assist medical decision maker(s) with: better understanding of current medical conditions; weighing benefits/burdens of medical treatment options; making medical treatment decisions. . Subjective/Interval History INTERVAL NOTE: The patient remains unresponsive. She has had recent seizure activity, and the EEGs have shown seizure activity that is felt to be due to the anoxic injury. She is now on Cerebyx, phenobarbital, midazolam, and Depakote, as well as PRN lorazepam. She is on Levophed again. She has had no fever in the past 48 hours, and seems to be showing no signs of neurologic improvement. The was here briefly this morning, but was gone before I arrived, and I am unable to reach him so far via 2 telephone attempts. . Advance Directives Living Will: Never completed Health Care Surrogate: Never completed Durable Power of Head Start Assistant Teacher: Never completed Objective Vital Signs Date Time Temp Pulse Resp B/P (MAP) Pulse Ox O2 Delivery O2 Flow Rate FiO2 06/06/17 08:47 100 30 06/06/17 08:00 35 06/06/17 07:00 68 89/54 06/06/17 06:00 79 06/06/17 06:00 79 117/84 06/06/17 06:00 79 117/64 06/06/17 04:28 100 100 06/06/17 04:18 98 35 06/06/17 04:00 72 06/06/17 04:00 35 06/06/17 04:00 98.8 72 14 120/67 (84) 100 06/06/17 02:00 72 06/06/17 00:00 72 06/06/17 00:00 98.9 72 14 130/69 (89) 99 06/06/17 00:00 35 06/05/17 22:23 100 35 06/05/17 22:00 74 06/05/17 20:00 99.2 80 15 124/59 (80) 100 06/05/17 20:00 35 06/05/17 20:00 80 06/05/17 20:00 100 35 06/05/17 18:00 92 06/05/17 16:06 98 35 06/05/17 16:00 79 06/05/17 16:00 98.5 79 18 109/59 (76) 97 06/05/17 16:00 35 06/05/17 14:00 72 06/05/17 14:00 98.5 79 18 109/59 (76) 97 06/05/17 13:01 100 35 06/05/17 12:00 98.0 70 17 105/58 (74) 72 06/05/17 12:00 35 06/05/17 12:00 73 Intake & Output 06/06/17 06/06/17 07:00 19:00 Intake Total 723 ml Output Total 150.0 ml Balance 573.0 ml IV Total 429 ml Tube Feeding 234 ml Other 60 ml Output Urine Total 0 ml Tube Feeding Residual Discard 150.0 ml # Bowel Movements 1 Physical Exam CONSTITUTIONAL/GENERAL: This is an elderly, obese, unresponsive patient, in no apparent distress. TUBES/LINES/DRAINS: ET tube, IV access EYES: Pupils equal and round but I cannot detect any reaction to light. No scleral icterus. No injection or drainage. Fundi not examined. NECK: Trachea midline. Supple, nontender. No palpable thyroid enlargement or nodularity. CARDIOVASCULAR: Regular rate and rhythm without murmurs, gallops, or rubs. Unable to palpate foot or ankle pulses. RESPIRATORY/CHEST: Symmetric, unlabored respirations with ventilator. Scattered rhonchi. GASTROINTESTINAL: Abdomen soft, obese. No obvious hepato-splenomegaly, or palpable masses. No guarding. Bowel sounds present. MUSCULOSKELETAL: Extremities without clubbing, cyanosis. No mottling or clubbing. NEUROLOGICAL: Unresponsive to voice or pain PSYCHIATRIC: Unable to assess due to clinical condition . Diagnostic Tests Laboratory Laboratory Tests Test 06/04/17 05:20 06/04/17 05:30 06/05/17 06:00 06/06/17 03:50 White Blood Count 16.0 TH/MM3 (4.0-11.0) 18.5 TH/MM3 (4.0-11.0) 17.2 TH/MM3 (4.0-11.0) Red Blood Count 3.26 MIL/MM3 (4.00-5.30) 3.21 MIL/MM3 (4.00-5.30) 3.13 MIL/MM3 (4.00-5.30) Hemoglobin 8.8 GM/DL (11.6-15.3) 8.8 GM/DL (11.6-15.3) 8.5 GM/DL (11.6-15.3) Hematocrit 28.4 % (35.0-46.0) 28.1 % (35.0-46.0) 27.1 % (35.0-46.0) Mean Corpuscular Volume 87.1 FL (80.0-100.0) 87.4 FL (80.0-100.0) 86.6 FL (80.0-100.0) Mean Corpuscular Hemoglobin 27.0 PG (27.0-34.0) 27.5 PG (27.0-34.0) 27.0 PG (27.0-34.0) Mean Corpuscular Hemoglobin Concent 31.0 % (32.0-36.0) 31.5 % (32.0-36.0) 31.2 % (32.0-36.0) Red Cell Distribution Width 17.1 % (11.6-17.2) 17.3 % (11.6-17.2) 17.0 % (11.6-17.2) Platelet Count 224 TH/MM3 (150-450) 244 TH/MM3 (150-450) 269 TH/MM3 (150-450) Mean Platelet Volume 8.2 FL (7.0-11.0) 8.7 FL (7.0-11.0) 8.3 FL (7.0-11.0) Neutrophils (%) (Auto) 86.6 % (16.0-70.0) 92.2 % (16.0-70.0) 89.2 % (16.0-70.0) Lymphocytes (%) (Auto) 6.7 % (9.0-44.0) 4.9 % (9.0-44.0) 5.0 % (9.0-44.0) Monocytes (%) (Auto) 6.0 % (0.0-8.0) 2.8 % (0.0-8.0) 5.4 % (0.0-8.0) Eosinophils (%) (Auto) 0.2 % (0.0-4.0) 0.0 % (0.0-4.0) 0.1 % (0.0-4.0) Basophils (%) (Auto) 0.5 % (0.0-2.0) 0.1 % (0.0-2.0) 0.3 % (0.0-2.0) Neutrophils # (Auto) 13.9 TH/MM3 (1.8-7.7) 17.1 TH/MM3 (1.8-7.7) 15.3 TH/MM3 (1.8-7.7) Lymphocytes # (Auto) 1.1 TH/MM3 (1.0-4.8) 0.9 TH/MM3 (1.0-4.8) 0.9 TH/MM3 (1.0-4.8) Monocytes # (Auto) 1.0 TH/MM3 (0-0.9) 0.5 TH/MM3 (0-0.9) 0.9 TH/MM3 (0-0.9) Eosinophils # (Auto) 0.0 TH/MM3 (0-0.4) 0.0 TH/MM3 (0-0.4) 0.0 TH/MM3 (0-0.4) Basophils # (Auto) 0.1 TH/MM3 (0-0.2) 0.0 TH/MM3 (0-0.2) 0.0 TH/MM3 (0-0.2) CBC Comment DIFF FINAL DIFF FINAL DIFF FINAL Differential Comment Blood Urea Nitrogen 53 MG/DL (7-18) 70 MG/DL (7-18) 47 MG/DL (7-18) Creatinine 7.40 MG/DL (0.50-1.00) 8.45 MG/DL (0.50-1.00) 5.83 MG/DL (0.50-1.00) Random Glucose 142 MG/DL (74-106) 107 MG/DL (74-106) 114 MG/DL (74-106) Total Protein 7.1 GM/DL (6.4-8.2) 7.2 GM/DL (6.4-8.2) Albumin 2.5 GM/DL (3.4-5.0) 3.0 GM/DL (3.4-5.0) Calcium Level 8.1 MG/DL (8.5-10.1) 8.1 MG/DL (8.5-10.1) 8.3 MG/DL (8.5-10.1) Alkaline Phosphatase 109 U/L (45-117) 82 U/L (45-117) Aspartate Amino Transf (AST/SGOT) 49 U/L (15-37) 91 U/L (15-37) Alanine Aminotransferase (ALT/SGPT) 20 U/L (10-53) 28 U/L (10-53) Total Bilirubin 0.6 MG/DL (0.2-1.0) 0.5 MG/DL (0.2-1.0) Sodium Level 137 MEQ/L (136-145) 136 MEQ/L (136-145) 140 MEQ/L (136-145) Potassium Level 3.8 MEQ/L (3.5-5.1) 3.9 MEQ/L (3.5-5.1) 3.3 MEQ/L (3.5-5.1) Chloride Level 97 MEQ/L (98-107) 97 MEQ/L (98-107) 100 MEQ/L (98-107) Carbon Dioxide Level 27.7 MEQ/L (21.0-32.0) 25.6 MEQ/L (21.0-32.0) 29.3 MEQ/L (21.0-32.0) Anion Gap 12 MEQ/L (5-15) 13 MEQ/L (5-15) 11 MEQ/L (5-15) Estimat Glomerular Filtration Rate 7 ML/MIN (>89) 6 ML/MIN (>89) 9 ML/MIN (>89) Phenytoin (Dilantin) Level 6.1 MCG/ML (10.0-20.0) 3.7 MCG/ML (10.0-20.0) Valproic Acid (Depakene) Level 25 MCG/ML (50-100) 44 MCG/ML (50-100) Phosphorus Level 5.8 MG/DL (2.5-4.9) Phenobarbital Level 2.3 MCG/ML (15.0-40.0) Result Diagram: 06/06/17 0350 06/06/17 0350 Microbiology Microbiology Date/Time Source Procedure Growth Status 06/04/17 05:00 Sputum Endotracheal Gram Stain - Final Resulted 06/04/17 05:00 Sputum Endotracheal Sputum Culture - Preliminary MODERATE GROWTH NORMAL RESPIRATORY FL... Resulted Imaging Last Impressions Chest X-Ray 06/06/17 0000 Signed Impressions: Service Date/Time: Tuesday, June 06, 2017 03:30 - CONCLUSION: 1. Cardiomegaly with positive fluid balance. 2. Stable mild bibasilar airspace disease, likely atelectasis. 3. No significant interval change. Rodri Leung MD Head CT 06/05/17 0000 Signed Impressions: Service Date/Time: Tuesday, June 06, 2017 04:41 - CONCLUSION: 1. Senescent changes. 2. No significant interval change or acute intracranial abnormality. Rdori Leung MD Procedures CPR, resuscitation 06/01/17 INTUBATION 06/01/17 Intraosseous needle placement in left tibia 06/01/17 Central line placement 06/01/17 . Assessment and Plan Disease Oriented Problem List: (1) cardiac arrest, prolonged resuscitation (2) probable anoxic brain injury Comment: With seizure activity (3) end-stage renal disease (4) CHF (5) COPD (6) peripheral vascular disease (7) hypertension (8) obesity (9) asthma (10) gout (11) hypothyroidism (12) depression (13) arthritis (14) history of sleep apnea Symptom Scale: (1) dyspnea 0-10 Scale: Unable to quantify (2) pain 0-10 Scale: Unable to quantify (likely has musculoskeletal pain after the prolonged resuscitation) Pertinent Non-Medical Issues Psychosocial: for 32 years, 3 children (son age 45 in [place], son age 40 in [place], daughter age 38 in [facility]);, 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 Spiritual: Buddhism background Legal: The patient lacks capacity for decision-making, and it seems unlikely that she will regain that capacity. Her is the decision making proxy. Ethical issues impacting care: None . Important Contacts Berhane -- [phone] . Prognosis Her prognosis is quite poor, as it appears she has had a profound anoxic brain injury, and she has multiple other comorbidities. . Code Status: Full Code Plan * FULL CODE -- confirmed aggressive goals with on 06/04/17 * DECISION-MAKING: The patient lacks capacity for decision-making, and she will not regain that capacity. Her is the decision making proxy. * GOALS: 06/04/17: The patient's notes that she was on prolonged mechanical ventilation with tracheostomy and long-term nursing facility stay for several months 5 or 6 years ago and recovered to the point of being independent at home again. He does understand that this is different this time due to the profound brain injury, but he wants to "give her more chance" and continue full aggressive care for now. I made him aware of the withdrawal of life support choice that is available to him and the family to allow her to naturally and peacefully, but he notes "we are not there yet." 06/06/17: I will keep trying to reach the to set up a follow-up meeting.. * SYMPTOMS: Her dyspnea and likely pain is being managed in the [facility], I have no additional medication recommendations at this time. * Palliative Care will continue to follow the patient during this hospitalization. . Time Spent Total Floor Time (mins): 28 Face to Face Time (mins): 11 >50% Counseling/Coord of Care: Yes (d/w RN) Attestation To help prompt me to consider important information that might be impacting today's encounter and assessment, information from prior notes written by myself or my colleagues may have been "brought forward" into today's note. My signature on this note, however, is an attestation that I personally performed the exam, history, and/or decision-making noted today, and, unless otherwise indicated, the interactions with patient, family, and staff as well as the review of records all occurred today. I also attest that the listed assessment and stated plan reflect my best clinical judgment today based on the combination of historical information, prior notes, and today's exam/ interactions. When time spent is documented, it refers only to time spent today by the signer, or if indicated, combined time spent today by collaborating physician/nurse practitioner. Rosy Reynoso MD Jun 06, 2017 11:15
--- NOTE | 2017-06-06 13:29 | HHI.NPPN ---
Subjective General Problems: Anemia Renal Failure: Chronic, End Stage Renal Disease Interval History Remains intubated, unresponsive. Had dialysis yesterday. She is on levophed today. (Amberly Stevenson) Review of Systems General General Remarks unable to obtain (Amberly Stevenson) Objective Data Data Vital Signs Date Time Temp Pulse Resp B/P (MAP) Pulse Ox O2 Delivery O2 Flow Rate FiO2 06/06/17 12:43 96 30 06/06/17 08:47 100 30 06/06/17 08:00 97.7 74 14 117/58 (77) 100 06/06/17 08:00 35 06/06/17 07:00 68 89/54 06/06/17 06:00 79 06/06/17 06:00 79 117/84 06/06/17 06:00 79 117/64 06/06/17 04:28 100 100 06/06/17 04:18 98 35 06/06/17 04:00 72 06/06/17 04:00 35 06/06/17 04:00 98.8 72 14 120/67 (84) 100 06/06/17 02:00 72 06/06/17 00:00 72 06/06/17 00:00 98.9 72 14 130/69 (89) 99 06/06/17 00:00 35 06/05/17 22:23 100 35 06/05/17 22:00 74 06/05/17 20:00 99.2 80 15 124/59 (80) 100 06/05/17 20:00 35 06/05/17 20:00 80 06/05/17 20:00 100 35 06/05/17 18:00 92 06/05/17 16:06 98 35 06/05/17 16:00 79 06/05/17 16:00 98.5 79 18 109/59 (76) 97 06/05/17 16:00 35 06/05/17 14:00 72 06/05/17 14:00 98.5 79 18 109/59 (76) 97 (Amberly Stevenson) -: 06/06/17 0350 06/06/17 0350 Imaging Last 72 hours Impressions Chest X-Ray 06/06/17 0000 Signed Impressions: Service Date/Time: Tuesday, June 06, 2017 03:30 - CONCLUSION: 1. Cardiomegaly with positive fluid balance. 2. Stable mild bibasilar airspace disease, likely atelectasis. 3. No significant interval change. Rodri Leung MD Head CT 06/05/17 0000 Signed Impressions: Service Date/Time: Tuesday, June 06, 2017 04:41 - CONCLUSION: 1. Senescent changes. 2. No significant interval change or acute intracranial abnormality. Rodri Leung MD Chest X-Ray 06/05/17 0000 Signed Impressions: Service Date/Time: Monday, June 05, 2017 10:09 - CONCLUSION: 1. Cardiomegaly and findings of vascular congestion without overt failure. There has been no significant change when compared to the prior exam. Giovanny Newton MD Drip Comment levophed, versed, fentanyl (Amberly Stevenson B. TAKE UP SUPERVISOR) Physical Exam General Appearance: Well Developed, Comfortable, Obese (Amberly Stevenson B. TAKE UP SUPERVISOR) Eyes Eye Exam: Pupils Equal (Amberly Stevenson B. TAKE UP SUPERVISOR) Throat Throat Exam: Oral Mucosa [place] & Moist (Amberly Stevenson B. TAKE UP SUPERVISOR) Neck Neck Exam: Neck Supple (Amberly Stevenson B. TAKE UP SUPERVISOR) Pulmonary Resp Exam: Breath Sounds Equal, No Distress, Rhonchi (Amberly Stevenson B. TAKE UP SUPERVISOR) Cardiology CV Exam: Regular, Normal Sinus Rhythm, Good Perfusion (Amberly Stevenson B. TAKE UP SUPERVISOR) Gastrointestinal/Abdomen GI Exam: Soft, Non-Tender, Bowel Sounds Present (Amberly Stevenson B. TAKE UP SUPERVISOR) Musculoskeletal MS Exam: Joints Intact, Normal Tone, Unable to Ambulate (Amberly Stevenson B. TAKE UP SUPERVISOR) Integumentary Skin Exam: Clear, Warm, Dry, Intact (Amberly Stevenson B. TAKE UP SUPERVISOR) Extremeties Extremities Exam: No Edema, Pedal Pulses Palpable Extremeties Remarks AVF left Arm, + thrill, bruit (Amberly Stevenson B. TAKE UP SUPERVISOR) Neurologic Neuro Exam: Unresponsive, Sedated (Amberly Stevenson B. TAKE UP SUPERVISOR) Assessment/Plan Assessment Summary: End Stage Renal Disease Problem List: (1) Cardiac arrest ICD Codes: I46.9 - Cardiac arrest, cause unspecified Plan: she is unresponsive on ventilator etiology of cardiac arrest uncertain. Seen by Neurology, EEG showing seizure activity. palliative care is following (2) ESRD (end stage renal disease) ICD Codes: N18.6 - End stage renal disease Status: Chronic Plan: Continue dialysis TTS. Had dialysis yesterday monitor electrolytes and replace as needed follow fluid status anuric at baseline (3) Metabolic bone disease ICD Codes: E88.9 - Metabolic disorder, unspecified; M90.80 - Osteopathy in diseases classified elsewhere, unspecified site Status: Acute Plan: intermittently monitor phosphorus level change to calcium acetate that can be given via feeding tube (4) Anemia of chronic renal failure Status: Chronic Plan: continue epogen with HD (5) Hypertension Status: Chronic Plan: Antihypertensives on hold, currently on Levophed. (Amberly Stevenson) Plan patient was seen and examined. Agree with above assessment and plan. (Tyler Ling MD) Amberly Stevenson Jun 06, 2017 13:29 Tyler Ling MD Jun 06, 2017 22:24
[2017-06-06] MEDS ORDERED: POTASSIUM CHLORIDE 20 MEQ PWD PACKET OG-TUBE ONE (13:30)
[2017-06-06] MEDS ORDERED: TERBUTALINE INJ 1 MG/ML AMP SQ PRN (13:45)
[2017-06-06] MEDS ORDERED: PHENYLEPHRINE INJ 80 MG in DEXTROSE 5% IN WATE 500 ML INJ 492 ML IV PRN ×2 (13:45)
--- NOTE | 2017-06-06 14:29 | HHI.CCPN ---
Subjective Remarks/Hospital Course Patient is 67-year-old female with multiple comorbidities which include end- stage renal disease on hemodialysis Sunday, Sunday, Sunday, hypertension, COPD on home oxygen, morbid obesity with obstructive sleep apnea, CHF. The patient was at the dialysis center today, she reported to the staff that she did not feel well and all the sudden she became unresponsive. The patient was given CPR which was continued in en route to the hospital. She was in PEA arrest. The patient was given epi, bicarb and D50. After approximately 30 minutes. She had successful return of spontaneous circulation and was started on dopamine. The patient also was intubated and placed on full mechanical ventilation. Her ABG post intubation showed a pH of 7.39, CO2 45, pAO2 238 and bicarb 27 and saturation of 97%. Her laboratory data showed the potassium 4.1, creatinine 6.23 and corrected calcium of 7.3. Other significant labs showed mild leukocytosis with a Review WBC of 12.7. A chest x-ray post intubation showed a bilateral pulmonary infiltrates and ET tube approximately 4 cm above the isabel. In the ER she was given calcium gluconate and started on dopamine as stated above. Right femoral central line was attempted by the ED physician without any success. The patient was also seen by Dr. Macho francois in the ER from nephrology service and she is scheduled to undergo CT scan of the brain. The patient is unresponsive. 06/02 No events overnight. On fentanyl infusion for sedation however patient has her eyes open unresponsive. Afebrile. 06/03 No events overnight. Sedated with Fentanyl and intubated. On Levophed 11mics. EEG yesterday showed seizures started on Cerebyx. 06/04 Patient remains intubated and sedated with Versed and Fentanyl drip. Had seizure overnight given Ativan 1mg x1. Levophed down 1mic and on vasopressin. For HD today. T:100.4 last night 06/05 Patient remains intubated and sedated. On Levophed 1mic and Vasopressin. afebrile. Repeat EEG yesterday showed seizure like activity. 06/06 TMax 99.2. Vasopressin has been discontinued, the patient continues on Norepinephrine at 1 mcg. The patient has been transitioned to phenylephrine via peripheral IV low dose, to maintain MAP > 65. Objective Vital Signs Date Time Temp Pulse Resp B/P (MAP) Pulse Ox O2 Delivery O2 Flow Rate FiO2 06/06/17 12:43 96 30 06/06/17 08:00 97.7 74 14 117/58 (77) 06/04/17 20:43 Ventilator Intake and Output 06/06/17 06/06/17 06/07/17 08:00 16:00 00:00 Intake Total 618 ml Output Total 0 ml Balance 618 ml Result Diagram: 06/06/17 0350 06/06/17 0350 Other Results Microbiology Date/Time Source Procedure Growth Status 06/04/17 05:00 Sputum Endotracheal Gram Stain - Final Complete 06/04/17 05:00 Sputum Endotracheal Sputum Culture - Final MODERATE GROWTH NORMAL RESPIRATORY KAYLENE Complete Imaging Last Impressions Chest X-Ray 06/06/17 0000 Signed Impressions: Service Date/Time: Tuesday, June 06, 2017 03:30 - CONCLUSION: 1. Cardiomegaly with positive fluid balance. 2. Stable mild bibasilar airspace disease, likely atelectasis. 3. No significant interval change. Rodri Leung MD Head CT 06/05/17 0000 Signed Impressions: Service Date/Time: Tuesday, June 06, 2017 04:41 - CONCLUSION: 1. Senescent changes. 2. No significant interval change or acute intracranial abnormality. Rodri Leung MD Last Impressions Head CT 06/01/17 1406 Signed Impressions: Service Date/Time: Thursday, June 01, 2017 15:17 - CONCLUSION: Atrophy otherwise negative. Freddy Arguelles MD FACR Chest X-Ray 06/01/17 1121 Signed Impressions: Service Date/Time: Thursday, June 01, 2017 13:54 - CONCLUSION: 1. Limited study. 2. Bilateral pulmonary infiltrates. Timothy Roper Jr., MD Objective Remarks GENERAL: Patient is 67yo obese female s/p PEA arrest intubated and unresponsive SKIN: Warm and dry. HEAD: Normocephalic. EYES: No scleral icterus. No injection or drainage. NECK: Supple, trachea midline. No JVD or lymphadenopathy. Orally intubated CARDIOVASCULAR: Regular rate and rhythm without murmurs, gallops, or rubs. RESPIRATORY: Breath sounds equal bilaterally. No accessory muscle use. GASTROINTESTINAL: Abdomen soft, non-tender, nondistended. MUSCULOSKELETAL: No cyanosis, b/l mid foot amputation, noted dry ulcers 3 on the right foot Neuro: GCS 3 T Intubated, nonresponsive A/P Assessment and Plan 1. Status post PEA arrest. 2. VDRF 3. End-stage renal disease. 4. Likely anoxic brain injury. 5. History of hypertension. 6. COPD on home oxygen. 7. Morbid obesity and a history of obstructive sleep apnea. 8. History of congestive heart failure. 9. Anemia of chronic disease. 10. Status Epilepticus 11. Persistent leukocytosis Plan Neuro: On fentanyl/Versed infusion for sedation. Monitor neuro status closely Repeat CT brain 06/06-no interval change CT brain 06/01: atrophy no acute findings, EEG 06/04: Seizure like activity likely related to severe anoxic brain injury. EEG 06/03: Epileptiform discharges EEG 06/02: Seizure activity, on Cerebyx 100mg Q8, Depakote, Ativan 1mg Q4 PRN. Dilantin level: 6.1, Depakote level: 25 on 06/04 Neuro is following- Dr. Garcia. Pulm: Continue with vent support and maintain sats above 92%. Bronchodilators, ICU vent bundle. 06/06 CXR Day 6 ETT plan for possible tracheostomy, will discuss with family CV: On Levophed 1mcg, Change to low dose Phenylephrine Monitor HR and BP maintain MAP> 65 mmHg. Lactic acid 1.2 Echo 06/01: EF 55-60%. Severe pulmonary hypertension Continue Aspirin 81 mg daily. Stress dose steroids- Hydrocortisone 100mg IV Q8 Monitor renal function I&Os and avoid nephrotoxins. Renal is following- Dr. Ling HD per renal. On Sensipar and Renvela. GI: Protonix 40 mg IV daily. tube feeds- Nepro with goal 40ml/hr ID: Continue abx (Zosyn, Azithromycin) monitor for signs of infections( fever and WBC). ID eval Follow up on blood 06/01: NGTD, sputum 06/01: normal resp kaylene, sputum 06/04 pending Nasal washing and is negative for influenza in the ED. Of note the patient is allergic to VANCOMYCIN. Heme: Monitor CBC. Endo: SSI with Accu-Chek's for glycemic control. GI prophylaxis with Protonix 40 mg daily, DVT prophylaxis with SCDs./heparin Subcu prophylaxis Lines: Right femoral central line placed 06/01 Palliative care is following Wound care consult for dry ulcers on right forefoot Prognosis is critically ill s/p PEA arrest, resp failure, ESRD and likely anoxic brain injury. Family requests aggressive measures at this time. Will plan for tracheostomy in the near future, if family desires . Level 3 Physician Lauren Varghese MD Jun 06, 2017 14:29
[2017-06-06] MEDS: AZITHROMYCIN INJ 500 MG in SODIUM CHLOR 0.9% 250 ML INJ 250 ML IV SCH (17:15)
[2017-06-06] MEDS: CEFEPIME INJ 1,000 MG in SODIUM CHLORIDE 0.9% INJ 100 ML IV SCH (17:15)
[2017-06-06] MEDS: CALCIUM ACETATE 667 MG CAP PO SCH (17:15)
--- NOTE | 2017-06-06 17:23 | PD.WCN.NOT ---
Wound Consult Description: Received consult for wound management dry ulcers right foot from Doctor Raghav Communicated with: [place] [facility] Fernandez [facility] and Doctor Lauren Avilez Recommendation: Please cleanse ulcers to R foot with normal saline and apply xeroform dressing in single layer just over wound beds cover with dry 4x4 gauze and secured with rolled gauze and tape. Please change dressing every other day or PRN if saturated or dislodged Additional Information: Patient seen on [facility] [place] evaluation of R foot dry ulcers. Assessed 3 ulcers to R foot Transmetatarsal amputation site. Medial R dorsal foot ulcer measures 0.7cm x 1 cm x ~0.1cm. Dorsal anterior foot ulcer measures 0.6 cm x 1.2cm x 0.3cm . Lateral dorsal foot ulcer measures 1 cm x 2 cm x 0.2cm .All wounds appear in linear formation along old incision line. All wound beds present with dry dark red tissue. Periwound is unremarkable. All wound margins are well defined and sharp. Wounds have no drainage or foul odor. Cleansed wounds with normal saline and applied single layer Xeroform just over wound beds and secured with rolled gauze and tape. [facility] Jun 06, 2017 17:23
[2017-06-07] VITALS (18 sets, daily range): BP systolic 90–100; BP diastolic 52–59; PULSE 60–82; RESP 14–16; TEMP 97.5–98.3; O2SAT 94–100
[2017-06-07] MEDS: INSULIN NovoLIN REGULAR SUPPLEMENTAL SCALE SQ SCH ×6 (02:00→22:00)
[2017-06-07] MEDS: CHLORHEXIDINE GLUCONATE 2 % 1 PACK (2 CLOTHS) TOP SCH (04:00)
[2017-06-07 04:04] LABS: AUTOMATED NEUTROPHIL # 15.5 TH/MM3 (1.8-7.7); BASOPHIL % 0.1 % (0.0-2.0); HEMATOCRIT 29.2 % (35.0-46.0); HEMO FLAGS DIFF FINAL; LYMPH % 5.9 % (9.0-44.0); MEAN CELL VOLUME 87.2 FL (80.0-100.0); MEAN CORPUSCULAR HEMOGLOBIN 27.6 PG (27.0-34.0); MEAN CORPUSCULAR HGB CONC 31.6 % (32.0-36.0); MONO % 4.2 % (0.0-8.0); NEUT % 89.8 % (16.0-70.0); PLATELET COUNT 282 TH/MM3 (150-450); RED BLOOD COUNT 3.34 MIL/MM3 (4.00-5.30); RED CELL DISTRIBUTION WIDTH 16.9 % (11.6-17.2); WHITE BLOOD COUNT 17.2 TH/MM3 (4.0-11.0)
[2017-06-07 04:15] LABS: BICARBONATE 26.1 MEQ/L (21.0-32.0); MAGNESIUM 2.1 MG/DL (1.5-2.5); POTASSIUM 3.3 MEQ/L (3.5-5.1)
[2017-06-07] MEDS: MIDAZOLAM 100 MG/100 ML INJ 100 ML IV PRN ×2 (04:29→15:22)
[2017-06-07] MEDS: FOSPHENYTOIN SODIUM 100 MG PE/2 ML VIAL IV SCH ×3 (04:29→20:10)
[2017-06-07] MEDS: VALPROATE INJ 500 MG in SODIUM CHLORIDE 0.9% INJ 100 ML IV SCH ×3 (05:23→22:00)
[2017-06-07] MEDS: HYDROCORTISONE SOD SUCCINATE 100 MG VIAL IV PUSH SCH ×3 (05:23→22:01)
--- NOTE | 2017-06-07 06:46 | RADRPT ---
EXAM DATE/TIME: 06/07/2017 05:48 [place] COMPARISON: CHEST SINGLE AP, June 06, 2017, 3:30. INDICATIONS : Respiratory status. MEDICAL HISTORY : None. SURGICAL HISTORY : None. ENCOUNTER: Subsequent ACUITY: 4 - 6 days PAIN SCORE: Non-responsive. LOCATION: Bilateral chest FINDINGS: Stable ETT and NGT in place. Continued elevation the right hemidiaphragm with mild diffuse interstiti al prominence. Mild bibasilar airspace disease and probable trace left pleural effusion. Redemonstrat ion of calcified pleural plaque on the right. Cardiac silhouette is enlarged. Central pulmonary vascu larity is indistinct. Remainder of exam is unchanged. CONCLUSION: 1. Stable ETT and NGT. 2. Cardiomegaly with mild positive fluid balance. 3. Stable bibasilar airspace disease, likely atelectasis. 4. Probable trace left pleural effusion. 5. No significant interval change. Rodri Leung MD on June 07, 2017 at 6:41 Board Certified Radiologist. This report was verified electronically.
--- NOTE | 2017-06-07 08:52 | HHI.NPPN ---
Subjective General Problems: Anemia Renal Failure: Chronic, End Stage Renal Disease Interval History patient was seen and examined. She remains unresponsive on the ventilator. Notes were reviewed. Dialysis today. Review of Systems General General Remarks unable to obtain Objective Data Data Vital Signs Date Time Temp Pulse Resp B/P (MAP) Pulse Ox O2 Delivery O2 Flow Rate FiO2 06/07/17 08:05 99 35 06/07/17 06:00 60 06/07/17 04:34 100 35 06/07/17 04:00 67 06/07/17 04:00 98.0 67 14 93/55 (68) 100 06/07/17 04:00 35 06/07/17 02:00 62 06/07/17 00:25 100 35 06/07/17 00:00 35 06/07/17 00:00 98.3 61 14 94/59 (71) 100 06/07/17 00:00 61 06/06/17 22:00 70 06/06/17 21:19 100 35 06/06/17 20:00 35 06/06/17 20:00 73 06/06/17 20:00 98.0 72 14 110/75 (87) 100 06/06/17 18:00 66 06/06/17 16:00 35 06/06/17 16:00 98.2 74 14 116/67 (83) 98 06/06/17 16:00 74 06/06/17 14:00 66 06/06/17 12:43 96 30 06/06/17 12:00 35 06/06/17 12:00 98.1 68 14 116/62 (80) 100 06/06/17 12:00 68 06/06/17 10:00 71 -: 06/07/17 0330 06/07/17 0330 Drip Comment levophed, versed, fentanyl Physical Exam General Appearance: Well Developed, Comfortable, Obese Eyes Eye Exam: Pupils Equal Throat Throat Exam: Oral Mucosa [place] & Moist Neck Neck Exam: Neck Supple Pulmonary Resp Exam: Breath Sounds Equal, No Distress, Rhonchi Cardiology CV Exam: Regular, Normal Sinus Rhythm, Good Perfusion Gastrointestinal/Abdomen GI Exam: Soft, Non-Tender, Bowel Sounds Present Musculoskeletal MS Exam: Joints Intact, Normal Tone, Unable to Ambulate Integumentary Skin Exam: Clear, Warm, Dry, Intact Extremeties Extremities Exam: No Edema, Pedal Pulses Palpable Neurologic Neuro Exam: Unresponsive, Sedated Assessment/Plan Assessment Summary: End Stage Renal Disease Problem List: (1) ESRD (end stage renal disease) ICD Codes: N18.6 - End stage renal disease Status: Chronic Plan: Continue dialysis TTS. Scheduled for dialysis today. Monitor fluid and electrolyte status. (2) Cardiac arrest ICD Codes: I46.9 - Cardiac arrest, cause unspecified Plan: she is unresponsive on ventilator She has suffered anoxic brain injury Poor prognosis. (3) Metabolic bone disease ICD Codes: E88.9 - Metabolic disorder, unspecified; M90.80 - Osteopathy in diseases classified elsewhere, unspecified site Status: Acute Plan: intermittently monitor phosphorus level Binder has been changed to Calcium acetate. May consider stopping Sensipar in this clinical situation. (4) Anemia of chronic renal failure Status: Chronic Plan: continue epogen with HD (5) Hypertension Status: Chronic Plan: Antihypertensives on hold. Tyler Ling MD Jun 07, 2017 08:52
[2017-06-07] MEDS ORDERED: POTASSIUM CHLORIDE 20 MEQ PWD PACKET NG ONE (09:00)
[2017-06-07] MEDS ORDERED: POTASSIUM CHLORIDE 10 MEQ CONTROLLED RELEASE TAB PO ONE (09:00)
[2017-06-07] MEDS: DOCUSATE SODIUM 50 MG/SENNA 8.6 MG TAB PO SCH ×2 (09:00→20:10)
[2017-06-07] MEDS: ASPIRIN EC 81 MG TABEC PO SCH (09:00)
[2017-06-07] MEDS: CALCIUM ACETATE 667 MG CAP PO SCH ×3 (09:19→17:48)
[2017-06-07] MEDS: VITAMIN B CMPLX/VITC/FOLIC AC CAP PO SCH (09:19)
[2017-06-07] MEDS: HEPARIN SODIUM - SQ 10,000 UNITS/ML VIAL SQ SCH ×2 (09:19→20:10)
[2017-06-07] MEDS: PANTOPRAZOLE SODIUM 40 MG VIAL IV SCH (09:19)
[2017-06-07] MEDS: CINACALCET HYDROCHLORIDE 30 MG TAB PO SCH (09:19)
[2017-06-07] MEDS ORDERED: ASPIRIN 81 MG CHEW TAB ONE (09:24)
--- NOTE | 2017-06-07 09:33 | HHI.IDPN ---
Subjective Subjective Remarks Patient is a 67-year-old female, brought into the hospital after she became unresponsive during her hemodialysis. She has end-stage renal disease, and goes to dialysis every Sunday and Sunday. She was apparently undergoing dialysis on the day of admission, and she told the staff that she was not feeling well. She suddenly became unresponsive. EMS was called, and patient was found to be in PEA arrest. She underwent CPR, and intubation. After about 30 minutes she was successfully resuscitated and was on pressors. Patient has remained intubated since. She has since then been having problem with seizure activity on her EEG. Patient is currently on multiple anticonvulsant agents. Her WBC has remained elevated. She started having fevers about 2 days ago. She's had blood culture that were negative, and sputum culture with normal respiratory [place]. Patient is anuric. She has been on Zosyn empirically. She has a femoral line on the right. She's had diarrhea , and stool for C. difficile is negative. Patient currently is sedated on the vent. She is still on pressors. Infectious disease consultation has been requested to evaluate the patient with fevers and persistent leukocytosis. Notes reviewed D/W RN Temps ok Sedated on the vent Off pressors WBC same Antibiotics Cefepime Zithromax Past Medical History End-stage renal disease on hemodialysis Sunday, Sunday, Sunday Hypertension Hyperlipidemia anemia of chronic disease Arthritis. Congestive heart failure. Cerebrovascular accident. Gastroesophageal reflux disease. Obstructive sleep apnea on C-PAP q.h.s. Hypothyroidism Vertigo Anxiety / depression Chronic obstructive pulmonary disease. Past Surgical History Previous bilateral TMA x3 Left upper extremity AV fistula Left breast lumpectomy Partial hysterectomy. Allergies: Coded Allergies: diatrizoate meglumine (Unverified Allergy, Severe, Joint Pain, 05/15/17) pt states she is not allergic to this gadobenic acid (Unverified Allergy, Severe, Joint Pain, 05/15/17) pt states she is not allergic to this gadodiamide (Unverified Allergy, Severe, Joint Pain, 05/15/17) pt states she is not allergic to this gadoteridol (Unverified Allergy, Severe, Joint Pain, 05/15/17) pt states she is not allergic to this iodine (Unverified Allergy, Severe, ORAL CONTRAST OK, 05/15/17) pt states she is not allergic to this iodixanol (Unverified Allergy, Severe, Joint Pain, 05/15/17) pt states she is not allergic to this iohexol (Unverified Allergy, Severe, Joint Pain, 05/15/17) pt states she is not allergic to this morphine (Unverified Allergy, Severe, ITCH, 05/15/17) pt states she is not allergic to this potassium iodide (Unverified Allergy, Severe, ORAL CONTRAST OK, 05/15/17) pt states she is not allergic to this povidone-iodine (Unverified Allergy, Severe, ORAL CONTRAST [place], 05/15/17) pt states she is not allergic to this sodium iodide (Unverified Allergy, Severe, ORAL CONTRAST OK, 05/15/17) pt states she is not allergic to this sodium iodide (Unverified Allergy, Severe, ORAL CONTRAST OK, 05/15/17) pt states she is not allergic to this vancomycin (Unverified Allergy, Unknown, 05/15/17) PT STATES UNKNOWN IF SHE IS ALLERGIC. Objective . Vital Signs Date Time Temp Pulse Resp B/P (MAP) Pulse Ox O2 Delivery O2 Flow Rate FiO2 06/07/17 08:05 99 35 06/07/17 06:00 60 06/07/17 04:34 100 35 06/07/17 04:00 67 06/07/17 04:00 98.0 67 14 93/55 (68) 100 06/07/17 04:00 35 06/07/17 02:00 62 06/07/17 00:25 100 35 06/07/17 00:00 35 06/07/17 00:00 98.3 61 14 94/59 (71) 100 06/07/17 00:00 61 06/06/17 22:00 70 06/06/17 21:19 100 35 06/06/17 20:00 35 06/06/17 20:00 73 06/06/17 20:00 98.0 72 14 110/75 (87) 100 06/06/17 18:00 66 06/06/17 16:00 35 06/06/17 16:00 98.2 74 14 116/67 (83) 98 06/06/17 16:00 74 06/06/17 14:00 66 06/06/17 12:43 96 30 06/06/17 12:00 35 06/06/17 12:00 98.1 68 14 116/62 (80) 100 06/06/17 12:00 68 06/06/17 10:00 71 . Laboratory Tests Test 06/06/17 03:50 06/07/17 03:30 White Blood Count 17.2 TH/MM3 17.2 TH/MM3 Red Blood Count 3.13 MIL/MM3 3.34 MIL/MM3 Hemoglobin 8.5 GM/DL 9.2 GM/DL Hematocrit 27.1 % 29.2 % Mean Corpuscular Volume 86.6 FL 87.2 FL Mean Corpuscular Hemoglobin 27.0 PG 27.6 PG Mean Corpuscular Hemoglobin Concent 31.2 % 31.6 % Red Cell Distribution Width 17.0 % 16.9 % Platelet Count 269 TH/MM3 282 TH/MM3 Mean Platelet Volume 8.3 FL 8.5 FL Neutrophils (%) (Auto) 89.2 % 89.8 % Lymphocytes (%) (Auto) 5.0 % 5.9 % Monocytes (%) (Auto) 5.4 % 4.2 % Eosinophils (%) (Auto) 0.1 % 0.0 % Basophils (%) (Auto) 0.3 % 0.1 % Neutrophils # (Auto) 15.3 TH/MM3 15.5 TH/MM3 Lymphocytes # (Auto) 0.9 TH/MM3 1.0 TH/MM3 Monocytes # (Auto) 0.9 TH/MM3 0.7 TH/MM3 Eosinophils # (Auto) 0.0 TH/MM3 0.0 TH/MM3 Basophils # (Auto) 0.0 TH/MM3 0.0 TH/MM3 CBC Comment DIFF FINAL DIFF FINAL Differential Comment Laboratory Tests Test 06/06/17 03:50 06/07/17 03:30 Blood Urea Nitrogen 47 MG/DL 64 MG/DL Creatinine 5.83 MG/DL 6.75 MG/DL Random Glucose 114 MG/DL 117 MG/DL Total Protein 7.2 GM/DL Albumin 3.0 GM/DL 2.7 GM/DL Calcium Level 8.3 MG/DL 9.1 MG/DL Alkaline Phosphatase 82 U/L Aspartate Amino Transf (AST/SGOT) 91 U/L Alanine Aminotransferase (ALT/SGPT) 28 U/L Total Bilirubin 0.5 MG/DL Sodium Level 140 MEQ/L 139 MEQ/L Potassium Level 3.3 MEQ/L 3.3 MEQ/L Chloride Level 100 MEQ/L 102 MEQ/L Carbon Dioxide Level 29.3 MEQ/L 26.1 MEQ/L Anion Gap 11 MEQ/L 11 MEQ/L Estimat Glomerular Filtration Rate 9 ML/MIN 7 ML/MIN Phosphorus Level 4.3 MG/DL Magnesium Level 2.1 MG/DL Imaging Chest X-Ray 06/07/17 0600 Signed Impressions: Service Date/Time: June 05:48 - CONCLUSION: 1. Stable ETT and NGT. 2. Cardiomegaly with mild positive fluid balance. 3. Stable bibasilar airspace disease, likely atelectasis. 4. Probable trace left pleural effusion. 5. No significant interval change. Rodri Leung MD Chest X-Ray 06/06/17 0000 Signed Impressions: Service Date/Time: Tuesday, June 06, 2017 03:30 - CONCLUSION: 1. Cardiomegaly with positive fluid balance. 2. Stable mild bibasilar airspace disease, likely atelectasis. 3. No significant interval change. Rodri Leung MD Chest X-Ray 06/06/17 0000 Signed Impressions: Service Date/Time: Tuesday, June 06, 2017 03:30 - CONCLUSION: 1. Cardiomegaly with positive fluid balance. 2. Stable mild bibasilar airspace disease, likely atelectasis. 3. No significant interval change. Rodri Leung MD Head CT 06/05/17 0000 Signed Impressions: Service Date/Time: Tuesday, June 06, 2017 04:41 - CONCLUSION: 1. Senescent changes. 2. No significant interval change or acute intracranial abnormality. Rodri Leung MD Physical Exam GENERAL: , sedated, on the vent, not in respiratory distress. SKIN: Warm and dry. No generalized rash, no ecchymoses and no evidence of embolic lesions. HEAD: Atraumatic. Normocephalic. No temporal wasting, or tenderness. EYES: [place] conjunctiva. No petechia or hemorrhage. Pupils equal, round and reactive to light. Has dirty sclera. No injection or drainage. EARS, NOSE AND THROAT: Nose without bleeding or purulent nasal discharge. She is orally intubated. NECK: Trachea midline. Supple, no meningeal signs CARDIOVASCULAR: Regular rate and rhythm. No murmurs, rubs or gallops heard RESPIRATORY: Scattered rhonchi, decreased at bases EXTREMITIES: No clubbing, cyanosis, or edema. Kush TMA, has dry ulcer L foot about pea sized, with no evidence of infection. Well perfused and warm. NEUROLOGICAL: Sedated PSYCHIATRIC: Unable to assess LINE: R groin line with no evidence of infection Assessment & Plan Remarks IMPRESSION Fevers, etiology, temps seems better - ?aspiration Persistent leukocytosis, likely reactive - still with ongoing seizures on her EEG Seizures due to anoxic injury S/P PEA arrest Likely with anoxic injury ESRD on HD MWF RECOMMENDATION Change Cefepime to Rocephin Add Flagyl for possible aspiration since WBC remains elevated Also on Zithromax - change to po Adjust Abx once C/S available Follow CBC Monitor progress D/W Jasmyne Nunez MD Jun 07, 2017 09:33
[2017-06-07] MEDS: cefTRIAXone INJ 2,000 MG in SODIUM CHLORIDE 0.9% INJ 100 ML IV SCH (11:58)
--- NOTE | 2017-06-07 13:13 | HHI.CCPN ---
Subjective Remarks/Hospital Course Patient is 67-year-old female with multiple comorbidities which include end- stage renal disease on hemodialysis Sunday, Sunday, Sunday, hypertension, COPD on home oxygen, morbid obesity with obstructive sleep apnea, CHF. The patient was at the dialysis center today, she reported to the staff that she did not feel well and all the sudden she became unresponsive. The patient was given CPR which was continued in en route to the hospital. She was in PEA arrest. The patient was given epi, bicarb and D50. After approximately 30 minutes. She had successful return of spontaneous circulation and was started on dopamine. The patient also was intubated and placed on full mechanical ventilation. Her ABG post intubation showed a pH of 7.39, CO2 45, pAO2 238 and bicarb 27 and saturation of 97%. Her laboratory data showed the potassium 4.1, creatinine 6.23 and corrected calcium of 7.3. Other significant labs showed mild leukocytosis with a Review WBC of 12.7. A chest x-ray post intubation showed a bilateral pulmonary infiltrates and ET tube approximately 4 cm above the isabel. In the ER she was given calcium gluconate and started on dopamine as stated above. Right femoral central line was attempted by the ED physician without any success. The patient was also seen by Dr. Macho francois in the ER from nephrology service and she is scheduled to undergo CT scan of the brain. The patient is unresponsive. 06/02 No events overnight. On fentanyl infusion for sedation however patient has her eyes open unresponsive. Afebrile. 06/03 No events overnight. Sedated with Fentanyl and intubated. On Levophed 11mics. EEG yesterday showed seizures started on Cerebyx. 06/04 Patient remains intubated and sedated with Versed and Fentanyl drip. Had seizure overnight given Ativan 1mg x1. Levophed down 1mic and on vasopressin. For HD today. T:100.4 last night 06/05 Patient remains intubated and sedated. On Levophed 1mic and Vasopressin. afebrile. Repeat EEG yesterday showed seizure like activity. 06/06 TMax 99.2. Vasopressin has been discontinued, the patient continues on Norepinephrine at 1 mcg. The patient has been transitioned to phenylephrine via peripheral IV low dose, to maintain MAP > 65 06/07 Afebrile. The patient continues to have leukocytosis, antibiotics changed per ID,Dr. Cazares following. Neurologically the patient continues on Versed infusion for continued seizure activity. Repeat EEG ordered, results pending. AED levels of phenobarbital,phenytoin, and valproic acid all remain subtherapeutic at this time. Right groin femoral line was discontinued the patient remains with peripheral IVs, no vasopressors support needed. Wound care was consulted regarding dry ulcers on right foot and implementation of measures. Objective Vital Signs Date Time Temp Pulse Resp B/P (MAP) Pulse Ox O2 Delivery O2 Flow Rate FiO2 06/07/17 11:56 94 35 06/07/17 10:00 76 06/07/17 08:00 97.5 14 95/59 (71) 06/04/17 20:43 Ventilator Intake and Output 06/07/17 06/07/17 06/08/17 08:00 16:00 00:00 Intake Total 398 ml Output Total 0 ml Balance 398 ml Result Diagram: 06/07/17 0330 06/07/17 0330 Imaging Last Impressions Chest X-Ray 06/07/17 0600 Signed Impressions: Service Date/Time: June 05:48 - CONCLUSION: 1. Stable ETT and NGT. 2. Cardiomegaly with mild positive fluid balance. 3. Stable bibasilar airspace disease, likely atelectasis. 4. Probable trace left pleural effusion. 5. No significant interval change. Rodri Leung MD Head CT 06/05/17 0000 Signed Impressions: Service Date/Time: Tuesday, June 06, 2017 04:41 - CONCLUSION: 1. Senescent changes. 2. No significant interval change or acute intracranial abnormality. Rodri Leung MD Last Impressions Chest X-Ray 06/06/17 0000 Signed Impressions: Service Date/Time: Tuesday, June 06, 2017 03:30 - CONCLUSION: 1. Cardiomegaly with positive fluid balance. 2. Stable mild bibasilar airspace disease, likely atelectasis. 3. No significant interval change. Rodri Leung MD Head CT 06/05/17 0000 Signed Impressions: Service Date/Time: Tuesday, June 06, 2017 04:41 - CONCLUSION: 1. Senescent changes. 2. No significant interval change or acute intracranial abnormality. Rodri Leung MD Last Impressions Head CT 06/01/17 1406 Signed Impressions: Service Date/Time: Thursday, June 01, 2017 15:17 - CONCLUSION: Atrophy otherwise negative. Freddy Arguelles MD FACR Chest X-Ray 06/01/17 1121 Signed Impressions: Service Date/Time: Thursday, June 01, 2017 13:54 - CONCLUSION: 1. Limited study. 2. Bilateral pulmonary infiltrates. Timothy Roper Jr., MD Objective Remarks GENERAL: Patient is 67yo obese female s/p PEA arrest intubated and unresponsive SKIN: Warm and dry. HEAD: Normocephalic. EYES: No scleral icterus. No injection or drainage. NECK: Supple, trachea midline. No JVD or lymphadenopathy. Orally intubated CARDIOVASCULAR: Regular rate and rhythm without murmurs, gallops, or rubs. RESPIRATORY: Mechanical ventilation .Breath sounds equal bilaterally. No accessory muscle use. GASTROINTESTINAL: Abdomen soft, non-tender, nondistended. MUSCULOSKELETAL: No cyanosis, b/l mid foot amputation, noted dry ulcers 3 on the right foot Neuro: GCS 3 T Intubated, nonresponsive A/P Assessment and Plan 1. Status post PEA arrest. 2. VDRF 3. End-stage renal disease. 4. Likely anoxic brain injury. 5. History of hypertension. 6. COPD on home oxygen. 7. Morbid obesity and a history of obstructive sleep apnea. 8. History of congestive heart failure. 9. Anemia of chronic disease. 10. Status Epilepticus 11. Persistent leukocytosis Plan Neuro: On Versed infusion for sedation/seizure activity. Monitor neuro status closely Repeat CT brain 06/06-no interval change CT brain 06/01: atrophy no acute findings, EEG 06/04: Seizure like activity likely related to severe anoxic brain injury. EEG 06/03: Epileptiform discharges EEG 06/02: Seizure activity, on Cerebyx 100mg Q8, Depakote, Ativan 1mg Q4 PRN. Dilantin level: 6.1, Depakote level: 25 on 06/04 Neuro is following- Dr. Garcia. F/U repeat EEG AED levels low -phenobarbital 2.3, phenytoin3.7, valproic acid 44 Pulm: Continue with vent support and maintain sats above 92%. Bronchodilators, ICU vent bundle. 06/06 CXR Day 7 ETT plan for possible tracheostomy CV: On Levophed 1mcg, Change to low dose Phenylephrine Monitor HR and BP maintain MAP> 65 mmHg. Lactic acid 1.2 Echo 06/01: EF 55-60%. Severe pulmonary hypertension Continue Aspirin 81 mg daily. Stress dose steroids- Hydrocortisone 100mg IV Q8 Monitor renal function I&Os and avoid nephrotoxins. Renal is following- Dr. Ling HD per renal. On Sensipar and Renvela. GI: Protonix 40 mg IV daily. tube feeds- Nepro with goal 40ml/hr ID: Monitor for signs of infections( fever and WBC). ID following, Dr. Cazares Follow up on blood 06/01: NGTD, sputum 06/01: normal resp kaylene, sputum 06/04 pending Nasal washing and is negative for influenza in the ED. Of note the patient is allergic to VANCOMYCIN. Heme: Monitor CBC. Endo: SSI with Accu-Chek's for glycemic control. GI prophylaxis with Protonix 40 mg daily, DVT prophylaxis with SCDs./heparin Subcu prophylaxis Lines: Right femoral central line placed 06/01-06/06. Peripheral IVs providing adequate access at this time Palliative care is following Wound care consult for dry ulcers on right forefoot- washed with normal saline Vaseline gauze and Brittni wrap every other day Prognosis is critically ill s/p PEA arrest, resp failure, ESRD and likely anoxic brain injury. Family requests aggressive measures at this time. Will plan for tracheostomy in the near future.Attempts to call Mr. Berhane Maldonado unsuccessful, to provide a medical update and discuss possibility of tracheostomy and PEG placement if ongoing aggressive measures are desired. Discussion initiated on 06/06 with patient's siblings regarding possible trach and PEG. Level 3 Physician Lauren Varghese MD Jun 07, 2017 13:13
[2017-06-07] MEDS: AZITHROMYCIN 250 MG TAB PO SCH (15:17)
[2017-06-07] MEDS: metroNIDAZOLE 500 MG TAB PO SCH ×2 (15:18→23:10)
[2017-06-07] MEDS: EPOETIN ALFA 10,000 UNITS/ML VIAL IV PRN (15:48)
[2017-06-08] VITALS (19 sets, daily range): BP systolic 83–114; BP diastolic 51–63; PULSE 60–80; RESP 14; TEMP 97.8–98.8; O2SAT 95–100
[2017-06-08] MEDS: MIDAZOLAM 100 MG/100 ML INJ 100 ML IV PRN ×2 (01:25→20:04)
[2017-06-08] MEDS: INSULIN NovoLIN REGULAR SUPPLEMENTAL SCALE SQ SCH ×6 (02:00→20:04)
[2017-06-08] MEDS: CHLORHEXIDINE GLUCONATE 2 % 1 PACK (2 CLOTHS) TOP SCH (03:58)
[2017-06-08] MEDS: FOSPHENYTOIN SODIUM 100 MG PE/2 ML VIAL IV SCH ×3 (03:58→20:59)
[2017-06-08] MEDS: HYDROCORTISONE SOD SUCCINATE 100 MG VIAL IV PUSH SCH ×3 (06:05→20:02)
[2017-06-08] MEDS: VALPROATE INJ 500 MG in SODIUM CHLORIDE 0.9% INJ 100 ML IV SCH ×3 (06:05→20:59)
[2017-06-08] MEDS: metroNIDAZOLE 500 MG TAB PO SCH ×3 (06:06→20:04)
--- NOTE | 2017-06-08 06:44 | RADRPT ---
EXAM DATE/TIME: 06/08/2017 05:56 [facility] COMPARISON: CHEST SINGLE AP, June 07, 2017, 5:48. INDICATIONS : Evalaute for respiratory failure. MEDICAL HISTORY : None. SURGICAL HISTORY : None. ENCOUNTER: Subsequent ACUITY: 1 week PAIN SCORE: Non-responsive. LOCATION: chest FINDINGS: Limited examination due to motion and rotation. ETT and NGT are grossly stable in position. Continued elevation the right hemidiaphragm with bilateral lower lung zone patchy airspace disease. Calcified pleural plaques most probably in the right. Cardiac silhouette is enlarged. Pulmonary vascularity is indistinct. Remainder of the exam is unchanged. CONCLUSION: 1. Grossly stable ETT and NGT. 2. Cardiomegaly with positive fluid balance. 3. Stable bilateral lower lung zone airspace disease. 4. No significant interval change. Rodri Leung MD on June 08, 2017 at 6:40 Board Certified Radiologist. This report was verified electronically.
[2017-06-08 06:51] LABS: BICARBONATE 29.4 MEQ/L (21.0-32.0); MAGNESIUM 2.2 MG/DL (1.5-2.5); POTASSIUM 3.4 MEQ/L (3.5-5.1)
[2017-06-08] MEDS: VITAMIN B CMPLX/VITC/FOLIC AC CAP PO SCH (08:15)
[2017-06-08] MEDS: PANTOPRAZOLE SODIUM 40 MG VIAL IV SCH (08:15)
[2017-06-08] MEDS: ASPIRIN 81 MG CHEW TAB CHEW SCH (08:16)
[2017-06-08] MEDS: CINACALCET HYDROCHLORIDE 30 MG TAB PO SCH (08:16)
[2017-06-08] MEDS: HEPARIN SODIUM - SQ 10,000 UNITS/ML VIAL SQ SCH ×2 (08:16→20:03)
[2017-06-08] MEDS: CALCIUM ACETATE 667 MG CAP PO SCH ×3 (08:16→17:28)
[2017-06-08] MEDS: DOCUSATE SODIUM 50 MG/SENNA 8.6 MG TAB PO SCH ×2 (09:00→20:04)
--- NOTE | 2017-06-08 10:24 | HHI.NPPN ---
Subjective General Problems: Anemia Renal Failure: Chronic, End Stage Renal Disease Interval History is at bedside. She had dialysis yesterday. Remains unresponsive on ventilator. (Amberly Stevenson) Review of Systems General General Remarks unable to obtain (Amberly Stevenson) Objective Data Data Vital Signs Date Time Temp Pulse Resp B/P (MAP) Pulse Ox O2 Delivery O2 Flow Rate FiO2 06/08/17 09:26 100 35 06/08/17 08:00 79 06/08/17 08:00 98.8 68 14 96/52 (67) 98 06/08/17 08:00 35 06/08/17 06:00 79 06/08/17 04:10 99 35 06/08/17 04:00 35 06/08/17 04:00 68 06/08/17 04:00 98.0 68 14 96/53 (67) 98 06/08/17 02:00 68 06/08/17 00:17 100 35 06/08/17 00:00 74 06/08/17 00:00 35 06/08/17 00:00 97.8 74 14 114/63 (80) 95 06/07/17 22:00 80 06/07/17 21:10 98 35 06/07/17 20:00 35 06/07/17 20:00 98.1 82 14 100/55 (70) 95 06/07/17 20:00 82 06/07/17 18:00 78 06/07/17 16:34 100 35 06/07/17 16:00 97.7 82 16 90/52 (65) 95 06/07/17 16:00 82 06/07/17 16:00 35 06/07/17 14:00 68 06/07/17 12:00 62 06/07/17 12:00 97.8 62 14 93/52 (66) 100 06/07/17 12:00 35 06/07/17 11:56 94 35 (Amberly Stevenson) -: 06/07/17 0330 06/08/17 0541 Imaging Last Impressions Chest X-Ray 06/08/17 0600 Signed Impressions: Service Date/Time: Thursday, June 08, 2017 05:56 - CONCLUSION: 1. Grossly stable ETT and NGT. 2. Cardiomegaly with positive fluid balance. 3. Stable bilateral lower lung zone airspace disease. 4. No significant interval change. Rodri Leung MD Head CT 06/05/17 0000 Signed Impressions: Service Date/Time: Sunday, June 06, 2017 04:41 - CONCLUSION: 1. Senescent changes. 2. No significant interval change or acute intracranial abnormality. Rodri Leung MD Drip Comment versed, fentanyl (Amberly Stevenson B. POWDER COMPOUNDER) Physical Exam General Appearance: Well Developed, Obese Appearance Remarks intubated, unresponsive (ElvaAmberly B. [employer]DER COMPOUNDER) Eyes Eye Exam: Pupils Equal (Florentin Stevensonon B. [employer] COMPOUNDER) Throat Throat Exam: Oral Mucosa [place] & Moist (ElvaAmberly B. [employer] COMPOUNDER) Neck Neck Exam: Neck Supple (ElvaAmberly B. [employer] COMPOUNDER) Pulmonary Resp Exam: Breath Sounds Equal, No Distress, Rhonchi (ElvaAmberly B. [employer] COMPOUNDER) Cardiology CV Exam: Regular, Normal Sinus Rhythm, Good Perfusion (ElvaAmberly B. [employer] COMPOUNDER) Gastrointestinal/Abdomen GI Exam: Soft, Non-Tender, Bowel Sounds Present (ElvaAmberly B. P[employer] COMPOUNDER) Musculoskeletal MS Exam: Joints Intact, Normal Tone, Unable to Ambulate (ElvaAmberly B. [employer] COMPOUNDER) Integumentary Skin Exam: Clear, Warm, Dry, Intact (ElvaAmberly B. [employer] COMPOUNDER) Extremeties Extremities Exam: No Edema, Pedal Pulses Palpable Extremeties Remarks AVF left Arm, + thrill, bruit (ElvaAmberly B. [employer] COMPOUNDER) Neurologic Neuro Exam: Unresponsive, Sedated (ElvaAmberly B. [employer] COMPOUNDER) Assessment/Plan Discussed Condition With: Spouse Assessment Summary: Anemia of CKD, End Stage Renal Disease Problem List: (1) ESRD (end stage renal disease) ICD Codes: N18.6 - End stage renal disease Status: Chronic Plan: Continue dialysis TTS. 3L UF yesterday Monitor fluid and electrolyte status. Has AVF that functions well avoid IVF, gadolinium (2) Cardiac arrest ICD Codes: I46.9 - Cardiac arrest, cause unspecified Plan: she is unresponsive on ventilator She has suffered anoxic brain injury Poor prognosis. Palliative following, D/W them. Family in route to visit the patient. There is discussion about withdrawal of life support possibly next week. (3) Metabolic bone disease ICD Codes: E88.9 - Metabolic disorder, unspecified; M90.80 - Osteopathy in diseases classified elsewhere, unspecified site Status: Acute Plan: intermittently monitor phosphorus level continue Calcium acetate via OG tube May consider stopping Sensipar in this clinical situation. (4) Anemia of chronic renal failure Status: Chronic Plan: continue epogen with HD (5) Hypertension Status: Chronic Plan: Antihypertensives on hold. (Amberly Stevenson) Plan patient was seen and examined. Agree with above assessment and plan. Poor prognosis. (Tyler Ling MD) Amberly Stevenson Jun 08, 2017 10:24 Tyler Ling MD Jun 08, 2017 14:03
--- NOTE | 2017-06-08 10:34 | HHI.HCPN ---
Reason for visit a. To assist with evaluation and management of symptoms including: dyspnea , pain, seizures b. To assist medical decision maker(s) with: better understanding of current medical conditions; weighing benefits/burdens of medical treatment options; making medical treatment decisions. . Subjective/Interval History INTERVAL NOTE: The patient remains unresponsive. She has had recent seizure activity, and the EEGs have shown seizure activity that is felt to be due to the anoxic injury. She is now on Cerebyx, phenobarbital (dose up to 100 g8h now), midazolam, and Depakote, as well as PRN lorazepam. She has had no signs of neurologic improvement. Discussed with , see below . Family/friend interactions I found the patient's Berhane at the bedside, and we discussed her condition at length. He understands that the brain damage seems to be severe, and that this is not similar to the previous time she was "in a coma" a few years ago. We talked about the possibility of "finding the right time to let her go peacefully," and he would like for us to have a meeting with him and other family members when they get into town next week some time, so that we would be able to explain to the rest of the family what the medical issues are and what the future looks like. . Advance Directives Living Will: Never completed Health Care Surrogate: Never completed Durable Power of Used Car Make Ready Mechanic: Never completed Objective Vital Signs Date Time Temp Pulse Resp B/P (MAP) Pulse Ox O2 Delivery O2 Flow Rate FiO2 06/08/17 09:26 100 35 06/08/17 08:00 79 06/08/17 08:00 98.8 68 14 96/52 (67) 98 06/08/17 08:00 35 06/08/17 06:00 79 06/08/17 04:10 99 35 06/08/17 04:00 35 06/08/17 04:00 68 06/08/17 04:00 98.0 68 14 96/53 (67) 98 06/08/17 02:00 68 06/08/17 00:17 100 35 06/08/17 00:00 74 06/08/17 00:00 35 06/08/17 00:00 97.8 74 14 114/63 (80) 95 06/07/17 22:00 80 06/07/17 21:10 98 35 06/07/17 20:00 35 06/07/17 20:00 98.1 82 14 100/55 (70) 95 06/07/17 20:00 82 06/07/17 18:00 78 06/07/17 16:34 100 35 06/07/17 16:00 97.7 82 16 90/52 (65) 95 06/07/17 16:00 82 06/07/17 16:00 35 06/07/17 14:00 68 06/07/17 12:00 62 06/07/17 12:00 97.8 62 14 93/52 (66) 100 06/07/17 12:00 35 06/07/17 11:56 94 35 Intake & Output 06/08/17 06/08/17 06:59 18:59 Intake Total 670 ml 105 ml Output Total 0 ml Balance 670 ml 105 ml IV Total 226 ml 105 ml Tube Feeding 384 ml Other 60 ml Output Urine Total 0 ml # Bowel Movements 2 Physical Exam CONSTITUTIONAL/GENERAL: This is an elderly, obese, unresponsive patient, in no apparent distress. TUBES/LINES/DRAINS: ET tube, IV access EYES: Pupils equal and round but I cannot detect any reaction to light. No scleral icterus. NECK: Trachea midline. Supple. CARDIOVASCULAR: Regular rate and rhythm without murmurs, gallops, or rubs. Unable to palpate foot or ankle pulses. RESPIRATORY/CHEST: Symmetric, unlabored respirations with ventilator. Scattered rhonchi. GASTROINTESTINAL: Abdomen soft, obese. No obvious hepato-splenomegaly, or palpable masses. No guarding. Bowel sounds present. MUSCULOSKELETAL: Extremities without clubbing, cyanosis. No mottling or clubbing. NEUROLOGICAL: Unresponsive to voice, touch, or pain PSYCHIATRIC: Unable to assess due to clinical condition . Diagnostic Tests Laboratory Laboratory Tests Test 06/06/17 03:50 06/07/17 03:30 06/08/17 05:41 White Blood Count 17.2 TH/MM3 (4.0-11.0) 17.2 TH/MM3 (4.0-11.0) Red Blood Count 3.13 MIL/MM3 (4.00-5.30) 3.34 MIL/MM3 (4.00-5.30) Hemoglobin 8.5 GM/DL (11.6-15.3) 9.2 GM/DL (11.6-15.3) Hematocrit 27.1 % (35.0-46.0) 29.2 % (35.0-46.0) Mean Corpuscular Volume 86.6 FL (80.0-100.0) 87.2 FL (80.0-100.0) Mean Corpuscular Hemoglobin 27.0 PG (27.0-34.0) 27.6 PG (27.0-34.0) Mean Corpuscular Hemoglobin Concent 31.2 % (32.0-36.0) 31.6 % (32.0-36.0) Red Cell Distribution Width 17.0 % (11.6-17.2) 16.9 % (11.6-17.2) Platelet Count 269 TH/MM3 (150-450) 282 TH/MM3 (150-450) Mean Platelet Volume 8.3 FL (7.0-11.0) 8.5 FL (7.0-11.0) Neutrophils (%) (Auto) 89.2 % (16.0-70.0) 89.8 % (16.0-70.0) Lymphocytes (%) (Auto) 5.0 % (9.0-44.0) 5.9 % (9.0-44.0) Monocytes (%) (Auto) 5.4 % (0.0-8.0) 4.2 % (0.0-8.0) Eosinophils (%) (Auto) 0.1 % (0.0-4.0) 0.0 % (0.0-4.0) Basophils (%) (Auto) 0.3 % (0.0-2.0) 0.1 % (0.0-2.0) Neutrophils # (Auto) 15.3 TH/MM3 (1.8-7.7) 15.5 TH/MM3 (1.8-7.7) Lymphocytes # (Auto) 0.9 TH/MM3 (1.0-4.8) 1.0 TH/MM3 (1.0-4.8) Monocytes # (Auto) 0.9 TH/MM3 (0-0.9) 0.7 TH/MM3 (0-0.9) Eosinophils # (Auto) 0.0 TH/MM3 (0-0.4) 0.0 TH/MM3 (0-0.4) Basophils # (Auto) 0.0 TH/MM3 (0-0.2) 0.0 TH/MM3 (0-0.2) CBC Comment DIFF FINAL DIFF FINAL Differential Comment Blood Urea Nitrogen 47 MG/DL (7-18) 64 MG/DL (7-18) 50 MG/DL (7-18) Creatinine 5.83 MG/DL (0.50-1.00) 6.75 MG/DL (0.50-1.00) 5.14 MG/DL (0.50-1.00) Random Glucose 114 MG/DL (74-106) 117 MG/DL (74-106) 97 MG/DL (74-106) Total Protein 7.2 GM/DL (6.4-8.2) Albumin 3.0 GM/DL (3.4-5.0) 2.7 GM/DL (3.4-5.0) Calcium Level 8.3 MG/DL (8.5-10.1) 9.1 MG/DL (8.5-10.1) 8.7 MG/DL (8.5-10.1) Alkaline Phosphatase 82 U/L (45-117) Aspartate Amino Transf (AST/SGOT) 91 U/L (15-37) Alanine Aminotransferase (ALT/SGPT) 28 U/L (10-53) Total Bilirubin 0.5 MG/DL (0.2-1.0) Sodium Level 140 MEQ/L (136-145) 139 MEQ/L (136-145) 143 MEQ/L (136-145) Potassium Level 3.3 MEQ/L (3.5-5.1) 3.3 MEQ/L (3.5-5.1) 3.4 MEQ/L (3.5-5.1) Chloride Level 100 MEQ/L (98-107) 102 MEQ/L (98-107) 103 MEQ/L (98-107) Carbon Dioxide Level 29.3 MEQ/L (21.0-32.0) 26.1 MEQ/L (21.0-32.0) 29.4 MEQ/L (21.0-32.0) Anion Gap 11 MEQ/L (5-15) 11 MEQ/L (5-15) 11 MEQ/L (5-15) Estimat Glomerular Filtration Rate 9 ML/MIN (>89) 7 ML/MIN (>89) 10 ML/MIN (>89) Phenytoin (Dilantin) Level 3.7 MCG/ML (10.0-20.0) 4.0 MCG/ML (10.0-20.0) Valproic Acid (Depakene) Level 44 MCG/ML (50-100) 43 MCG/ML (50-100) Phenobarbital Level 2.3 MCG/ML (15.0-40.0) 6.0 MCG/ML (15.0-40.0) Phosphorus Level 4.3 MG/DL (2.5-4.9) 2.8 MG/DL (2.5-4.9) Magnesium Level 2.1 MG/DL (1.5-2.5) 2.2 MG/DL (1.5-2.5) Result Diagram: 06/07/17 0330 06/08/17 0541 Imaging Last Impressions Chest X-Ray 06/08/17 0600 Signed Impressions: Service Date/Time: Thursday, June 08, 2017 05:56 - CONCLUSION: 1. Grossly stable ETT and NGT. 2. Cardiomegaly with positive fluid balance. 3. Stable bilateral lower lung zone airspace disease. 4. No significant interval change. Rodri Leung MD Head CT 06/05/17 0000 Signed Impressions: Service Date/Time: Tuesday, June 06, 2017 04:41 - CONCLUSION: 1. Senescent changes. 2. No significant interval change or acute intracranial abnormality. Rodri Leung MD Procedures CPR, resuscitation 06/01/17 INTUBATION 06/01/17 Intraosseous needle placement in left tibia 06/01/17 Central line placement 06/01/17 . Assessment and Plan Disease Oriented Problem List: (1) cardiac arrest, prolonged resuscitation (2) probable anoxic brain injury Comment: With seizure activity (3) end-stage renal disease (4) CHF (5) COPD (6) peripheral vascular disease (7) hypertension (8) obesity (9) asthma (10) gout (11) hypothyroidism (12) depression (13) arthritis (14) history of sleep apnea Symptom Scale: (1) dyspnea 0-10 Scale: Unable to quantify (2) pain 0-10 Scale: Unable to quantify (likely has musculoskeletal pain after the prolonged resuscitation) Pertinent Non-Medical Issues Psychosocial: for 32 years, 3 children (son age 45 in [place], son age 40 in [place], daughter age 38 in [facility]);, 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 Spiritual: [employer]ism background Legal: The patient lacks capacity for decision-making, and it seems unlikely that she will regain that capacity. Her is the decision making proxy. Ethical issues impacting care: None . Important Contacts Berhane --[phone] (corrected phone number 06/08/17) . Prognosis Her prognosis is quite poor, as it appears she has had a profound anoxic brain injury, and she has multiple other comorbidities. . Code Status: Full Code Plan * FULL CODE -- confirmed aggressive goals "for now" with on 06/04/17 * DECISION-MAKING: The patient lacks capacity for decision-making, and she will not regain that capacity. Her is the decision making proxy. * GOALS: 06/08/17: Discussion with for Luis at the bedside -- He understands that the brain damage seems to be severe, and that this is not similar to the previous time she was "in a coma" a few years ago. We talked about the possibility of "finding the right time to let her go peacefully," and he would like for us to have a meeting with him and other family members when they get into town next week some time, so that we would be able to explain to the rest of the family what the medical issues are and what the future looks like... * SYMPTOMS: Her dyspnea and likely pain is being managed in the C, I have no additional medication recommendations at this time. * Palliative Care will continue to follow the patient during this hospitalization. . Time Spent Total Floor Time (mins): 41 Face to Face Time (mins): 21 >50% Counseling/Coord of Care: Yes Attestation To help prompt me to consider important information that might be impacting today's encounter and assessment, information from prior notes written by myself or my colleagues may have been "brought forward" into today's note. My signature on this note, however, is an attestation that I personally performed the exam, history, and/or decision-making noted today, and, unless otherwise indicated, the interactions with patient, family, and staff as well as the review of records all occurred today. I also attest that the listed assessment and stated plan reflect my best clinical judgment today based on the combination of historical information, prior notes, and today's exam/ interactions. When time spent is documented, it refers only to time spent today by the signer, or if indicated, combined time spent today by collaborating physician/nurse practitioner. Rosy Reynoso MD Jun 08, 2017 10:34
[2017-06-08] MEDS: cefTRIAXone INJ 2,000 MG in SODIUM CHLORIDE 0.9% INJ 100 ML IV SCH (10:37)
--- NOTE | 2017-06-08 11:43 | HHI.IDPN ---
Subjective Subjective Remarks Patient is a 67-year-old female, brought into the hospital after she became unresponsive during her hemodialysis. She has end-stage renal disease, and goes to dialysis every Sunday and Sunday. She was apparently undergoing dialysis on the day of admission, and she told the staff that she was not feeling well. She suddenly became unresponsive. EMS was called, and patient was found to be in PEA arrest. She underwent CPR, and intubation. After about 30 minutes she was successfully resuscitated and was on pressors. Patient has remained intubated since. She has since then been having problem with seizure activity on her EEG. Patient is currently on multiple anticonvulsant agents. Her WBC has remained elevated. She started having fevers about 2 days ago. She's had blood culture that were negative, and sputum culture with normal respiratory [place]. Patient is anuric. She has been on Zosyn empirically. She has a femoral line on the right. She's had diarrhea , and stool for C. difficile is negative. Patient currently is sedated on the vent. She is still on pressors. Infectious disease consultation has been requested to evaluate the patient with fevers and persistent leukocytosis. Notes reviewed Temps ok Sedated on the vent WBC same Palliative medicine notes reviewed Antibiotics Rocephin Zithromax Past Medical History End-stage renal disease on hemodialysis Sunday, Sunday, Sunday Hypertension Hyperlipidemia anemia of chronic disease Arthritis. Congestive heart failure. Cerebrovascular accident. Gastroesophageal reflux disease. Obstructive sleep apnea on C-PAP q.h.s. Hypothyroidism Vertigo Anxiety / depression Chronic obstructive pulmonary disease. Past Surgical History Previous bilateral TMA x3 Left upper extremity AV fistula Left breast lumpectomy Partial hysterectomy. Allergies: Coded Allergies: diatrizoate meglumine (Unverified Allergy, Severe, Joint Pain, 05/15/17) pt states she is not allergic to this gadobenic acid (Unverified Allergy, Severe, Joint Pain, 05/15/17) pt states she is not allergic to this gadodiamide (Unverified Allergy, Severe, Joint Pain, 05/15/17) pt states she is not allergic to this gadoteridol (Unverified Allergy, Severe, Joint Pain, 05/15/17) pt states she is not allergic to this iodine (Unverified Allergy, Severe, ORAL CONTRAST [place], 05/15/17) pt states she is not allergic to this iodixanol (Unverified Allergy, Severe, Joint Pain, 05/15/17) pt states she is not allergic to this iohexol (Unverified Allergy, Severe, Joint Pain, 05/15/17) pt states she is not allergic to this morphine (Unverified Allergy, Severe, ITCH, 05/15/17) pt states she is not allergic to this potassium iodide (Unverified Allergy, Severe, ORAL CONTRAST [place], 05/15/17) pt states she is not allergic to this povidone-iodine (Unverified Allergy, Severe, ORAL CONTRAST [place], 05/15/17) pt states she is not allergic to this sodium iodide (Unverified Allergy, Severe, ORAL CONTRAST OK, 05/15/17) pt states she is not allergic to this sodium iodide (Unverified Allergy, Severe, ORAL CONTRAST OK, 05/15/17) pt states she is not allergic to this vancomycin (Unverified Allergy, Unknown, 05/15/17) PT STATES UNKNOWN IF SHE IS ALLERGIC. Objective . Vital Signs Date Time Temp Pulse Resp B/P (MAP) Pulse Ox O2 Delivery O2 Flow Rate FiO2 06/08/17 10:00 79 06/08/17 09:26 100 35 06/08/17 08:00 79 06/08/17 08:00 98.8 68 14 96/52 (67) 98 06/08/17 08:00 35 06/08/17 06:00 79 06/08/17 04:10 99 35 06/08/17 04:00 35 06/08/17 04:00 68 06/08/17 04:00 98.0 68 14 96/53 (67) 98 06/08/17 02:00 68 06/08/17 00:17 100 35 06/08/17 00:00 74 06/08/17 00:00 35 06/08/17 00:00 97.8 74 14 114/63 (80) 95 06/07/17 22:00 80 06/07/17 21:10 98 35 06/07/17 20:00 35 06/07/17 20:00 98.1 82 14 100/55 (70) 95 06/07/17 20:00 82 06/07/17 18:00 78 06/07/17 16:34 100 35 06/07/17 16:00 97.7 82 16 90/52 (65) 95 06/07/17 16:00 82 06/07/17 16:00 35 06/07/17 14:00 68 06/07/17 12:00 62 06/07/17 12:00 97.8 62 14 93/52 (66) 100 06/07/17 12:00 35 06/07/17 11:56 94 35 . Laboratory Tests Test 06/07/17 03:30 06/08/17 05:41 White Blood Count 17.2 TH/MM3 Red Blood Count 3.34 MIL/MM3 Hemoglobin 9.2 GM/DL Hematocrit 29.2 % Mean Corpuscular Volume 87.2 FL Mean Corpuscular Hemoglobin 27.6 PG Mean Corpuscular Hemoglobin Concent 31.6 % Red Cell Distribution Width 16.9 % Platelet Count 282 TH/MM3 Mean Platelet Volume 8.5 FL Neutrophils (%) (Auto) 89.8 % Lymphocytes (%) (Auto) 5.9 % Monocytes (%) (Auto) 4.2 % Eosinophils (%) (Auto) 0.0 % Basophils (%) (Auto) 0.1 % Neutrophils # (Auto) 15.5 TH/MM3 Lymphocytes # (Auto) 1.0 TH/MM3 Monocytes # (Auto) 0.7 TH/MM3 Eosinophils # (Auto) 0.0 TH/MM3 Basophils # (Auto) 0.0 TH/MM3 CBC Comment DIFF FINAL Differential Comment Laboratory Tests Test 06/07/17 03:30 06/08/17 05:41 Blood Urea Nitrogen 64 MG/DL 50 MG/DL Creatinine 6.75 MG/DL 5.14 MG/DL Random Glucose 117 MG/DL 97 MG/DL Albumin 2.7 GM/DL Calcium Level 9.1 MG/DL 8.7 MG/DL Phosphorus Level 4.3 MG/DL 2.8 MG/DL Magnesium Level 2.1 MG/DL 2.2 MG/DL Sodium Level 139 MEQ/L 143 MEQ/L Potassium Level 3.3 MEQ/L 3.4 MEQ/L Chloride Level 102 MEQ/L 103 MEQ/L Carbon Dioxide Level 26.1 MEQ/L 29.4 MEQ/L Anion Gap 11 MEQ/L 11 MEQ/L Estimat Glomerular Filtration Rate 7 ML/MIN 10 ML/MIN Imaging Last 48 hours Impressions Chest X-Ray 06/08/17 0600 Signed Impressions: Service Date/Time: Thursday, June 08, 2017 05:56 - CONCLUSION: 1. Grossly stable ETT and NGT. 2. Cardiomegaly with positive fluid balance. 3. Stable bilateral lower lung zone airspace disease. 4. No significant interval change. Rodri Leung MD Chest X-Ray 06/07/17 0600 Signed Impressions: Service Date/Time: June 05:48 - CONCLUSION: 1. Stable ETT and NGT. 2. Cardiomegaly with mild positive fluid balance. 3. Stable bibasilar airspace disease, likely atelectasis. 4. Probable trace left pleural effusion. 5. No significant interval change. Rodri Leung MD Chest X-Ray 06/06/17 0000 Signed Impressions: Service Date/Time: Tuesday, June 06, 2017 03:30 - CONCLUSION: 1. Cardiomegaly with positive fluid balance. 2. Stable mild bibasilar airspace disease, likely atelectasis. 3. No significant interval change. Rodri Leung MD Head CT 06/05/17 0000 Signed Impressions: Service Date/Time: Tuesday, June 06, 2017 04:41 - CONCLUSION: 1. Senescent changes. 2. No significant interval change or acute intracranial abnormality. Rodri Leung MD Physical Exam GENERAL: , sedated, on the vent, not in respiratory distress. SKIN: Warm and dry. No generalized rash, no ecchymoses and no evidence of embolic lesions. HEAD: Atraumatic. Normocephalic. No temporal wasting, or tenderness. EYES: [place] conjunctiva. No petechia or hemorrhage. Pupils equal, round and reactive to light. Has dirty sclera. No injection or drainage. EARS, NOSE AND THROAT: Nose without bleeding or purulent nasal discharge. She is orally intubated. NECK: Trachea midline. Supple, no meningeal signs CARDIOVASCULAR: Regular rate and rhythm. No murmurs, rubs or gallops heard RESPIRATORY: Scattered rhonchi, decreased at bases EXTREMITIES: No clubbing, cyanosis, or edema. Kush TMA, has dry dressing on his R foot. Well perfused and warm. 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
[2017-06-08 12:35] LABS: AUTOMATED NEUTROPHIL # 18.6 TH/MM3 (1.8-7.7); BASOPHIL % 0.2 % (0.0-2.0); EOSINOPHIL % 0.1 % (0.0-4.0); HEMATOCRIT 30.5 % (35.0-46.0); LYMPHOCYTE # 1.8 TH/MM3 (1.0-4.8); MEAN CELL VOLUME 89.2 FL (80.0-100.0); MEAN CORPUSCULAR HEMOGLOBIN 27.6 PG (27.0-34.0); MEAN CORPUSCULAR HGB CONC 30.9 % (32.0-36.0); MONO % 9.5 % (0.0-8.0); NEUT % 82.2 % (16.0-70.0); PLATELET COUNT 301 TH/MM3 (150-450); RED BLOOD COUNT 3.43 MIL/MM3 (4.00-5.30); RED CELL DISTRIBUTION WIDTH 17.1 % (11.6-17.2); WHITE BLOOD COUNT 22.6 TH/MM3 (4.0-11.0)
[2017-06-08 12:37] LABS: HEMO FLAGS AUTO DIFF
[2017-06-08 14:13] LABS: BANDS 3 % (0-6); METAMYELOCYTES 1 % (0-1); NEUTROPHIL # MANUAL DIFF 20.3 TH/MM3 (1.8-7.7); POLYS (SEG NEUTROPHILS) 86 % (16-70); WBC DIFF SAMPLE 100
[2017-06-08 14:14] LABS: PLATELET MORPHOLOGY NORMAL (NORMAL)
[2017-06-08 14:15] LABS: PLATELET ESTIMATE SMEAR NORMAL (NORMAL); SCAN/DIFF FINAL DIFF MANUAL
--- NOTE | 2017-06-08 15:19 | MG ---
cc: DEANDRA CLAY MD Lab No: [id number] Date: 06/08/17 Age: Sex: F Race: DATE OF 1950 A 67-year-old history of cardiac arrest. Burst suppression pattern with suppression episode lasting 3-5 seconds with interictal bursts of sharply contoured theta, frontal sharp waves, bursts lasting at times 1-5 seconds. No EEG variability, reactivity. INTERPRETATION Burst suppression pattern with frequencies as noted and described above. Clinical correlation. Deandra Clay MD MG/EO /2:41 PM /3:09 PM
[2017-06-08] MEDS: AZITHROMYCIN 250 MG TAB PO SCH (16:00)
--- NOTE | 2017-06-08 17:02 | HHI.CCPN ---
Subjective Remarks/Hospital Course Patient is 67-year-old female with multiple comorbidities which include end- stage renal disease on hemodialysis Sunday, Sunday, Sunday, hypertension, COPD on home oxygen, morbid obesity with obstructive sleep apnea, CHF. The patient was at the dialysis center today, she reported to the staff that she did not feel well and all the sudden she became unresponsive. The patient was given CPR which was continued in en route to the hospital. She was in PEA arrest. The patient was given epi, bicarb and D50. After approximately 30 minutes. She had successful return of spontaneous circulation and was started on dopamine. The patient also was intubated and placed on full mechanical ventilation. Her ABG post intubation showed a pH of 7.39, CO2 45, pAO2 238 and bicarb 27 and saturation of 97%. Her laboratory data showed the potassium 4.1, creatinine 6.23 and corrected calcium of 7.3. Other significant labs showed mild leukocytosis with a Review WBC of 12.7. A chest x-ray post intubation showed a bilateral pulmonary infiltrates and ET tube approximately 4 cm above the isabel. In the ER she was given calcium gluconate and started on dopamine as stated above. Right femoral central line was attempted by the ED physician without any success. The patient was also seen by Dr. Macho francois in the ER from nephrology service and she is scheduled to undergo CT scan of the brain. The patient is unresponsive. 06/02 No events overnight. On fentanyl infusion for sedation however patient has her eyes open unresponsive. Afebrile. 06/03 No events overnight. Sedated with Fentanyl and intubated. On Levophed 11mics. EEG yesterday showed seizures started on Cerebyx. 06/04 Patient remains intubated and sedated with Versed and Fentanyl drip. Had seizure overnight given Ativan 1mg x1. Levophed down 1mic and on vasopressin. For HD today. T:100.4 last night 06/05 Patient remains intubated and sedated. On Levophed 1mic and Vasopressin. afebrile. Repeat EEG yesterday showed seizure like activity. 06/06 TMax 99.2. Vasopressin has been discontinued, the patient continues on Norepinephrine at 1 mcg. The patient has been transitioned to phenylephrine via peripheral IV low dose, to maintain MAP > 65 06/07 Afebrile. The patient continues to have leukocytosis, antibiotics changed per ID,Dr. Cazares following. Neurologically the patient continues on Versed infusion for continued seizure activity. Repeat EEG ordered, results pending. AED levels of phenobarbital,phenytoin, and valproic acid all remain subtherapeutic . Right groin femoral line was discontinued the patient remains with peripheral IVs, no vasopressors support needed. Wound care was consulted regarding dry ulcers on right foot and implementation of measures. 06/08: No acute events overnight. EEG performed today the patient continues to have seizure activity. Dr. Garcia notified the patient continues on phenobarbital, fosphenytoin and valproic acid level slightly increased but still remains subtherapeutic at this time. The propofol infusion and Topamax added to medication regimen. WBC count continues to increase most likely reactive. ID following patient continues on antibiotics. Objective Vital Signs Date Time Temp Pulse Resp B/P (MAP) Pulse Ox O2 Delivery O2 Flow Rate FiO2 06/08/17 16:05 35 06/08/17 16:00 66 06/08/17 12:54 100 06/08/17 12:00 98.8 14 95/55 (68) 06/04/17 20:43 Ventilator Intake and Output 06/08/17 06/08/17 06/09/17 08:00 16:00 00:00 Intake Total 670 ml Output Total 0 ml Balance 670 ml Result Diagram: 06/08/17 1203 06/08/17 0541 Imaging Last Impressions Chest X-Ray 06/07/17 0600 Signed Impressions: Service Date/Time: June 05:48 - CONCLUSION: 1. Stable ETT and NGT. 2. Cardiomegaly with mild positive fluid balance. 3. Stable bibasilar airspace disease, likely atelectasis. 4. Probable trace left pleural effusion. 5. No significant interval change. Rodri Leung MD Head CT 06/05/17 0000 Signed Impressions: Service Date/Time: Tuesday, June 06, 2017 04:41 - CONCLUSION: 1. Senescent changes. 2. No significant interval change or acute intracranial abnormality. Rodri Leung MD Last Impressions Chest X-Ray 06/06/17 0000 Signed Impressions: Service Date/Time: Tuesday, June 06, 2017 03:30 - CONCLUSION: 1. Cardiomegaly with positive fluid balance. 2. Stable mild bibasilar airspace disease, likely atelectasis. 3. No significant interval change. Rodri Leung MD Head CT 06/05/17 0000 Signed Impressions: Service Date/Time: Tuesday, June 06, 2017 04:41 - CONCLUSION: 1. Senescent changes. 2. No significant interval change or acute intracranial abnormality. Rodri Leung MD Last Impressions Head CT 06/01/17 1406 Signed Impressions: Service Date/Time: Thursday, June 01, 2017 15:17 - CONCLUSION: Atrophy otherwise negative. Freddy Arguelles MD FACR Chest X-Ray 06/01/17 1121 Signed Impressions: Service Date/Time: Thursday, June 01, 2017 13:54 - CONCLUSION: 1. Limited study. 2. Bilateral pulmonary infiltrates. Timothy Roper Jr., MD Objective Remarks GENERAL: Patient is 67yo obese female s/p PEA arrest intubated and unresponsive SKIN: Warm and dry. HEAD: Normocephalic. EYES: No scleral icterus. No injection or drainage. NECK: Supple, trachea midline. No JVD or lymphadenopathy. Orally intubated CARDIOVASCULAR: Regular rate and rhythm without murmurs, gallops, or rubs. RESPIRATORY: Mechanical ventilation .Breath sounds equal bilaterally. No accessory muscle use. GASTROINTESTINAL: Abdomen soft, non-tender, nondistended. MUSCULOSKELETAL: No cyanosis, b/l mid foot amputation, noted dry ulcers 3 on the right foot Neuro: GCS 3 T Intubated, nonresponsive A/P Assessment and Plan 1. Status post PEA arrest. 2. VDRF 3. End-stage renal disease. 4. Likely anoxic brain injury. 5. History of hypertension. 6. COPD on home oxygen. 7. Morbid obesity and a history of obstructive sleep apnea. 8. History of congestive heart failure. 9. Anemia of chronic disease. 10. Status Epilepticus 11. Persistent leukocytosis Plan Neuro: On Versed infusion for sedation/seizure activity. Monitor neuro status closely Repeat CT brain 06/06-no interval change CT brain 06/01: atrophy no acute findings, EEG 06/04: Seizure like activity likely related to severe anoxic brain injury. EEG 06/03: Epileptiform discharges EEG 06/02: Seizure activity, on Cerebyx 100mg Q8, Depakote, Ativan 1mg Q4 PRN. Dilantin level: 6.1, Depakote level: 25 on 06/04 Neuro is following- Dr. Garcia. F/U repeat EEG AED levels low -phenobarbital 2.3->6.0, phenytoin3.7->4.0, valproic acid 44->43 06/08 Topamax, propofol infusion Pulm: Continue with vent support and maintain sats above 92%. Bronchodilators, ICU vent bundle. 06/06 CXR Day 8 ETT plan for possible tracheostomy CV: On Levophed 1mcg, Change to low dose Phenylephrine Monitor HR and BP maintain MAP> 65 mmHg. Lactic acid 1.2 Echo 06/01: EF 55-60%. Severe pulmonary hypertension Continue Aspirin 81 mg daily. Stress dose steroids- Hydrocortisone 100mg IV Q8 Monitor renal function I&Os and avoid nephrotoxins. Renal is following- Dr. Ling HD per renal. On Sensipar and Renvela. GI: Protonix 40 mg IV daily. tube feeds- Nepro with goal 40ml/hr ID: Monitor for signs of infections( fever and WBC). ID following, Dr. Cazares Follow up on blood 06/01: NGTD, sputum 06/01: normal resp kaylene, sputum 06/04 pending Nasal washing and is negative for influenza in the ED. Of note the patient is allergic to VANCOMYCIN. Heme: Monitor CBC. Endo: SSI with Accu-Chek's for glycemic control. GI prophylaxis with Protonix 40 mg daily, DVT prophylaxis with SCDs./heparin Subcu prophylaxis Lines: Right femoral central line placed 06/01-06/06. Peripheral IVs providing adequate access at this time Palliative care is following Wound care consult for dry ulcers on right forefoot- washed with normal saline Vaseline gauze and Brittni wrap every other day Prognosis is critically ill s/p PEA arrest, resp failure, ESRD and likely anoxic brain injury. Family requests aggressive measures at this time. Will plan for tracheostomy in the near future.Attempts to call Mr. Berhane Maldonado unsuccessful, to provide a medical update and discuss possibility of tracheostomy and PEG placement if ongoing aggressive measures are desired. Discussion initiated on 06/06 with patient's siblings regarding possible trach and PEG. Level 3 Physician Lauren Varghese MD Jun 08, 2017 17:02
[2017-06-08] MEDS ORDERED: TOPIRAMATE 100 MG TAB OG-TUBE ONE (18:15)
[2017-06-08] MEDS: PROPOFOL 1000 MG/100 ML INJ 100 ML IV PRN (18:19)
[2017-06-09] VITALS (36 sets, daily range): BP systolic 83–134; BP diastolic 50–63; PULSE 50–75; RESP 9–19; TEMP 97.5–97.8; O2SAT 91–100
[2017-06-09] MEDS: INSULIN NovoLIN REGULAR SUPPLEMENTAL SCALE SQ SCH ×6 (02:00→22:00)
[2017-06-09] MEDS: CHLORHEXIDINE GLUCONATE 2 % 1 PACK (2 CLOTHS) TOP SCH (04:00)
[2017-06-09 04:53] LABS: MEAN CELL VOLUME 89.4 FL (80.0-100.0); MEAN CORPUSCULAR HEMOGLOBIN 27.8 PG (27.0-34.0); MEAN CORPUSCULAR HGB CONC 31.1 % (32.0-36.0); PLATELET COUNT 301 TH/MM3 (150-450); RED BLOOD COUNT 3.47 MIL/MM3 (4.00-5.30); RED CELL DISTRIBUTION WIDTH 17.3 % (11.6-17.2); REVIEW FLAG FINAL; WHITE BLOOD COUNT 19.4 TH/MM3 (4.0-11.0)
[2017-06-09] MEDS: FOSPHENYTOIN SODIUM 100 MG PE/2 ML VIAL IV SCH ×2 (05:09→13:35)
[2017-06-09] MEDS: HYDROCORTISONE SOD SUCCINATE 100 MG VIAL IV PUSH SCH ×3 (05:11→21:33)
[2017-06-09 05:15] LABS: BICARBONATE 25.7 MEQ/L (21.0-32.0); MAGNESIUM 2.3 MG/DL (1.5-2.5); POTASSIUM 3.5 MEQ/L (3.5-5.1)
[2017-06-09] MEDS: metroNIDAZOLE 500 MG TAB PO SCH ×3 (05:19→21:34)
[2017-06-09 05:23] LABS: BLOOD GAS BASE EXCESS 1.5 mmol/L (-2-2); BLOOD GAS CARBOXYHEMOGLOBIN 1.9 % (0-4); BLOOD GAS HCO3 25 mmol/L (22-26); BLOOD GAS METHEMOGLOBIN 1.4 % (0-2); BLOOD GAS O2 HGB SATURATION 93 % (90-100); BLOOD GAS OXYGEN CONTENT 12.9 Vol % (12.0-20.0); BLOOD GAS PCO2 36 mmHg (38-42); BLOOD GAS PO2 83 mmHg (61-120); BLOOD GAS TOTAL HGB 9.7 G/DL (12.0-16.0); CRITICAL VALUE NO; OXYGEN DEVICE VENT; TEMP CORR TO 98.6
[2017-06-09 05:24] LABS: DRAW SITE RT RADIAL; FIO2 35 %; NUMBER OF ARTERIAL PUNCTURES 1; STAT NO; ULNAR PULSE PRESENT; VENT SETTINGS SEE COMMENTS
[2017-06-09] MEDS: VALPROATE INJ 500 MG in SODIUM CHLORIDE 0.9% INJ 100 ML IV SCH ×2 (05:48→13:37)
[2017-06-09] MEDS: PROPOFOL 1000 MG/100 ML INJ 100 ML IV PRN ×2 (07:01→18:39)
[2017-06-09] MEDS: MIDAZOLAM 100 MG/100 ML INJ 100 ML IV PRN ×2 (07:02→22:32)
[2017-06-09] MEDS: VITAMIN B CMPLX/VITC/FOLIC AC CAP PO SCH (09:00)
[2017-06-09] MEDS: PANTOPRAZOLE SODIUM 40 MG VIAL IV SCH (09:00)
[2017-06-09] MEDS: ASPIRIN 81 MG CHEW TAB CHEW SCH (09:00)
[2017-06-09] MEDS: TOPIRAMATE 25 MG TAB OG-TUBE SCH ×2 (09:00→21:27)
[2017-06-09] MEDS: CALCIUM ACETATE 667 MG CAP PO SCH ×3 (09:00→17:12)
[2017-06-09] MEDS: DOCUSATE SODIUM 50 MG/SENNA 8.6 MG TAB PO SCH ×2 (09:00→21:36)
[2017-06-09] MEDS: HEPARIN SODIUM - SQ 10,000 UNITS/ML VIAL SQ SCH ×2 (09:01→21:28)
[2017-06-09] MEDS: CINACALCET HYDROCHLORIDE 30 MG TAB PO SCH (09:16)
--- NOTE | 2017-06-09 10:52 | HHI.NPPN ---
Subjective General Problems: Anemia Renal Failure: Chronic, End Stage Renal Disease Review of Systems General General Remarks unable to obtain Objective Data Data Vital Signs Date Time Temp Pulse Resp B/P (MAP) Pulse Ox O2 Delivery O2 Flow Rate FiO2 06/09/17 07:47 100 35 06/09/17 06:00 56 06/09/17 04:00 59 06/09/17 04:00 35 06/09/17 04:00 97.5 59 14 89/50 (63) 100 06/09/17 03:40 100 35 06/09/17 02:00 59 06/09/17 00:00 60 06/09/17 00:00 35 06/09/17 00:00 97.8 60 14 89/50 (63) 100 06/08/17 23:47 100 35 06/08/17 22:00 60 06/08/17 21:38 100 35 06/08/17 20:00 35 06/08/17 20:00 61 06/08/17 20:00 98.2 67 14 83/51 (62) 100 06/08/17 18:00 74 14 103/57 (72) 100 06/08/17 18:00 80 06/08/17 17:00 77 14 111/60 (77) 100 06/08/17 16:05 35 06/08/17 16:00 98.3 80 14 113/61 (78) 100 06/08/17 16:00 66 06/08/17 14:00 66 06/08/17 12:54 100 35 06/08/17 12:00 66 06/08/17 12:00 35 06/08/17 12:00 98.8 68 14 95/55 (68) 98 -: 06/09/17 0430 06/09/17 0430 Drip Comment versed, fentanyl Physical Exam General Appearance: Well Developed, Obese Eyes Eye Exam: Pupils Equal Throat Throat Exam: Oral Mucosa [place] & Moist Neck Neck Exam: Neck Supple Pulmonary Resp Exam: Breath Sounds Equal, No Distress, Rhonchi Cardiology CV Exam: Regular, Normal Sinus Rhythm, Good Perfusion Gastrointestinal/Abdomen GI Exam: Soft, Non-Tender, Bowel Sounds Present Musculoskeletal MS Exam: Joints Intact, Normal Tone, Unable to Ambulate Integumentary Skin Exam: Clear, Warm, Dry, Intact Extremeties Extremities Exam: No Edema, Pedal Pulses Palpable Neurologic Neuro Exam: Unresponsive, Sedated Assessment/Plan Discussed Condition With: Spouse Assessment Summary: Anemia of CKD, End Stage Renal Disease Problem List: (1) ESRD (end stage renal disease) ICD Codes: N18.6 - End stage renal disease Status: Chronic Plan: Continue dialysis TTS. is schedule for today Has AVF that functions well avoid IVF, gadolinium 1452 pm seen at hemodialysis UF 2 L prognosis is poor (2) Cardiac arrest ICD Codes: I46.9 - Cardiac arrest, cause unspecified Plan: she is unresponsive on ventilator She has suffered anoxic brain injury Poor prognosis. Palliative following, D/W them. Family in route to visit the patient. There is discussion about withdrawal of life support possibly next week. (3) Metabolic bone disease ICD Codes: E88.9 - Metabolic disorder, unspecified; M90.80 - Osteopathy in diseases classified elsewhere, unspecified site Status: Acute Plan: intermittently monitor phosphorus level continue Calcium acetate via OG tube May consider stopping Sensipar in this clinical situation. (4) Anemia of chronic renal failure Status: Chronic Plan: continue epogen with HD (5) Hypertension Status: Chronic Plan: Antihypertensives on hold. Tania Nguyen MD Jun 09, 2017 10:52
[2017-06-09] MEDS: cefTRIAXone INJ 2,000 MG in SODIUM CHLORIDE 0.9% INJ 100 ML IV SCH (11:00)
[2017-06-09] MEDS: EPOETIN ALFA 10,000 UNITS/ML VIAL IV PRN (13:02)
[2017-06-09] MEDS: GELATIN 12 MM/7 MM FOAM TOP PRN (13:02)
[2017-06-09] MEDS: AZITHROMYCIN 250 MG TAB PO SCH (14:14)
--- NOTE | 2017-06-09 14:19 | HHI.PR ---
Review/Management Diagnosis/Plan: (1) Anoxic encephalopathy ICD Codes: G93.1 - Anoxic brain damage, not elsewhere classified Status: Acute Plan: periodic discharges reflective of anoxic injury refractory to multiple sz meds +brainstem reflexes on dilantin/phb/depakote; topamax added; also on versed recs will increase depakote follow sz med levels suspect a poor prognosis based on eeg patterns but this is not absolute. + presence of brainstem reflexes will follow over the weekend Dr. Perez to follow next week (2) cardiac arrest, prolonged resuscitation Status: Acute (3) end-stage renal disease Status: Chronic (4) CHF Status: Chronic (5) COPD Status: Chronic Subjective Subjective Comments No acute events reported xcover Active Medications Current Medications Medications (Trade) Dose Ordered Sig/Lois Route Start Time Stop Time Status Last Admin (Protonix Inj) 40 mg DAILY IV 06/01/17 14:15 06/09/17 09:00 Miscellaneous Information 1 Q361D XX 06/01/17 14:15 06/01/17 14:15 (Chlorhexidine 2% Cloth) Taper DAILY@04 TOP 06/02/17 04:00 05/29/18 03:59 06/09/17 04:00 (Chlorhexidine 2% Cloth) 3 pack UNSCH PRN TOP 06/01/17 14:15 (Pat-Colace) 1 tab BID PO 06/01/17 21:00 06/09/17 09:00 (Milk Of Magnesia Liq) 30 ml Q12H PRN PO 06/01/17 14:15 (Senokot) 17.2 mg Q12H PRN PO 06/01/17 14:15 (Dulcolax Supp) 10 mg DAILY PRN RECTAL 06/01/17 14:15 (Lactulose Liq) 30 ml DAILY PRN PO 06/01/17 14:15 (Nephrocaps) 1 cap DAILY PO 06/01/17 16:00 06/09/17 09:00 (Sensipar) 90 mg DAILY PO 06/01/17 16:00 06/09/17 09:16 Sodium Chloride 1,000 ml @ 0 mls/hr Q0M PRN OTHER 06/02/17 11:59 06/05/17 13:59 (Heparin Inj) 8,000 units UNSCH PRN IVF 06/02/17 12:00 Sodium Chloride 1,000 ml @ 200 mls/hr Q5H PRN IV 06/02/17 11:59 Sodium Chloride 1,000 ml @ 0 mls/hr Q0M PRN OTHER 06/02/17 11:59 (Mannitol Inj) 12.5 gm UNSCH PRN IV 06/02/17 12:00 (Albumin 25% Inj) 25 gm UNSCH PRN IV 06/02/17 12:00 06/05/17 13:58 (NS Flush) 5 ml UNSCH PRN IV FLUSH 06/02/17 12:00 (Heparin Inj) UNSCH PRN .XX 06/02/17 12:00 (Gentamicin (Dialysis) Inj) 20 mg UNSCH PRN IV 06/02/17 12:00 (Zofran Inj) 4 mg UNSCH PRN IV 06/02/17 12:00 (Tylenol) 650 mg UNSCH PRN PO 06/02/17 12:00 06/03/17 20:09 (Benadryl) 25 mg UNSCH PRN PO 06/02/17 12:00 (Nitrostat Sl) 0.4 mg UNSCH PRN SL 06/02/17 12:00 (Catapres) 0.1 mg UNSCH PRN PO 06/02/17 12:00 (Gelfoam 12 Mm/7 Mm Top) 1 foam UNSCH PRN TOP 06/02/17 12:00 06/09/17 13:02 (Ativan Inj) 1 mg Q4H PRN IV PUSH 06/02/17 16:00 06/04/17 02:25 Midazolam HCl 100 ml @ 2 mls/hr TITRATE PRN IV 06/03/17 09:30 06/09/17 07:02 (D50w (Vial) Inj) 50 ml UNSCH PRN IV 06/03/17 14:00 (Glucagon Inj) 1 mg UNSCH PRN OTHER 06/03/17 14:00 (NovoLIN R SUPPLEMENTAL SCALE) 1 Q4H SQ 06/03/17 14:00 06/04/17 10:00 (SoluCORTEF INJ) 100 mg Q8HR IV PUSH 06/03/17 14:00 06/09/17 13:35 (Heparin Inj) 5,000 units Q12HR SQ 06/04/17 09:00 06/09/17 09:01 Valproate Sodium 500 mg/Sodium Chloride 105 ml @ 105 mls/hr Q8HR IV 06/05/17 16:00 06/09/17 13:37 (Epogen Inj) 10,000 units UNSCH PRN IV 06/06/17 13:30 06/09/17 13:02 (Phoslo) 667 mg TID PO 06/06/17 18:00 06/09/17 13:35 (Brethine Inj) 1 mg UNSCH PRN SQ 06/06/17 13:45 (Zithromax) 500 mg Q24H PO 06/07/17 16:00 06/13/17 16:01 06/09/17 14:14 Ceftriaxone Sodium 2000 mg/ Sodium Chloride 100 ml @ 200 mls/hr Q24H IV 06/07/17 11:00 06/14/17 10:59 06/09/17 11:00 (Flagyl) 500 mg Q8HR PO 06/07/17 14:00 06/14/17 13:59 06/09/17 13:35 (Aspirin Chew) 81 mg DAILY CHEW 06/08/17 09:00 06/09/17 09:00 (Cerebyx Inj) 200 mgpe Q8H IV 06/07/17 20:00 06/09/17 13:35 (Luminal Inj) 100 mg Q8HR IV 06/07/17 22:00 06/09/17 13:36 Propofol 100 ml @ 17.25 mls/ hr TITRATE PRN IV 06/08/17 17:15 06/09/17 07:01 (Topamax) 50 mg BID OG-TUBE 06/09/17 09:00 06/09/17 09:00 Allergies Allergies Coded Allergies diatrizoate meglumine (Unverified Allergy, Severe, Joint Pain, 05/15/17) gadobenic acid (Unverified Allergy, Severe, Joint Pain, 05/15/17) gadodiamide (Unverified Allergy, Severe, Joint Pain, 05/15/17) gadoteridol (Unverified Allergy, Severe, Joint Pain, 05/15/17) iodine (Unverified Allergy, Severe, ORAL CONTRAST OK, 05/15/17) iodixanol (Unverified Allergy, Severe, Joint Pain, 05/15/17) iohexol (Unverified Allergy, Severe, Joint Pain, 05/15/17) morphine (Unverified Allergy, Severe, ITCH, 05/15/17) potassium iodide (Unverified Allergy, Severe, ORAL CONTRAST OK, 05/15/17) povidone-iodine (Unverified Allergy, Severe, ORAL CONTRAST OK, 05/15/17) sodium iodide (Unverified Allergy, Severe, ORAL CONTRAST OK, 05/15/17) sodium iodide (Unverified Allergy, Severe, ORAL CONTRAST OK, 05/15/17) vancomycin (Unverified Allergy, Unknown, 05/15/17) Review of Systems All other ROS: Unable to obtain Exam I&O / VS Vital Signs Date Time Temp Pulse Resp B/P (MAP) Pulse Ox O2 Delivery O2 Flow Rate FiO2 06/09/17 12:00 96 35 06/09/17 07:47 100 35 06/09/17 06:00 56 06/09/17 04:00 59 06/09/17 04:00 35 06/09/17 04:00 97.5 59 14 89/50 (63) 100 06/09/17 03:40 100 35 06/09/17 02:00 59 06/09/17 00:00 60 06/09/17 00:00 35 06/09/17 00:00 97.8 60 14 89/50 (63) 100 06/08/17 23:47 100 35 06/08/17 22:00 60 06/08/17 21:38 100 35 06/08/17 20:00 35 06/08/17 20:00 61 06/08/17 20:00 98.2 67 14 83/51 (62) 100 06/08/17 18:00 74 14 103/57 (72) 100 06/08/17 18:00 80 06/08/17 17:00 77 14 111/60 (77) 100 06/08/17 16:05 35 06/08/17 16:00 98.3 80 14 113/61 (78) 100 06/08/17 16:00 66 Exam Comments awake, non-verbal, not following, intubated, on versed gtt, mild rt gaze deviation, no involuntary movements, ou 3.5-3, no blink to threat, mild corneals present, no ext movement, no clonus, planter flexor Objective Micro and Labs Laboratory Tests Test 06/09/17 04:30 06/09/17 05:07 White Blood Count 19.4 Red Blood Count 3.47 Hemoglobin 9.6 Hematocrit 31.0 Mean Corpuscular Volume 89.4 Mean Corpuscular Hemoglobin 27.8 Mean Corpuscular Hemoglobin Concent 31.1 Red Cell Distribution Width 17.3 Platelet Count 301 Mean Platelet Volume 8.4 Blood Urea Nitrogen 69 Creatinine 6.09 Random Glucose 102 Calcium Level 8.9 Phosphorus Level 3.0 Magnesium Level 2.3 Sodium Level 142 Potassium Level 3.5 Chloride Level 104 Carbon Dioxide Level 25.7 Anion Gap 12 Estimat Glomerular Filtration Rate 8 Blood Gas Puncture Site RT RADIAL Blood Gas Patient Temperature 98.6 Blood Gas HCO3 25 Blood Gas Base Excess 1.5 Blood Gas Oxygen Saturation 93 Arterial Blood pH 7.45 Arterial Blood Partial Pressure CO2 36 Arterial Blood Partial Pressure O2 83 Arterial Blood Oxygen Content 12.9 Arterial Blood Carboxyhemoglobin 1.9 Arterial Blood Methemoglobin 1.4 Blood Gas Hemoglobin 9.7 Oxygen Delivery Device VENT Blood Gas Ventilator Setting SEE COMMENTS Blood Gas Inspired Oxygen 35 Date/Time Source Procedure Growth Status 06/01/17 11:40 Blood Peripheral Aerobic Blood Culture - Final NO GROWTH IN 5 DAYS Complete 06/01/17 11:40 Blood Peripheral Anaerobic Blood Culture - Final NO GROWTH IN 5 DAYS Complete 06/04/17 05:00 Sputum Endotracheal Gram Stain - Final Complete 06/04/17 05:00 Sputum Endotracheal Sputum Culture - Final MODERATE GROWTH NORMAL RESPIRATORY CLEMENTINE Complete London Felder MD Jun 09, 2017 14:19
--- NOTE | 2017-06-09 15:10 | HHI.CCPN ---
Subjective Remarks/Hospital Course Patient is 67-year-old female with multiple comorbidities which include end- stage renal disease on hemodialysis Sunday, Sunday, Sunday, hypertension, COPD on home oxygen, morbid obesity with obstructive sleep apnea, CHF. The patient was at the dialysis center today, she reported to the staff that she did not feel well and all the sudden she became unresponsive. The patient was given CPR which was continued in en route to the hospital. She was in PEA arrest. The patient was given epi, bicarb and D50. After approximately 30 minutes. She had successful return of spontaneous circulation and was started on dopamine. The patient also was intubated and placed on full mechanical ventilation. Her ABG post intubation showed a pH of 7.39, CO2 45, pAO2 238 and bicarb 27 and saturation of 97%. Her laboratory data showed the potassium 4.1, creatinine 6.23 and corrected calcium of 7.3. Other significant labs showed mild leukocytosis with a Review WBC of 12.7. A chest x-ray post intubation showed a bilateral pulmonary infiltrates and ET tube approximately 4 cm above the isabel. In the ER she was given calcium gluconate and started on dopamine as stated above. Right femoral central line was attempted by the ED physician without any success. The patient was also seen by Dr. Macho francois in the ER from nephrology service and she is scheduled to undergo CT scan of the brain. The patient is unresponsive. 06/02 No events overnight. On fentanyl infusion for sedation however patient has her eyes open unresponsive. Afebrile. 06/03 No events overnight. Sedated with Fentanyl and intubated. On Levophed 11mics. EEG yesterday showed seizures started on Cerebyx. 06/04 Patient remains intubated and sedated with Versed and Fentanyl drip. Had seizure overnight given Ativan 1mg x1. Levophed down 1mic and on vasopressin. For HD today. T:100.4 last night 06/05 Patient remains intubated and sedated. On Levophed 1mic and Vasopressin. afebrile. Repeat EEG yesterday showed seizure like activity. 06/06 TMax 99.2. Vasopressin has been discontinued, the patient continues on Norepinephrine at 1 mcg. The patient has been transitioned to phenylephrine via peripheral IV low dose, to maintain MAP > 65 06/07 Afebrile. The patient continues to have leukocytosis, antibiotics changed per ID,Dr. Cazares following. Neurologically the patient continues on Versed infusion for continued seizure activity. Repeat EEG ordered, results pending. AED levels of phenobarbital,phenytoin, and valproic acid all remain subtherapeutic . Right groin femoral line was discontinued the patient remains with peripheral IVs, no vasopressors support needed. Wound care was consulted regarding dry ulcers on right foot and implementation of measures. 06/08: No acute events overnight. EEG performed today the patient continues to have seizure activity. Dr. Garcia notified the patient continues on phenobarbital, fosphenytoin and valproic acid level slightly increased but still remains subtherapeutic at this time. The propofol infusion and Topamax added to medication regimen. WBC count continues to increase most likely reactive. ID following patient continues on antibiotics. 06/09: The patient was noted to have spontaneous eye opening, tracking or following. The patient also was noted to have withdrawal to pain, which is changed from complete unresponsiveness noted for the last 3 days at which time patient was probably having subclinical seizure activity. Patient continues on propofol and low dose and Topamax was added to antiepileptic drug (AED) regimen yesterday. Objective Vital Signs Date Time Temp Pulse Resp B/P (MAP) Pulse Ox O2 Delivery O2 Flow Rate FiO2 06/09/17 12:00 96 35 06/09/17 06:00 56 06/09/17 04:00 97.5 14 89/50 (63) Intake and Output 06/09/17 06/09/17 06/10/17 08:00 16:00 00:00 Output Total 0 ml Balance 0 ml Result Diagram: 06/09/17 0430 06/09/17 0430 Other Results Laboratory Tests Test 06/09/17 05:07 Blood Gas Puncture Site RT RADIAL Blood Gas Patient Temperature 98.6 Blood Gas HCO3 25 mmol/L (22-26) Blood Gas Base Excess 1.5 mmol/L (-2-2) Blood Gas Oxygen Saturation 93 % (90-100) Arterial Blood pH 7.45 (7.380-7.420) Arterial Blood Partial Pressure CO2 36 mmHg (38-42) Arterial Blood Partial Pressure O2 83 mmHg (61-120) Arterial Blood Oxygen Content 12.9 Vol % (12.0-20.0) Arterial Blood Carboxyhemoglobin 1.9 % (0-4) Arterial Blood Methemoglobin 1.4 % (0-2) Blood Gas Hemoglobin 9.7 G/DL (12.0-16.0) Oxygen Delivery Device VENT Blood Gas Ventilator Setting SEE COMMENTS Blood Gas Inspired Oxygen 35 % Imaging Last Impressions Chest X-Ray 06/07/17 0600 Signed Impressions: Service Date/Time: June 05:48 - CONCLUSION: 1. Stable ETT and NGT. 2. Cardiomegaly with mild positive fluid balance. 3. Stable bibasilar airspace disease, likely atelectasis. 4. Probable trace left pleural effusion. 5. No significant interval change. Rodri Leung MD Head CT 06/05/17 0000 Signed Impressions: Service Date/Time: Tuesday, June 06, 2017 04:41 - CONCLUSION: 1. Senescent changes. 2. No significant interval change or acute intracranial abnormality. Rodri Leung MD Last Impressions Chest X-Ray 06/06/17 0000 Signed Impressions: Service Date/Time: Tuesday, June 06, 2017 03:30 - CONCLUSION: 1. Cardiomegaly with positive fluid balance. 2. Stable mild bibasilar airspace disease, likely atelectasis. 3. No significant interval change. Rodri Leung MD Head CT 06/05/17 0000 Signed Impressions: Service Date/Time: Tuesday, June 06, 2017 04:41 - CONCLUSION: 1. Senescent changes. 2. No significant interval change or acute intracranial abnormality. Rodri Leung MD Last Impressions Head CT 06/01/17 1406 Signed Impressions: Service Date/Time: Thursday, June 01, 2017 15:17 - CONCLUSION: Atrophy otherwise negative. Freddy Arguelles MD FACR Chest X-Ray 06/01/17 1121 Signed Impressions: Service Date/Time: Thursday, June 01, 2017 13:54 - CONCLUSION: 1. Limited study. 2. Bilateral pulmonary infiltrates. Timothy Roper Jr., MD Objective Remarks GENERAL: Patient is 67yo obese female s/p PEA arrest intubated , with spontaneous eye opening SKIN: Warm and dry. HEAD: Normocephalic. EYES: No scleral icterus. No injection or drainage. NECK: Supple, trachea midline. No JVD or lymphadenopathy. Orally intubated CARDIOVASCULAR: Regular rate and rhythm without murmurs, gallops, or rubs. RESPIRATORY: Mechanical ventilation .Breath sounds equal bilaterally. No accessory muscle use. GASTROINTESTINAL: Abdomen soft, non-tender, nondistended. MUSCULOSKELETAL: No cyanosis, b/l mid foot amputation, noted dry ulcers 3 on the right foot with gauze dressing Neuro: GCS 9T E4 V1 M 4 Intubated, does not track, does not follow commands. No movement of extremities with the exception of withdraws to painful stimuli. A/P Assessment and Plan 1. Status post PEA arrest. 2. VDRF 3. End-stage renal disease. 4. Likely anoxic brain injury. 5. History of hypertension. 6. COPD on home oxygen. 7. Morbid obesity and a history of obstructive sleep apnea. 8. History of congestive heart failure. 9. Anemia of chronic disease. 10. Status Epilepticus 11. Persistent leukocytosis Plan Neuro: On fentanyl/Versed infusion for sedation/ and subclinical seizure activity. Monitor neuro status closely Repeat CT brain 06/06-no interval change CT brain 06/01: atrophy no acute findings, EEG 06/04: Seizure like activity likely related to severe anoxic brain injury. EEG 06/03: Epileptiform discharges EEG 06/02: Seizure activity, on Cerebyx 100mg Q8, Depakote, Ativan 1mg Q4 PRN. Dilantin level: 6.1, Depakote level: 25 on 06/04 06/08- Topamax and propofol infusion added secondary to subclinical seizure activity Neuro is following- Dr. Garcia. Pulm: Continue with vent support and maintain sats above 92%. Bronchodilators, ICU vent bundle. 06/06 CXR Day 7 ETT plan for possible tracheostomy, will discuss with family CV: On Levophed 1mcg, Change to low dose Phenylephrine Monitor HR and BP maintain MAP> 65 mmHg. Lactic acid 1.2 Echo 06/01: EF 55-60%. Severe pulmonary hypertension Continue Aspirin 81 mg daily. Stress dose steroids- Hydrocortisone 100mg IV Q8 Monitor renal function I&Os and avoid nephrotoxins. Renal is following- Dr. Ling HD per renal. On Sensipar and Renvela. GI: Protonix 40 mg IV daily. tube feeds- Nepro with goal 40ml/hr ID: Continue abx (Zosyn, Azithromycin) monitor for signs of infections( fever and WBC). ID eval Follow up on blood 06/01: NGTD, sputum 06/01: normal resp kaylene, sputum 06/04 pending Nasal washing and is negative for influenza in the ED. Of note the patient is allergic to VANCOMYCIN. Heme: Monitor CBC. Endo: SSI with Accu-Chek's for glycemic control. GI prophylaxis with Protonix 40 mg daily, DVT prophylaxis with SCDs./heparin Subcu prophylaxis Lines: Right femoral central line placed 06/01 Palliative care is following Wound care consult for dry ulcers on right forefoot Prognosis is critically ill s/p PEA arrest, resp failure, ESRD and likely anoxic brain injury. Family requests aggressive measures at this time. Will plan for tracheostomy in the near future, extensive discussion today with Mr. Berhane Maldonado () . Mr. Maldonado requests for plan for tracheostomy, plans to come in for further discussion tomorrow 06/10/17. Level 3 Physician Lauren Varghese MD Jun 09, 2017 15:10
[2017-06-09 16:39] LABS: PHENOBARBITAL 10.5 MCG/ML (15.0-40.0)
[2017-06-09] MEDS: ARTIFICIAL TEARS OPTH SOLN 15 ML BTL EACH EYE SCH (17:12)
[2017-06-09] MEDS: VALPROATE INJ 750 MG in SODIUM CHLORIDE 0.9% INJ 100 ML IV SCH (21:30)
[2017-06-10] VITALS (39 sets, daily range): BP systolic 88–119; BP diastolic 45–66; PULSE 58–77; RESP 4–17; TEMP 97.6–98.7; O2SAT 98–100
[2017-06-10] MEDS ORDERED: SODIUM CHLOR 0.9% 1000 ML INJ 1,000 ML IV ONE (01:00)
[2017-06-10] MEDS: FOSPHENYTOIN SODIUM 100 MG PE/2 ML VIAL IV SCH ×4 (01:00→20:16)
--- NOTE | 2017-06-10 01:09 | RADRPT ---
EXAM DATE/TIME: 06/10/2017 00:50 [facility] COMPARISON: CHEST SINGLE AP, June 08, 2017, 5:56. INDICATIONS : Central line placement. MEDICAL HISTORY : None. SURGICAL HISTORY : None. ENCOUNTER: Subsequent ACUITY: 1 day PAIN SCORE: Non-responsive. LOCATION: Bilateral chest FINDINGS: Patchy air space consolidation again seen on both sides. Small, bilateral pleural effusions are also noted. No pneumothorax. 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 I don't see a central venous catheter. Endotracheal tube remains in place, tip about 4 cm above the c luz. There is also a nasogastric tube remaining, coiled in the stomach. CONCLUSION: 1. No central venous catheter demonstrated. No pneumothorax. 2. No significant change patchy airspace consolidation and small pleural effusions on both sides. 3. Endotracheal tube and nasogastric tube again noted. Joshua Duran MD on June 10, 2017 at 1:05 Board Certified Radiologist. This report was verified electronically.
[2017-06-10] MEDS: INSULIN NovoLIN REGULAR SUPPLEMENTAL SCALE SQ SCH ×6 (02:00→21:16)
[2017-06-10] MEDS: CHLORHEXIDINE GLUCONATE 2 % 1 PACK (2 CLOTHS) TOP SCH ×2 (04:00→21:17)
[2017-06-10 05:45] LABS: AUTOMATED NEUTROPHIL # 16.2 TH/MM3 (1.8-7.7); BASOPHIL # 0.1 TH/MM3 (0-0.2); BASOPHIL % 0.3 % (0.0-2.0); EOSINOPHIL # 0.1 TH/MM3 (0-0.4); EOSINOPHIL % 0.3 % (0.0-4.0); HEMATOCRIT 31.9 % (35.0-46.0); HEMO FLAGS DIFF FINAL; LYMPH % 10.3 % (9.0-44.0); MEAN CELL VOLUME 90.8 FL (80.0-100.0); MEAN CORPUSCULAR HEMOGLOBIN 27.5 PG (27.0-34.0); MEAN CORPUSCULAR HGB CONC 30.3 % (32.0-36.0); MONO % 7.3 % (0.0-8.0); NEUT % 81.8 % (16.0-70.0); PLATELET COUNT 319 TH/MM3 (150-450); RED BLOOD COUNT 3.51 MIL/MM3 (4.00-5.30); RED CELL DISTRIBUTION WIDTH 17.4 % (11.6-17.2); WHITE BLOOD COUNT 19.8 TH/MM3 (4.0-11.0)
[2017-06-10] MEDS: VALPROATE INJ 750 MG in SODIUM CHLORIDE 0.9% INJ 100 ML IV SCH ×3 (06:00→20:37)
[2017-06-10] MEDS: PROPOFOL 1000 MG/100 ML INJ 100 ML IV PRN ×2 (06:01→16:30)
[2017-06-10] MEDS: HYDROCORTISONE SOD SUCCINATE 100 MG VIAL IV PUSH SCH ×3 (06:03→20:36)
[2017-06-10] MEDS: metroNIDAZOLE 500 MG TAB PO SCH ×3 (06:03→20:37)
[2017-06-10 06:24] LABS: BICARBONATE 28.2 MEQ/L (21.0-32.0); MAGNESIUM 2.1 MG/DL (1.5-2.5); POTASSIUM 3.4 MEQ/L (3.5-5.1)
--- NOTE | 2017-06-10 06:52 | PD.PROCEDR ---
Procedure Note Procedure Central line placement A time-out was completed verifying correct patient, procedure, site, positioning , and special equipment if applicable. The patient was placed in a dependent position appropriate for central line placement based on the vein to be cannulated. The patients left neck was prepped and draped in sterile fashion. 1 % Lidocaine was used to anesthetize the surrounding skin area. A triple lumen 9 [place] Cordis catheter was introduced into the the internal jugular vein using the Seldinger technique and under ultrasound guidance. The catheter was threaded smoothly over the guide wire and appropriate blood return was obtained. Each lumen of the catheter was evacuated of air and flushed with sterile saline. The catheter was then sutured in place to the skin and a sterile dressing applied. Perfusion to the extremity distal to the point of catheter insertion was checked and found to be adequate. Estimated Blood Loss: 1ml The patient tolerated the procedure well and there were no complications. Joshua Pulliam MD Jun 10, 2017 06:52
--- NOTE | 2017-06-10 07:19 | RADRPT ---
EXAM DATE/TIME: 06/10/2017 07:02 [facility] COMPARISON: CHEST SINGLE AP, May 15, 2016, 11:23. CHEST SINGLE AP, June 01, 2017, 13:54. CHEST SINGLE A P, June 06, 2017, 3:30. CHEST SINGLE AP, June 07, 2017, 5:48. CHEST SINGLE AP, June 08, 2017, 5:56. CHEST SINGLE AP, June 10, 2017, 0:50. INDICATIONS : Central line placement MEDICAL HISTORY : None. SURGICAL HISTORY : None. ENCOUNTER: Initial ACUITY: 1 day PAIN SCORE: Non-responsive. LOCATION: chest FINDINGS: Portable AP view of the chest demonstrates stable mild enlargement of the cardiac silhouette. ETT and NG tube remain present. Left IJ central line has been placed and the distal tip is in the superior v capri cava. There is stable elevation of the right hemidiaphragm with likely volume loss in the right u pper lobe. There is high density along the right pleural space similar to the prior examinations. A d efinite pneumothorax is not seen. There is mild airspace opacity in the left mid and lower lung zone. CONCLUSION: 1. Left IJ central line distal tip in the superior vena cava. No pneumothorax is seen. 2. Stable linear high density along the right pleural surface from uncertain etiology. There is also volume loss in the right lung. 3. Stable airspace opacity in the left mid and lower lung zone. Joshua Aguayo MD on June 10, 2017 at 7:13 Board Certified Radiologist. This report was verified electronically.
--- NOTE | 2017-06-10 07:54 | HHI.NPPN ---
Subjective General Problems: Anemia Renal Failure: Chronic, End Stage Renal Disease Review of Systems General General Remarks unable to obtain Objective Data Data Vital Signs Date Time Temp Pulse Resp B/P (MAP) Pulse Ox O2 Delivery O2 Flow Rate FiO2 06/10/17 06:00 70 14 109/57 (74) 100 06/10/17 06:00 70 06/10/17 05:31 70 105/58 (74) 06/10/17 05:00 67 14 94/59 (71) 100 06/10/17 04:30 65 14 101/56 (71) 100 06/10/17 04:00 97.6 65 14 104/56 (72) 100 06/10/17 04:00 35 06/10/17 04:00 65 06/10/17 03:30 69 14 111/60 (77) 100 06/10/17 03:21 100 35 06/10/17 03:00 72 14 115/62 (79) 100 06/10/17 02:30 74 14 116/60 (78) 100 06/10/17 02:00 77 06/10/17 02:00 77 14 115/61 (79) 100 06/10/17 01:30 68 14 119/64 (82) 100 06/10/17 01:15 100 35 06/10/17 01:00 66 14 117/66 (83) 100 06/10/17 00:50 68 14 119/66 (83) 100 06/10/17 00:45 67 14 113/61 (78) 99 06/10/17 00:40 65 14 103/58 (73) 99 06/10/17 00:34 64 14 98/53 (68) 98 06/10/17 00:27 64 14 97/45 (62) 06/10/17 00:24 69 14 102/53 (69) 06/10/17 00:21 70 17 107/49 (68) 100 06/10/17 00:18 70 10 115/50 (71) 100 06/10/17 00:15 73 8 110/53 (72) 100 06/10/17 00:12 76 17 113/53 (73) 100 06/10/17 00:09 72 7 106/53 (70) 100 06/10/17 00:06 74 9 110/53 (72) 100 06/10/17 00:03 74 14 109/53 (71) 100 06/10/17 00:00 97.9 73 4 111/51 (71) 100 06/10/17 00:00 35 06/10/17 00:00 73 06/09/17 23:57 72 9 116/53 (74) 100 06/09/17 23:54 73 15 109/55 (73) 100 06/09/17 23:51 72 10 110/53 (72) 100 06/09/17 23:48 72 16 111/51 (71) 100 06/09/17 23:40 69 15 121/55 (77) 100 06/09/17 23:20 69 16 128/60 (82) 100 06/09/17 23:00 69 18 131/60 (83) 100 06/09/17 22:40 72 17 127/59 (81) 99 06/09/17 22:20 74 16 134/60 (84) 96 06/09/17 22:00 72 06/09/17 22:00 72 15 132/60 (84) 100 06/09/17 21:40 69 17 121/61 (81) 100 06/09/17 21:20 69 18 119/61 (80) 100 06/09/17 21:00 71 18 117/60 (79) 100 06/09/17 20:40 72 18 118/60 (79) 100 06/09/17 20:20 73 18 116/59 (78) 100 06/09/17 20:15 73 15 114/60 (78) 100 06/09/17 20:10 100 35 06/09/17 20:00 70 06/09/17 20:00 97.6 70 16 116/61 (79) 97 06/09/17 20:00 35 06/09/17 19:45 69 16 116/60 (78) 100 06/09/17 19:30 70 16 116/60 (78) 100 06/09/17 19:15 73 16 122/62 (82) 100 06/09/17 19:00 75 18 122/63 (82) 100 06/09/17 18:00 74 06/09/17 16:00 97.5 68 19 97/57 (70) 100 06/09/17 16:00 35 06/09/17 16:00 68 06/09/17 15:31 100 35 06/09/17 15:21 91 65 06/09/17 14:00 62 06/09/17 12:00 35 06/09/17 12:00 97.8 57 15 96/52 (67) 06/09/17 12:00 57 06/09/17 12:00 96 35 06/09/17 10:00 53 06/09/17 08:00 35 06/09/17 08:00 50 06/09/17 08:00 97.5 50 15 83/50 (61) 100 -: 06/10/17 0449 06/10/17 0449 Drip Comment versed, fentanyl Physical Exam General Appearance: Well Developed, Obese Eyes Eye Exam: Pupils Equal Throat Throat Exam: Oral Mucosa [place] & Moist Neck Neck Exam: Neck Supple Pulmonary Resp Exam: Breath Sounds Equal, No Distress, Rhonchi Cardiology CV Exam: Regular, Normal Sinus Rhythm, Good Perfusion Gastrointestinal/Abdomen GI Exam: Soft, Non-Tender, Bowel Sounds Present Musculoskeletal MS Exam: Joints Intact, Normal Tone, Unable to Ambulate Integumentary Skin Exam: Clear, Warm, Dry, Intact Extremeties Extremities Exam: No Edema, Pedal Pulses Palpable Neurologic Neuro Exam: Unresponsive, Sedated Assessment/Plan Discussed Condition With: Spouse Assessment Summary: Anemia of CKD, End Stage Renal Disease Problem List: (1) ESRD (end stage renal disease) ICD Codes: N18.6 - End stage renal disease Status: Chronic Plan: Continue dialysis TTS. is schedule for today Has AVF that functions well avoid IVF, gadolinium Had hemodialysis yesterday UF 2 L K 3.4 she has HD in afternoon no need to treat dr. Ling to follow prognosis is poor (2) Cardiac arrest ICD Codes: I46.9 - Cardiac arrest, cause unspecified Plan: she is unresponsive on ventilator She has suffered anoxic brain injury Poor prognosis. Palliative following, D/W them. Family in route to visit the patient. There is discussion about withdrawal of life support possibly next week. (3) Metabolic bone disease ICD Codes: E88.9 - Metabolic disorder, unspecified; M90.80 - Osteopathy in diseases classified elsewhere, unspecified site Status: Acute Plan: intermittently monitor phosphorus level continue Calcium acetate via OG tube May consider stopping Sensipar in this clinical situation. (4) Anemia of chronic renal failure Status: Chronic Plan: continue epogen with HD (5) Hypertension Status: Chronic Plan: Antihypertensives on hold. Tania Nguyen MD Jun 10, 2017 07:54
[2017-06-10] MEDS: TOPIRAMATE 25 MG TAB OG-TUBE SCH ×2 (08:09→20:16)
--- NOTE | 2017-06-10 08:09 | HHI.PR ---
Review/Management Diagnosis/Plan: (1) Anoxic encephalopathy ICD Codes: G93.1 - Anoxic brain damage, not elsewhere classified Status: Acute Plan: periodic discharges reflective of anoxic injury refractory to multiple sz meds +brainstem reflexes on dilantin/phb/depakote; topamax; also on versed recs dep 53;low albumin, dil >10, check free level exam unchanged Dr. Perez to follow (2) cardiac arrest, prolonged resuscitation Status: Acute (3) end-stage renal disease Status: Chronic (4) CHF Status: Chronic (5) COPD Status: Chronic Subjective Subjective Comments No acute events reported Active Medications Current Medications Medications (Trade) Dose Ordered Sig/Lois Route Start Time Stop Time Status Last Admin (Protonix Inj) 40 mg DAILY IV 06/01/17 14:15 06/09/17 09:00 Miscellaneous Information 1 Q361D XX 06/01/17 14:15 06/01/17 14:15 (Chlorhexidine 2% Cloth) Taper DAILY@04 TOP 06/02/17 04:00 05/29/18 03:59 06/09/17 04:00 (Chlorhexidine 2% Cloth) 3 pack UNSCH PRN TOP 06/01/17 14:15 (Pat-Colace) 1 tab BID PO 06/01/17 21:00 06/09/17 21:36 (Milk Of Magnesia Liq) 30 ml Q12H PRN PO 06/01/17 14:15 (Senokot) 17.2 mg Q12H PRN PO 06/01/17 14:15 (Dulcolax Supp) 10 mg DAILY PRN RECTAL 06/01/17 14:15 (Lactulose Liq) 30 ml DAILY PRN PO 06/01/17 14:15 (Nephrocaps) 1 cap DAILY PO 06/01/17 16:00 06/09/17 09:00 (Sensipar) 90 mg DAILY PO 06/01/17 16:00 06/09/17 09:16 Sodium Chloride 1,000 ml @ 0 mls/hr Q0M PRN OTHER 06/02/17 11:59 06/05/17 13:59 (Heparin Inj) 8,000 units UNSCH PRN IVF 06/02/17 12:00 Sodium Chloride 1,000 ml @ 200 mls/hr Q5H PRN IV 06/02/17 11:59 Sodium Chloride 1,000 ml @ 0 mls/hr Q0M PRN OTHER 06/02/17 11:59 (Mannitol Inj) 12.5 gm UNSCH PRN IV 06/02/17 12:00 (Albumin 25% Inj) 25 gm UNSCH PRN IV 06/02/17 12:00 06/05/17 13:58 (NS Flush) 5 ml UNSCH PRN IV FLUSH 06/02/17 12:00 (Heparin Inj) UNSCH PRN .XX 06/02/17 12:00 (Gentamicin (Dialysis) Inj) 20 mg UNSCH PRN IV 06/02/17 12:00 (Zofran Inj) 4 mg UNSCH PRN IV 06/02/17 12:00 (Tylenol) 650 mg UNSCH PRN PO 06/02/17 12:00 06/03/17 20:09 (Benadryl) 25 mg UNSCH PRN PO 06/02/17 12:00 (Nitrostat Sl) 0.4 mg UNSCH PRN SL 06/02/17 12:00 (Catapres) 0.1 mg UNSCH PRN PO 06/02/17 12:00 (Gelfoam 12 Mm/7 Mm Top) 1 foam UNSCH PRN TOP 06/02/17 12:00 06/09/17 13:02 (Ativan Inj) 1 mg Q4H PRN IV PUSH 06/02/17 16:00 06/04/17 02:25 Midazolam HCl 100 ml @ 2 mls/hr TITRATE PRN IV 06/03/17 09:30 06/09/17 22:32 (D50w (Vial) Inj) 50 ml UNSCH PRN IV 06/03/17 14:00 (Glucagon Inj) 1 mg UNSCH PRN OTHER 06/03/17 14:00 (NovoLIN R SUPPLEMENTAL SCALE) 1 Q4H SQ 06/03/17 14:00 06/04/17 10:00 (SoluCORTEF INJ) 100 mg Q8HR IV PUSH 06/03/17 14:00 06/10/17 06:03 (Heparin Inj) 5,000 units Q12HR SQ 06/04/17 09:00 06/09/17 21:28 (Epogen Inj) 10,000 units UNSCH PRN IV 06/06/17 13:30 06/09/17 13:02 (Phoslo) 667 mg TID PO 06/06/17 18:00 06/09/17 17:12 (Brethine Inj) 1 mg UNSCH PRN SQ 06/06/17 13:45 (Zithromax) 500 mg Q24H PO 06/07/17 16:00 06/13/17 16:01 06/09/17 14:14 Ceftriaxone Sodium 2000 mg/ Sodium Chloride 100 ml @ 200 mls/hr Q24H IV 06/07/17 11:00 06/14/17 10:59 06/09/17 11:00 (Flagyl) 500 mg Q8HR PO 06/07/17 14:00 06/14/17 13:59 06/10/17 06:03 (Aspirin Chew) 81 mg DAILY CHEW 06/08/17 09:00 06/09/17 09:00 (Luminal Inj) 100 mg Q8HR IV 06/07/17 22:00 06/10/17 06:01 Propofol 100 ml @ 17.25 mls/ hr TITRATE PRN IV 06/08/17 17:15 06/10/17 06:01 (Topamax) 50 mg BID OG-TUBE 06/09/17 09:00 06/09/17 21:27 Valproate Sodium 750 mg/Sodium Chloride 107.5 ml @ 105 mls/hr Q8HR IV 06/09/17 22:00 06/10/17 06:00 (Cerebyx Inj) 250 mgpe Q8H IV 06/09/17 20:00 06/10/17 05:58 (Tears Naturale Opth Soln) 1 drop TID EACH EYE 06/09/17 18:00 06/09/17 17:12 Allergies Allergies Coded Allergies diatrizoate meglumine (Unverified Allergy, Severe, Joint Pain, 05/15/17) gadobenic acid (Unverified Allergy, Severe, Joint Pain, 05/15/17) gadodiamide (Unverified Allergy, Severe, Joint Pain, 05/15/17) gadoteridol (Unverified Allergy, Severe, Joint Pain, 05/15/17) iodine (Unverified Allergy, Severe, ORAL CONTRAST OK, 05/15/17) iodixanol (Unverified Allergy, Severe, Joint Pain, 05/15/17) iohexol (Unverified Allergy, Severe, Joint Pain, 05/15/17) morphine (Unverified Allergy, Severe, ITCH, 05/15/17) potassium iodide (Unverified Allergy, Severe, ORAL CONTRAST OK, 05/15/17) povidone-iodine (Unverified Allergy, Severe, ORAL CONTRAST OK, 05/15/17) sodium iodide (Unverified Allergy, Severe, ORAL CONTRAST OK, 05/15/17) sodium iodide (Unverified Allergy, Severe, ORAL CONTRAST OK, 05/15/17) vancomycin (Unverified Allergy, Unknown, 05/15/17) Review of Systems All other ROS: Unable to obtain Exam I&O / VS Vital Signs Date Time Temp Pulse Resp B/P (MAP) Pulse Ox O2 Delivery O2 Flow Rate FiO2 06/10/17 06:00 70 14 109/57 (74) 100 06/10/17 06:00 70 06/10/17 05:31 70 105/58 (74) 06/10/17 05:00 67 14 94/59 (71) 100 06/10/17 04:30 65 14 101/56 (71) 100 06/10/17 04:00 97.6 65 14 104/56 (72) 100 06/10/17 04:00 35 06/10/17 04:00 65 06/10/17 03:30 69 14 111/60 (77) 100 06/10/17 03:21 100 35 06/10/17 03:00 72 14 115/62 (79) 100 06/10/17 02:30 74 14 116/60 (78) 100 06/10/17 02:00 77 06/10/17 02:00 77 14 115/61 (79) 100 06/10/17 01:30 68 14 119/64 (82) 100 06/10/17 01:15 100 35 06/10/17 01:00 66 14 117/66 (83) 100 06/10/17 00:50 68 14 119/66 (83) 100 06/10/17 00:45 67 14 113/61 (78) 99 06/10/17 00:40 65 14 103/58 (73) 99 06/10/17 00:34 64 14 98/53 (68) 98 06/10/17 00:27 64 14 97/45 (62) 06/10/17 00:24 69 14 102/53 (69) 06/10/17 00:21 70 17 107/49 (68) 100 06/10/17 00:18 70 10 115/50 (71) 100 06/10/17 00:15 73 8 110/53 (72) 100 06/10/17 00:12 76 17 113/53 (73) 100 06/10/17 00:09 72 7 106/53 (70) 100 06/10/17 00:06 74 9 110/53 (72) 100 06/10/17 00:03 74 14 109/53 (71) 100 06/10/17 00:00 97.9 73 4 111/51 (71) 100 06/10/17 00:00 35 06/10/17 00:00 73 06/09/17 23:57 72 9 116/53 (74) 100 06/09/17 23:54 73 15 109/55 (73) 100 06/09/17 23:51 72 10 110/53 (72) 100 06/09/17 23:48 72 16 111/51 (71) 100 06/09/17 23:40 69 15 121/55 (77) 100 06/09/17 23:20 69 16 128/60 (82) 100 06/09/17 23:00 69 18 131/60 (83) 100 06/09/17 22:40 72 17 127/59 (81) 99 06/09/17 22:20 74 16 134/60 (84) 96 06/09/17 22:00 72 06/09/17 22:00 72 15 132/60 (84) 100 06/09/17 21:40 69 17 121/61 (81) 100 06/09/17 21:20 69 18 119/61 (80) 100 06/09/17 21:00 71 18 117/60 (79) 100 06/09/17 20:40 72 18 118/60 (79) 100 06/09/17 20:20 73 18 116/59 (78) 100 06/09/17 20:15 73 15 114/60 (78) 100 06/09/17 20:10 100 35 06/09/17 20:00 70 06/09/17 20:00 97.6 70 16 116/61 (79) 97 06/09/17 20:00 35 06/09/17 19:45 69 16 116/60 (78) 100 06/09/17 19:30 70 16 116/60 (78) 100 06/09/17 19:15 73 16 122/62 (82) 100 06/09/17 19:00 75 18 122/63 (82) 100 06/09/17 18:00 74 06/09/17 16:00 97.5 68 19 97/57 (70) 100 06/09/17 16:00 35 06/09/17 16:00 68 06/09/17 15:31 100 35 06/09/17 15:21 91 65 06/09/17 14:00 62 06/09/17 12:00 35 06/09/17 12:00 97.8 57 15 96/52 (67) 06/09/17 12:00 57 06/09/17 12:00 96 35 06/09/17 10:00 53 06/09/17 08:00 35 06/09/17 08:00 50 06/09/17 08:00 97.5 50 15 83/50 (61) 100 Exam Comments awake, non-verbal, not following, intubated, on versed gtt, mild rt gaze deviation, no involuntary movements, ou 3.5-3, no blink to threat, mild corneals present, no ext movement, no clonus, planter flexor Objective Micro and Labs Laboratory Tests Test 06/10/17 04:49 White Blood Count 19.8 Red Blood Count 3.51 Hemoglobin 9.6 Hematocrit 31.9 Mean Corpuscular Volume 90.8 Mean Corpuscular Hemoglobin 27.5 Mean Corpuscular Hemoglobin Concent 30.3 Red Cell Distribution Width 17.4 Platelet Count 319 Mean Platelet Volume 8.7 Neutrophils (%) (Auto) 81.8 Lymphocytes (%) (Auto) 10.3 Monocytes (%) (Auto) 7.3 Eosinophils (%) (Auto) 0.3 Basophils (%) (Auto) 0.3 Neutrophils # (Auto) 16.2 Lymphocytes # (Auto) 2.0 Monocytes # (Auto) 1.4 Eosinophils # (Auto) 0.1 Basophils # (Auto) 0.1 CBC Comment DIFF FINAL Differential Comment Blood Urea Nitrogen 55 Creatinine 4.76 Random Glucose 87 Calcium Level 8.8 Phosphorus Level 2.7 Magnesium Level 2.1 Sodium Level 140 Potassium Level 3.4 Chloride Level 100 Carbon Dioxide Level 28.2 Anion Gap 12 Estimat Glomerular Filtration Rate 11 Phenytoin (Dilantin) Level 6.0 Valproic Acid (Depakene) Level 53 Phenobarbital Level 14.0 Date/Time Source Procedure Growth Status 06/01/17 11:40 Blood Peripheral Aerobic Blood Culture - Final NO GROWTH IN 5 DAYS Complete 06/01/17 11:40 Blood Peripheral Anaerobic Blood Culture - Final NO GROWTH IN 5 DAYS Complete 06/04/17 05:00 Sputum Endotracheal Gram Stain - Final Complete 06/04/17 05:00 Sputum Endotracheal Sputum Culture - Final MODERATE GROWTH NORMAL RESPIRATORY CLEMENTINE Complete London Felder MD Jun 10, 2017 08:09
[2017-06-10] MEDS: DOCUSATE SODIUM 50 MG/SENNA 8.6 MG TAB PO SCH ×2 (08:10→20:16)
[2017-06-10] MEDS: CINACALCET HYDROCHLORIDE 30 MG TAB PO SCH (08:10)
[2017-06-10] MEDS: HEPARIN SODIUM - SQ 10,000 UNITS/ML VIAL SQ SCH ×2 (08:10→20:16)
[2017-06-10] MEDS: PANTOPRAZOLE SODIUM 40 MG VIAL IV SCH (08:10)
[2017-06-10] MEDS: ASPIRIN 81 MG CHEW TAB CHEW SCH (08:10)
[2017-06-10] MEDS: VITAMIN B CMPLX/VITC/FOLIC AC CAP PO SCH (08:10)
[2017-06-10] MEDS: CALCIUM ACETATE 667 MG CAP PO SCH ×3 (08:10→16:31)
[2017-06-10] MEDS: ARTIFICIAL TEARS OPTH SOLN 15 ML BTL EACH EYE SCH ×3 (08:11→16:31)
[2017-06-10] MEDS: cefTRIAXone INJ 2,000 MG in SODIUM CHLORIDE 0.9% INJ 100 ML IV SCH (11:00)
--- NOTE | 2017-06-10 13:02 | HHI.CCPN ---
Subjective Remarks/Hospital Course Patient is 67-year-old female with multiple comorbidities which include end- stage renal disease on hemodialysis Sunday, Sunday, Sunday, hypertension, COPD on home oxygen, morbid obesity with obstructive sleep apnea, CHF. The patient was at the dialysis center today, she reported to the staff that she did not feel well and all the sudden she became unresponsive. The patient was given CPR which was continued in en route to the hospital. She was in PEA arrest. The patient was given epi, bicarb and D50. After approximately 30 minutes. She had successful return of spontaneous circulation and was started on dopamine. The patient also was intubated and placed on full mechanical ventilation. Her ABG post intubation showed a pH of 7.39, CO2 45, pAO2 238 and bicarb 27 and saturation of 97%. Her laboratory data showed the potassium 4.1, creatinine 6.23 and corrected calcium of 7.3. Other significant labs showed mild leukocytosis with a Review WBC of 12.7. A chest x-ray post intubation showed a bilateral pulmonary infiltrates and ET tube approximately 4 cm above the isabel. In the ER she was given calcium gluconate and started on dopamine as stated above. Right femoral central line was attempted by the ED physician without any success. The patient was also seen by Dr. Macho francois in the ER from nephrology service and she is scheduled to undergo CT scan of the brain. The patient is unresponsive. 06/02 No events overnight. On fentanyl infusion for sedation however patient has her eyes open unresponsive. Afebrile. 06/03 No events overnight. Sedated with Fentanyl and intubated. On Levophed 11mics. EEG yesterday showed seizures started on Cerebyx. 06/04 Patient remains intubated and sedated with Versed and Fentanyl drip. Had seizure overnight given Ativan 1mg x1. Levophed down 1mic and on vasopressin. For HD today. T:100.4 last night 06/05 Patient remains intubated and sedated. On Levophed 1mic and Vasopressin. afebrile. Repeat EEG yesterday showed seizure like activity. 06/06 TMax 99.2. Vasopressin has been discontinued, the patient continues on Norepinephrine at 1 mcg. The patient has been transitioned to phenylephrine via peripheral IV low dose, to maintain MAP > 65 06/07 Afebrile. The patient continues to have leukocytosis, antibiotics changed per ID,Dr. Cazares following. Neurologically the patient continues on Versed infusion for continued seizure activity. Repeat EEG ordered, results pending. AED levels of phenobarbital,phenytoin, and valproic acid all remain subtherapeutic . Right groin femoral line was discontinued the patient remains with peripheral IVs, no vasopressors support needed. Wound care was consulted regarding dry ulcers on right foot and implementation of measures. 06/08: No acute events overnight. EEG performed today the patient continues to have seizure activity. Dr. Garcia notified the patient continues on phenobarbital, fosphenytoin and valproic acid level slightly increased but still remains subtherapeutic at this time. The propofol infusion and Topamax added to medication regimen. WBC count continues to increase most likely reactive. ID following patient continues on antibiotics. 06/09: The patient was noted to have spontaneous eye opening, tracking or following. The patient also was noted to have withdrawal to pain, which is changed from complete unresponsiveness noted for the last 3 days at which time patient was probably having subclinical seizure activity. Patient continues on propofol and low dose and Topamax was added to antiepileptic drug (AED) regimen yesterday. Subjective 06/10: Afebrile. Started on Kenney-Synephrine and a left IJ CVL was placed overnight. EEG continued with subclinical seizure activity. Unresponsive on the ventilator. Tolerating tube feeding. Objective Vital Signs Date Time Temp Pulse Resp B/P (MAP) Pulse Ox O2 Delivery O2 Flow Rate FiO2 06/10/17 11:55 100 35 06/10/17 10:00 58 06/10/17 08:00 97.6 14 106/61 (76) Intake and Output 06/10/17 06/10/17 06/10/17 07:59 15:59 23:59 Intake Total 1779 ml Output Total 450 ml Balance 1329 ml Result Diagram: 06/10/17 0449 06/10/17 0449 Other Results Microbiology Date/Time Source Procedure Growth Status 06/01/17 11:40 Blood Peripheral Aerobic Blood Culture - Final NO GROWTH IN 5 DAYS Complete 06/01/17 11:40 Blood Peripheral Anaerobic Blood Culture - Final NO GROWTH IN 5 DAYS Complete 06/04/17 05:00 Sputum Endotracheal Gram Stain - Final Complete 06/04/17 05:00 Sputum Endotracheal Sputum Culture - Final MODERATE GROWTH NORMAL RESPIRATORY KAYLENE Complete Imaging Last Impressions Chest X-Ray 06/10/17 0000 Signed Impressions: Service Date/Time: Saturday, June 10, 2017 07:02 - CONCLUSION: 1. Left IJ central line distal tip in the superior vena cava. No pneumothorax is seen. 2. Stable linear high density along the right pleural surface from uncertain etiology. There is also volume loss in the right lung. 3. Stable airspace opacity in the left mid and lower lung zone. Joshua Aguayo MD Head CT 06/05/17 0000 Signed Impressions: Service Date/Time: Tuesday, June 06, 2017 04:41 - CONCLUSION: 1. Senescent changes. 2. No significant interval change or acute intracranial abnormality. Rordi Leung MD Objective Remarks GENERAL: Patient is 67yo obese female s/p PEA arrest intubated , with spontaneous eye opening SKIN: Warm and dry. HEAD: Normocephalic. EYES: No scleral icterus. No injection or drainage. NECK: Supple, trachea midline. No JVD or lymphadenopathy. Orally intubated. Left IJ is clean dry and intact. CARDIOVASCULAR: Regular rate and rhythm without murmurs, gallops, or rubs. RESPIRATORY: Mechanical ventilation .Breath sounds equal bilaterally. No accessory muscle use. GASTROINTESTINAL: Abdomen soft, non-tender, nondistended. MUSCULOSKELETAL: No cyanosis, b/l mid foot amputation, noted dry ulcers 3 on the right foot with gauze dressing Neuro: GCS 9T E4 V1 M 4 Intubated, does not track, does not follow commands. No movement of extremities with the exception of withdraws to painful stimuli. Vascular Central Line Catheter: Yes Assessment to: Continue Date of Insertion: Jun 10, 2017 Line: Central Venous Catheter Side: Left Location: Internal, Jugular A/P Assessment and Plan Neuro/Psych: Status epilepticus History of CVA Likely anoxic brain injury Currently on Diprivan at 10 mics grams per kilogram per minute and midazolam 7 mg an hour for sedation while intubated infusion for sedation/ and subclinical seizure activity. Monitor neuro status closely Goal of RA -4-5 CT brain 06/06-no interval change CT brain 06/01: atrophy no acute findings, EEG 06/08: Burst suppression every 3-5 seconds status/sharp activity. EEG 06/04: Seizure like activity likely related to severe anoxic brain injury. EEG 06/03: Epileptiform discharges EEG 06/02: Seizure activity, on fosphenytoin 100mg Q8, valproic acid, lorazepam 1mg Q4 PRN Neuro is following- Dr. Garcia. Currently on valproic acid 750 mg IV every 8 hours, fosphenytoin 250 mg IV every 8 hours, phenobarbital 100 mg IV every 8 hours and topiramate 50 mg by tube twice a day. Phenytoin level 6, valproic acid level LIII. Phenobarbital level 14 Holding gabapentin 300 mg by mouth 3 times a day Holding clonazepam 0.5 mg twice a day when necessary hOlding cyclobenzaprine 10 mEq 3 times a day when necessary muscle relaxant Pulm: Acute hypoxemic respiratory failure Obstructive sleep apnea COPD PRVC 14/550/35 Ventilator bundle Continue with vent support and maintain sats above 92%. Albuterol/ipratropium every 6 hours and albuterol aerosols every 2 hours when necessary 06/06 CXR Day ET tube At home on albuterol/ipratropium nebulizers with tiotropium 18 inhaled daily CV: PEA arrest Severe pulmonary hypertension Hypertension Dyslipidemia Claudication Peripheral vascular disease On midodrine 10 mg every Sunday with hemodialysis Monitor HR and BP maintain MAP> 65 mmHg. Lactic acid 1.2 Echo 06/01: EF 55-60%. Severe pulmonary hypertension Continue Aspirin 81 mg daily. Stress dose steroids- weaning Hydrocortisone 50mg IV Q8 Holding pentoxifylline 400 mg daily for claudication Renal/ End-stage renal disease on hemodialysis Sunday was a Sunday Left upper extremity fistula Secondary hyperparathyroidism Monitor renal function I&Os and avoid nephrotoxins. Renal is following- Dr. Ling HD per renal. On calcium acetate 667 milligrams 3 times a day with meals. On sevelamer 800 mg 3 times a day at home Continue cinacalcet 90 mg by mouth daily for secondary hyperparathyroidism GI: Gastroesophageal reflux disease tube feeds- Nepro with goal 40ml/hr Pantoprazole for GI prophylaxis Docusate sodium/senna 1 tablet twice a day for bowel regimen ID: Continue abx (metronidazole, tracks on Azithromycin a #37) monitor for signs of infections( fever and WBC). ID eval Follow up on blood 06/01: NGTD, sputum 06/01: normal resp kaylene, sputum 06/04 no growth Nasal washing and is negative for influenza in the ED. Of note the patient is allergic to VANCOMYCIN. Heme: Leukocytosis Anemia /normocytic Monitor CBC daily. Follow trends. Does not meet transfusion threshold at this time Endo: Hyperglycemia Gout History of hypothyroidism Sliding-scale insulin with Novulin r to maintain tingling euglycemia MSK: Morbid obesity Weight loss encouraged GI prophylaxis with Protonix 40 mg daily, DVT prophylaxis with SCDs./heparin Subcu prophylaxis Lines: Left IJ CVL placed 06/10 Palliative care is following Wound care consult for dry ulcers on right forefoot Level III follow-up discuss with mother bedside. Kris Vallejo MD Jun 10, 2017 13:02
[2017-06-10] MEDS: MIDAZOLAM 100 MG/100 ML INJ 100 ML IV PRN ×2 (13:58→20:37)
[2017-06-10] MEDS: AZITHROMYCIN 250 MG TAB PO SCH (16:31)
[2017-06-10] MEDS: BENEPROTEIN POWDER 1 PACK G-TUBE SCH (16:31)
[2017-06-11] VITALS (16 sets, daily range): BP systolic 90–104; BP diastolic 51–55; PULSE 58–71; RESP 14–16; TEMP 97.4–98.7; O2SAT 97–100
[2017-06-11] MEDS: INSULIN NovoLIN REGULAR SUPPLEMENTAL SCALE SQ SCH ×6 (00:52→21:08)
[2017-06-11] MEDS: PROPOFOL 1000 MG/100 ML INJ 100 ML IV PRN ×2 (02:30→16:32)
[2017-06-11] MEDS: FOSPHENYTOIN SODIUM 100 MG PE/2 ML VIAL IV SCH ×2 (02:42→11:04)
[2017-06-11 03:33] LABS: AUTOMATED NEUTROPHIL # 19.1 TH/MM3 (1.8-7.7); BASOPHIL % 0.1 % (0.0-2.0); EOSINOPHIL # 0.1 TH/MM3 (0-0.4); EOSINOPHIL % 0.3 % (0.0-4.0); HEMATOCRIT 30.2 % (35.0-46.0); LYMPH % 8.6 % (9.0-44.0); LYMPHOCYTE # 1.9 TH/MM3 (1.0-4.8); MEAN CELL VOLUME 88.7 FL (80.0-100.0); MEAN CORPUSCULAR HEMOGLOBIN 27.6 PG (27.0-34.0); MEAN CORPUSCULAR HGB CONC 31.1 % (32.0-36.0); MONO % 6.1 % (0.0-8.0); NEUT % 84.9 % (16.0-70.0); PLATELET COUNT 341 TH/MM3 (150-450); RED BLOOD COUNT 3.41 MIL/MM3 (4.00-5.30); RED CELL DISTRIBUTION WIDTH 17.9 % (11.6-17.2); WHITE BLOOD COUNT 22.5 TH/MM3 (4.0-11.0)
[2017-06-11 03:35] LABS: HEMO FLAGS AUTO DIFF
[2017-06-11 04:21] LABS: ALKALINE PHOSPHATASE 97 U/L (45-117); ALT (GPT) 22 U/L (10-53); ANION GAP 13 MEQ/L (5-15); AST (GOT) 30 U/L (15-37); BICARBONATE 27.4 MEQ/L (21.0-32.0); BLOOD UREA NITROGEN 69 MG/DL (7-18); CHLORIDE 101 MEQ/L (98-107); GLOMERULAR FILTRATION RATE 9 ML/MIN (>89); MAGNESIUM 2.2 MG/DL (1.5-2.5); PHENOBARBITAL 12.8 MCG/ML (15.0-40.0); POTASSIUM 3.4 MEQ/L (3.5-5.1); SODIUM (NA) 141 MEQ/L (136-145); TOTAL BILIRUBIN ADULT 0.3 MG/DL (0.2-1.0)
[2017-06-11 04:22] LABS: CREATINE KINASE 49 U/L (26-192)
[2017-06-11] MEDS: HYDROCORTISONE SOD SUCCINATE 100 MG VIAL IV PUSH SCH ×3 (04:34→21:19)
[2017-06-11] MEDS: metroNIDAZOLE 500 MG TAB PO SCH ×3 (04:34→21:20)
[2017-06-11] MEDS: VALPROATE INJ 750 MG in SODIUM CHLORIDE 0.9% INJ 100 ML IV SCH ×3 (04:35→21:19)
[2017-06-11 04:49] LABS: PLATELET ESTIMATE SMEAR NORMAL (NORMAL); PLATELET MORPHOLOGY NORMAL (NORMAL); SCAN/DIFF AUTO DIFF CONFIRMED
[2017-06-11 04:50] LABS: TARGET CELLS 1+ (NORMAL)
--- NOTE | 2017-06-11 05:32 | HHI.CCPN ---
Subjective Remarks/Hospital Course Patient is 67-year-old female with multiple comorbidities which include end- stage renal disease on hemodialysis Sunday, Sunday, Sunday, hypertension, COPD on home oxygen, morbid obesity with obstructive sleep apnea, CHF. The patient was at the dialysis center today, she reported to the staff that she did not feel well and all the sudden she became unresponsive. The patient was given CPR which was continued in en route to the hospital. She was in PEA arrest. The patient was given epi, bicarb and D50. After approximately 30 minutes. She had successful return of spontaneous circulation and was started on dopamine. The patient also was intubated and placed on full mechanical ventilation. Her ABG post intubation showed a pH of 7.39, CO2 45, pAO2 238 and bicarb 27 and saturation of 97%. Her laboratory data showed the potassium 4.1, creatinine 6.23 and corrected calcium of 7.3. Other significant labs showed mild leukocytosis with a Review WBC of 12.7. A chest x-ray post intubation showed a bilateral pulmonary infiltrates and ET tube approximately 4 cm above the isabel. In the ER she was given calcium gluconate and started on dopamine as stated above. Right femoral central line was attempted by the ED physician without any success. The patient was also seen by Dr. Macho francois in the ER from nephrology service and she is scheduled to undergo CT scan of the brain. The patient is unresponsive. 06/02 No events overnight. On fentanyl infusion for sedation however patient has her eyes open unresponsive. Afebrile. 06/03 No events overnight. Sedated with Fentanyl and intubated. On Levophed 11mics. EEG yesterday showed seizures started on Cerebyx. 06/04 Patient remains intubated and sedated with Versed and Fentanyl drip. Had seizure overnight given Ativan 1mg x1. Levophed down 1mic and on vasopressin. For HD today. T:100.4 last night 06/05 Patient remains intubated and sedated. On Levophed 1mic and Vasopressin. afebrile. Repeat EEG yesterday showed seizure like activity. 06/06 TMax 99.2. Vasopressin has been discontinued, the patient continues on Norepinephrine at 1 mcg. The patient has been transitioned to phenylephrine via peripheral IV low dose, to maintain MAP > 65 06/07 Afebrile. The patient continues to have leukocytosis, antibiotics changed per ID,Dr. Cazares following. Neurologically the patient continues on Versed infusion for continued seizure activity. Repeat EEG ordered, results pending. AED levels of phenobarbital,phenytoin, and valproic acid all remain subtherapeutic . Right groin femoral line was discontinued the patient remains with peripheral IVs, no vasopressors support needed. Wound care was consulted regarding dry ulcers on right foot and implementation of measures. 06/08: No acute events overnight. EEG performed today the patient continues to have seizure activity. Dr. Garcia notified the patient continues on phenobarbital, fosphenytoin and valproic acid level slightly increased but still remains subtherapeutic at this time. The propofol infusion and Topamax added to medication regimen. WBC count continues to increase most likely reactive. ID following patient continues on antibiotics. 06/09: The patient was noted to have spontaneous eye opening, tracking or following. The patient also was noted to have withdrawal to pain, which is changed from complete unresponsiveness noted for the last 3 days at which time patient was probably having subclinical seizure activity. Patient continues on propofol and low dose and Topamax was added to antiepileptic drug (AED) regimen yesterday. 06/10: Afebrile. Started on Ken[place]-Synephrine and a left IJ CVL was placed overnight. EEG continued with subclinical seizure activity. Unresponsive on the ventilator. Tolerating tube feeding. Subjective 06/11: Afebrile. Currently resting in bed. No gag reflexes AM. Going to feeding. Discussed with mother yesterday/sons are plain to coming from [place] in [place] this week. She is leaning towards comfort measures patient to be vent dependent and unresponsive. Objective Vital Signs Date Time Temp Pulse Resp B/P (MAP) Pulse Ox O2 Delivery O2 Flow Rate FiO2 06/11/17 04:00 98.3 67 16 104/55 (71) 100 06/11/17 04:00 35 Result Diagram: 06/11/17 0303 06/11/17 0303 Other Results Microbiology Date/Time Source Procedure Growth Status 06/01/17 11:40 Blood Peripheral Aerobic Blood Culture - Final NO GROWTH IN 5 DAYS Complete 06/01/17 11:40 Blood Peripheral Anaerobic Blood Culture - Final NO GROWTH IN 5 DAYS Complete 06/04/17 05:00 Sputum Endotracheal Gram Stain - Final Complete 06/04/17 05:00 Sputum Endotracheal Sputum Culture - Final MODERATE GROWTH NORMAL RESPIRATORY KAYLENE Complete Imaging Last Impressions Chest X-Ray 06/10/17 0000 Signed Impressions: Service Date/Time: Saturday, June 10, 2017 07:02 - CONCLUSION: 1. Left IJ central line distal tip in the superior vena cava. No pneumothorax is seen. 2. Stable linear high density along the right pleural surface from uncertain etiology. There is also volume loss in the right lung. 3. Stable airspace opacity in the left mid and lower lung zone. Joshua Aguayo MD Head CT 06/05/17 0000 Signed Impressions: Service Date/Time: Tuesday, June 06, 2017 04:41 - CONCLUSION: 1. Senescent changes. 2. No significant interval change or acute intracranial abnormality. Rodri Leung MD Objective Remarks GENERAL: Patient is 67yo obese female s/p PEA arrest intubated , with spontaneous eye opening SKIN: Warm and dry. HEAD: Normocephalic. EYES: No scleral icterus. No injection or drainage. NECK: Supple, trachea midline. No JVD or lymphadenopathy. Orally intubated. Left IJ is clean dry and intact. CARDIOVASCULAR: Regular rate and rhythm without murmurs, gallops, or rubs. RESPIRATORY: Mechanical ventilation .Breath sounds equal bilaterally. No accessory muscle use. GASTROINTESTINAL: Abdomen soft, non-tender, nondistended. MUSCULOSKELETAL: No cyanosis, b/l mid foot amputation, noted dry ulcers 3 on the right foot with gauze dressing Neuro: GCS 9T E4 V1 M 4 Intubated, does not track, does not follow commands. No movement of extremities with the exception of withdraws to painful stimuli. Date of Insertion: Jun 10, 2017 Line: Central Venous Catheter Side: Left Location: Internal, Jugular A/P Assessment and Plan Neuro/Psych: Status epilepticus History of CVA Likely anoxic brain injury Currently on Diprivan at 10 mics grams per kilogram per minute and midazolam 7 mg an hour for sedation while intubated infusion for sedation/ and subclinical seizure activity. Monitor neuro status closely Goal of [facility] -4-5 CT brain 06/06-no interval change CT brain 06/01: atrophy no acute findings, EEG 06/08: Burst suppression every 3-5 seconds status/sharp activity. EEG 06/04: Seizure like activity likely related to severe anoxic brain injury. EEG 06/03: Epileptiform discharges EEG 06/02: Seizure activity, on fosphenytoin 100mg Q8, valproic acid, lorazepam 1mg Q4 PRN Neuro is following- Dr. Garcia. Currently on valproic acid 750 mg IV every 8 hours, fosphenytoin 250 mg IV every 8 hours, phenobarbital 100 mg IV every 8 hours and topiramate 50 mg by tube twice a day. Phenytoin level 6, valproic acid level LIII. Phenobarbital level 14 on 06/10 Holding gabapentin 300 mg by mouth 3 times a day Holding clonazepam 0.5 mg twice a day when necessary Holding cyclobenzaprine 10 mEq 3 times a day when necessary muscle relaxant Pulm: Acute hypoxemic respiratory failure Obstructive sleep apnea COPD PRVC /02/27 Ventilator bundle Continue with vent support and maintain sats above 92%. Albuterol/ipratropium every 6 hours and albuterol aerosols every 2 hours when necessary 06/06 CXR Day ET tube At home on albuterol/ipratropium nebulizers every 6 hours along with tiotropium 18 inhaled daily CV: PEA arrest Severe pulmonary hypertension Hypertension Dyslipidemia Claudication Peripheral vascular disease On midodrine 10 mg every Sunday with hemodialysis Monitor HR and BP maintain MAP> 65 mmHg. Lactic acid 1.2 Echo 06/01: EF 55-60%. Severe pulmonary hypertension Continue Aspirin 81 mg daily. Stress dose steroids- weaning Hydrocortisone 50mg IV Q8 Holding pentoxifylline 400 mg daily for claudication Renal/ End-stage renal disease on hemodialysis Sunday Left upper extremity fistula Secondary hyperparathyroidism Hypokalemia Monitor renal function I&Os and avoid nephrotoxins. Renal is following- Dr. Ling HD per renal. On calcium acetate 667 milligrams 3 times a day with meals. On sevelamer 800 mg 3 times a day at home Continue cinacalcet 90 mg by mouth daily for secondary hyperparathyroidism GI: Gastroesophageal reflux disease Tube feeds- Nepro with goal 40ml/hr Lansoprazole for GI prophylaxis Docusate sodium/senna 1 tablet twice a day for bowel regimen ID: Continue abx (metronidazole, ceftriaxone through 06/14 and azithromycin through ) monitor for signs of infections( fever and WBC). Per ID eval Follow up on blood 06/01: NGTD, sputum 06/01: normal resp kaylene, sputum 06/04 no growth Nasal washing is negative for influenza in the ED. Heme: Leukocytosis Anemia /normocytic Monitor CBC daily. Follow trends. Does not meet transfusion threshold at this time Endo: Hyperglycemia Gout History of hypothyroidism Sliding-scale insulin with Novulin R to maintain tingling euglycemia MSK: Morbid obesity Weight loss encouraged GI prophylaxis with lansoprazole 30 mg daily, DVT prophylaxis with SCDs./ heparin Subcu prophylaxis Lines: Left IJ CVL placed 06/10 Palliative care is following Wound care consult for dry ulcers on right forefoot Level III follow-up discuss with mother bedside. Kris Vallejo MD Jun 11, 2017 05:31
[2017-06-11] MEDS: CALCIUM ACETATE 667 MG CAP PO SCH ×3 (07:51→16:28)
[2017-06-11] MEDS: ARTIFICIAL TEARS OPTH SOLN 15 ML BTL EACH EYE SCH ×3 (07:52→16:28)
[2017-06-11] MEDS: BENEPROTEIN POWDER 1 PACK G-TUBE SCH ×3 (07:52→16:28)
[2017-06-11] MEDS: DOCUSATE SODIUM 50 MG/SENNA 8.6 MG TAB PO SCH ×2 (07:52→20:01)
[2017-06-11] MEDS: LANSOPRAZOLE SOLUTAB 30 MG TAB NG SCH (07:52)
[2017-06-11] MEDS: CINACALCET HYDROCHLORIDE 30 MG TAB PO SCH (07:52)
[2017-06-11] MEDS: VITAMIN B CMPLX/VITC/FOLIC AC CAP PO SCH (07:52)
[2017-06-11] MEDS: TOPIRAMATE 25 MG TAB OG-TUBE SCH ×2 (07:52→20:01)
[2017-06-11] MEDS: HEPARIN SODIUM - SQ 10,000 UNITS/ML VIAL SQ SCH ×2 (07:53→20:01)
[2017-06-11] MEDS: ASPIRIN 81 MG CHEW TAB CHEW SCH (07:53)
--- NOTE | 2017-06-11 09:47 | HHI.IDPN ---
Subjective Subjective Remarks Patient is a 67-year-old female, brought into the hospital after she became unresponsive during her hemodialysis. She has end-stage renal disease, and goes to dialysis every Sunday and Sunday. She was apparently undergoing dialysis on the day of admission, and she told the staff that she was not feeling well. She suddenly became unresponsive. EMS was called, and patient was found to be in PEA arrest. She underwent CPR, and intubation. After about 30 minutes she was successfully resuscitated and was on pressors. Patient has remained intubated since. She has since then been having problem with seizure activity on her EEG. Patient is currently on multiple anticonvulsant agents. Her WBC has remained elevated. She started having fevers about 2 days ago. She's had blood culture that were negative, and sputum culture with normal respiratory [place]. Patient is anuric. She has been on Zosyn empirically. She has a femoral line on the right. She's had diarrhea , and stool for C. difficile is negative. Patient currently is sedated on the vent. She is still on pressors. Infectious disease consultation has been requested to evaluate the patient with fevers and persistent leukocytosis. Notes reviewed Temps ok Sedated on the vent No change in neuro status WBC remain elevated and increasing Has liquid stool not a lot of volume CXR no change Antibiotics Rocephin Zithromax Flagyl Past Medical History End-stage renal disease on hemodialysis Sunday, Sunday, Sunday Hypertension Hyperlipidemia anemia of chronic disease Arthritis. Congestive heart failure. Cerebrovascular accident. Gastroesophageal reflux disease. Obstructive sleep apnea on C-PAP q.h.s. Hypothyroidism Vertigo Anxiety / depression Chronic obstructive pulmonary disease. Past Surgical History Previous bilateral TMA x3 Left upper extremity AV fistula Left breast lumpectomy Partial hysterectomy. Allergies: Coded Allergies: diatrizoate meglumine (Unverified Allergy, Severe, Joint Pain, 05/15/17) pt states she is not allergic to this gadobenic acid (Unverified Allergy, Severe, Joint Pain, 05/15/17) pt states she is not allergic to this gadodiamide (Unverified Allergy, Severe, Joint Pain, 05/15/17) pt states she is not allergic to this gadoteridol (Unverified Allergy, Severe, Joint Pain, 05/15/17) pt states she is not allergic to this iodine (Unverified Allergy, Severe, ORAL CONTRAST [place], 05/15/17) pt states she is not allergic to this iodixanol (Unverified Allergy, Severe, Joint Pain, 05/15/17) pt states she is not allergic to this iohexol (Unverified Allergy, Severe, Joint Pain, 05/15/17) pt states she is not allergic to this morphine (Unverified Allergy, Severe, ITCH, 05/15/17) pt states she is not allergic to this potassium iodide (Unverified Allergy, Severe, ORAL CONTRAST [place], 05/15/17) pt states she is not allergic to this povidone-iodine (Unverified Allergy, Severe, ORAL CONTRAST [place], 05/15/17) pt states she is not allergic to this sodium iodide (Unverified Allergy, Severe, ORAL CONTRAST OK, 05/15/17) pt states she is not allergic to this sodium iodide (Unverified Allergy, Severe, ORAL CONTRAST OK, 05/15/17) pt states she is not allergic to this vancomycin (Unverified Allergy, Unknown, 05/15/17) PT STATES UNKNOWN IF SHE IS ALLERGIC. Objective . Vital Signs Date Time Temp Pulse Resp B/P (MAP) Pulse Ox O2 Delivery O2 Flow Rate FiO2 06/11/17 08:00 35 06/11/17 08:00 66 06/11/17 08:00 97.6 66 14 103/55 (71) 100 06/11/17 06:00 65 06/11/17 04:00 98.3 67 16 104/55 (71) 100 06/11/17 04:00 35 06/11/17 04:00 65 06/11/17 04:00 97 30 06/11/17 02:00 65 06/11/17 01:08 100 35 06/11/17 00:00 98.7 58 16 90/52 (65) 100 06/11/17 00:00 59 06/11/17 00:00 35 06/10/17 22:00 65 06/10/17 20:44 100 35 06/10/17 20:00 98.7 65 16 98/51 (67) 100 06/10/17 20:00 65 06/10/17 20:00 35 06/10/17 18:00 66 06/10/17 16:00 64 06/10/17 16:00 35 06/10/17 16:00 98.4 64 16 93/52 (66) 100 06/10/17 15:24 100 35 06/10/17 14:00 58 06/10/17 12:00 60 06/10/17 12:00 98.6 60 14 88/55 (66) 100 06/10/17 12:00 35 06/10/17 11:55 100 35 06/10/17 10:00 58 . Laboratory Tests Test 06/10/17 04:49 06/11/17 03:03 White Blood Count 19.8 TH/MM3 22.5 TH/MM3 Red Blood Count 3.51 MIL/MM3 3.41 MIL/MM3 Hemoglobin 9.6 GM/DL 9.4 GM/DL Hematocrit 31.9 % 30.2 % Mean Corpuscular Volume 90.8 FL 88.7 FL Mean Corpuscular Hemoglobin 27.5 PG 27.6 PG Mean Corpuscular Hemoglobin Concent 30.3 % 31.1 % Red Cell Distribution Width 17.4 % 17.9 % Platelet Count 319 TH/MM3 341 TH/MM3 Mean Platelet Volume 8.7 FL 8.8 FL Neutrophils (%) (Auto) 81.8 % 84.9 % Lymphocytes (%) (Auto) 10.3 % 8.6 % Monocytes (%) (Auto) 7.3 % 6.1 % Eosinophils (%) (Auto) 0.3 % 0.3 % Basophils (%) (Auto) 0.3 % 0.1 % Neutrophils # (Auto) 16.2 TH/MM3 19.1 TH/MM3 Lymphocytes # (Auto) 2.0 TH/MM3 1.9 TH/MM3 Monocytes # (Auto) 1.4 TH/MM3 1.4 TH/MM3 Eosinophils # (Auto) 0.1 TH/MM3 0.1 TH/MM3 Basophils # (Auto) 0.1 TH/MM3 0.0 TH/MM3 CBC Comment DIFF FINAL AUTO DIFF Differential Comment AUTO DIFF CONFIRMED Platelet Estimate NORMAL Platelet Morphology Comment NORMAL Target Cells 1+ Laboratory Tests Test 06/10/17 04:49 06/11/17 03:03 Blood Urea Nitrogen 55 MG/DL 69 MG/DL Creatinine 4.76 MG/DL 5.55 MG/DL Random Glucose 87 MG/DL 106 MG/DL Calcium Level 8.8 MG/DL 8.8 MG/DL Phosphorus Level 2.7 MG/DL 4.0 MG/DL Magnesium Level 2.1 MG/DL 2.2 MG/DL Sodium Level 140 MEQ/L 141 MEQ/L Potassium Level 3.4 MEQ/L 3.4 MEQ/L Chloride Level 100 MEQ/L 101 MEQ/L Carbon Dioxide Level 28.2 MEQ/L 27.4 MEQ/L Anion Gap 12 MEQ/L 13 MEQ/L Estimat Glomerular Filtration Rate 11 ML/MIN 9 ML/MIN Total Protein 6.7 GM/DL Albumin 2.5 GM/DL Alkaline Phosphatase 97 U/L Aspartate Amino Transf (AST/SGOT) 30 U/L Alanine Aminotransferase (ALT/SGPT) 22 U/L Total Bilirubin 0.3 MG/DL Total Creatine Kinase 49 U/L Imaging Last 48 hours Impressions Chest X-Ray 06/08/17 0600 Signed Impressions: Service Date/Time: Thursday, June 08, 2017 05:56 - CONCLUSION: 1. Grossly stable ETT and NGT. 2. Cardiomegaly with positive fluid balance. 3. Stable bilateral lower lung zone airspace disease. 4. No significant interval change. Rodri Leung MD Chest X-Ray 06/07/17 0600 Signed Impressions: Service Date/Time: June 05:48 - CONCLUSION: 1. Stable ETT and NGT. 2. Cardiomegaly with mild positive fluid balance. 3. Stable bibasilar airspace disease, likely atelectasis. 4. Probable trace left pleural effusion. 5. No significant interval change. Rodri Leung MD Chest X-Ray 06/06/17 0000 Signed Impressions: Service Date/Time: Tuesday, June 06, 2017 03:30 - CONCLUSION: 1. Cardiomegaly with positive fluid balance. 2. Stable mild bibasilar airspace disease, likely atelectasis. 3. No significant interval change. Rodri Leung MD Head CT 06/05/17 0000 Signed Impressions: Service Date/Time: Tuesday, June 06, 2017 04:41 - CONCLUSION: 1. Senescent changes. 2. No significant interval change or acute intracranial abnormality. Rodri Leung MD Physical Exam GENERAL: sedated, on the vent, not in respiratory distress. SKIN: Warm and dry. No generalized rash, no ecchymoses and no evidence of embolic lesions. HEAD: Atraumatic. Normocephalic. No temporal wasting, or tenderness. EYES: Boomer conjunctiva. No petechia or hemorrhage. Has dirty sclera. No injection or drainage. EARS, NOSE AND THROAT: Nose without bleeding or purulent nasal discharge. She is orally intubated. NECK: Trachea midline. Supple, no meningeal signs CARDIOVASCULAR: Regular rate and rhythm. No murmurs, rubs or gallops heard RESPIRATORY: Coarse BS giovanny, decreased at bases EXTREMITIES: No clubbing, cyanosis, or edema. Giovanny TMA, has dry dressing on his R foot. Well perfused and warm. NEUROLOGICAL: Sedated PSYCHIATRIC: Unable to assess Assessment & Plan Remarks IMPRESSION Fevers, etiology, temps better - ?aspiration Persistent leukocytosis, etiology? - still with ongoing seizures on her EEG Seizures due to anoxic injury S/P PEA arrest Likely with anoxic injury ESRD on HD MWF RECOMMENDATION Continue Rocephin Continue Flagyl for possible aspiration since WBC remains elevated Also on Zithromax Abx end dates ordered in [facility] Follow CBC Monitor progress Family deciding on comfort measures likely once other family members arrive in town Jasmyne Cazares MD Jun 11, 2017 09:47
[2017-06-11] MEDS: cefTRIAXone INJ 2,000 MG in SODIUM CHLORIDE 0.9% INJ 100 ML IV SCH (10:05)
[2017-06-11] MEDS: AZITHROMYCIN 250 MG TAB PO SCH (14:15)
--- NOTE | 2017-06-11 14:54 | HHI.NPPN ---
Subjective General Problems: Anemia Renal Failure: Chronic, End Stage Renal Disease Interval History all the notes were reviewed. Family may opt for comfort measures. Review of Systems General General Remarks unable to obtain Objective Data Data Vital Signs Date Time Temp Pulse Resp B/P (MAP) Pulse Ox O2 Delivery O2 Flow Rate FiO2 06/11/17 12:53 100 30 06/11/17 12:00 35 06/11/17 10:00 65 06/11/17 08:00 35 06/11/17 08:00 66 06/11/17 08:00 97.6 66 14 103/55 (71) 100 06/11/17 06:00 65 06/11/17 04:00 98.3 67 16 104/55 (71) 100 06/11/17 04:00 35 06/11/17 04:00 65 06/11/17 04:00 97 30 06/11/17 02:00 65 06/11/17 01:08 100 35 06/11/17 00:00 98.7 58 16 90/52 (65) 100 06/11/17 00:00 59 06/11/17 00:00 35 06/10/17 22:00 65 06/10/17 20:44 100 35 06/10/17 20:00 98.7 65 16 98/51 (67) 100 06/10/17 20:00 65 06/10/17 20:00 35 06/10/17 18:00 66 06/10/17 16:00 64 06/10/17 16:00 35 06/10/17 16:00 98.4 64 16 93/52 (66) 100 06/10/17 15:24 100 35 -: 06/11/17 0303 06/11/17 0303 Drip Comment versed, fentanyl Physical Exam General Appearance: Well Developed, Obese Eyes Eye Exam: Pupils Equal Throat Throat Exam: Oral Mucosa [place] & Moist Neck Neck Exam: Neck Supple Pulmonary Resp Exam: Breath Sounds Equal, No Distress, Rhonchi Cardiology CV Exam: Regular, Normal Sinus Rhythm, Good Perfusion Gastrointestinal/Abdomen GI Exam: Soft, Non-Tender, Bowel Sounds Present Musculoskeletal MS Exam: Joints Intact, Normal Tone, Unable to Ambulate Integumentary Skin Exam: Clear, Warm, Dry, Intact Extremeties Extremities Exam: No Edema, Pedal Pulses Palpable Neurologic Neuro Exam: Unresponsive, Sedated Assessment/Plan Discussed Condition With: Spouse Assessment Summary: Anemia of CKD, End Stage Renal Disease Problem List: (1) ESRD (end stage renal disease) ICD Codes: N18.6 - End stage renal disease Status: Chronic Plan: Continue dialysis TTS. Family may opt for comfort measures. Poor prognosis. Dialysis tomorrow unless family asks us to stop. (2) Cardiac arrest ICD Codes: I46.9 - Cardiac arrest, cause unspecified Plan: she is unresponsive on ventilator She has suffered anoxic brain injury Poor prognosis. Palliative following, D/W them. Family in route to visit the patient. There is discussion about withdrawal of life support possibly next week. (3) Metabolic bone disease ICD Codes: E88.9 - Metabolic disorder, unspecified; M90.80 - Osteopathy in diseases classified elsewhere, unspecified site Status: Acute Plan: intermittently monitor phosphorus level continue Calcium acetate via OG tube May consider stopping Sensipar in this clinical situation. (4) Anemia of chronic renal failure Status: Chronic Plan: continue epogen with HD (5) Hypertension Status: Chronic Plan: Antihypertensives on hold. Tyler Ling MD Jun 11, 2017 14:54
[2017-06-11] MEDS: MIDAZOLAM 100 MG/100 ML INJ 100 ML IV PRN (14:56)
[2017-06-11] MEDS: PHENYTOIN 50 MG CHEWABLE TAB PO SCH ×2 (14:57→21:20)
[2017-06-11] MEDS ORDERED: POTASSIUM CHLORIDE 20 MEQ PWD PACKET NG ONE (15:00)
--- NOTE | 2017-06-11 15:57 | HHI.PR ---
Review/Management Diagnosis/Plan: (1) Anoxic encephalopathy ICD Codes: G93.1 - Anoxic brain damage, not elsewhere classified Status: Acute Plan: periodic discharges reflective of anoxic injury refractory to multiple sz meds +brainstem reflexes on dilantin/phb/depakote; topamax; also on versed recs increase phb [id number] resume gabapentin (can help with pain and sz) exam unchanged Dr. Perez to follow (2) cardiac arrest, prolonged resuscitation Status: Acute (3) end-stage renal disease Status: Chronic (4) CHF Status: Chronic (5) COPD Status: Chronic Subjective Subjective Comments No acute events reported Active Medications Current Medications Medications (Trade) Dose Ordered Sig/Lois Route Start Time Stop Time Status Last Admin Miscellaneous Information 1 Q361D XX 06/01/17 14:15 06/01/17 14:15 (Chlorhexidine 2% Cloth) Taper DAILY@04 TOP 06/02/17 04:00 05/29/18 03:59 06/10/17 21:17 (Chlorhexidine 2% Cloth) 3 pack UNSCH PRN TOP 06/01/17 14:15 (Pat-Colace) 1 tab BID PO 06/01/17 21:00 06/11/17 07:52 (Milk Of Magnesia Liq) 30 ml Q12H PRN PO 06/01/17 14:15 (Senokot) 17.2 mg Q12H PRN PO 06/01/17 14:15 (Dulcolax Supp) 10 mg DAILY PRN RECTAL 06/01/17 14:15 (Lactulose Liq) 30 ml DAILY PRN PO 06/01/17 14:15 (Nephrocaps) 1 cap DAILY PO 06/01/17 16:00 06/11/17 07:52 (Sensipar) 90 mg DAILY PO 06/01/17 16:00 06/11/17 07:52 Sodium Chloride 1,000 ml @ 0 mls/hr Q0M PRN OTHER 06/02/17 11:59 06/05/17 13:59 (Heparin Inj) 8,000 units UNSCH PRN IVF 06/02/17 12:00 Sodium Chloride 1,000 ml @ 200 mls/hr Q5H PRN IV 06/02/17 11:59 Sodium Chloride 1,000 ml @ 0 mls/hr Q0M PRN OTHER 06/02/17 11:59 (Mannitol Inj) 12.5 gm UNSCH PRN IV 06/02/17 12:00 (Albumin 25% Inj) 25 gm UNSCH PRN IV 06/02/17 12:00 06/05/17 13:58 (NS Flush) 5 ml UNSCH PRN IV FLUSH 06/02/17 12:00 (Heparin Inj) UNSCH PRN .XX 06/02/17 12:00 (Gentamicin (Dialysis) Inj) 20 mg UNSCH PRN IV 06/02/17 12:00 (Zofran Inj) 4 mg UNSCH PRN IV 06/02/17 12:00 (Tylenol) 650 mg UNSCH PRN PO 06/02/17 12:00 06/03/17 20:09 (Benadryl) 25 mg UNSCH PRN PO 06/02/17 12:00 (Nitrostat Sl) 0.4 mg UNSCH PRN SL 06/02/17 12:00 (Catapres) 0.1 mg UNSCH PRN PO 06/02/17 12:00 (Gelfoam 12 Mm/7 Mm Top) 1 foam UNSCH PRN TOP 06/02/17 12:00 06/09/17 13:02 (Ativan Inj) 1 mg Q4H PRN IV PUSH 06/02/17 16:00 06/04/17 02:25 Midazolam HCl 100 ml @ 2 mls/hr TITRATE PRN IV 06/03/17 09:30 06/11/17 14:56 (D50w (Vial) Inj) 50 ml UNSCH PRN IV 06/03/17 14:00 (Glucagon Inj) 1 mg UNSCH PRN OTHER 06/03/17 14:00 (NovoLIN R SUPPLEMENTAL SCALE) 1 Q4H SQ 06/03/17 14:00 06/04/17 10:00 (Heparin Inj) 5,000 units Q12HR SQ 06/04/17 09:00 06/11/17 07:53 (Epogen Inj) 10,000 units UNSCH PRN IV 06/06/17 13:30 06/09/17 13:02 (Phoslo) 667 mg TID PO 06/06/17 18:00 06/11/17 13:55 (Brethine Inj) 1 mg UNSCH PRN SQ 06/06/17 13:45 (Zithromax) 500 mg Q24H PO 06/07/17 16:00 06/13/17 16:01 06/11/17 14:15 Ceftriaxone Sodium 2000 mg/ Sodium Chloride 100 ml @ 200 mls/hr Q24H IV 06/07/17 11:00 06/14/17 10:59 06/11/17 10:05 (Flagyl) 500 mg Q8HR PO 06/07/17 14:00 06/14/17 13:59 06/11/17 13:55 (Aspirin Chew) 81 mg DAILY CHEW 06/08/17 09:00 06/11/17 07:53 Propofol 100 ml @ 17.25 mls/ hr TITRATE PRN IV 06/08/17 17:15 06/11/17 02:30 (Topamax) 50 mg BID OG-TUBE 06/09/17 09:00 06/11/17 07:52 Valproate Sodium 750 mg/Sodium Chloride 107.5 ml @ 105 mls/hr Q8HR IV 06/09/17 22:00 06/11/17 14:14 (Tears Naturale Opth Soln) 1 drop TID EACH EYE 06/09/17 18:00 06/11/17 13:55 (SoluCORTEF INJ) 50 mg Q8HR IV PUSH 06/10/17 14:00 06/11/17 13:55 (Beneprotein Powder) 1 pack TID G-TUBE 06/10/17 18:00 06/11/17 13:00 (Prevacid Odt) 30 mg DAILY NG 06/11/17 09:00 06/11/17 07:52 (Dilantin Infatabs Chew) 250 mg Q8HR PO 06/11/17 14:04 06/11/17 14:57 (Luminal Inj) 120 mg Q8HR IV 06/11/17 22:00 UNV Allergies Allergies Coded Allergies diatrizoate meglumine (Unverified Allergy, Severe, Joint Pain, 05/15/17) gadobenic acid (Unverified Allergy, Severe, Joint Pain, 05/15/17) gadodiamide (Unverified Allergy, Severe, Joint Pain, 05/15/17) gadoteridol (Unverified Allergy, Severe, Joint Pain, 05/15/17) iodine (Unverified Allergy, Severe, ORAL CONTRAST OK, 05/15/17) iodixanol (Unverified Allergy, Severe, Joint Pain, 05/15/17) iohexol (Unverified Allergy, Severe, Joint Pain, 05/15/17) morphine (Unverified Allergy, Severe, ITCH, 05/15/17) potassium iodide (Unverified Allergy, Severe, ORAL CONTRAST OK, 05/15/17) povidone-iodine (Unverified Allergy, Severe, ORAL CONTRAST OK, 05/15/17) sodium iodide (Unverified Allergy, Severe, ORAL CONTRAST OK, 05/15/17) sodium iodide (Unverified Allergy, Severe, ORAL CONTRAST OK, 05/15/17) vancomycin (Unverified Allergy, Unknown, 05/15/17) Review of Systems All other ROS: Unable to obtain Exam I&O / VS Vital Signs Date Time Temp Pulse Resp B/P (MAP) Pulse Ox O2 Delivery O2 Flow Rate FiO2 06/11/17 15:11 100 30 06/11/17 14:00 69 06/11/17 12:53 100 30 06/11/17 12:00 97.4 65 15 91/55 (67) 100 06/11/17 12:00 35 06/11/17 12:00 65 06/11/17 10:00 65 06/11/17 08:00 35 06/11/17 08:00 66 06/11/17 08:00 97.6 66 14 103/55 (71) 100 06/11/17 06:00 65 06/11/17 04:00 98.3 67 16 104/55 (71) 100 06/11/17 04:00 35 06/11/17 04:00 65 06/11/17 04:00 97 30 06/11/17 02:00 65 06/11/17 01:08 100 35 06/11/17 00:00 98.7 58 16 90/52 (65) 100 06/11/17 00:00 59 06/11/17 00:00 35 06/10/17 22:00 65 06/10/17 20:44 100 35 06/10/17 20:00 98.7 65 16 98/51 (67) 100 06/10/17 20:00 65 06/10/17 20:00 35 06/10/17 18:00 66 06/10/17 16:00 64 06/10/17 16:00 35 06/10/17 16:00 98.4 64 16 93/52 (66) 100 Exam Comments awake, non-verbal, not following, intubated, on versed gtt, mild rt gaze deviation, no involuntary movements, ou 3.5-3, no blink to threat, mild corneals present, no ext movement, no clonus, planter flexor Objective Micro and Labs Laboratory Tests Test 06/11/17 03:03 White Blood Count 22.5 Red Blood Count 3.41 Hemoglobin 9.4 Hematocrit 30.2 Mean Corpuscular Volume 88.7 Mean Corpuscular Hemoglobin 27.6 Mean Corpuscular Hemoglobin Concent 31.1 Red Cell Distribution Width 17.9 Platelet Count 341 Mean Platelet Volume 8.8 Neutrophils (%) (Auto) 84.9 Lymphocytes (%) (Auto) 8.6 Monocytes (%) (Auto) 6.1 Eosinophils (%) (Auto) 0.3 Basophils (%) (Auto) 0.1 Neutrophils # (Auto) 19.1 Lymphocytes # (Auto) 1.9 Monocytes # (Auto) 1.4 Eosinophils # (Auto) 0.1 Basophils # (Auto) 0.0 CBC Comment AUTO DIFF Differential Comment AUTO DIFF CONFIRMED Platelet Estimate NORMAL Platelet Morphology Comment NORMAL Target Cells 1+ Blood Urea Nitrogen 69 Creatinine 5.55 Random Glucose 106 Total Protein 6.7 Albumin 2.5 Calcium Level 8.8 Phosphorus Level 4.0 Magnesium Level 2.2 Alkaline Phosphatase 97 Aspartate Amino Transf (AST/SGOT) 30 Alanine Aminotransferase (ALT/SGPT) 22 Total Bilirubin 0.3 Sodium Level 141 Potassium Level 3.4 Chloride Level 101 Carbon Dioxide Level 27.4 Anion Gap 13 Estimat Glomerular Filtration Rate 9 Total Creatine Kinase 49 Phenytoin (Dilantin) Level 6.7 Valproic Acid (Depakene) Level 53 Phenobarbital Level 12.8 Date/Time Source Procedure Growth Status 06/01/17 11:40 Blood Peripheral Aerobic Blood Culture - Final NO GROWTH IN 5 DAYS Complete 06/01/17 11:40 Blood Peripheral Anaerobic Blood Culture - Final NO GROWTH IN 5 DAYS Complete 06/04/17 05:00 Sputum Endotracheal Gram Stain - Final Complete 06/04/17 05:00 Sputum Endotracheal Sputum Culture - Final MODERATE GROWTH NORMAL RESPIRATORY CLEMENTINE Complete London Felder MD Jun 11, 2017 15:57
[2017-06-11] MEDS: GABAPENTIN 100 MG CAP PO SCH ×2 (16:27→20:01)
[2017-06-11] MEDS: CHLORHEXIDINE GLUCONATE 2 % 1 PACK (2 CLOTHS) TOP SCH (20:22)
[2017-06-12] VITALS (16 sets, daily range): BP systolic 91–110; BP diastolic 49–64; PULSE 67–83; RESP 14–17; TEMP 98.3–98.9; O2SAT 95–100
[2017-06-12] MEDS: MIDAZOLAM 100 MG/100 ML INJ 100 ML IV PRN ×2 (00:30→19:39)
[2017-06-12] MEDS: PROPOFOL 1000 MG/100 ML INJ 100 ML IV PRN ×2 (00:31→19:38)
[2017-06-12] MEDS: INSULIN NovoLIN REGULAR SUPPLEMENTAL SCALE SQ SCH ×6 (01:40→21:06)
[2017-06-12 03:35] LABS: AUTOMATED NEUTROPHIL # 17.4 TH/MM3 (1.8-7.7); BASOPHIL % 0.1 % (0.0-2.0); EOSINOPHIL # 0.2 TH/MM3 (0-0.4); EOSINOPHIL % 0.8 % (0.0-4.0); HEMATOCRIT 29.8 % (35.0-46.0); LYMPH % 8.1 % (9.0-44.0); LYMPHOCYTE # 1.7 TH/MM3 (1.0-4.8); MEAN CELL VOLUME 88.5 FL (80.0-100.0); MEAN CORPUSCULAR HEMOGLOBIN 27.6 PG (27.0-34.0); MEAN CORPUSCULAR HGB CONC 31.2 % (32.0-36.0); MONO % 6.8 % (0.0-8.0); NEUT % 84.2 % (16.0-70.0); PLATELET COUNT 327 TH/MM3 (150-450); RED BLOOD COUNT 3.36 MIL/MM3 (4.00-5.30); RED CELL DISTRIBUTION WIDTH 17.8 % (11.6-17.2); WHITE BLOOD COUNT 20.7 TH/MM3 (4.0-11.0)
[2017-06-12 03:41] LABS: HEMO FLAGS DIFF FINAL
[2017-06-12 04:01] LABS: ALKALINE PHOSPHATASE 98 U/L (45-117); ALT (GPT) 16 U/L (10-53); ANION GAP 15 MEQ/L (5-15); AST (GOT) 29 U/L (15-37); BICARBONATE 24.9 MEQ/L (21.0-32.0); BLOOD UREA NITROGEN 82 MG/DL (7-18); CHLORIDE 101 MEQ/L (98-107); GLOMERULAR FILTRATION RATE 8 ML/MIN (>89); MAGNESIUM 2.4 MG/DL (1.5-2.5); PHENOBARBITAL 16.2 MCG/ML (15.0-40.0); POTASSIUM 3.8 MEQ/L (3.5-5.1); SODIUM (NA) 141 MEQ/L (136-145); TOTAL BILIRUBIN ADULT 0.3 MG/DL (0.2-1.0)
[2017-06-12 04:02] LABS: CREATINE KINASE 42 U/L (26-192)
[2017-06-12] MEDS: HYDROCORTISONE SOD SUCCINATE 100 MG VIAL IV PUSH SCH ×3 (04:41→21:05)
[2017-06-12] MEDS: VALPROATE INJ 750 MG in SODIUM CHLORIDE 0.9% INJ 100 ML IV SCH ×3 (04:42→21:05)
[2017-06-12] MEDS: PHENYTOIN 50 MG CHEWABLE TAB PO SCH ×3 (04:42→21:06)
[2017-06-12] MEDS: metroNIDAZOLE 500 MG TAB PO SCH ×3 (05:18→21:06)
--- NOTE | 2017-06-12 06:35 | RADRPT ---
EXAM DATE/TIME: 06/12/2017 05:11 [facility] COMPARISON: CHEST SINGLE AP, June 10, 2017, 7:02. INDICATIONS : Short of breath. MEDICAL HISTORY : None. SURGICAL HISTORY : None. ENCOUNTER: Subsequent ACUITY: 1 week PAIN SCORE: 0/10 LOCATION: Bilateral chest FINDINGS: A single view of the chest demonstrates endotracheal tube in satisfactory position. NG enters stomach . Left central line in superior vena cava. Mild basilar airspace disease similar to prior exam. Right pleural calcifications. CONCLUSION: 1. Support apparatus in good position, unchanged. Stable bilateral mild basilar airspace disease. Tree Alfred MD on June 12, 2017 at 6:33 Board Certified Radiologist. This report was verified electronically.
[2017-06-12] MEDS: CALCIUM ACETATE 667 MG CAP PO SCH ×3 (08:29→18:14)
[2017-06-12] MEDS: CINACALCET HYDROCHLORIDE 30 MG TAB PO SCH (08:29)
[2017-06-12] MEDS: ASPIRIN 81 MG CHEW TAB CHEW SCH (08:29)
[2017-06-12] MEDS: LANSOPRAZOLE SOLUTAB 30 MG TAB NG SCH (08:29)
[2017-06-12] MEDS: DOCUSATE SODIUM 50 MG/SENNA 8.6 MG TAB PO SCH ×2 (08:29→19:40)
[2017-06-12] MEDS: ARTIFICIAL TEARS OPTH SOLN 15 ML BTL EACH EYE SCH ×3 (08:29→18:15)
[2017-06-12] MEDS: TOPIRAMATE 25 MG TAB OG-TUBE SCH ×2 (08:29→19:39)
[2017-06-12] MEDS: VITAMIN B CMPLX/VITC/FOLIC AC CAP PO SCH (08:29)
[2017-06-12] MEDS: HEPARIN SODIUM - SQ 10,000 UNITS/ML VIAL SQ SCH ×2 (08:29→19:39)
[2017-06-12] MEDS: GABAPENTIN 100 MG CAP PO SCH ×2 (08:29→19:39)
[2017-06-12] MEDS: BENEPROTEIN POWDER 1 PACK G-TUBE SCH ×3 (08:30→18:00)
[2017-06-12] MEDS: ALBUMIN HUMAN 25% 25 GM/100 ML BAGP IV PRN ×2 (09:25→09:27)
[2017-06-12] MEDS: GELATIN 12 MM/7 MM FOAM TOP PRN (09:26)
[2017-06-12] MEDS: EPOETIN ALFA 10,000 UNITS/ML VIAL IV PRN (09:26)
--- NOTE | 2017-06-12 09:56 | HHI.NPPN ---
Subjective General Problems: Anemia Renal Failure: Chronic, End Stage Renal Disease Interval History Unresponsive on ventilator. Seen during bedside HD. She remains intubated and unresponsive. (Amberly Stevenson) Review of Systems General General Remarks unable to obtain (Amberly Stevenson) Objective Data Data 06/12/17 06/13/17 19:00 07:00 Intake Total 200 ml Balance 200 ml IV Total 200 ml Vital Signs Date Time Temp Pulse Resp B/P (MAP) Pulse Ox O2 Delivery O2 Flow Rate FiO2 06/12/17 09:05 100 30 06/12/17 06:00 69 06/12/17 04:00 98.7 67 16 91/50 (64) 100 06/12/17 04:00 69 06/12/17 04:00 35 06/12/17 03:46 100 30 06/12/17 02:00 67 06/12/17 00:00 98.3 67 16 93/52 (66) 100 06/12/17 00:00 35 06/12/17 00:00 67 06/11/17 22:00 67 06/11/17 21:30 99 30 06/11/17 20:00 98.7 69 16 99/54 (69) 100 06/11/17 20:00 35 06/11/17 20:00 69 06/11/17 18:00 71 06/11/17 16:00 98.7 68 16 104/51 (68) 100 06/11/17 16:00 68 06/11/17 16:00 35 06/11/17 15:11 100 30 06/11/17 14:00 69 06/11/17 12:53 100 30 06/11/17 12:00 97.4 65 15 91/55 (67) 100 06/11/17 12:00 35 06/11/17 12:00 65 06/11/17 10:00 65 (Amberly Stevenson) -: 06/12/17 0327 06/12/17 032 Imaging Last Impressions Chest X-Ray 06/12/17 0600 Signed Impressions: Service Date/Time: Monday, June 12, 2017 05:11 - CONCLUSION: 1. Support apparatus in good position, unchanged. Stable bilateral mild basilar airspace disease. Tree Alfred MD Head CT 06/05/17 0000 Signed Impressions: Service Date/Time: Tuesday, June 06, 2017 04:41 - CONCLUSION: 1. Senescent changes. 2. No significant interval change or acute intracranial abnormality. Rodri Leung MD Drip Comment versed, fentanyl (Elva,Amberly B. [employer]) Physical Exam General Appearance: Well Developed, Obese Appearance Remarks intubated, unresponsive (Elva,Amberly B. [employer]) Eyes Eye Exam: Pupils Equal (Elva,Amberly B. [employer]) Throat Throat Exam: Oral Mucosa [place] & Moist (Elva,Amberly B. [employer]) Neck Neck Exam: Neck Supple (Elva,Amberly B[employer]) Pulmonary Resp Exam: Breath Sounds Equal, No Distress, Decreased Bases Resp Remarks vented lung sounds (Elva,Amberly B. [employer]) Cardiology CV Exam: Regular, Normal Sinus Rhythm, Good Perfusion (Elva,Amberly B. [employer]) Gastrointestinal/Abdomen GI Exam: Soft, Non-Tender, Bowel Sounds Present (Elva,Amberly B. [employer]) Musculoskeletal MS Exam: Joints Intact, Normal Tone, Unable to Ambulate (Elva,Amberly B. [employer]) Integumentary Skin Exam: Clear, Warm, Dry, Intact (Elva,Amberly B. [employer]) Extremeties Extremities Exam: No Edema, Pedal Pulses Palpable Extremeties Remarks AVF left Arm, + thrill, bruit (Elva,Amberly B. [employer]) Neurologic Neuro Exam: Unresponsive, Sedated (ElvaMaberly B. [employer]) Assessment/Plan Assessment Summary: Anemia of CKD, End Stage Renal Disease Problem List: (1) ESRD (end stage renal disease) ICD Codes: N18.6 - End stage renal disease Status: Chronic Plan: Seen during dialysis today on a 3K, 300 BFR, goal 1L if BP tolerated (is borderline hypotensive currently with treatment ) Continue dialysis TTS. Family may opt for comfort measures. Palliative is following. Avoid IVF, Gadolinium in contraindicated Continue HD support if family wishes to continue aggressive care. Poor prognosis. (2) Cardiac arrest ICD Codes: I46.9 - Cardiac arrest, cause unspecified Plan: she is unresponsive on ventilator She has suffered anoxic brain injury Poor prognosis. Palliative following. There is discussion about withdrawal of life support possibly this week. (3) Metabolic bone disease ICD Codes: E88.9 - Metabolic disorder, unspecified; M90.80 - Osteopathy in diseases classified elsewhere, unspecified site Status: Acute Plan: intermittently monitor phosphorus level continue Calcium acetate via OG tube May consider stopping Sensipar in this clinical situation. (4) Anemia of chronic renal failure Status: Chronic Plan: continue epogen with HD Follow Hb (5) Hypertension Status: Chronic Plan: Antihypertensives on hold. (6) Leukocytosis ICD Codes: D72.829 - Elevated white blood cell count, unspecified Plan: ID following, treating for possible aspiration Pneumonia On Zithromax, Flagyl, and Rocephin currently Monitor clinically. She is afebrile. (Amberly Stevenson) Plan patient was seen and examined. Agree with above assessment and plan. (Tyler Ling MD) Amberly Stevenson Jun 12, 2017 09:56 Tyler Ling MD Jun 12, 2017 10:28
--- NOTE | 2017-06-12 11:24 | HHI.IDPN ---
Subjective Subjective Remarks Patient is a 67-year-old female, brought into the hospital after she became unresponsive during her hemodialysis. She has end-stage renal disease, and goes to dialysis every Sunday and Sunday. She was apparently undergoing dialysis on the day of admission, and she told the staff that she was not feeling well. She suddenly became unresponsive. EMS was called, and patient was found to be in PEA arrest. She underwent CPR, and intubation. After about 30 minutes she was successfully resuscitated and was on pressors. Patient has remained intubated since. She has since then been having problem with seizure activity on her EEG. Patient is currently on multiple anticonvulsant agents. Her WBC has remained elevated. She started having fevers about 2 days ago. She's had blood culture that were negative, and sputum culture with normal respiratory [place]. Patient is anuric. She has been on Zosyn empirically. She has a femoral line on the right. She's had diarrhea , and stool for C. difficile is negative. Patient currently is sedated on the vent. She is still on pressors. Infectious disease consultation has been requested to evaluate the patient with fevers and persistent leukocytosis. Notes reviewed D/W RN Temps ok Sedated on the vent Having HD No change in neuro status WBC remain elevated, slightly lower today CXR no change Antibiotics Rocephin Zithromax Flagyl Past Medical History End-stage renal disease on hemodialysis Sunday, Sunday, Sunday Hypertension Hyperlipidemia anemia of chronic disease Arthritis. Congestive heart failure. Cerebrovascular accident. Gastroesophageal reflux disease. Obstructive sleep apnea on C-PAP q.h.s. Hypothyroidism Vertigo Anxiety / depression Chronic obstructive pulmonary disease. Past Surgical History Previous bilateral TMA x3 Left upper extremity AV fistula Left breast lumpectomy Partial hysterectomy. Allergies: Coded Allergies: diatrizoate meglumine (Unverified Allergy, Severe, Joint Pain, 05/15/17) pt states she is not allergic to this gadobenic acid (Unverified Allergy, Severe, Joint Pain, 05/15/17) pt states she is not allergic to this gadodiamide (Unverified Allergy, Severe, Joint Pain, 05/15/17) pt states she is not allergic to this gadoteridol (Unverified Allergy, Severe, Joint Pain, 05/15/17) pt states she is not allergic to this iodine (Unverified Allergy, Severe, ORAL CONTRAST OK, 05/15/17) pt states she is not allergic to this iodixanol (Unverified Allergy, Severe, Joint Pain, 05/15/17) pt states she is not allergic to this iohexol (Unverified Allergy, Severe, Joint Pain, 05/15/17) pt states she is not allergic to this morphine (Unverified Allergy, Severe, ITCH, 05/15/17) pt states she is not allergic to this potassium iodide (Unverified Allergy, Severe, ORAL CONTRAST OK, 05/15/17) pt states she is not allergic to this povidone-iodine (Unverified Allergy, Severe, ORAL CONTRAST OK, 05/15/17) pt states she is not allergic to this sodium iodide (Unverified Allergy, Severe, ORAL CONTRAST OK, 05/15/17) pt states she is not allergic to this sodium iodide (Unverified Allergy, Severe, ORAL CONTRAST OK, 05/15/17) pt states she is not allergic to this vancomycin (Unverified Allergy, Unknown, 05/15/17) PT STATES UNKNOWN IF SHE IS ALLERGIC. Objective . Vital Signs Date Time Temp Pulse Resp B/P (MAP) Pulse Ox O2 Delivery O2 Flow Rate FiO2 06/12/17 10:00 77 06/12/17 09:05 100 30 06/12/17 08:00 68 06/12/17 08:00 98.9 68 14 92/54 (67) 99 06/12/17 08:00 30 06/12/17 06:00 69 06/12/17 04:00 98.7 67 16 91/50 (64) 100 06/12/17 04:00 69 06/12/17 04:00 35 06/12/17 03:46 100 30 06/12/17 02:00 67 06/12/17 00:00 98.3 67 16 93/52 (66) 100 06/12/17 00:00 35 06/12/17 00:00 67 06/11/17 22:00 67 06/11/17 21:30 99 30 06/11/17 20:00 98.7 69 16 99/54 (69) 100 06/11/17 20:00 35 06/11/17 20:00 69 06/11/17 18:00 71 06/11/17 16:00 98.7 68 16 104/51 (68) 100 06/11/17 16:00 68 06/11/17 16:00 35 06/11/17 15:11 100 30 06/11/17 14:00 69 06/11/17 12:53 100 30 06/11/17 12:00 97.4 65 15 91/55 (67) 100 06/11/17 12:00 35 06/11/17 12:00 65 06/12/17 06/12/17 06/13/17 15:00 23:00 07:00 Intake Total 200 ml Output Total 500 ml Balance -300 ml IV Total 200 ml Hemodialysis 500 ml . Laboratory Tests Test 06/11/17 03:03 06/12/17 03:27 White Blood Count 22.5 TH/MM3 20.7 TH/MM3 Red Blood Count 3.41 MIL/MM3 3.36 MIL/MM3 Hemoglobin 9.4 GM/DL 9.3 GM/DL Hematocrit 30.2 % 29.8 % Mean Corpuscular Volume 88.7 FL 88.5 FL Mean Corpuscular Hemoglobin 27.6 PG 27.6 PG Mean Corpuscular Hemoglobin Concent 31.1 % 31.2 % Red Cell Distribution Width 17.9 % 17.8 % Platelet Count 341 TH/MM3 327 TH/MM3 Mean Platelet Volume 8.8 FL 8.6 FL Neutrophils (%) (Auto) 84.9 % 84.2 % Lymphocytes (%) (Auto) 8.6 % 8.1 % Monocytes (%) (Auto) 6.1 % 6.8 % Eosinophils (%) (Auto) 0.3 % 0.8 % Basophils (%) (Auto) 0.1 % 0.1 % Neutrophils # (Auto) 19.1 TH/MM3 17.4 TH/MM3 Lymphocytes # (Auto) 1.9 TH/MM3 1.7 TH/MM3 Monocytes # (Auto) 1.4 TH/MM3 1.4 TH/MM3 Eosinophils # (Auto) 0.1 TH/MM3 0.2 TH/MM3 Basophils # (Auto) 0.0 TH/MM3 0.0 TH/MM3 CBC Comment AUTO DIFF DIFF FINAL Differential Comment AUTO DIFF CONFIRMED Platelet Estimate NORMAL Platelet Morphology Comment NORMAL Target Cells 1+ Laboratory Tests Test 06/11/17 03:03 06/12/17 03:27 Blood Urea Nitrogen 69 MG/DL 82 MG/DL Creatinine 5.55 MG/DL 6.41 MG/DL Random Glucose 106 MG/DL 95 MG/DL Total Protein 6.7 GM/DL 6.8 GM/DL Albumin 2.5 GM/DL 2.4 GM/DL Calcium Level 8.8 MG/DL 8.5 MG/DL Phosphorus Level 4.0 MG/DL 4.4 MG/DL Magnesium Level 2.2 MG/DL 2.4 MG/DL Alkaline Phosphatase 97 U/L 98 U/L Aspartate Amino Transf (AST/SGOT) 30 U/L 29 U/L Alanine Aminotransferase (ALT/SGPT) 22 U/L 16 U/L Total Bilirubin 0.3 MG/DL 0.3 MG/DL Sodium Level 141 MEQ/L 141 MEQ/L Potassium Level 3.4 MEQ/L 3.8 MEQ/L Chloride Level 101 MEQ/L 101 MEQ/L Carbon Dioxide Level 27.4 MEQ/L 24.9 MEQ/L Anion Gap 13 MEQ/L 15 MEQ/L Estimat Glomerular Filtration Rate 9 ML/MIN 8 ML/MIN Total Creatine Kinase 49 U/L 42 U/L Ammonia LESS THAN 10 MCMOL/L Imaging Last 48 hours Impressions Chest X-Ray 06/08/17 0600 Signed Impressions: Service Date/Time: Thursday, June 08, 2017 05:56 - CONCLUSION: 1. Grossly stable ETT and NGT. 2. Cardiomegaly with positive fluid balance. 3. Stable bilateral lower lung zone airspace disease. 4. No significant interval change. Rodri Leung MD Chest X-Ray 06/07/17 0600 Signed Impressions: Service Date/Time: June 05:48 - CONCLUSION: 1. Stable ETT and NGT. 2. Cardiomegaly with mild positive fluid balance. 3. Stable bibasilar airspace disease, likely atelectasis. 4. Probable trace left pleural effusion. 5. No significant interval change. Rodri Leung MD Chest X-Ray 06/06/17 0000 Signed Impressions: Service Date/Time: Tuesday, June 06, 2017 03:30 - CONCLUSION: 1. Cardiomegaly with positive fluid balance. 2. Stable mild bibasilar airspace disease, likely atelectasis. 3. No significant interval change. Rodri Leung MD Head CT 06/05/17 0000 Signed Impressions: Service Date/Time: Tuesday, June 06, 2017 04:41 - CONCLUSION: 1. Senescent changes. 2. No significant interval change or acute intracranial abnormality. Rodri Leung MD Physical Exam GENERAL: sedated, on the vent, not in respiratory distress. SKIN: Warm and dry. No generalized rash, no ecchymoses and no evidence of embolic lesions. HEAD: Atraumatic. Normocephalic. No temporal wasting, or tenderness. EYES: [place] conjunctiva. No petechia or hemorrhage. Has dirty sclera. No injection or drainage. EARS, NOSE AND THROAT: Nose without bleeding or purulent nasal discharge. She is orally intubated. NECK: Trachea midline. Supple, no meningeal signs CARDIOVASCULAR: Regular rate and rhythm. No murmurs, rubs or gallops heard RESPIRATORY: Coarse BS giovanny, decreased at bases EXTREMITIES: No clubbing, cyanosis, or edema. Giovanny TMA, has dry dressing on his R foot. Well perfused and warm. NEUROLOGICAL: Sedated PSYCHIATRIC: Unable to assess Assessment & Plan Remarks IMPRESSION Fevers, etiology, temps better - ?aspiration Persistent leukocytosis, etiology? - still with ongoing seizures on her EEG Seizures due to anoxic injury S/P PEA arrest Likely with anoxic injury ESRD on HD F RECOMMENDATION Continue Rocephin Continue Flagyl for possible aspiration since WBC remains elevated Continue Zithromax To finish Abx 06/13 Follow CBC Monitor progress Family deciding on comfort measures likely once other family members arrive in [facility] Palliative medicine following D/W Jasmyne Nunez MD Jun 12, 2017 11:24
[2017-06-12] MEDS: cefTRIAXone INJ 2,000 MG in SODIUM CHLORIDE 0.9% INJ 100 ML IV SCH (13:00)
--- NOTE | 2017-06-12 14:31 | HHI.HCPN ---
Reason for visit a. To assist with evaluation and management of symptoms including: dyspnea , pain, seizures b. To assist medical decision maker(s) with: better understanding of current medical conditions; weighing benefits/burdens of medical treatment options; making medical treatment decisions. . Subjective/Interval History INTERVAL NOTE: The patient remains unresponsive. She had recent seizure activity, and the EEGs have shown seizure activity that is felt to be due to the anoxic injury. She is now on Dilantin, phenobarbital (dose up to 100 g8h now), midazolam, and valproate, as well as PRN lorazepam. She has had no signs of neurologic improvement. . Family/friend interactions Unable to reach . Advance Directives Living Will: Never completed Health Care Surrogate: Never completed Durable Power of Trimming Department Blocker: Never completed Objective Vital Signs Date Time Temp Pulse Resp B/P (MAP) Pulse Ox O2 Delivery O2 Flow Rate FiO2 06/12/17 14:00 77 06/12/17 12:00 30 06/12/17 12:00 78 06/12/17 12:00 98.4 73 16 110/52 (71) 98 06/12/17 10:00 77 06/12/17 09:05 100 30 06/12/17 08:00 68 06/12/17 08:00 98.9 68 14 92/54 (67) 99 06/12/17 08:00 30 06/12/17 06:00 69 06/12/17 04:00 98.7 67 16 91/50 (64) 100 06/12/17 04:00 69 06/12/17 04:00 35 06/12/17 03:46 100 30 06/12/17 02:00 67 06/12/17 00:00 98.3 67 16 93/52 (66) 100 06/12/17 00:00 35 06/12/17 00:00 67 06/11/17 22:00 67 06/11/17 21:30 99 30 06/11/17 20:00 98.7 69 16 99/54 (69) 100 06/11/17 20:00 35 06/11/17 20:00 69 06/11/17 18:00 71 06/11/17 16:00 98.7 68 16 104/51 (68) 100 06/11/17 16:00 68 06/11/17 16:00 35 06/11/17 15:11 100 30 Intake & Output 06/12/17 06/12/17 07:00 19:00 Intake Total 585 ml 200 ml Output Total 350 ml 500 ml Balance 235 ml -300 ml Intake Oral 0 ml IV Total 200 ml Tube Feeding 435 ml Other 150 ml Output Urine Total 0 ml Stool Total 350 ml Hemodialysis 500 ml Physical Exam CONSTITUTIONAL/GENERAL: This is an elderly, obese, unresponsive patient, in no apparent distress. TUBES/LINES/DRAINS: ET tube, IV access EYES: Pupils equal and round but I cannot detect any reaction to light. No scleral icterus. NECK: Trachea midline. Supple. CARDIOVASCULAR: Regular rate and rhythm without murmurs, gallops, or rubs. Unable to palpate foot or ankle pulses. RESPIRATORY/CHEST: Symmetric, unlabored respirations with ventilator. Scattered rhonchi. GASTROINTESTINAL: Abdomen soft, obese. No obvious hepato-splenomegaly, or palpable masses. No guarding. Bowel sounds present. MUSCULOSKELETAL: Extremities without clubbing, cyanosis. No mottling or clubbing. NEUROLOGICAL: Unresponsive to voice, touch, or pain PSYCHIATRIC: Unable to assess due to clinical condition . Diagnostic Tests Laboratory Laboratory Tests Test 06/10/17 04:49 06/10/17 09:14 06/11/17 03:03 06/12/17 03:27 White Blood Count 19.8 TH/MM3 (4.0-11.0) 22.5 TH/MM3 (4.0-11.0) 20.7 TH/MM3 (4.0-11.0) Red Blood Count 3.51 MIL/MM3 (4.00-5.30) 3.41 MIL/MM3 (4.00-5.30) 3.36 MIL/MM3 (4.00-5.30) Hemoglobin 9.6 GM/DL (11.6-15.3) 9.4 GM/DL (11.6-15.3) 9.3 GM/DL (11.6-15.3) Hematocrit 31.9 % (35.0-46.0) 30.2 % (35.0-46.0) 29.8 % (35.0-46.0) Mean Corpuscular Volume 90.8 FL (80.0-100.0) 88.7 FL (80.0-100.0) 88.5 FL (80.0-100.0) Mean Corpuscular Hemoglobin 27.5 PG (27.0-34.0) 27.6 PG (27.0-34.0) 27.6 PG (27.0-34.0) Mean Corpuscular Hemoglobin Concent 30.3 % (32.0-36.0) 31.1 % (32.0-36.0) 31.2 % (32.0-36.0) Red Cell Distribution Width 17.4 % (11.6-17.2) 17.9 % (11.6-17.2) 17.8 % (11.6-17.2) Platelet Count 319 TH/MM3 (150-450) 341 TH/MM3 (150-450) 327 TH/MM3 (150-450) Mean Platelet Volume 8.7 FL (7.0-11.0) 8.8 FL (7.0-11.0) 8.6 FL (7.0-11.0) Neutrophils (%) (Auto) 81.8 % (16.0-70.0) 84.9 % (16.0-70.0) 84.2 % (16.0-70.0) Lymphocytes (%) (Auto) 10.3 % (9.0-44.0) 8.6 % (9.0-44.0) 8.1 % (9.0-44.0) Monocytes (%) (Auto) 7.3 % (0.0-8.0) 6.1 % (0.0-8.0) 6.8 % (0.0-8.0) Eosinophils (%) (Auto) 0.3 % (0.0-4.0) 0.3 % (0.0-4.0) 0.8 % (0.0-4.0) Basophils (%) (Auto) 0.3 % (0.0-2.0) 0.1 % (0.0-2.0) 0.1 % (0.0-2.0) Neutrophils # (Auto) 16.2 TH/MM3 (1.8-7.7) 19.1 TH/MM3 (1.8-7.7) 17.4 TH/MM3 (1.8-7.7) Lymphocytes # (Auto) 2.0 TH/MM3 (1.0-4.8) 1.9 TH/MM3 (1.0-4.8) 1.7 TH/MM3 (1.0-4.8) Monocytes # (Auto) 1.4 TH/MM3 (0-0.9) 1.4 TH/MM3 (0-0.9) 1.4 TH/MM3 (0-0.9) Eosinophils # (Auto) 0.1 TH/MM3 (0-0.4) 0.1 TH/MM3 (0-0.4) 0.2 TH/MM3 (0-0.4) Basophils # (Auto) 0.1 TH/MM3 (0-0.2) 0.0 TH/MM3 (0-0.2) 0.0 TH/MM3 (0-0.2) CBC Comment DIFF FINAL AUTO DIFF DIFF FINAL Differential Comment AUTO DIFF CONFIRMED Blood Urea Nitrogen 55 MG/DL (7-18) 69 MG/DL (7-18) 82 MG/DL (7-18) Creatinine 4.76 MG/DL (0.50-1.00) 5.55 MG/DL (0.50-1.00) 6.41 MG/DL (0.50-1.00) Random Glucose 87 MG/DL (74-106) 106 MG/DL (74-106) 95 MG/DL (74-106) Calcium Level 8.8 MG/DL (8.5-10.1) 8.8 MG/DL (8.5-10.1) 8.5 MG/DL (8.5-10.1) Phosphorus Level 2.7 MG/DL (2.5-4.9) 4.0 MG/DL (2.5-4.9) 4.4 MG/DL (2.5-4.9) Magnesium Level 2.1 MG/DL (1.5-2.5) 2.2 MG/DL (1.5-2.5) 2.4 MG/DL (1.5-2.5) Sodium Level 140 MEQ/L (136-145) 141 MEQ/L (136-145) 141 MEQ/L (136-145) Potassium Level 3.4 MEQ/L (3.5-5.1) 3.4 MEQ/L (3.5-5.1) 3.8 MEQ/L (3.5-5.1) Chloride Level 100 MEQ/L (98-107) 101 MEQ/L (98-107) 101 MEQ/L (98-107) Carbon Dioxide Level 28.2 MEQ/L (21.0-32.0) 27.4 MEQ/L (21.0-32.0) 24.9 MEQ/L (21.0-32.0) Anion Gap 12 MEQ/L (5-15) 13 MEQ/L (5-15) 15 MEQ/L (5-15) Estimat Glomerular Filtration Rate 11 ML/MIN (>89) 9 ML/MIN (>89) 8 ML/MIN (>89) Phenytoin (Dilantin) Level 6.0 MCG/ML (10.0-20.0) 6.7 MCG/ML (10.0-20.0) 5.5 MCG/ML (10.0-20.0) Valproic Acid (Depakene) Level 53 MCG/ML (50-100) 53 MCG/ML (50-100) 45 MCG/ML (50-100) Phenobarbital Level 14.0 MCG/ML (15.0-40.0) 12.8 MCG/ML (15.0-40.0) 16.2 MCG/ML (15.0-40.0) Platelet Estimate NORMAL (NORMAL) Platelet Morphology Comment NORMAL (NORMAL) Target Cells 1+ (NORMAL) Total Protein 6.7 GM/DL (6.4-8.2) 6.8 GM/DL (6.4-8.2) Albumin 2.5 GM/DL (3.4-5.0) 2.4 GM/DL (3.4-5.0) Alkaline Phosphatase 97 U/L (45-117) 98 U/L (45-117) Aspartate Amino Transf (AST/SGOT) 30 U/L (15-37) 29 U/L (15-37) Alanine Aminotransferase (ALT/SGPT) 22 U/L (10-53) 16 U/L (10-53) Total Bilirubin 0.3 MG/DL (0.2-1.0) 0.3 MG/DL (0.2-1.0) Total Creatine Kinase 49 U/L (26-192) 42 U/L (26-192) Ammonia LESS THAN 10 MCMOL/L Result Diagram: 9/12/17 0327 06/12/17 0327 Imaging Last Impressions Chest X-Ray 06/12/17 0600 Signed Impressions: Service Date/Time: Monday, June 12, 2017 05:11 - CONCLUSION: 1. Support apparatus in good position, unchanged. Stable bilateral mild basilar airspace disease. Tree Alfred MD Head CT 06/05/17 0000 Signed Impressions: Service Date/Time: Tuesday, June 06, 2017 04:41 - CONCLUSION: 1. Senescent changes. 2. No significant interval change or acute intracranial abnormality. Rodri Leung MD Procedures CPR, resuscitation 06/01/17 INTUBATION 06/01/17 Intraosseous needle placement in left tibia 06/01/17 Central line placement 06/01/17 . Assessment and Plan Disease Oriented Problem List: (1) cardiac arrest, prolonged resuscitation (2) probable anoxic brain injury Comment: With seizure activity (3) end-stage renal disease (4) CHF (5) COPD (6) peripheral vascular disease (7) hypertension (8) obesity (9) asthma (10) gout (11) hypothyroidism (12) depression (13) arthritis (14) history of sleep apnea Symptom Scale: (1) dyspnea 0-10 Scale: Unable to quantify (2) pain 0-10 Scale: Unable to quantify (likely has musculoskeletal pain after the prolonged resuscitation) Pertinent Non-Medical Issues Psychosocial: for 32 years, 3 children (son age 45 in [place], son age 40 in [place], daughter age 38 in [facility]);, former [employer], 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 Spiritual: Judaism background Legal: The patient lacks capacity for decision-making, and it seems unlikely that she will regain that capacity. Her is the decision making proxy. Ethical issues impacting care: None . Important Contacts Berhane --[phone] (corrected phone number 06/08/17) . Prognosis Her prognosis is quite poor, as it appears she has had a profound anoxic brain injury, and she has multiple other comorbidities. . Code Status: Full Code Plan * FULL CODE -- confirmed aggressive goals "for now" with on 06/04/17, and on 06/07/17 * DECISION-MAKING: The patient lacks capacity for decision-making, and she will not regain that capacity. Her is the decision making proxy. * GOALS: 06/08/17: Discussion with for Luis at the bedside -- He understands that the brain damage seems to be severe, and that this is not similar to the previous time she was "in a coma" a few years ago. We talked about the possibility of "finding the right time to let her go peacefully," and he would like for us to have a meeting with him and other family members when they get into town next week some time, so that we would be able to explain to the rest of the family what the medical issues are and what the future looks like... * SYMPTOMS: Her dyspnea and likely pain is being managed in the [facility], I have no additional medication recommendations at this time. * Palliative Care will continue to follow the patient during this hospitalization. . Time Spent Total Floor Time (mins): 28 Face to Face Time (mins): 11 >50% Counseling/Coord of Care: Yes (d/w RN) Attestation To help prompt me to consider important information that might be impacting today's encounter and assessment, information from prior notes written by myself or my colleagues may have been "brought forward" into today's note. My signature on this note, however, is an attestation that I personally performed the exam, history, and/or decision-making noted today, and, unless otherwise indicated, the interactions with patient, family, and staff as well as the review of records all occurred today. I also attest that the listed assessment and stated plan reflect my best clinical judgment today based on the combination of historical information, prior notes, and today's exam/ interactions. When time spent is documented, it refers only to time spent today by the signer, or if indicated, combined time spent today by collaborating physician/nurse practitioner. Rosy Reynoso MD Jun 12, 2017 14:31
[2017-06-12] MEDS: AZITHROMYCIN 250 MG TAB PO SCH (15:50)
--- NOTE | 2017-06-12 18:27 | HHI.CCPN ---
Subjective Remarks/Hospital Course Patient is 67-year-old female with multiple comorbidities which include end- stage renal disease on hemodialysis Sunday, Sunday, Sunday, hypertension, COPD on home oxygen, morbid obesity with obstructive sleep apnea, CHF. The patient was at the dialysis center today, she reported to the staff that she did not feel well and all the sudden she became unresponsive. The patient was given CPR which was continued in en route to the hospital. She was in PEA arrest. The patient was given epi, bicarb and D50. After approximately 30 minutes. She had successful return of spontaneous circulation and was started on dopamine. The patient also was intubated and placed on full mechanical ventilation. Her ABG post intubation showed a pH of 7.39, CO2 45, pAO2 238 and bicarb 27 and saturation of 97%. Her laboratory data showed the potassium 4.1, creatinine 6.23 and corrected calcium of 7.3. Other significant labs showed mild leukocytosis with a Review WBC of 12.7. A chest x-ray post intubation showed a bilateral pulmonary infiltrates and ET tube approximately 4 cm above the isabel. In the ER she was given calcium gluconate and started on dopamine as stated above. Right femoral central line was attempted by the ED physician without any success. The patient was also seen by Dr. Macho francois in the ER from nephrology service and she is scheduled to undergo CT scan of the brain. The patient is unresponsive. 06/02 No events overnight. On fentanyl infusion for sedation however patient has her eyes open unresponsive. Afebrile. 06/03 No events overnight. Sedated with Fentanyl and intubated. On Levophed 11mics. EEG yesterday showed seizures started on Cerebyx. 06/04 Patient remains intubated and sedated with Versed and Fentanyl drip. Had seizure overnight given Ativan 1mg x1. Levophed down 1mic and on vasopressin. For HD today. T:100.4 last night 06/05 Patient remains intubated and sedated. On Levophed 1mic and Vasopressin. afebrile. Repeat EEG yesterday showed seizure like activity. 06/06 TMax 99.2. Vasopressin has been discontinued, the patient continues on Norepinephrine at 1 mcg. The patient has been transitioned to phenylephrine via peripheral IV low dose, to maintain MAP > 65 06/07 Afebrile. The patient continues to have leukocytosis, antibiotics changed per ID,Dr. Cazares following. Neurologically the patient continues on Versed infusion for continued seizure activity. Repeat EEG ordered, results pending. AED levels of phenobarbital,phenytoin, and valproic acid all remain subtherapeutic . Right groin femoral line was discontinued the patient remains with peripheral IVs, no vasopressors support needed. Wound care was consulted regarding dry ulcers on right foot and implementation of measures. 06/08: No acute events overnight. EEG performed today the patient continues to have seizure activity. Dr. Garcia notified the patient continues on phenobarbital, fosphenytoin and valproic acid level slightly increased but still remains subtherapeutic at this time. The propofol infusion and Topamax added to medication regimen. WBC count continues to increase most likely reactive. ID following patient continues on antibiotics. 06/09: The patient was noted to have spontaneous eye opening, tracking or following. The patient also was noted to have withdrawal to pain, which is changed from complete unresponsiveness noted for the last 3 days at which time patient was probably having subclinical seizure activity. Patient continues on propofol and low dose and Topamax was added to antiepileptic drug (AED) regimen yesterday. 06/10: Afebrile. Started on Kenney-Synephrine and a left IJ CVL was placed overnight. EEG continued with subclinical seizure activity. Unresponsive on the ventilator. Tolerating tube feeding. Subjective 06/11: Afebrile. Currently resting in bed. No gag reflexes AM. Going to feeding. Discussed with mother yesterday/sons are plain to coming from [place] in [place] this week. She is leaning towards comfort measures patient to be vent dependent and unresponsive. 06/12: No change in neurological status. Palliative care medicine team guide Dr. Reynoso attempted to contact family today unsuccessful. Dialysis today only to remove approximately 500 cc secondary to hemodynamic instability. Objective Vital Signs Date Time Temp Pulse Resp B/P (MAP) Pulse Ox O2 Delivery O2 Flow Rate FiO2 06/12/17 17:46 97 30 06/12/17 16:00 81 06/12/17 16:00 98.7 17 101/49 (66) Intake and Output 06/12/17 06/12/17 06/13/17 08:00 16:00 00:00 Intake Total 585 ml 200 ml Output Total 350 ml 500 ml Balance 235 ml -300 ml Result Diagram: 06/12/17 0327 06/12/17 0327 Imaging Last Impressions Chest X-Ray 06/10/17 0000 Signed Impressions: Service Date/Time: Saturday, June 10, 2017 07:02 - CONCLUSION: 1. Left IJ central line distal tip in the superior vena cava. No pneumothorax is seen. 2. Stable linear high density along the right pleural surface from uncertain etiology. There is also volume loss in the right lung. 3. Stable airspace opacity in the left mid and lower lung zone. Joshua Aguayo MD Head CT 06/05/17 0000 Signed Impressions: Service Date/Time: Tuesday, June 06, 2017 04:41 - CONCLUSION: 1. Senescent changes. 2. No significant interval change or acute intracranial abnormality. Rodri Leung MD Objective Remarks GENERAL: Patient is 67yo obese female s/p PEA arrest intubated , with spontaneous eye opening SKIN: Warm and dry. HEAD: Normocephalic. EYES: No scleral icterus. No injection or drainage. NECK: Supple, trachea midline. No JVD or lymphadenopathy. Orally intubated. Left IJ is clean dry and intact. CARDIOVASCULAR: Regular rate and rhythm without murmurs, gallops, or rubs. RESPIRATORY: Mechanical ventilation .Breath sounds equal bilaterally. No accessory muscle use. GASTROINTESTINAL: Abdomen soft, non-tender, nondistended. MUSCULOSKELETAL: No cyanosis, b/l mid foot amputation, noted dry ulcers 3 on the right foot with gauze dressing Neuro: GCS 9T E4 V1 M 4 Intubated, does not track, does not follow commands. No movement of extremities with the exception of withdraws to painful stimuli. Date of Insertion: Jun 10, 2017 Line: Central Venous Catheter Side: Left Location: Internal, Jugular A/P Assessment and Plan Neuro/Psych: Status epilepticus History of CVA Likely anoxic brain injury Currently on Diprivan at 10 mics grams per kilogram per minute and midazolam 7 mg an hour for sedation while intubated infusion for sedation/ and subclinical seizure activity. Monitor neuro status closely Goal of RASS -4-5 CT brain 6-no interval change CT brain /: atrophy no acute findings, EEG 8: Burst suppression every 3-5 seconds status/sharp activity. EEG /4: Seizure like activity likely related to severe anoxic brain injury. EEG 06/03: Epileptiform discharges EEG 06/02: Seizure activity, on fosphenytoin 100mg Q8, valproic acid, lorazepam 1mg Q4 PRN Neuro is following- Dr. Garcia. Currently on valproic acid 750 mg IV every 8 hours, fosphenytoin 250 mg IV every 8 hours, phenobarbital 100 mg IV every 8 hours and topiramate 50 mg by tube twice a day. Phenytoin level 6, valproic acid level LIII. Phenobarbital level 14 on 06/10 Holding gabapentin 300 mg by mouth 3 times a day Holding clonazepam 0.5 mg twice a day when necessary Holding cyclobenzaprine 10 mEq 3 times a day when necessary muscle relaxant Neurology following Dr. Garcia Pulm: Acute hypoxemic respiratory failure Obstructive sleep apnea COPD [facility] /02/27 Ventilator bundle Continue with vent support and maintain sats above 92%. Albuterol/ipratropium every 6 hours and albuterol aerosols every 2 hours when necessary 06/06 CXR Day 12 ET tube At home on albuterol/ipratropium nebulizers every 6 hours along with tiotropium 18 inhaled daily CV: PEA arrest Severe pulmonary hypertension Hypertension Dyslipidemia Claudication Peripheral vascular disease On midodrine 10 mg every Sunday with hemodialysis Monitor HR and BP maintain MAP> 65 mmHg. Lactic acid 1.2 Echo 06/01: EF 55-60%. Severe pulmonary hypertension Continue Aspirin 81 mg daily. Stress dose steroids- weaning Hydrocortisone 50mg IV Q8 Holding pentoxifylline 400 mg daily for claudication Renal/ End-stage renal disease on hemodialysis Sunday Left upper extremity fistula Secondary hyperparathyroidism Hypokalemia Monitor renal function I&Os and avoid nephrotoxins. Renal is following- Dr. Ling HD per renal. On calcium acetate 667 milligrams 3 times a day with meals. On sevelamer 800 mg 3 times a day at home Continue cinacalcet 90 mg by mouth daily for secondary hyperparathyroidism GI: Gastroesophageal reflux disease Tube feeds- Nepro with goal 40ml/hr Lansoprazole for GI prophylaxis Docusate sodium/senna 1 tablet twice a day for bowel regimen ID: Continue abx (metronidazole, ceftriaxone through 06/14 and azithromycin through ) monitor for signs of infections( fever and WBC). Per ID eval Follow up on blood 06/01: NGTD, sputum 06/01: normal resp kaylene, sputum 06/04 no growth Nasal washing is negative for influenza in the ED. Heme: Leukocytosis Anemia /normocytic Monitor CBC daily. Follow trends. Does not meet transfusion threshold at this time Endo: Hyperglycemia Gout History of hypothyroidism Sliding-scale insulin with Novulin R to maintain tingling euglycemia MSK: Morbid obesity Weight loss encouraged GI prophylaxis with lansoprazole 30 mg daily, DVT prophylaxis with SCDs./ heparin Subcu prophylaxis Lines: Left IJ CVL placed 06/10 Palliative care is following Wound care followingfor dry ulcers on right forefoot Level 3 Discussed with POST GRADUATE INTERN at bedside Physician Lauren Varghese MD Jun 12, 2017 18:27
--- NOTE | 2017-06-12 19:47 | HHI.PR ---
Review/Management Diagnosis/Plan: (1) Anoxic encephalopathy ICD Codes: G93.1 - Anoxic brain damage, not elsewhere classified Status: Acute Plan: periodic discharges reflective of anoxic injury refractory to multiple sz meds +brainstem reflexes on dilantin/phb/depakote; topamax; also on versed recs corrected dil 9.48 exam unchanged will follow peripherally Dr. Perez out of town probable poor prognosis with anoxia, renal failure, resp failure; higher likelihood for poor neurological recovery, comfort care reasonable (2) cardiac arrest, prolonged resuscitation Status: Acute (3) end-stage renal disease Status: Chronic (4) CHF Status: Chronic (5) COPD Status: Chronic Subjective Subjective Comments No acute events reported Active Medications Current Medications Medications (Trade) Dose Ordered Sig/Lois Route Start Time Stop Time Status Last Admin Miscellaneous Information 1 Q361D XX 06/01/17 14:15 06/01/17 14:15 (Chlorhexidine 2% Cloth) Taper DAILY@04 TOP 06/02/17 04:00 05/29/18 03:59 06/10/17 21:17 (Chlorhexidine 2% Cloth) 3 pack UNSCH PRN TOP 06/01/17 14:15 (Pat-Colace) 1 tab BID PO 06/01/17 21:00 06/12/17 19:40 (Milk Of Magnesia Liq) 30 ml Q12H PRN PO 06/01/17 14:15 (Senokot) 17.2 mg Q12H PRN PO 06/01/17 14:15 (Dulcolax Supp) 10 mg DAILY PRN RECTAL 06/01/17 14:15 (Lactulose Liq) 30 ml DAILY PRN PO 06/01/17 14:15 (Nephrocaps) 1 cap DAILY PO 06/01/17 16:00 06/12/17 08:29 Sodium Chloride 1,000 ml @ 0 mls/hr Q0M PRN OTHER 06/02/17 11:59 06/05/17 13:59 (Heparin Inj) 8,000 units UNSCH PRN IVF 06/02/17 12:00 Sodium Chloride 1,000 ml @ 200 mls/hr Q5H PRN IV 06/02/17 11:59 Sodium Chloride 1,000 ml @ 0 mls/hr Q0M PRN OTHER 06/02/17 11:59 (Mannitol Inj) 12.5 gm UNSCH PRN IV 06/02/17 12:00 (Albumin 25% Inj) 25 gm UNSCH PRN IV 06/02/17 12:00 06/12/17 09:27 (NS Flush) 5 ml UNSCH PRN IV FLUSH 06/02/17 12:00 06/12/17 08:28 (Heparin Inj) UNSCH PRN .XX 06/02/17 12:00 (Gentamicin (Dialysis) Inj) 20 mg UNSCH PRN IV 06/02/17 12:00 (Zofran Inj) 4 mg UNSCH PRN IV 06/02/17 12:00 (Tylenol) 650 mg UNSCH PRN PO 06/02/17 12:00 06/03/17 20:09 (Benadryl) 25 mg UNSCH PRN PO 06/02/17 12:00 (Nitrostat Sl) 0.4 mg UNSCH PRN SL 06/02/17 12:00 (Catapres) 0.1 mg UNSCH PRN PO 06/02/17 12:00 (Gelfoam 12 Mm/7 Mm Top) 1 foam UNSCH PRN TOP 06/02/17 12:00 06/12/17 09:26 (Ativan Inj) 1 mg Q4H PRN IV PUSH 06/02/17 16:00 06/04/17 02:25 Midazolam HCl 100 ml @ 2 mls/hr TITRATE PRN IV 06/03/17 09:30 06/12/17 19:39 (D50w (Vial) Inj) 50 ml UNSCH PRN IV 06/03/17 14:00 (Glucagon Inj) 1 mg UNSCH PRN OTHER 06/03/17 14:00 (NovoLIN R SUPPLEMENTAL SCALE) 1 Q4H SQ 06/03/17 14:00 06/04/17 10:00 (Heparin Inj) 5,000 units Q12HR SQ 06/04/17 09:00 06/12/17 19:39 (Epogen Inj) 10,000 units UNSCH PRN IV 06/06/17 13:30 06/12/17 09:26 (Phoslo) 667 mg TID PO 06/06/17 18:00 06/12/17 18:14 (Brethine Inj) 1 mg UNSCH PRN SQ 06/06/17 13:45 (Zithromax) 500 mg Q24H PO 06/07/17 16:00 06/13/17 16:01 06/12/17 15:50 Ceftriaxone Sodium 2000 mg/ Sodium Chloride 100 ml @ 200 mls/hr Q24H IV 06/07/17 11:00 06/14/17 10:59 06/12/17 13:00 (Flagyl) 500 mg Q8HR PO 06/07/17 14:00 06/14/17 13:59 06/12/17 13:01 (Aspirin Chew) 81 mg DAILY CHEW 06/08/17 09:00 06/12/17 08:29 Propofol 100 ml @ 17.25 mls/ hr TITRATE PRN IV 06/08/17 17:15 06/12/17 19:38 (Topamax) 50 mg BID OG-TUBE 06/09/17 09:00 06/12/17 19:39 Valproate Sodium 750 mg/Sodium Chloride 107.5 ml @ 105 mls/hr Q8HR IV 06/09/17 22:00 06/12/17 12:59 (Tears Naturale Opth Soln) 1 drop TID EACH EYE 06/09/17 18:00 06/12/17 18:15 (SoluCORTEF INJ) 50 mg Q8HR IV PUSH 06/10/17 14:00 06/12/17 13:00 (Beneprotein Powder) 1 pack TID G-TUBE 06/10/17 18:00 06/12/17 18:00 (Prevacid Odt) 30 mg DAILY NG 06/11/17 09:00 06/12/17 08:29 (Dilantin Infatabs Chew) 250 mg Q8HR PO 06/11/17 14:04 06/12/17 13:01 (Luminal Inj) 120 mg Q8HR IV 06/11/17 22:00 06/12/17 13:01 (Neurontin) 100 mg BID PO 06/11/17 16:15 06/12/17 19:39 Allergies Allergies Coded Allergies diatrizoate meglumine (Unverified Allergy, Severe, Joint Pain, 05/15/17) gadobenic acid (Unverified Allergy, Severe, Joint Pain, 05/15/17) gadodiamide (Unverified Allergy, Severe, Joint Pain, 05/15/17) gadoteridol (Unverified Allergy, Severe, Joint Pain, 05/15/17) iodine (Unverified Allergy, Severe, ORAL CONTRAST OK, 05/15/17) iodixanol (Unverified Allergy, Severe, Joint Pain, 05/15/17) iohexol (Unverified Allergy, Severe, Joint Pain, 05/15/17) morphine (Unverified Allergy, Severe, ITCH, 05/15/17) potassium iodide (Unverified Allergy, Severe, ORAL CONTRAST OK, 05/15/17) povidone-iodine (Unverified Allergy, Severe, ORAL CONTRAST OK, 05/15/17) sodium iodide (Unverified Allergy, Severe, ORAL CONTRAST OK, 05/15/17) sodium iodide (Unverified Allergy, Severe, ORAL CONTRAST OK, 05/15/17) vancomycin (Unverified Allergy, Unknown, 05/15/17) Review of Systems All other ROS: Unable to obtain Exam I&O / VS 06/12/17 06/12/17 06/13/17 15:00 23:00 07:00 Intake Total 407.5 ml 665 ml Output Total 500 ml 200 ml Balance -92.5 ml 465 ml IV Total 407.5 ml Tube Feeding 465 ml Other 200 ml Stool Total 200 ml Hemodialysis 500 ml Vital Signs Date Time Temp Pulse Resp B/P (MAP) Pulse Ox O2 Delivery O2 Flow Rate FiO2 06/12/17 18:00 81 06/12/17 17:46 97 30 06/12/17 16:00 30 06/12/17 16:00 81 06/12/17 16:00 98.7 83 17 101/49 (66) 95 06/12/17 14:00 77 06/12/17 12:00 30 06/12/17 12:00 78 06/12/17 12:00 98.4 73 16 110/52 (71) 98 06/12/17 10:00 77 06/12/17 09:05 100 30 06/12/17 08:00 68 06/12/17 08:00 98.9 68 14 92/54 (67) 99 06/12/17 08:00 30 06/12/17 06:00 69 06/12/17 04:00 98.7 67 16 91/50 (64) 100 06/12/17 04:00 69 06/12/17 04:00 35 06/12/17 03:46 100 30 06/12/17 02:00 67 06/12/17 00:00 98.3 67 16 93/52 (66) 100 06/12/17 00:00 35 06/12/17 00:00 67 06/11/17 22:00 67 06/11/17 21:30 99 30 06/11/17 20:00 98.7 69 16 99/54 (69) 100 06/11/17 20:00 35 06/11/17 20:00 69 Exam Comments awake, non-verbal, not following, intubated, on versed gtt, exam unchanged Objective Micro and Labs Laboratory Tests Test 06/12/17 03:27 White Blood Count 20.7 Red Blood Count 3.36 Hemoglobin 9.3 Hematocrit 29.8 Mean Corpuscular Volume 88.5 Mean Corpuscular Hemoglobin 27.6 Mean Corpuscular Hemoglobin Concent 31.2 Red Cell Distribution Width 17.8 Platelet Count 327 Mean Platelet Volume 8.6 Neutrophils (%) (Auto) 84.2 Lymphocytes (%) (Auto) 8.1 Monocytes (%) (Auto) 6.8 Eosinophils (%) (Auto) 0.8 Basophils (%) (Auto) 0.1 Neutrophils # (Auto) 17.4 Lymphocytes # (Auto) 1.7 Monocytes # (Auto) 1.4 Eosinophils # (Auto) 0.2 Basophils # (Auto) 0.0 CBC Comment DIFF FINAL Differential Comment Blood Urea Nitrogen 82 Creatinine 6.41 Random Glucose 95 Total Protein 6.8 Albumin 2.4 Calcium Level 8.5 Phosphorus Level 4.4 Magnesium Level 2.4 Alkaline Phosphatase 98 Aspartate Amino Transf (AST/SGOT) 29 Alanine Aminotransferase (ALT/SGPT) 16 Total Bilirubin 0.3 Sodium Level 141 Potassium Level 3.8 Chloride Level 101 Carbon Dioxide Level 24.9 Anion Gap 15 Estimat Glomerular Filtration Rate 8 Ammonia LESS THAN 10 Total Creatine Kinase 42 Phenytoin (Dilantin) Level 5.5 Valproic Acid (Depakene) Level 45 Phenobarbital Level 16.2 Date/Time Source Procedure Growth Status 06/01/17 11:40 Blood Peripheral Aerobic Blood Culture - Final NO GROWTH IN 5 DAYS Complete 06/01/17 11:40 Blood Peripheral Anaerobic Blood Culture - Final NO GROWTH IN 5 DAYS Complete 06/04/17 05:00 Sputum Endotracheal Gram Stain - Final Complete 06/04/17 05:00 Sputum Endotracheal Sputum Culture - Final MODERATE GROWTH NORMAL RESPIRATORY CLEMENTINE Complete London Felder MD Jun 12, 2017 19:47
[2017-06-12] MEDS: CHLORHEXIDINE GLUCONATE 2 % 1 PACK (2 CLOTHS) TOP SCH (20:08)
[2017-06-13] VITALS (19 sets, daily range): BP systolic 82–119; BP diastolic 42–56; PULSE 69–79; RESP 0–18; TEMP 98.4–99.7; O2SAT 0–100
[2017-06-13] MEDS: INSULIN NovoLIN REGULAR SUPPLEMENTAL SCALE SQ SCH ×3 (01:44→09:17)
[2017-06-13 03:55] LABS: PHENOBARBITAL 15.9 MCG/ML (15.0-40.0)
[2017-06-13] MEDS: PROPOFOL 1000 MG/100 ML INJ 100 ML IV PRN (03:57)
[2017-06-13] MEDS: metroNIDAZOLE 500 MG TAB PO SCH ×3 (04:18→22:06)
[2017-06-13] MEDS: PHENYTOIN 50 MG CHEWABLE TAB PO SCH ×3 (04:19→22:07)
[2017-06-13] MEDS: VALPROATE INJ 750 MG in SODIUM CHLORIDE 0.9% INJ 100 ML IV SCH ×3 (04:19→22:07)
[2017-06-13] MEDS: HYDROCORTISONE SOD SUCCINATE 100 MG VIAL IV PUSH SCH ×2 (04:19→13:12)
[2017-06-13] MEDS: DOCUSATE SODIUM 50 MG/SENNA 8.6 MG TAB PO SCH (09:00)
[2017-06-13] MEDS: HEPARIN SODIUM - SQ 10,000 UNITS/ML VIAL SQ SCH ×2 (09:17→22:07)
[2017-06-13] MEDS: TOPIRAMATE 25 MG TAB OG-TUBE SCH ×2 (09:17→22:08)
[2017-06-13] MEDS: ASPIRIN 81 MG CHEW TAB CHEW SCH (09:17)
[2017-06-13] MEDS: CALCIUM ACETATE 667 MG CAP PO SCH ×3 (09:17→16:57)
[2017-06-13] MEDS: BENEPROTEIN POWDER 1 PACK G-TUBE SCH ×3 (09:17→16:57)
[2017-06-13] MEDS: VITAMIN B CMPLX/VITC/FOLIC AC CAP PO SCH (09:17)
[2017-06-13] MEDS: GABAPENTIN 100 MG CAP PO SCH ×2 (09:17→22:06)
[2017-06-13] MEDS: ARTIFICIAL TEARS OPTH SOLN 15 ML BTL EACH EYE SCH ×3 (09:17→16:57)
[2017-06-13] MEDS: LANSOPRAZOLE SOLUTAB 30 MG TAB NG SCH (09:17)
--- NOTE | 2017-06-13 10:33 | HHI.NPPN ---
Subjective General Problems: Anemia Renal Failure: Chronic, End Stage Renal Disease Interval History Hypotensive today. She is having bedside EEG. Minimal fluid removal yesterday with dialysis due to hemodynamic instability. (Amberly Stevenson) Review of Systems General General Remarks unable to obtain (Amberly Stevenson) Objective Data Data Vital Signs Date Time Temp Pulse Resp B/P (MAP) Pulse Ox O2 Delivery O2 Flow Rate FiO2 06/13/17 08:13 100 30 06/13/17 06:00 69 06/13/17 04:08 100 30 06/13/17 04:00 98.9 77 14 82/53 (63) 99 06/13/17 04:00 30 06/13/17 04:00 77 06/13/17 02:00 71 06/13/17 01:47 100 30 06/13/17 00:00 71 06/13/17 00:00 30 06/13/17 00:00 98.7 77 17 92/51 (65) 95 06/12/17 22:00 71 06/12/17 21:09 100 30 06/12/17 20:00 77 06/12/17 20:00 30 06/12/17 20:00 98.9 77 14 101/64 (76) 99 06/12/17 18:00 81 06/12/17 17:46 97 30 06/12/17 16:00 30 06/12/17 16:00 81 06/12/17 16:00 98.7 83 17 101/49 (66) 95 06/12/17 14:00 77 06/12/17 12:00 30 06/12/17 12:00 78 06/12/17 12:00 98.4 73 16 110/52 (71) 98 (Amberly Stevenson) -: 06/12/17 0327 06/12/17 0327 Imaging Last Impressions Chest X-Ray 06/12/17 0600 Signed Impressions: Service Date/Time: Monday, June 12, 2017 05:11 - CONCLUSION: 1. Support apparatus in good position, unchanged. Stable bilateral mild basilar airspace disease. Tree Alfred MD Head CT 06/05/17 0000 Signed Impressions: Service Date/Time: Tuesday, June 06, 2017 04:41 - CONCLUSION: 1. Senescent changes. 2. No significant interval change or acute intracranial abnormality. Rodri Leung MD Drip Comment versed, fentanyl (Amberly Stevenson B. SOLIDWOR[employer] DESIGNER) Physical Exam General Appearance: Well Developed, Obese Appearance Remarks intubated, unresponsive (ElvaAmberly B. SOLIDWOR[employer] DESIGNER) Eyes Eye Exam: Pupils Equal Eye Remarks pupils 3 mm unresponsive bilaterally (ElvaAmberly B. SOL[employer]WOR[employer] DESIGNER) Throat Throat Exam: Oral Mucosa [place] & Moist Throat Remarks ETT (ElvaAmberly B. SOL[employer]WOR[employer] DESIGNER) Neck Neck Exam: Neck Supple (ElvaAmberly B. SOL[employer]WOR[employer] DESIGNER) Pulmonary Resp Exam: Breath Sounds Equal, No Distress, Decreased Bases Resp Remarks vented lung sounds (ElvaAmberly B. SOL[employer]WORKS DESIGNER) Cardiology CV Exam: Regular, Normal Sinus Rhythm, Good Perfusion (ElvaAmberly B. SOL[employer]WORKS DESIGNER) Gastrointestinal/Abdomen GI Exam: Soft, Non-Tender, Bowel Sounds Present (Florentin Stevensonon B. SOL[employer]WORKS DESIGNER) Musculoskeletal MS Exam: Joints Intact, Normal Tone, Unable to Ambulate (ElvaAmberly B. SOL[employer]WOR[employer] DESIGNER) Integumentary Skin Exam: Clear, Warm, Dry, Intact (Florentin Stevensonon B. SOL[employer]WOR[employer] DESIGNER) Extremeties Extremities Exam: No Edema, Pedal Pulses Palpable Extremeties Remarks AVF left Arm, + thrill, bruit (ElvaAmberly B. SOL[employer]WORKS DESIGNER) Neurologic Neuro Exam: Unresponsive, Sedated (ElvaAmberly B. SOL[employer]WORKS DESIGNER) Assessment/Plan Discussed Condition Comment D/W nurse assigned to the patient Assessment Summary: Anemia of CKD, End Stage Renal Disease Problem List: (1) ESRD (end stage renal disease) ICD Codes: N18.6 - End stage renal disease Status: Chronic Plan: 500 ml UF yesterday due to hypotension Continue dialysis TTS if family desires to continue aggressive care Monitor electrolytes, replace as needed Has functioning AVF for HD treatments. Avoid IVF, Gadolinium in contraindicated Poor prognosis. Hospice is appropriate. (2) Cardiac arrest ICD Codes: I46.9 - Cardiac arrest, cause unspecified Plan: she is unresponsive on ventilator She has suffered anoxic brain injury, EEG being performed today, await results Poor prognosis. Neuro and palliative are following Awaiting family decision regarding goals of care; apparently they were unable to be reached yesterday. (3) Metabolic bone disease ICD Codes: E88.9 - Metabolic disorder, unspecified; M90.80 - Osteopathy in diseases classified elsewhere, unspecified site Status: Acute Plan: intermittently monitor phosphorus level continue Calcium acetate via OG tube Sensipar was stopped given clinical scenario (4) Anemia of chronic renal failure Status: Chronic Plan: continue epogen with HD Follow Hb (5) Hypertension Status: Chronic Plan: Has been hypotensive; Antihypertensives on hold. Monitor blood pressure (6) Leukocytosis ICD Codes: D72.829 - Elevated white blood cell count, unspecified Plan: ID following, treating for possible aspiration Pneumonia On Zithromax, Flagyl, and Rocephin with a stop date of today, 06/13 Monitor clinically. She is afebrile. (Amberly Stevenson) Problem List: (1) ESRD (end stage renal disease) ICD Codes: N18.6 - End stage renal disease Status: Chronic Plan: 500 ml UF yesterday due to hypotension Continue dialysis TTS if family desires to continue aggressive care Monitor electrolytes, replace as needed Has functioning AVF for HD treatments. Avoid IVF, Gadolinium in contraindicated Poor prognosis. Hospice is appropriate. (2) Cardiac arrest ICD Codes: I46.9 - Cardiac arrest, cause unspecified Plan: she is unresponsive on ventilator She has suffered anoxic brain injury, EEG being performed today, await results Poor prognosis. Neuro and palliative are following Awaiting family decision regarding goals of care; apparently they were unable to be reached yesterday. (3) Metabolic bone disease ICD Codes: E88.9 - Metabolic disorder, unspecified; M90.80 - Osteopathy in diseases classified elsewhere, unspecified site Status: Acute Plan: intermittently monitor phosphorus level continue Calcium acetate via OG tube Sensipar was stopped given clinical scenario (4) Anemia of chronic renal failure Status: Chronic Plan: continue epogen with HD Follow Hb (5) Hypertension Status: Chronic Plan: Has been hypotensive; Antihypertensives on hold. Monitor blood pressure (6) Leukocytosis ICD Codes: D72.829 - Elevated white blood cell count, unspecified Plan: ID following, treating for possible aspiration Pneumonia On Zithromax, Flagyl, and Rocephin with a stop date of today, 06/13 Monitor clinically. She is afebrile. Plan patient was seen and examined. Agree with above assessment and plan. Poor prognosis. (Tyler Ling MD) Amberly Stevenson [facility] Jun 13, 2017 10:33 Tyler Ling MD Jun 13, 2017 18:37
--- NOTE | 2017-06-13 12:05 | HHI.HCPN ---
Reason for visit a. To assist with evaluation and management of symptoms including: dyspnea , pain, seizures b. To assist medical decision maker(s) with: better understanding of current medical conditions; weighing benefits/burdens of medical treatment options; making medical treatment decisions. . Subjective/Interval History INTERVAL NOTE: The patient remains unresponsive. She had recent seizure activity, and the EEGs have shown seizure activity that is felt to be due to the anoxic injury, persistent in spite of antiseizure meds. She is now on Dilantin, phenobarbital , gabapentin, topiramate, and valproate, as well as PRN lorazepam. She has had no signs of neurologic improvement. She remains afebrile. A follow-up EEG and MRI have been ordered. I was able to reach the patient's today, see below... . Family/friend interactions I spoke with the patient's by telephone, and he understands that there are no signs of neurologic improvement, and that the prognosis is extremely poor for any meaningful neurologic recovery. He is considering compassionate withdrawal of life support; he is trying to arrange a meeting with the patient' s daughter, the patient's parents, himself, and with us at (Palliative Care) on Sunday to discuss the process and timing of withdrawal and to answer any questions the family may have. . Advance Directives Living Will: Never completed Health Care Surrogate: Never completed Durable Power of [employer] Teacher: Never completed Advance Directive Specifics Significant change in goals: Considering compassionate withdrawal of life support . Objective Vital Signs Date Time Temp Pulse Resp B/P (MAP) Pulse Ox O2 Delivery O2 Flow Rate FiO2 06/13/17 10:28 100 30 06/13/17 10:00 79 06/13/17 08:13 100 30 06/13/17 08:00 98.7 75 17 119/55 (76) 100 06/13/17 08:00 30 06/13/17 08:00 75 06/13/17 06:00 69 06/13/17 04:08 100 30 06/13/17 04:00 98.9 77 14 82/53 (63) 99 06/13/17 04:00 30 06/13/17 04:00 77 06/13/17 02:00 71 06/13/17 01:47 100 30 06/13/17 00:00 71 06/13/17 00:00 30 06/13/17 00:00 98.7 77 17 92/51 (65) 95 06/12/17 22:00 71 06/12/17 21:09 100 30 06/12/17 20:00 77 06/12/17 20:00 30 06/12/17 20:00 98.9 77 14 101/64 (76) 99 06/12/17 18:00 81 06/12/17 17:46 97 30 06/12/17 16:00 30 06/12/17 16:00 81 06/12/17 16:00 98.7 83 17 101/49 (66) 95 06/12/17 14:00 77 06/12/17 12:00 30 06/12/17 12:00 78 06/12/17 12:00 98.4 73 16 110/52 (71) 98 Intake & Output 06/13/17 06/13/17 07:00 19:00 Intake Total 630 ml Output Total 225 ml Balance 405 ml Tube Feeding 455 ml Other 175 ml Stool Total 225 ml Physical Exam CONSTITUTIONAL/GENERAL: This is an elderly, obese, unresponsive patient, in no apparent distress. TUBES/LINES/DRAINS: ET tube, IV access EYES: Pupils equal and round but I cannot detect any reaction to light. No scleral icterus. NECK: Trachea midline. Supple. CARDIOVASCULAR: Regular rate and rhythm without murmurs, gallops, or rubs. Unable to palpate foot or ankle pulses. RESPIRATORY/CHEST: Symmetric, unlabored respirations with ventilator. Scattered rhonchi. GASTROINTESTINAL: Abdomen soft, obese. No obvious hepato-splenomegaly, or palpable masses. No guarding. Bowel sounds present. MUSCULOSKELETAL: Extremities without clubbing, cyanosis. No mottling or clubbing. NEUROLOGICAL: Unresponsive to voice, touch, or pain PSYCHIATRIC: Unable to assess due to clinical condition . Diagnostic Tests Laboratory Laboratory Tests Test 06/11/17 03:03 06/12/17 03:27 06/13/17 03:15 White Blood Count 22.5 TH/MM3 (4.0-11.0) 20.7 TH/MM3 (4.0-11.0) Red Blood Count 3.41 MIL/MM3 (4.00-5.30) 3.36 MIL/MM3 (4.00-5.30) Hemoglobin 9.4 GM/DL (11.6-15.3) 9.3 GM/DL (11.6-15.3) Hematocrit 30.2 % (35.0-46.0) 29.8 % (35.0-46.0) Mean Corpuscular Volume 88.7 FL (80.0-100.0) 88.5 FL (80.0-100.0) Mean Corpuscular Hemoglobin 27.6 PG (27.0-34.0) 27.6 PG (27.0-34.0) Mean Corpuscular Hemoglobin Concent 31.1 % (32.0-36.0) 31.2 % (32.0-36.0) Red Cell Distribution Width 17.9 % (11.6-17.2) 17.8 % (11.6-17.2) Platelet Count 341 TH/MM3 (150-450) 327 TH/MM3 (150-450) Mean Platelet Volume 8.8 FL (7.0-11.0) 8.6 FL (7.0-11.0) Neutrophils (%) (Auto) 84.9 % (16.0-70.0) 84.2 % (16.0-70.0) Lymphocytes (%) (Auto) 8.6 % (9.0-44.0) 8.1 % (9.0-44.0) Monocytes (%) (Auto) 6.1 % (0.0-8.0) 6.8 % (0.0-8.0) Eosinophils (%) (Auto) 0.3 % (0.0-4.0) 0.8 % (0.0-4.0) Basophils (%) (Auto) 0.1 % (0.0-2.0) 0.1 % (0.0-2.0) Neutrophils # (Auto) 19.1 TH/MM3 (1.8-7.7) 17.4 TH/MM3 (1.8-7.7) Lymphocytes # (Auto) 1.9 TH/MM3 (1.0-4.8) 1.7 TH/MM3 (1.0-4.8) Monocytes # (Auto) 1.4 TH/MM3 (0-0.9) 1.4 TH/MM3 (0-0.9) Eosinophils # (Auto) 0.1 TH/MM3 (0-0.4) 0.2 TH/MM3 (0-0.4) Basophils # (Auto) 0.0 TH/MM3 (0-0.2) 0.0 TH/MM3 (0-0.2) CBC Comment AUTO DIFF DIFF FINAL Differential Comment AUTO DIFF CONFIRMED Platelet Estimate NORMAL (NORMAL) Platelet Morphology Comment NORMAL (NORMAL) Target Cells 1+ (NORMAL) Blood Urea Nitrogen 69 MG/DL (7-18) 82 MG/DL (7-18) Creatinine 5.55 MG/DL (0.50-1.00) 6.41 MG/DL (0.50-1.00) Random Glucose 106 MG/DL (74-106) 95 MG/DL (74-106) Total Protein 6.7 GM/DL (6.4-8.2) 6.8 GM/DL (6.4-8.2) Albumin 2.5 GM/DL (3.4-5.0) 2.4 GM/DL (3.4-5.0) Calcium Level 8.8 MG/DL (8.5-10.1) 8.5 MG/DL (8.5-10.1) Phosphorus Level 4.0 MG/DL (2.5-4.9) 4.4 MG/DL (2.5-4.9) Magnesium Level 2.2 MG/DL (1.5-2.5) 2.4 MG/DL (1.5-2.5) Alkaline Phosphatase 97 U/L (45-117) 98 U/L (45-117) Aspartate Amino Transf (AST/SGOT) 30 U/L (15-37) 29 U/L (15-37) Alanine Aminotransferase (ALT/SGPT) 22 U/L (10-53) 16 U/L (10-53) Total Bilirubin 0.3 MG/DL (0.2-1.0) 0.3 MG/DL (0.2-1.0) Sodium Level 141 MEQ/L (136-145) 141 MEQ/L (136-145) Potassium Level 3.4 MEQ/L (3.5-5.1) 3.8 MEQ/L (3.5-5.1) Chloride Level 101 MEQ/L (98-107) 101 MEQ/L (98-107) Carbon Dioxide Level 27.4 MEQ/L (21.0-32.0) 24.9 MEQ/L (21.0-32.0) Anion Gap 13 MEQ/L (5-15) 15 MEQ/L (5-15) Estimat Glomerular Filtration Rate 9 ML/MIN (>89) 8 ML/MIN (>89) Total Creatine Kinase 49 U/L (26-192) 42 U/L (26-192) Phenytoin (Dilantin) Level 6.7 MCG/ML (10.0-20.0) 5.5 MCG/ML (10.0-20.0) 5.3 MCG/ML (10.0-20.0) Valproic Acid (Depakene) Level 53 MCG/ML (50-100) 45 MCG/ML (50-100) 51 MCG/ML (50-100) Phenobarbital Level 12.8 MCG/ML (15.0-40.0) 16.2 MCG/ML (15.0-40.0) 15.9 MCG/ML (15.0-40.0) Ammonia LESS THAN 10 MCMOL/L Result Diagram: 06/12/17 0327 06/12/17 0327 Procedures CPR, resuscitation 06/01/17 INTUBATION 06/01/17 Intraosseous needle placement in left tibia 06/01/17 Central line placement 06/01/17 . Assessment and Plan Disease Oriented Problem List: (1) cardiac arrest, prolonged resuscitation (2) probable anoxic brain injury Comment: With seizure activity (3) end-stage renal disease (4) CHF (5) COPD (6) peripheral vascular disease (7) hypertension (8) obesity (9) asthma (10) gout (11) hypothyroidism (12) depression (13) arthritis (14) history of sleep apnea Symptom Scale: (1) dyspnea 0-10 Scale: Unable to quantify (2) pain 0-10 Scale: Unable to quantify (likely has musculoskeletal pain after the prolonged resuscitation) Pertinent Non-Medical Issues Psychosocial: for 32 years, 3 children (son age 45 in [place], son age 40 in [place], daughter age 38 in [facility]);, 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 Spiritual: Bahai background Legal: The patient lacks capacity for decision-making, and it seems unlikely that she will regain that capacity. Her is the decision making proxy. Ethical issues impacting care: None . Important Contacts Berhane --[phone] (corrected phone number 06/08/17) . Prognosis Her prognosis is quite poor, as it appears she has had a profound anoxic brain injury, and she has multiple other comorbidities. . Code Status: Full Code Plan * FULL CODE --aggressive goals * DECISION-MAKING: The patient lacks capacity for decision-making, and she will not regain that capacity. Her is the decision making proxy. * GOALS: 06/13/17: I spoke with the patient's by telephone, and he understands that there are no signs of neurologic improvement, and that the prognosis is extremely poor for any meaningful neurologic recovery. He is considering compassionate withdrawal of life support; he is trying to arrange a meeting with the patient's daughter, the patient's parents, himself, and with us at (Palliative Care) on Sunday to discuss the process and timing of withdrawal and to answer any questions the family may have. * SYMPTOMS: Her dyspnea and likely pain is being managed in the [facility], I have no additional medication recommendations at this time. * Palliative Care will continue to follow the patient during this hospitalization. . Time Spent Total Floor Time (mins): 40 Face to Face Time (mins): 11 >50% Counseling/Coord of Care: Yes (d/w RN) Attestation To help prompt me to consider important information that might be impacting today's encounter and assessment, information from prior notes written by myself or my colleagues may have been "brought forward" into today's note. My signature on this note, however, is an attestation that I personally performed the exam, history, and/or decision-making noted today, and, unless otherwise indicated, the interactions with patient, family, and staff as well as the review of records all occurred today. I also attest that the listed assessment and stated plan reflect my best clinical judgment today based on the combination of historical information, prior notes, and today's exam/ interactions. When time spent is documented, it refers only to time spent today by the signer, or if indicated, combined time spent today by collaborating physician/nurse practitioner. Rosy Reynoso MD Jun 13, 2017 12:05
[2017-06-13] MEDS: cefTRIAXone INJ 2,000 MG in SODIUM CHLORIDE 0.9% INJ 100 ML IV SCH (13:11)
[2017-06-13] MEDS ORDERED: HYOSCYAMINE 0.125 MG TAB PO PRN (14:45)
--- NOTE | 2017-06-13 14:48 | HHI.CCPN ---
Subjective Remarks/Hospital Course Patient is 67-year-old female with multiple comorbidities which include end- stage renal disease on hemodialysis Sunday, Sunday, Sunday, hypertension, COPD on home oxygen, morbid obesity with obstructive sleep apnea, CHF. The patient was at the dialysis center today, she reported to the staff that she did not feel well and all the sudden she became unresponsive. The patient was given CPR which was continued in en route to the hospital. She was in PEA arrest. The patient was given epi, bicarb and D50. After approximately 30 minutes. She had successful return of spontaneous circulation and was started on dopamine. The patient also was intubated and placed on full mechanical ventilation. Her ABG post intubation showed a pH of 7.39, CO2 45, pAO2 238 and bicarb 27 and saturation of 97%. Her laboratory data showed the potassium 4.1, creatinine 6.23 and corrected calcium of 7.3. Other significant labs showed mild leukocytosis with a Review WBC of 12.7. A chest x-ray post intubation showed a bilateral pulmonary infiltrates and ET tube approximately 4 cm above the isabel. In the ER she was given calcium gluconate and started on dopamine as stated above. Right femoral central line was attempted by the ED physician without any success. The patient was also seen by Dr. Macho francois in the ER from nephrology service and she is scheduled to undergo CT scan of the brain. The patient is unresponsive. 06/02 No events overnight. On fentanyl infusion for sedation however patient has her eyes open unresponsive. Afebrile. 06/03 No events overnight. Sedated with Fentanyl and intubated. On Levophed 11mics. EEG yesterday showed seizures started on Cerebyx. 06/04 Patient remains intubated and sedated with Versed and Fentanyl drip. Had seizure overnight given Ativan 1mg x1. Levophed down 1mic and on vasopressin. For HD today. T:100.4 last night 06/05 Patient remains intubated and sedated. On Levophed 1mic and Vasopressin. afebrile. Repeat EEG yesterday showed seizure like activity. 06/06 TMax 99.2. Vasopressin has been discontinued, the patient continues on Norepinephrine at 1 mcg. The patient has been transitioned to phenylephrine via peripheral IV low dose, to maintain MAP > 65 06/07 Afebrile. The patient continues to have leukocytosis, antibiotics changed per ID,Dr. Cazares following. Neurologically the patient continues on Versed infusion for continued seizure activity. Repeat EEG ordered, results pending. AED levels of phenobarbital,phenytoin, and valproic acid all remain subtherapeutic . Right groin femoral line was discontinued the patient remains with peripheral IVs, no vasopressors support needed. Wound care was consulted regarding dry ulcers on right foot and implementation of measures. 06/08: No acute events overnight. EEG performed today the patient continues to have seizure activity. Dr. Garcia notified the patient continues on phenobarbital, fosphenytoin and valproic acid level slightly increased but still remains subtherapeutic at this time. The propofol infusion and Topamax added to medication regimen. WBC count continues to increase most likely reactive. ID following patient continues on antibiotics. 06/09: The patient was noted to have spontaneous eye opening, tracking or following. The patient also was noted to have withdrawal to pain, which is changed from complete unresponsiveness noted for the last 3 days at which time patient was probably having subclinical seizure activity. Patient continues on propofol and low dose and Topamax was added to antiepileptic drug (AED) regimen yesterday. 06/10: Afebrile. Started on Kenney-Synephrine and a left IJ CVL was placed overnight. EEG continued with subclinical seizure activity. Unresponsive on the ventilator. Tolerating tube feeding. 06/11: Afebrile. Currently resting in bed. No gag reflexes AM. Going to feeding. Discussed with mother yesterday/sons are plain to coming from [place] in [place] this week. She is leaning towards comfort measures patient to be vent dependent and unresponsive. 06/12: No change in neurological status. Palliative care medicine donor services team leader Dr. Reynoso attempted to contact family today unsuccessful. Dialysis today only to remove approximately 500 cc secondary to hemodynamic instability. Subjective 06/13: no neurologic improvements. palliative talking with family. awaiting MRI results. Objective Vital Signs Date Time Temp Pulse Resp B/P (MAP) Pulse Ox O2 Delivery O2 Flow Rate FiO2 06/13/17 13:06 0 30 06/13/17 10:00 79 06/13/17 08:00 98.7 17 119/55 (76) Intake and Output 06/13/17 06/13/17 06/13/17 07:59 15:59 23:59 Intake Total 630 ml Output Total 225 ml Balance 405 ml Result Diagram: 06/12/17 0327 06/12/17 0327 Imaging Last Impressions Chest X-Ray 06/10/17 0000 Signed Impressions: Service Date/Time: Saturday, June 10, 2017 07:02 - CONCLUSION: 1. Left IJ central line distal tip in the superior vena cava. No pneumothorax is seen. 2. Stable linear high density along the right pleural surface from uncertain etiology. There is also volume loss in the right lung. 3. Stable airspace opacity in the left mid and lower lung zone. Jsohua Aguayo MD Head CT 06/05/17 0000 Signed Impressions: Service Date/Time: Tuesday, June 06, 2017 04:41 - CONCLUSION: 1. Senescent changes. 2. No significant interval change or acute intracranial abnormality. Rodri Leung MD Objective Remarks GENERAL: Patient is 67yo obese female s/p PEA arrest intubated , with spontaneous eye opening SKIN: Warm and dry. HEAD: Normocephalic. EYES: No scleral icterus. No injection or drainage. NECK: Supple, trachea midline. No JVD or lymphadenopathy. Orally intubated. Left IJ is clean dry and intact. CARDIOVASCULAR: Regular rate and rhythm without murmurs, gallops, or rubs. RESPIRATORY: Mechanical ventilation .Breath sounds equal bilaterally. No accessory muscle use. GASTROINTESTINAL: Abdomen soft, non-tender, nondistended. MUSCULOSKELETAL: No cyanosis, b/l mid foot amputation, noted dry ulcers 3 on the right foot with gauze dressing Neuro: GCS 9T E4 V1 M 4 Intubated, does not track, does not follow commands. No movement of extremities with the exception of withdraws to painful stimuli. Date of Insertion: Jun 10, 2017 Line: Central Venous Catheter Side: Left Location: Internal, Jugular A/P Assessment and Plan Assessment: 67yF s/p PEA arrest with severe anoxic brain injury. poor prognosis. palliative on board. no real hope for meaningful recovery. Neuro/Psych: Status epilepticus History of CVA Anoxic brain injury Currently on Diprivan at 10 mics grams per kilogram per minute and midazolam 7 mg an hour for sedation while intubated infusion for sedation/ and subclinical seizure activity. Monitor neuro status closely Goal of RASS -4-5 CT brain 06/06-no interval change CT brain 06/01: atrophy no acute findings, EEG 06/08: Burst suppression every 3-5 seconds status/sharp activity. EEG 06/04: Seizure like activity likely related to severe anoxic brain injury. EEG 06/03: Epileptiform discharges EEG 06/02: Seizure activity, on fosphenytoin 100mg Q8, valproic acid, lorazepam 1mg Q4 PRN Neuro is following- Dr. Garcia. Currently on valproic acid 750 mg IV every 8 hours, fosphenytoin 250 mg IV every 8 hours, phenobarbital 100 mg IV every 8 hours and topiramate 50 mg by tube twice a day. Phenytoin level 6, valproic acid level LIII. Phenobarbital level 14 on 06/10 Holding gabapentin 300 mg by mouth 3 times a day Holding clonazepam 0.5 mg twice a day when necessary Holding cyclobenzaprine 10 mEq 3 times a day when necessary muscle relaxant Neurology following Dr. Garcia Pulm: Acute hypoxemic respiratory failure Obstructive sleep apnea COPD PRVC 14/550/30 Ventilator bundle Continue with vent support and maintain sats above 92%. Albuterol/ipratropium every 6 hours and albuterol aerosols every 2 hours when necessary 06/06 CXR Day ET tube At home on albuterol/ipratropium nebulizers every 6 hours along with tiotropium 18 inhaled daily CV: PEA arrest Severe pulmonary hypertension Hypertension Dyslipidemia Claudication Peripheral vascular disease On midodrine 10 mg every Sunday with hemodialysis Monitor HR and BP maintain MAP> 65 mmHg. Lactic acid 1.2 Echo 06/01: EF 55-60%. Severe pulmonary hypertension Continue Aspirin 81 mg daily. Stress dose steroids- weaning Hydrocortisone 50mg IV Q8, continue taper: 50 q12h, 50 q24h, 25 q24h, then off. Holding pentoxifylline 400 mg daily for claudication Renal/ End-stage renal disease on hemodialysis Sunday Left upper extremity fistula Secondary hyperparathyroidism Hypokalemia Monitor renal function I&Os and avoid nephrotoxins. Renal is following- Dr. Ling HD per renal. On calcium acetate 667 milligrams 3 times a day with meals. On sevelamer 800 mg 3 times a day at home Continue cinacalcet 90 mg by mouth daily for secondary hyperparathyroidism GI: Gastroesophageal reflux disease Tube feeds- Nepro with goal 40ml/hr Lansoprazole for GI prophylaxis Docusate sodium/senna 1 tablet twice a day for bowel regimen ID: Continue abx (metronidazole, ceftriaxone through 06/14 and azithromycin through ) monitor for signs of infections( fever and WBC). Per ID eval Follow up on blood 06/01: NGTD, sputum 06/01: normal resp kaylene, sputum 06/04 no growth Nasal washing is negative for influenza in the ED. Heme: Leukocytosis Anemia /normocytic Monitor CBC daily. Follow trends. Does not meet transfusion threshold at this time Endo: Hyperglycemia Gout History of hypothyroidism Sliding-scale insulin with Novulin R to maintain tingling euglycemia MSK: Morbid obesity Weight loss encouraged GI prophylaxis with lansoprazole 30 mg daily, DVT prophylaxis with SCDs./ heparin Subcu prophylaxis Lines: Left IJ CVL placed 06/10. d/c central line and obtain piv's. Palliative care is following Wound care followingfor dry ulcers on right forefoot Discussed with PROFESSOR OF LITERACY at bedside Leonidas Sunshine MD Jun 13, 2017 14:48
[2017-06-13] MEDS: AZITHROMYCIN 250 MG TAB PO SCH (16:57)
[2017-06-13] MEDS: MIDAZOLAM 100 MG/100 ML INJ 100 ML IV PRN (18:47)
--- NOTE | 2017-06-13 19:35 | MG ---
cc: GULSHAN MIKE Lab No: [id number] Date: 06/13/2017 Age: 67 Sex: F Race: __ TECHNIQUE 17 channel EEG. DESCRIPTION The background rhythm shows bilateral PLEDS. There are bilateral epileptiform discharges seen periodically occurring every 2-3 seconds lasting about 1-2 seconds in duration. In between these episodes, there is a diffuse delta activity. There are no lateralizing features. INTERPRETATION Abnormal study consistent with severe slowing as well as bilateral PLEDS. MD JOE Ray/SIERRA /7:00 PM /7:26 PM
[2017-06-14] VITALS (20 sets, daily range): BP systolic 85–128; BP diastolic 41–58; PULSE 67–83; RESP 14–25; TEMP 97.9–99.6; O2SAT 96–100
[2017-06-14] MEDS: HYDROCORTISONE SOD SUCCINATE 100 MG VIAL IV PUSH SCH ×2 (06:01→12:58)
[2017-06-14] MEDS: PHENYTOIN 50 MG CHEWABLE TAB PO SCH ×3 (06:02→22:26)
[2017-06-14] MEDS: metroNIDAZOLE 500 MG TAB PO SCH (06:03)
[2017-06-14] MEDS: VALPROATE INJ 750 MG in SODIUM CHLORIDE 0.9% INJ 100 ML IV SCH ×3 (06:03→22:26)
[2017-06-14] MEDS: VITAMIN B CMPLX/VITC/FOLIC AC CAP PO SCH (08:01)
[2017-06-14] MEDS: ASPIRIN 81 MG CHEW TAB CHEW SCH (08:01)
[2017-06-14] MEDS: CALCIUM ACETATE 667 MG CAP PO SCH ×3 (08:01→17:13)
[2017-06-14] MEDS: GABAPENTIN 100 MG CAP PO SCH ×2 (08:01→21:10)
[2017-06-14] MEDS: LANSOPRAZOLE SOLUTAB 30 MG TAB NG SCH (08:02)
[2017-06-14] MEDS: BENEPROTEIN POWDER 1 PACK G-TUBE SCH ×3 (08:02→17:13)
[2017-06-14] MEDS: ARTIFICIAL TEARS OPTH SOLN 15 ML BTL EACH EYE SCH ×3 (08:02→17:13)
[2017-06-14] MEDS: HEPARIN SODIUM - SQ 10,000 UNITS/ML VIAL SQ SCH ×2 (08:02→21:10)
[2017-06-14] MEDS: TOPIRAMATE 25 MG TAB OG-TUBE SCH ×2 (08:02→21:09)
[2017-06-14] MEDS: ALBUMIN HUMAN 25% 25 GM/100 ML BAGP IV PRN ×2 (08:24→08:25)
[2017-06-14] MEDS: EPOETIN ALFA 10,000 UNITS/ML VIAL IV PRN (08:24)
[2017-06-14] MEDS: GELATIN 12 MM/7 MM FOAM TOP PRN (08:24)
--- NOTE | 2017-06-14 10:08 | HHI.NPPN ---
Subjective General Problems: Anemia Renal Failure: Chronic, End Stage Renal Disease Interval History Borderline hypotensive, not on pressors. Seen during bedside dialysis. She remains unresponsive on ventilator. (Amberly Stevenson) Review of Systems General General Remarks unable to obtain (Amberly Stevenson) Objective Data Data 06/14/17 06/15/17 19:00 07:00 Intake Total 200 ml Balance 200 ml IV Total 200 ml Vital Signs Date Time Temp Pulse Resp B/P (MAP) Pulse Ox O2 Delivery O2 Flow Rate FiO2 06/14/17 08:45 100 30 06/14/17 08:00 67 06/14/17 08:00 30 06/14/17 08:00 98.6 67 14 116/52 (73) 100 06/14/17 06:00 73 06/14/17 04:12 100 30 06/14/17 04:00 99.6 73 18 100/50 (67) 96 06/14/17 04:00 30 06/14/17 04:00 73 06/14/17 02:00 69 06/14/17 00:17 100 30 06/14/17 00:00 30 06/14/17 00:00 69 06/14/17 00:00 97.9 70 20 85/41 (56) 96 06/13/17 22:00 69 06/13/17 20:26 99 30 06/13/17 20:00 99.7 75 18 88/44 (59) 96 06/13/17 20:00 69 06/13/17 20:00 30 06/13/17 18:00 78 06/13/17 17:44 100 30 06/13/17 16:00 72 06/13/17 16:00 30 06/13/17 16:00 98.9 72 0 89/42 (58) 100 06/13/17 14:00 75 06/13/17 13:06 0 30 06/13/17 12:00 98.4 75 14 100/56 (71) 99 06/13/17 12:00 75 06/13/17 12:00 30 06/13/17 10:28 100 30 (Amberly Stevenson) -: 06/12/17 0327 06/12/17 0327 Imaging Last 72 hours Impressions Chest X-Ray 06/12/17 0600 Signed Impressions: Service Date/Time: Monday, June 12, 2017 05:11 - CONCLUSION: 1. Support apparatus in good position, unchanged. Stable bilateral mild basilar airspace disease. Tree Alfred MD Drip Comment versed, fentanyl (Amberly Stevenson) Physical Exam General Appearance: Well Developed, Sleeping, Obese Appearance Remarks intubated, unresponsive (Amberly Stevenson WINDOWS SERVER SUPPORT TECHNICIAN) Eyes Eye Exam: Pupils Equal Eye Remarks pupils 3 mm unresponsive bilaterally (Amberly Stevenson WINDOWS SERVER SUPPORT TECHNICIAN) Throat Throat Exam: Oral Mucosa [place] & Moist Throat Remarks ETT (Amberly Stevenson WINDOWS SERVER SUPPORT TECHNICIAN) Neck Neck Exam: Neck Supple (Amberly Stevenson) Pulmonary Resp Exam: Breath Sounds Equal, No Distress, Decreased Bases Resp Remarks vented lung sounds (Amberly StevensonP) Cardiology CV Exam: Regular, Normal Sinus Rhythm, Good Perfusion (Amberly Stevenson) Gastrointestinal/Abdomen GI Exam: Soft, Non-Tender, Bowel Sounds Present (Amberly Stevenson) Musculoskeletal MS Exam: Joints Intact, Normal Tone, Unable to Ambulate (Amberly Stevenson) Integumentary Skin Exam: Clear, Warm, Dry, Intact (Amberly Stevenson) Extremeties Extremities Exam: No Edema, Pedal Pulses Palpable Extremeties Remarks AVF left Arm (accessed during HD) (Amberly Stevenson) Neurologic Neuro Exam: Unresponsive, Sedated (Amberly Stevenson) Assessment/Plan Discussed Condition Comment HD nurse, bedside talent acquisition specialist Summary: Anemia of CKD, End Stage Renal Disease Problem List: (1) ESRD (end stage renal disease) ICD Codes: N18.6 - End stage renal disease Status: Chronic Plan: Continue dialysis TTS if family desires to continue aggressive care Seen during dialysis today on a 3K bath, 340 BFR, goal 500ml-1L if BP tolerated Given albumin Monitor electrolytes, replace as needed Avoid IVF, Gadolinium in contraindicated Poor prognosis. Hospice is appropriate. (2) Cardiac arrest ICD Codes: I46.9 - Cardiac arrest, cause unspecified Plan: she is unresponsive on ventilator She has suffered anoxic brain injury, had EEG 06/13 Poor prognosis. Neuro and palliative are following Awaiting family decision regarding goals of care; apparently they will be in tomorrow (Sunday) to discuss withdrawal of life support. (3) Metabolic bone disease ICD Codes: E88.9 - Metabolic disorder, unspecified; M90.80 - Osteopathy in diseases classified elsewhere, unspecified site Status: Acute Plan: intermittently monitor phosphorus level continue Calcium acetate via OG tube (4) Anemia of chronic renal failure Status: Chronic Plan: continue epogen with HD Follow Hb (5) Hypertension Status: Chronic Plan: Recent hypotension; Antihypertensives on hold. Monitor blood pressure (6) Leukocytosis ICD Codes: D72.829 - Elevated white blood cell count, unspecified Plan: ID following, treating for possible aspiration Pneumonia Off Zithromax; Flagyl, and Rocephin continue until 06/14 Monitor clinically. She is afebrile. (Amberly Stevenson) Plan patient was seen and examined. Agree with above assessment and plan. Poor prognosis continues. Withdrawal of life support is appropriate. (Tyler Ling MD) Amberly Stevenson Jun 14, 2017 10:08 Tyler Ling MD Jun 15, 2017 13:38
--- NOTE | 2017-06-14 10:51 | HHI.HCPN ---
Spoke with patient's , Berhane. Palliative care family meeting scheduled for tomorrow, 06-15-17 at 1pm. Kath Roper MSW, TRENCH TRIMMER FINE Jun 14, 2017 10:51
[2017-06-14] MEDS: MIDAZOLAM 100 MG/100 ML INJ 100 ML IV PRN (12:36)
--- NOTE | 2017-06-14 12:55 | HHI.HCPN ---
Reason for visit a. To assist with evaluation and management of symptoms including: dyspnea , pain, seizures b. To assist medical decision maker(s) with: better understanding of current medical conditions; weighing benefits/burdens of medical treatment options; making medical treatment decisions. . Subjective/Interval History INTERVAL NOTE: Pt is unresponsive on my visit. On dipravan and other seizure medication mainly for seizures. MRI schedule later on today. . Family/friend interactions We have schedule for a family meeting with at 1 pm tomorrow. Advance Directives Living Will: Never completed Health Care Surrogate: Never completed Durable Power of Taxation Economist: Never completed Objective Vital Signs Date Time Temp Pulse Resp B/P (MAP) Pulse Ox O2 Delivery O2 Flow Rate FiO2 06/14/17 12:06 100 30 06/14/17 10:00 71 06/14/17 08:45 100 30 06/14/17 08:00 67 06/14/17 08:00 30 06/14/17 08:00 98.6 67 14 116/52 (73) 100 06/14/17 06:00 73 06/14/17 04:12 100 30 06/14/17 04:00 99.6 73 18 100/50 (67) 96 06/14/17 04:00 30 06/14/17 04:00 73 06/14/17 02:00 69 06/14/17 00:17 100 30 06/14/17 00:00 30 06/14/17 00:00 69 06/14/17 00:00 97.9 70 20 85/41 (56) 96 06/13/17 22:00 69 06/13/17 20:26 99 30 06/13/17 20:00 99.7 75 18 88/44 (59) 96 06/13/17 20:00 69 06/13/17 20:00 30 06/13/17 18:00 78 06/13/17 17:44 100 30 06/13/17 16:00 72 06/13/17 16:00 30 06/13/17 16:00 98.9 72 0 89/42 (58) 100 06/13/17 14:00 75 06/13/17 13:06 0 30 Intake & Output 06/14/17 06/14/17 07:00 19:00 Intake Total 735 ml 200 ml Output Total 300 ml 1000 ml Balance 435 ml -800 ml IV Total 396 ml 200 ml Tube Feeding 339 ml Output Urine Total 0 ml Stool Total 300 ml Hemodialysis 1000 ml Physical Exam CONSTITUTIONAL/GENERAL: This is an elderly, obese, unresponsive patient, in no apparent distress. TUBES/LINES/DRAINS: ET tube, IV access EYES: Pupils equal and round but I cannot detect any reaction to light. No scleral icterus. NECK: Trachea midline. Supple. CARDIOVASCULAR: Regular rate and rhythm without murmurs, gallops, or rubs. Unable to palpate foot or ankle pulses. RESPIRATORY/CHEST: Symmetric, unlabored respirations with ventilator. Scattered rhonchi. GASTROINTESTINAL: Abdomen soft, obese. No obvious hepato-splenomegaly, or palpable masses. No guarding. Bowel sounds present. MUSCULOSKELETAL: Extremities without clubbing, cyanosis. No mottling or clubbing. NEUROLOGICAL: Unresponsive to voice, touch, or pain PSYCHIATRIC: Unable to assess due to clinical condition . Diagnostic Tests Laboratory Laboratory Tests Test 06/12/17 03:27 06/13/17 03:15 06/14/17 04:45 White Blood Count 20.7 TH/MM3 (4.0-11.0) Red Blood Count 3.36 MIL/MM3 (4.00-5.30) Hemoglobin 9.3 GM/DL (11.6-15.3) Hematocrit 29.8 % (35.0-46.0) Mean Corpuscular Volume 88.5 FL (80.0-100.0) Mean Corpuscular Hemoglobin 27.6 PG (27.0-34.0) Mean Corpuscular Hemoglobin Concent 31.2 % (32.0-36.0) Red Cell Distribution Width 17.8 % (11.6-17.2) Platelet Count 327 TH/MM3 (150-450) Mean Platelet Volume 8.6 FL (7.0-11.0) Neutrophils (%) (Auto) 84.2 % (16.0-70.0) Lymphocytes (%) (Auto) 8.1 % (9.0-44.0) Monocytes (%) (Auto) 6.8 % (0.0-8.0) Eosinophils (%) (Auto) 0.8 % (0.0-4.0) Basophils (%) (Auto) 0.1 % (0.0-2.0) Neutrophils # (Auto) 17.4 TH/MM3 (1.8-7.7) Lymphocytes # (Auto) 1.7 TH/MM3 (1.0-4.8) Monocytes # (Auto) 1.4 TH/MM3 (0-0.9) Eosinophils # (Auto) 0.2 TH/MM3 (0-0.4) Basophils # (Auto) 0.0 TH/MM3 (0-0.2) CBC Comment DIFF FINAL Differential Comment Blood Urea Nitrogen 82 MG/DL (7-18) Creatinine 6.41 MG/DL (0.50-1.00) Random Glucose 95 MG/DL (74-106) Total Protein 6.8 GM/DL (6.4-8.2) Albumin 2.4 GM/DL (3.4-5.0) Calcium Level 8.5 MG/DL (8.5-10.1) Phosphorus Level 4.4 MG/DL (2.5-4.9) Magnesium Level 2.4 MG/DL (1.5-2.5) Alkaline Phosphatase 98 U/L (45-117) Aspartate Amino Transf (AST/SGOT) 29 U/L (15-37) Alanine Aminotransferase (ALT/SGPT) 16 U/L (10-53) Total Bilirubin 0.3 MG/DL (0.2-1.0) Sodium Level 141 MEQ/L (136-145) Potassium Level 3.8 MEQ/L (3.5-5.1) Chloride Level 101 MEQ/L (98-107) Carbon Dioxide Level 24.9 MEQ/L (21.0-32.0) Anion Gap 15 MEQ/L (5-15) Estimat Glomerular Filtration Rate 8 ML/MIN (>89) Ammonia LESS THAN 10 MCMOL/L Total Creatine Kinase 42 U/L (26-192) Phenytoin (Dilantin) Level 5.5 MCG/ML (10.0-20.0) 5.3 MCG/ML (10.0-20.0) 6.0 MCG/ML (10.0-20.0) Valproic Acid (Depakene) Level 45 MCG/ML (50-100) 51 MCG/ML (50-100) 48 MCG/ML (50-100) Phenobarbital Level 16.2 MCG/ML (15.0-40.0) 15.9 MCG/ML (15.0-40.0) Result Diagram: 06/12/17 0327 06/12/17 0327 Procedures CPR, resuscitation 06/01/17 INTUBATION 06/01/17 Intraosseous needle placement in left tibia 06/01/17 Central line placement 06/01/17 . Assessment and Plan Disease Oriented Problem List: (1) cardiac arrest, prolonged resuscitation (2) probable anoxic brain injury Comment: With seizure activity (3) end-stage renal disease (4) CHF (5) COPD (6) peripheral vascular disease (7) hypertension (8) obesity (9) asthma (10) gout (11) hypothyroidism (12) depression (13) arthritis (14) history of sleep apnea Symptom Scale: (1) dyspnea 0-10 Scale: Unable to quantify (2) pain 0-10 Scale: Unable to quantify (likely has musculoskeletal pain after the prolonged resuscitation) Pertinent Non-Medical Issues Psychosocial: for 32 years, 3 children (son age 45 in [place], son age 40 in [place], daughter age 38 in [facility]);, former [employer], 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 Spiritual: Yarsani background Legal: The patient lacks capacity for decision-making, and it seems unlikely that she will regain that capacity. Her is the decision making proxy. Ethical issues impacting care: None . Important Contacts Berhane --[phone] (corrected phone number 06/08/17) . Prognosis Her prognosis is quite poor, as it appears she has had a profound anoxic brain injury, and she has multiple other comorbidities. . Code Status: Full Code Plan * FULL CODE --aggressive goals * DECISION-MAKING: The patient lacks capacity for decision-making, and she will not regain that capacity. Her is the decision making proxy. * GOALS: Patient's understands that there are no signs of neurologic improvement, and that the prognosis is extremely poor for any meaningful neurologic recovery. He is considering compassionate withdrawal of life support ; he is trying to arrange a meeting with the patient's daughter, the patient's parents, himself, and with us at (Palliative Care) on Sunday at 1PM. * SYMPTOMS: Her dyspnea and likely pain is being managed in the C, I have no additional medication recommendations at this time. * Palliative Care will continue to follow the patient during this hospitalization. . Attestation To help prompt me to consider important information that might be impacting today's encounter and assessment, information from prior notes written by myself or my colleagues may have been "brought forward" into today's note. My signature on this note, however, is an attestation that I personally performed the exam, history, and/or decision-making noted today, and, unless otherwise indicated, the interactions with patient, family, and staff as well as the review of records all occurred today. I also attest that the listed assessment and stated plan reflect my best clinical judgment today based on the combination of historical information, prior notes, and today's exam/ interactions. When time spent is documented, it refers only to time spent today by the signer, or if indicated, combined time spent today by collaborating physician/nurse practitioner. David May MD Jun 14, 2017 12:55
--- NOTE | 2017-06-14 13:50 | HHI.IDPN ---
Subjective Subjective Remarks Patient is a 67-year-old female, brought into the hospital after she became unresponsive during her hemodialysis. She has end-stage renal disease, and goes to dialysis every Sunday and Sunday. She was apparently undergoing dialysis on the day of admission, and she told the staff that she was not feeling well. She suddenly became unresponsive. EMS was called, and patient was found to be in PEA arrest. She underwent CPR, and intubation. After about 30 minutes she was successfully resuscitated and was on pressors. Patient has remained intubated since. She has since then been having problem with seizure activity on her EEG. Patient is currently on multiple anticonvulsant agents. Her WBC has remained elevated. She started having fevers about 2 days ago. She's had blood culture that were negative, and sputum culture with normal respiratory [place]. Patient is anuric. She has been on Zosyn empirically. She has a femoral line on the right. She's had diarrhea , and stool for C. difficile is negative. Patient currently is sedated on the vent. She is still on pressors. Infectious disease consultation has been requested to evaluate the patient with fevers and persistent leukocytosis. Notes reviewed D/W RN Temps ok Sedated on the vent Family meeting tomorrow with palliative team Had HD No change in neuro status WBC remain elevated CXR no change To finish Abx today Antibiotics Rocephin Flagyl Past Medical History End-stage renal disease on hemodialysis Sunday, Sunday, Sunday Hypertension Hyperlipidemia anemia of chronic disease Arthritis. Congestive heart failure. Cerebrovascular accident. Gastroesophageal reflux disease. Obstructive sleep apnea on C-PAP q.h.s. Hypothyroidism Vertigo Anxiety / depression Chronic obstructive pulmonary disease. Past Surgical History Previous bilateral TMA x3 Left upper extremity AV fistula Left breast lumpectomy Partial hysterectomy. Allergies: Coded Allergies: diatrizoate meglumine (Unverified Allergy, Severe, Joint Pain, 05/15/17) pt states she is not allergic to this gadobenic acid (Unverified Allergy, Severe, Joint Pain, 05/15/17) pt states she is not allergic to this gadodiamide (Unverified Allergy, Severe, Joint Pain, 05/15/17) pt states she is not allergic to this gadoteridol (Unverified Allergy, Severe, Joint Pain, 05/15/17) pt states she is not allergic to this iodine (Unverified Allergy, Severe, ORAL CONTRAST OK, 05/15/17) pt states she is not allergic to this iodixanol (Unverified Allergy, Severe, Joint Pain, 05/15/17) pt states she is not allergic to this iohexol (Unverified Allergy, Severe, Joint Pain, 05/15/17) pt states she is not allergic to this morphine (Unverified Allergy, Severe, ITCH, 05/15/17) pt states she is not allergic to this potassium iodide (Unverified Allergy, Severe, ORAL CONTRAST OK, 05/15/17) pt states she is not allergic to this povidone-iodine (Unverified Allergy, Severe, ORAL CONTRAST OK, 05/15/17) pt states she is not allergic to this sodium iodide (Unverified Allergy, Severe, ORAL CONTRAST OK, 05/15/17) pt states she is not allergic to this sodium iodide (Unverified Allergy, Severe, ORAL CONTRAST OK, 05/15/17) pt states she is not allergic to this vancomycin (Unverified Allergy, Unknown, 05/15/17) PT STATES UNKNOWN IF SHE IS ALLERGIC. Objective . Vital Signs Date Time Temp Pulse Resp B/P (MAP) Pulse Ox O2 Delivery O2 Flow Rate FiO2 06/14/17 12:06 100 30 06/14/17 12:00 77 06/14/17 12:00 30 06/14/17 12:00 98.6 77 25 116/58 (77) 99 06/14/17 10:00 71 06/14/17 08:45 100 30 06/14/17 08:00 67 06/14/17 08:00 30 06/14/17 08:00 98.6 67 14 116/52 (73) 100 06/14/17 06:00 73 06/14/17 04:12 100 30 06/14/17 04:00 99.6 73 18 100/50 (67) 96 06/14/17 04:00 30 06/14/17 04:00 73 06/14/17 02:00 69 06/14/17 00:17 100 30 06/14/17 00:00 30 06/14/17 00:00 69 06/14/17 00:00 97.9 70 20 85/41 (56) 96 06/13/17 22:00 69 06/13/17 20:26 99 30 06/13/17 20:00 99.7 75 18 88/44 (59) 96 06/13/17 20:00 69 06/13/17 20:00 30 06/13/17 18:00 78 06/13/17 17:44 100 30 06/13/17 16:00 72 06/13/17 16:00 30 06/13/17 16:00 98.9 72 0 89/42 (58) 100 06/13/17 14:00 75 06/14/17 06/14/17 06/15/17 15:00 23:00 07:00 Intake Total 200 ml Output Total 1000 ml Balance -800 ml IV Total 200 ml Hemodialysis 1000 ml Imaging Last 48 hours Impressions Chest X-Ray 06/08/17 0600 Signed Impressions: Service Date/Time: Thursday, June 08, 2017 05:56 - CONCLUSION: 1. Grossly stable ETT and NGT. 2. Cardiomegaly with positive fluid balance. 3. Stable bilateral lower lung zone airspace disease. 4. No significant interval change. Rodri Leung MD Chest X-Ray 06/07/17 0600 Signed Impressions: Service Date/Time: June 05:48 - CONCLUSION: 1. Stable ETT and NGT. 2. Cardiomegaly with mild positive fluid balance. 3. Stable bibasilar airspace disease, likely atelectasis. 4. Probable trace left pleural effusion. 5. No significant interval change. Rodri Leung MD Chest X-Ray 06/06/17 0000 Signed Impressions: Service Date/Time: Tuesday, June 06, 2017 03:30 - CONCLUSION: 1. Cardiomegaly with positive fluid balance. 2. Stable mild bibasilar airspace disease, likely atelectasis. 3. No significant interval change. Rodri Leung MD Head CT 06/05/17 0000 Signed Impressions: Service Date/Time: Tuesday, June 06, 2017 04:41 - CONCLUSION: 1. Senescent changes. 2. No significant interval change or acute intracranial abnormality. Rodri Leung MD Physical Exam GENERAL: sedated, on the vent, not in respiratory distress. SKIN: Warm and dry. No generalized rash HEAD: Atraumatic. Normocephalic. No temporal wasting, or tenderness. EYES: Mart conjunctiva. No petechia or hemorrhage. Has dirty sclera. No injection or drainage. EARS, NOSE AND THROAT: Nose without bleeding or purulent nasal discharge. She is orally intubated. NECK: Trachea midline. Supple, no meningeal signs CARDIOVASCULAR: Regular rate and rhythm. No murmurs, rubs or gallops heard RESPIRATORY: Coarse BS giovanny, decreased at bases EXTREMITIES: No clubbing, cyanosis, or edema. Giovanny TMA, has dry dressing on his R foot. NEUROLOGICAL: Sedated PSYCHIATRIC: Unable to assess Assessment & Plan Remarks IMPRESSION Fevers, etiology, temps better - ?aspiration Persistent leukocytosis, etiology? - still with ongoing seizures on her EEG Respiratory failure, possible aspiration PNA Seizures due to anoxic injury S/P PEA arrest Likely with anoxic injury ESRD on HD MWF RECOMMENDATION To finish Abx today Monitor off Abx Monitor progress Family deciding goals of Rx - family meeting tomorrow D/W Jasmyne Nunez MD Jun 14, 2017 13:50
--- NOTE | 2017-06-14 16:28 | RADRPT ---
EXAM DATE/TIME: 06/14/2017 15:53 [facility] COMPARISON: MRI BRAIN W/O CONTRAST, January 04, 2016, 16:13. INDICATIONS : Stroke. MEDICAL HISTORY : Renal disease, end stage. Hypothyroidism. Sleep apnea. CHF. GERD. HTN. Hyperlipidemia. COPD. SURGICAL HISTORY : section. AV fistula. Bi-lateral mid-foot amputation. Partial hysterectomy. Left breast l umpectomy. ENCOUNTER: Subsequent ACUITY: 1 day PAIN SCORE: Nonresponsive. LOCATION: TECHNIQUE: Multiplanar, multisequence MRI of the brain was performed without contrast. FINDINGS: CEREBRUM: The ventricles are normal for age. No evidence of midline shift, mass lesion, hemorrhage or acute in farction. No extraaxial fluid collections are seen. The pituitary gland and suprasellar cistern are normal in configuration. WHITE MATTER: There is diffuse white matter signal abnormality most consistent with moderate microvascular ischemic demyelinative change. This is similar to previous exam of 01/04/16. POSTERIOR FOSSA: The cerebellum and brainstem are intact. The 4th ventricle is midline. The cerebellopontine angle is unremarkable. The cerebellar tonsils are normal in position. DIFFUSION IMAGING: No focal areas of restricted diffusion are seen. No evidence of acute infarction. EXTRACRANIAL: The orbits are intact. There is an air-fluid level and extensive mucoperiosteal thickening involving the ethmoid and sphenoid sinuses. CONCLUSION: 1. No findings to indicate acute cortical infarct. 2. Extensive T2 signal abnormality in the white matter most consistent with moderate microvascular is chemic demyelinative change. 3. Air-fluid level in the sphenoid sinus with mucoperiosteal thickening suggesting sinusitis. 4. There is fluid filling the mastoid air cells. Caesar Arguelles MD on June 14, 2017 at 16:23 Board Certified Radiologist. This report was verified electronically.
--- NOTE | 2017-06-14 20:40 | HHI.CCPN ---
Subjective Remarks/Hospital Course Patient is 67-year-old female with multiple comorbidities which include end- stage renal disease on hemodialysis Sunday, Sunday, Sunday, hypertension, COPD on home oxygen, morbid obesity with obstructive sleep apnea, CHF. The patient was at the dialysis center today, she reported to the staff that she did not feel well and all the sudden she became unresponsive. The patient was given CPR which was continued in en route to the hospital. She was in PEA arrest. The patient was given epi, bicarb and D50. After approximately 30 minutes. She had successful return of spontaneous circulation and was started on dopamine. The patient also was intubated and placed on full mechanical ventilation. Her ABG post intubation showed a pH of 7.39, CO2 45, pAO2 238 and bicarb 27 and saturation of 97%. Her laboratory data showed the potassium 4.1, creatinine 6.23 and corrected calcium of 7.3. Other significant labs showed mild leukocytosis with a Review WBC of 12.7. A chest x-ray post intubation showed a bilateral pulmonary infiltrates and ET tube approximately 4 cm above the isabel. In the ER she was given calcium gluconate and started on dopamine as stated above. Right femoral central line was attempted by the ED physician without any success. The patient was also seen by Dr. Macho francois in the ER from nephrology service and she is scheduled to undergo CT scan of the brain. The patient is unresponsive. 06/02 No events overnight. On fentanyl infusion for sedation however patient has her eyes open unresponsive. Afebrile. 06/03 No events overnight. Sedated with Fentanyl and intubated. On Levophed 11mics. EEG yesterday showed seizures started on Cerebyx. 06/04 Patient remains intubated and sedated with Versed and Fentanyl drip. Had seizure overnight given Ativan 1mg x1. Levophed down 1mic and on vasopressin. For HD today. T:100.4 last night 06/05 Patient remains intubated and sedated. On Levophed 1mic and Vasopressin. afebrile. Repeat EEG yesterday showed seizure like activity. 06/06 TMax 99.2. Vasopressin has been discontinued, the patient continues on Norepinephrine at 1 mcg. The patient has been transitioned to phenylephrine via peripheral IV low dose, to maintain MAP > 65 06/07 Afebrile. The patient continues to have leukocytosis, antibiotics changed per ID,Dr. Cazares following. Neurologically the patient continues on Versed infusion for continued seizure activity. Repeat EEG ordered, results pending. AED levels of phenobarbital,phenytoin, and valproic acid all remain subtherapeutic . Right groin femoral line was discontinued the patient remains with peripheral IVs, no vasopressors support needed. Wound care was consulted regarding dry ulcers on right foot and implementation of measures. 06/08: No acute events overnight. EEG performed today the patient continues to have seizure activity. Dr. Garcia notified the patient continues on phenobarbital, fosphenytoin and valproic acid level slightly increased but still remains subtherapeutic at this time. The propofol infusion and Topamax added to medication regimen. WBC count continues to increase most likely reactive. ID following patient continues on antibiotics. 06/09: The patient was noted to have spontaneous eye opening, tracking or following. The patient also was noted to have withdrawal to pain, which is changed from complete unresponsiveness noted for the last 3 days at which time patient was probably having subclinical seizure activity. Patient continues on propofol and low dose and Topamax was added to antiepileptic drug (AED) regimen yesterday. 06/10: Afebrile. Started on [place]-Synephrine and a left IJ CVL was placed overnight. EEG continued with subclinical seizure activity. Unresponsive on the ventilator. Tolerating tube feeding. 06/11: Afebrile. Currently resting in bed. No gag reflexes AM. Going to feeding. Discussed with mother yesterday/sons are plain to coming from [facility] in [place] this week. She is leaning towards comfort measures patient to be vent dependent and unresponsive. 06/12: No change in neurological status. 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 Reynoso attempted to contact family today unsuccessful. Dialysis today only to remove approximately 500 cc secondary to hemodynamic instability. 06/13: no neurologic improvements. palliative talking with family. awaiting MRI results. Subjective 06/14: no clinical improvements. remains encephalopathic. MRI unchanged with significant areas of small vessel ischemia. Objective Vital Signs Date Time Temp Pulse Resp B/P (MAP) Pulse Ox O2 Delivery O2 Flow Rate FiO2 06/14/17 20:23 99 30 06/14/17 18:00 80 06/14/17 17:21 Ventilator 06/14/17 17:00 98.6 15 128/58 (81) Intake and Output 06/14/17 06/14/17 06/15/17 08:00 16:00 00:00 Intake Total 735 ml 281 ml 383.5 ml Output Total 300 ml 1000 ml 500 ml Balance 435 ml -719 ml -116.5 ml Result Diagram: 06/12/17 0327 06/12/17 0327 Imaging Last Impressions Chest X-Ray 06/10/17 0000 Signed Impressions: Service Date/Time: Saturday, June 10, 2017 07:02 - CONCLUSION: 1. Left IJ central line distal tip in the superior vena cava. No pneumothorax is seen. 2. Stable linear high density along the right pleural surface from uncertain etiology. There is also volume loss in the right lung. 3. Stable airspace opacity in the left mid and lower lung zone. Joshua Aguayo MD Head CT 06/05/17 0000 Signed Impressions: Service Date/Time: Tuesday, June 06, 2017 04:41 - CONCLUSION: 1. Senescent changes. 2. No significant interval change or acute intracranial abnormality. Rodri Leung MD Objective Remarks GENERAL: Patient is 67yo obese female s/p PEA arrest intubated , with spontaneous eye opening SKIN: Warm and dry. HEAD: Normocephalic. EYES: No scleral icterus. No injection or drainage. NECK: Supple, trachea midline. No JVD or lymphadenopathy. Orally intubated. Left IJ is clean dry and intact. CARDIOVASCULAR: Regular rate and rhythm without murmurs, gallops, or rubs. RESPIRATORY: Mechanical ventilation .Breath sounds equal bilaterally. No accessory muscle use. GASTROINTESTINAL: Abdomen soft, non-tender, nondistended. MUSCULOSKELETAL: No cyanosis, b/l mid foot amputation, noted dry ulcers 3 on the right foot with gauze dressing Neuro: GCS 9T E4 V1 M 4 Intubated, does not track, does not follow commands. No movement of extremities with the exception of withdraws to painful stimuli. Date of Insertion: Jun 10, 2017 Line: Central Venous Catheter Side: Left Location: Internal, Jugular A/P Assessment and Plan Assessment: 67yF s/p PEA arrest with severe anoxic brain injury. poor prognosis. palliative on board. no real hope for meaningful recovery. Neuro/Psych: Status epilepticus History of CVA Anoxic brain injury Currently on Diprivan at 10 mics grams per kilogram per minute and midazolam 7 mg an hour for sedation while intubated infusion for sedation/ and subclinical seizure activity. Monitor neuro status closely Goal of RASS -4-5 CT brain 06/06-no interval change CT brain 06/01: atrophy no acute findings, EEG 06/08: Burst suppression every 3-5 seconds status/sharp activity. EEG 06/04: Seizure like activity likely related to severe anoxic brain injury. EEG 06/03: Epileptiform discharges EEG 06/02: Seizure activity, on fosphenytoin 100mg Q8, valproic acid, lorazepam 1mg Q4 PRN Neuro is following- Dr. Garcia. Currently on valproic acid 750 mg IV every 8 hours, fosphenytoin 250 mg IV every 8 hours, phenobarbital 100 mg IV every 8 hours and topiramate 50 mg by tube twice a day. Phenytoin level 6, valproic acid level LIII. Phenobarbital level 14 on 06/10 Holding gabapentin 300 mg by mouth 3 times a day Holding clonazepam 0.5 mg twice a day when necessary Holding cyclobenzaprine 10 mEq 3 times a day when necessary muscle relaxant Neurology following Dr. Garcia Pulm: Acute hypoxemic respiratory failure Obstructive sleep apnea COPD PRVC 14/550/30 Ventilator bundle Continue with vent support and maintain sats above 92%. Albuterol/ipratropium every 6 hours and albuterol aerosols every 2 hours when necessary 06/06 CXR Day ET tube At home on albuterol/ipratropium nebulizers every 6 hours along with tiotropium 18 inhaled daily CV: PEA arrest Severe pulmonary hypertension Hypertension Dyslipidemia Claudication Peripheral vascular disease On midodrine 10 mg every Sunday with hemodialysis Monitor HR and BP maintain MAP> 65 mmHg. Lactic acid 1.2 Echo 06/01: EF 55-60%. Severe pulmonary hypertension Continue Aspirin 81 mg daily. Stress dose steroids- weaning Hydrocortisone 50mg IV Q8, continue taper: 50 q12h, 50 q24h, 25 q24h, then off. Holding pentoxifylline 400 mg daily for claudication Renal/ End-stage renal disease on hemodialysis Sunday Left upper extremity fistula Secondary hyperparathyroidism Hypokalemia Monitor renal function I&Os and avoid nephrotoxins. Renal is following- Dr. Ling HD per renal. On calcium acetate 667 milligrams 3 times a day with meals. On sevelamer 800 mg 3 times a day at home Continue cinacalcet 90 mg by mouth daily for secondary hyperparathyroidism GI: Gastroesophageal reflux disease Tube feeds- Nepro with goal 40ml/hr Lansoprazole for GI prophylaxis Docusate sodium/senna 1 tablet twice a day for bowel regimen ID: Continue abx (metronidazole, ceftriaxone through 06/14 and azithromycin through ) monitor for signs of infections( fever and WBC). Per ID eval Follow up on blood 06/01: NGTD, sputum 06/01: normal resp kaylene, sputum 06/04 no growth Nasal washing is negative for influenza in the ED. Heme: Leukocytosis Anemia /normocytic Monitor CBC daily. Follow trends. Does not meet transfusion threshold at this time Endo: Hyperglycemia Gout History of hypothyroidism Sliding-scale insulin with Novulin R to maintain tingling euglycemia MSK: Morbid obesity Weight loss encouraged GI prophylaxis with lansoprazole 30 mg daily, DVT prophylaxis with SCDs./ heparin Subcu prophylaxis Lines: piv Palliative care is following Wound care following for dry ulcers on right forefoot Discussed with FURNITURE M[employer] HELPER at bedside Leonidas Sunshine MD Jun 14, 2017 20:40
[2017-06-15] VITALS (21 sets, daily range): BP systolic 74–115; BP diastolic 37–57; PULSE 74–86; RESP 14–15; TEMP 97.8–99.4; O2SAT 100
[2017-06-15] MEDS: HYDROCORTISONE SOD SUCCINATE 100 MG VIAL IV PUSH SCH (02:00)
[2017-06-15] MEDS: CHLORHEXIDINE GLUCONATE 2 % 1 PACK (2 CLOTHS) TOP SCH (04:00)
[2017-06-15] MEDS: VALPROATE INJ 750 MG in SODIUM CHLORIDE 0.9% INJ 100 ML IV SCH ×3 (06:01→21:08)
[2017-06-15] MEDS: PHENYTOIN 50 MG CHEWABLE TAB PO SCH ×3 (06:02→21:08)
[2017-06-15] MEDS: PROPOFOL 1000 MG/100 ML INJ 100 ML IV PRN (06:02)
[2017-06-15] MEDS: MIDAZOLAM 100 MG/100 ML INJ 100 ML IV PRN (06:03)
--- NOTE | 2017-06-15 07:18 | HHI.PR ---
Review/Management Diagnosis/Plan: (1) Anoxic encephalopathy ICD Codes: G93.1 - Anoxic brain damage, not elsewhere classified Status: Acute Plan: periodic discharges reflective of anoxic injury refractory to multiple sz meds +brainstem reflexes on dilantin/phb/depakote; topamax; also on versed mri brain images reviewed. mild increased DWI changes in posterior cortex recs corrected dil 11.9 exam unchanged will follow peripherally Dr. Perez out of town probable poor prognosis with anoxia, renal failure, resp failure; higher likelihood for poor neurological recovery, comfort care reasonable (2) cardiac arrest, prolonged resuscitation Status: Acute (3) end-stage renal disease Status: Chronic (4) CHF Status: Chronic (5) COPD Status: Chronic Subjective Subjective Comments No acute events reported Active Medications Current Medications Medications (Trade) Dose Ordered Sig/Lois Route Start Time Stop Time Status Last Admin Miscellaneous Information 1 Q361D XX 06/01/17 14:15 06/01/17 14:15 (Chlorhexidine 2% Cloth) Taper DAILY@04 TOP 06/02/17 04:00 05/29/18 03:59 06/10/17 21:17 (Chlorhexidine 2% Cloth) 3 pack UNSCH PRN TOP 06/01/17 14:15 (Senokot) 17.2 mg Q12H PRN PO 06/01/17 14:15 (Nephrocaps) 1 cap DAILY PO 06/01/17 16:00 06/14/17 08:01 Sodium Chloride 1,000 ml @ 0 mls/hr Q0M PRN OTHER 06/02/17 11:59 06/05/17 13:59 (Heparin Inj) 8,000 units UNSCH PRN IVF 06/02/17 12:00 Sodium Chloride 1,000 ml @ 200 mls/hr Q5H PRN IV 06/02/17 11:59 Sodium Chloride 1,000 ml @ 0 mls/hr Q0M PRN OTHER 06/02/17 11:59 (Mannitol Inj) 12.5 gm UNSCH PRN IV 06/02/17 12:00 (Albumin 25% Inj) 25 gm UNSCH PRN IV 06/02/17 12:00 06/14/17 08:25 (NS Flush) 5 ml UNSCH PRN IV FLUSH 06/02/17 12:00 06/12/17 08:28 (Heparin Inj) UNSCH PRN .XX 06/02/17 12:00 (Gentamicin (Dialysis) Inj) 20 mg UNSCH PRN IV 06/02/17 12:00 (Zofran Inj) 4 mg UNSCH PRN IV 06/02/17 12:00 (Tylenol) 650 mg UNSCH PRN PO 06/02/17 12:00 06/03/17 20:09 (Benadryl) 25 mg UNSCH PRN PO 06/02/17 12:00 (Nitrostat Sl) 0.4 mg UNSCH PRN SL 06/02/17 12:00 (Gelfoam 12 Mm/7 Mm Top) 1 foam UNSCH PRN TOP 06/02/17 12:00 06/14/17 08:24 (Ativan Inj) 1 mg Q4H PRN IV PUSH 06/02/17 16:00 06/04/17 02:25 Midazolam HCl 100 ml @ 2 mls/hr TITRATE PRN IV 06/03/17 09:30 06/15/17 06:03 (Heparin Inj) 5,000 units Q12HR SQ 06/04/17 09:00 06/14/17 21:10 (Epogen Inj) 10,000 units UNSCH PRN IV 06/06/17 13:30 06/14/17 08:24 (Phoslo) 667 mg TID PO 06/06/17 18:00 06/14/17 17:13 (Brethine Inj) 1 mg UNSCH PRN SQ 06/06/17 13:45 (Aspirin Chew) 81 mg DAILY CHEW 06/08/17 09:00 06/14/17 08:01 Propofol 100 ml @ 17.25 mls/ hr TITRATE PRN IV 06/08/17 17:15 06/15/17 06:02 (Topamax) 50 mg BID OG-TUBE 06/09/17 09:00 06/14/17 21:09 Valproate Sodium 750 mg/Sodium Chloride 107.5 ml @ 105 mls/hr Q8HR IV 06/09/17 22:00 06/15/17 06:01 (Tears Naturale Opth Soln) 1 drop TID EACH EYE 06/09/17 18:00 06/14/17 17:13 (Beneprotein Powder) 1 pack TID G-TUBE 06/10/17 18:00 06/14/17 17:13 (Prevacid Odt) 30 mg DAILY NG 06/11/17 09:00 06/14/17 08:02 (Luminal Inj) 120 mg Q8HR IV 06/11/17 22:00 06/15/17 06:03 (Neurontin) 100 mg BID PO 06/11/17 16:15 06/14/17 21:10 (Dilantin Infatabs Chew) 300 mg Q8HR PO 06/12/17 22:00 06/15/17 06:02 (SoluCORTEF INJ) 50 mg Taper Q24H IV PUSH 06/14/17 02:00 06/17/17 01:59 06/15/17 02:00 (Levsin) 0.125 mg Q4H PRN PO 06/13/17 14:45 Allergies Allergies Coded Allergies diatrizoate meglumine (Unverified Allergy, Severe, Joint Pain, 05/15/17) gadobenic acid (Unverified Allergy, Severe, Joint Pain, 05/15/17) gadodiamide (Unverified Allergy, Severe, Joint Pain, 05/15/17) gadoteridol (Unverified Allergy, Severe, Joint Pain, 05/15/17) iodine (Unverified Allergy, Severe, ORAL CONTRAST OK, 05/15/17) iodixanol (Unverified Allergy, Severe, Joint Pain, 05/15/17) iohexol (Unverified Allergy, Severe, Joint Pain, 05/15/17) morphine (Unverified Allergy, Severe, ITCH, 05/15/17) potassium iodide (Unverified Allergy, Severe, ORAL CONTRAST OK, 05/15/17) povidone-iodine (Unverified Allergy, Severe, ORAL CONTRAST OK, 05/15/17) sodium iodide (Unverified Allergy, Severe, ORAL CONTRAST OK, 05/15/17) sodium iodide (Unverified Allergy, Severe, ORAL CONTRAST OK, 05/15/17) vancomycin (Unverified Allergy, Unknown, 05/15/17) Review of Systems All other ROS: Unable to obtain Exam I&O / VS Vital Signs Date Time Temp Pulse Resp B/P (MAP) Pulse Ox O2 Delivery O2 Flow Rate FiO2 06/15/17 06:00 75 06/15/17 04:27 100 30 06/15/17 04:00 75 06/15/17 04:00 99.1 75 14 95/47 (63) 100 06/15/17 04:00 30 06/15/17 03:39 100 30 06/15/17 02:00 80 06/15/17 00:00 99.2 74 14 97/47 (64) 100 06/15/17 00:00 30 06/15/17 00:00 74 06/14/17 22:00 73 06/14/17 20:23 99 30 06/14/17 20:00 30 06/14/17 20:00 72 06/14/17 20:00 98.7 72 14 107/47 (67) 100 06/14/17 18:00 80 06/14/17 17:40 83 06/14/17 17:21 98 Ventilator 30 06/14/17 17:21 98 30 06/14/17 17:00 98.6 83 15 128/58 (81) 97 06/14/17 16:00 30 06/14/17 15:25 100 100 06/14/17 14:00 73 06/14/17 12:06 100 30 06/14/17 12:00 77 06/14/17 12:00 30 06/14/17 12:00 98.6 77 25 116/58 (77) 99 06/14/17 10:00 71 06/14/17 08:45 100 30 06/14/17 08:00 67 06/14/17 08:00 30 06/14/17 08:00 98.6 67 14 116/52 (73) 100 Exam Comments awake, non-verbal, not following, intubated, on versed gtt, exam unchanged Objective Micro and Labs Laboratory Tests Test 06/15/17 05:40 Phenytoin (Dilantin) Level 6.9 Date/Time Source Procedure Growth Status 06/01/17 11:40 Blood Peripheral Aerobic Blood Culture - Final NO GROWTH IN 5 DAYS Complete 06/01/17 11:40 Blood Peripheral Anaerobic Blood Culture - Final NO GROWTH IN 5 DAYS Complete 06/04/17 05:00 Sputum Endotracheal Gram Stain - Final Complete 06/04/17 05:00 Sputum Endotracheal Sputum Culture - Final MODERATE GROWTH NORMAL RESPIRATORY CLEMENTINE Complete London Felder MD Jun 15, 2017 07:18
[2017-06-15] MEDS: BENEPROTEIN POWDER 1 PACK G-TUBE SCH ×3 (09:00→16:19)
[2017-06-15] MEDS: VITAMIN B CMPLX/VITC/FOLIC AC CAP PO SCH (09:00)
[2017-06-15] MEDS: CALCIUM ACETATE 667 MG CAP PO SCH ×3 (09:03→16:19)
[2017-06-15] MEDS: ARTIFICIAL TEARS OPTH SOLN 15 ML BTL EACH EYE SCH ×3 (09:03→16:19)
[2017-06-15] MEDS: ASPIRIN 81 MG CHEW TAB CHEW SCH (09:04)
[2017-06-15] MEDS: TOPIRAMATE 25 MG TAB OG-TUBE SCH ×2 (09:04→21:08)
[2017-06-15] MEDS: LANSOPRAZOLE SOLUTAB 30 MG TAB NG SCH (09:04)
[2017-06-15] MEDS: GABAPENTIN 100 MG CAP PO SCH ×2 (09:04→21:07)
[2017-06-15] MEDS: HEPARIN SODIUM - SQ 10,000 UNITS/ML VIAL SQ SCH ×2 (09:04→21:00)
--- NOTE | 2017-06-15 10:04 | HHI.NPPN ---
Subjective General Problems: Anemia Renal Failure: Chronic, End Stage Renal Disease Interval History Remains unresponsive on ventilator. 1L UF yesterday with HD. Family to meet with palliative care today. (Amberly Stevenson) Review of Systems General General Remarks unable to obtain (Amberly Stevenson) Objective Data Data Vital Signs Date Time Temp Pulse Resp B/P (MAP) Pulse Ox O2 Delivery O2 Flow Rate FiO2 06/15/17 08:00 76 06/15/17 08:00 30 06/15/17 08:00 97.8 76 15 97/49 (65) 100 06/15/17 07:49 100 30 06/15/17 06:00 75 06/15/17 04:27 100 30 06/15/17 04:00 75 06/15/17 04:00 99.1 75 14 95/47 (63) 100 06/15/17 04:00 30 06/15/17 03:39 100 30 06/15/17 02:00 80 06/15/17 00:00 99.2 74 14 97/47 (64) 100 06/15/17 00:00 30 06/15/17 00:00 74 06/14/17 22:00 73 06/14/17 20:23 99 30 06/14/17 20:00 30 06/14/17 20:00 72 06/14/17 20:00 98.7 72 14 107/47 (67) 100 06/14/17 18:00 80 06/14/17 17:40 83 06/14/17 17:21 98 Ventilator 30 06/14/17 17:21 98 30 06/14/17 17:00 98.6 83 15 128/58 (81) 97 06/14/17 16:00 30 06/14/17 15:25 100 100 06/14/17 14:00 73 06/14/17 12:06 100 30 06/14/17 12:00 77 06/14/17 12:00 30 06/14/17 12:00 98.6 77 25 116/58 (77) 99 (Amberly Stevenson) -: 06/12/17 0327 06/12/17 0327 Drip Comment versed, fentanyl (Amberly Stevenson) Physical Exam General Appearance: Well Developed, Sleeping, Obese Appearance Remarks intubated, unresponsive (Amberly Stevenson) Eyes Eye Exam: Pupils Equal Eye Remarks pupils 3 mm unresponsive bilaterally (Amberly Stevenson) Throat Throat Exam: Oral Mucosa [place] & Moist Throat Remarks ETT (Amberly Stevenson) Neck Neck Exam: Neck Supple (Amberly Stevenson) Pulmonary Resp Exam: Breath Sounds Equal, No Distress, Decreased Bases Resp Remarks vented lung sounds (Amberly Stevenson) Cardiology CV Exam: Regular, Normal Sinus Rhythm, Good Perfusion (Amberly Stevenson) Gastrointestinal/Abdomen GI Exam: Soft, Non-Tender, Bowel Sounds Present (Amberly Stevenson) Musculoskeletal MS Exam: Joints Intact, Normal Tone, Unable to Ambulate (Amberly Stevenson) Integumentary Skin Exam: Clear, Warm, Dry, Intact (Amberly Stevenson) Extremeties Extremities Exam: No Edema, Pedal Pulses Palpable Extremeties Remarks AVF left Arm (accessed during HD) (Amberly Stevenson) Neurologic Neuro Exam: Unresponsive, Sedated (Amberly Stevenson) Assessment/Plan Assessment Summary: Anemia of CKD, End Stage Renal Disease Problem List: (1) ESRD (end stage renal disease) ICD Codes: N18.6 - End stage renal disease Status: Chronic Plan: 1L UF yesterday with dialysis Continue dialysis TTS if family desires to continue aggressive care Given albumin BP is better Monitor electrolytes, replace as needed Avoid IVF, Gadolinium in contraindicated Poor prognosis. Hospice is appropriate. (2) Cardiac arrest ICD Codes: I46.9 - Cardiac arrest, cause unspecified Plan: she is unresponsive on ventilator She has suffered anoxic brain injury, had EEG 06/13 Poor prognosis. Neuro and palliative are following Awaiting family decision regarding goals of care; apparently they will be in today to discuss withdrawal of life support. (3) Metabolic bone disease ICD Codes: E88.9 - Metabolic disorder, unspecified; M90.80 - Osteopathy in diseases classified elsewhere, unspecified site Status: Acute Plan: intermittently monitor phosphorus level continue Calcium acetate via OG tube (4) Anemia of chronic renal failure Status: Chronic Plan: continue epogen with HD Follow Hb (5) Hypertension Status: Chronic Plan: Recent hypotension; Antihypertensives on hold. Monitor blood pressure (6) Leukocytosis ICD Codes: D72.829 - Elevated white blood cell count, unspecified Plan: ID following, treating for possible aspiration Pneumonia Off all antibiotics Monitor clinically. She is afebrile. (Amberly Stevenson) Plan patient was seen and examined. Agree with above assessment and plan. (Tyler Ling MD) Amberly Stevenson Jun 15, 2017 10:04 Tyler Ling MD Jun 15, 2017 14:00
[2017-06-15 13:39] LABS: MEAN CORPUSCULAR HEMOGLOBIN 28.6 PG (27.0-34.0); MEAN CORPUSCULAR HGB CONC 31.4 % (32.0-36.0); PLATELET COUNT 235 TH/MM3 (150-450); RED BLOOD COUNT 3.07 MIL/MM3 (4.00-5.30); RED CELL DISTRIBUTION WIDTH 18.6 % (11.6-17.2); REVIEW FLAG FINAL
[2017-06-15 14:09] LABS: BICARBONATE 27.6 MEQ/L (21.0-32.0); POTASSIUM 3.9 MEQ/L (3.5-5.1)
[2017-06-15] MEDS ORDERED: TERBUTALINE INJ 1 MG/ML AMP SQ PRN (17:15)
--- NOTE | 2017-06-15 17:27 | HHI.CCPN ---
Subjective Remarks/Hospital Course Patient is 67-year-old female with multiple comorbidities which include end- stage renal disease on hemodialysis Sunday, Sunday, Sunday, hypertension, COPD on home oxygen, morbid obesity with obstructive sleep apnea, CHF. The patient was at the dialysis center today, she reported to the staff that she did not feel well and all the sudden she became unresponsive. The patient was given CPR which was continued in en route to the hospital. She was in PEA arrest. The patient was given epi, bicarb and D50. After approximately 30 minutes. She had successful return of spontaneous circulation and was started on dopamine. The patient also was intubated and placed on full mechanical ventilation. Her ABG post intubation showed a pH of 7.39, CO2 45, pAO2 238 and bicarb 27 and saturation of 97%. Her laboratory data showed the potassium 4.1, creatinine 6.23 and corrected calcium of 7.3. Other significant labs showed mild leukocytosis with a Review WBC of 12.7. A chest x-ray post intubation showed a bilateral pulmonary infiltrates and ET tube approximately 4 cm above the isabel. In the ER she was given calcium gluconate and started on dopamine as stated above. Right femoral central line was attempted by the ED physician without any success. The patient was also seen by Dr. Macho francois in the ER from nephrology service and she is scheduled to undergo CT scan of the brain. The patient is unresponsive. 06/02 No events overnight. On fentanyl infusion for sedation however patient has her eyes open unresponsive. Afebrile. 06/03 No events overnight. Sedated with Fentanyl and intubated. On Levophed 11mics. EEG yesterday showed seizures started on Cerebyx. 06/04 Patient remains intubated and sedated with Versed and Fentanyl drip. Had seizure overnight given Ativan 1mg x1. Levophed down 1mic and on vasopressin. For HD today. T:100.4 last night 06/05 Patient remains intubated and sedated. On Levophed 1mic and Vasopressin. afebrile. Repeat EEG yesterday showed seizure like activity. 06/06 TMax 99.2. Vasopressin has been discontinued, the patient continues on Norepinephrine at 1 mcg. The patient has been transitioned to phenylephrine via peripheral IV low dose, to maintain MAP > 65 06/07 Afebrile. The patient continues to have leukocytosis, antibiotics changed per ID,Dr. Cazares following. Neurologically the patient continues on Versed infusion for continued seizure activity. Repeat EEG ordered, results pending. AED levels of phenobarbital,phenytoin, and valproic acid all remain subtherapeutic . Right groin femoral line was discontinued the patient remains with peripheral IVs, no vasopressors support needed. Wound care was consulted regarding dry ulcers on right foot and implementation of measures. 06/08: No acute events overnight. EEG performed today the patient continues to have seizure activity. Dr. Garcia notified the patient continues on phenobarbital, fosphenytoin and valproic acid level slightly increased but still remains subtherapeutic at this time. The propofol infusion and Topamax added to medication regimen. WBC count continues to increase most likely reactive. ID following patient continues on antibiotics. 06/09: The patient was noted to have spontaneous eye opening, tracking or following. The patient also was noted to have withdrawal to pain, which is changed from complete unresponsiveness noted for the last 3 days at which time patient was probably having subclinical seizure activity. Patient continues on propofol and low dose and Topamax was added to antiepileptic drug (AED) regimen yesterday. 06/10: Afebrile. Started on [place]-Synephrine and a left IJ CVL was placed overnight. EEG continued with subclinical seizure activity. Unresponsive on the ventilator. Tolerating tube feeding. 06/11: Afebrile. Currently resting in bed. No gag reflexes AM. Going to feeding. Discussed with mother yesterday/sons are plain to coming from [place] in [place] this week. She is leaning towards comfort measures patient to be vent dependent and unresponsive. 06/12: No change in neurological status. Palliative care medicine steamer gum candy Dr. Reynoso attempted to contact family today unsuccessful. Dialysis today only to remove approximately 500 cc secondary to hemodynamic instability. 06/13: no neurologic improvements. palliative talking with family. awaiting MRI results. 06/14: no clinical improvements. remains encephalopathic. MRI unchanged with significant areas of small vessel ischemia. Subjective 06/15: borderline hypotensive today, but no other associated changes. no fever. wbc stable. encephalopathy persists. long family discussion today and despite patient's clear expressed wishes to multiple family members that she would "never want to be hooked up to machines", wants to proceed with trach/peg and long-term placement. Objective Vital Signs Date Time Temp Pulse Resp B/P (MAP) Pulse Ox O2 Delivery O2 Flow Rate FiO2 06/15/17 16:00 30 06/15/17 16:00 74 06/15/17 16:00 98.7 15 93/53 (66) 100 06/14/17 17:21 Ventilator Intake and Output 06/15/17 06/15/17 06/16/17 08:00 16:00 00:00 Intake Total 1078.5 ml Output Total 500 ml Balance 578.5 ml Result Diagram: 06/15/17 1225 06/15/17 1225 Imaging Last Impressions Chest X-Ray 06/10/17 0000 Signed Impressions: Service Date/Time: Saturday, June 10, 2017 07:02 - CONCLUSION: 1. Left IJ central line distal tip in the superior vena cava. No pneumothorax is seen. 2. Stable linear high density along the right pleural surface from uncertain etiology. There is also volume loss in the right lung. 3. Stable airspace opacity in the left mid and lower lung zone. Joshua Aguayo MD Head CT 06/05/17 0000 Signed Impressions: Service Date/Time: Tuesday, June 06, 2017 04:41 - CONCLUSION: 1. Senescent changes. 2. No significant interval change or acute intracranial abnormality. Rodri Leung MD Objective Remarks GENERAL: Patient is 67yo obese female s/p PEA arrest intubated , with spontaneous eye opening SKIN: Warm and dry. HEAD: Normocephalic. EYES: No scleral icterus. No injection or drainage. NECK: Supple, trachea midline. No JVD or lymphadenopathy. Orally intubated. Left IJ is clean dry and intact. CARDIOVASCULAR: Regular rate and rhythm without murmurs, gallops, or rubs. RESPIRATORY: Mechanical ventilation .Breath sounds equal bilaterally. No accessory muscle use. GASTROINTESTINAL: Abdomen soft, non-tender, nondistended. MUSCULOSKELETAL: No cyanosis, b/l mid foot amputation, noted dry ulcers 3 on the right foot with gauze dressing Neuro: GCS 9T E4 V1 M 4 Intubated, does not track, does not follow commands. No movement of extremities with the exception of withdraws to painful stimuli. Date of Insertion: Jun 10, 2017 Line: Central Venous Catheter Side: Left Location: Internal, Jugular A/P Assessment and Plan Assessment: 67yF s/p PEA arrest with severe anoxic brain injury. poor prognosis. palliative on board. no real hope for meaningful recovery. At 's request, will pursue trach/peg and placement. Neuro/Psych: Status epilepticus History of CVA Anoxic brain injury Currently on Diprivan at 10 mics grams per kilogram per minute and midazolam 7 mg an hour for sedation while intubated infusion for sedation/ and subclinical seizure activity. Monitor neuro status closely Goal of RASS -4-5 CT brain 06/06-no interval change CT brain 06/01: atrophy no acute findings, EEG 06/08: Burst suppression every 3-5 seconds status/sharp activity. EEG 06/04: Seizure like activity likely related to severe anoxic brain injury. EEG 06/03: Epileptiform discharges EEG 06/02: Seizure activity, on fosphenytoin 100mg Q8, valproic acid, lorazepam 1mg Q4 PRN Neuro is following- Dr. Garcia. Currently on valproic acid 750 mg IV every 8 hours, fosphenytoin 250 mg IV every 8 hours, phenobarbital 100 mg IV every 8 hours and topiramate 50 mg by tube twice a day. Phenytoin level 6, valproic acid level LIII. Phenobarbital level 14 on 06/10 Holding gabapentin 300 mg by mouth 3 times a day Holding clonazepam 0.5 mg twice a day when necessary Holding cyclobenzaprine 10 mEq 3 times a day when necessary muscle relaxant Neurology following Dr. Garcia Pulm: Acute hypoxemic respiratory failure Obstructive sleep apnea COPD PRVC 14/550/30 Ventilator bundle Continue with vent support and maintain sats above 92%. Albuterol/ipratropium every 6 hours and albuterol aerosols every 2 hours when necessary 06/06 CXR Day 12 ET tube At home on albuterol/ipratropium nebulizers every 6 hours along with tiotropium 18 inhaled daily CV: PEA arrest Severe pulmonary hypertension Hypertension Dyslipidemia Claudication Peripheral vascular disease On midodrine 10 mg every Sunday with hemodialysis Monitor HR and BP maintain MAP> 65 mmHg. Lactic acid 1.2 Echo 06/01: EF 55-60%. Severe pulmonary hypertension Continue Aspirin 81 mg daily. Stress dose steroids- weaning Hydrocortisone 50mg IV Q8, continue taper: 50 q12h, 50 q24h, 25 q24h, then off. Holding pentoxifylline 400 mg daily for claudication Renal/ End-stage renal disease on hemodialysis Sunday Left upper extremity fistula Secondary hyperparathyroidism Hypokalemia Monitor renal function I&Os and avoid nephrotoxins. Renal is following- Dr. Ling HD per renal. On calcium acetate 667 milligrams 3 times a day with meals. On sevelamer 800 mg 3 times a day at home Continue cinacalcet 90 mg by mouth daily for secondary hyperparathyroidism GI: Gastroesophageal reflux disease Tube feeds- Nepro with goal 40ml/hr Lansoprazole for GI prophylaxis Docusate sodium/senna 1 tablet twice a day for bowel regimen ID: Continue abx (metronidazole, ceftriaxone through 06/14 and azithromycin through ) monitor for signs of infections( fever and WBC). Per ID eval Follow up on blood 06/01: NGTD, sputum 06/01: normal resp kaylene, sputum 06/04 no growth Nasal washing is negative for influenza in the ED. Heme: Leukocytosis Anemia /normocytic Monitor CBC daily. Follow trends. Does not meet transfusion threshold at this time Endo: Hyperglycemia Gout History of hypothyroidism Sliding-scale insulin with Novulin R to maintain tingling euglycemia MSK: Morbid obesity Weight loss encouraged GI prophylaxis with lansoprazole 30 mg daily, DVT prophylaxis with SCDs./ heparin Subcu prophylaxis Lines: piv Palliative care is following Wound care following for dry ulcers on right forefoot Discussed with VEHICLE DETAILER at bedside Leonidas Sunshine MD Jun 15, 2017 17:27
--- NOTE | 2017-06-15 18:09 | HHI.HCPN ---
Reason for visit a. To assist with evaluation and management of symptoms including: dyspnea , pain, seizures b. To assist medical decision maker(s) with: better understanding of current medical conditions; weighing benefits/burdens of medical treatment options; making medical treatment decisions. . Subjective/Interval History Patient seen and examined in ICU. No family at bedside. Patient remains sedated on mechanical ventilation. Afebrile. Hypotensive, systolic blood pressure is running 70-90 today. Hemodialysis 06/14/17 with removal of one liter. WBC 16, hemoglobin 8.8, hematocrit 28, platelet 235. Creatinine 5.05, potassium 3.9. 06/14/17 MRI brain reveals extensive T2 signal abnormality in the white matter most consistent with moderate microvascular ischemic demyelinating to change, air fluid level in the sphenoid sinus with mucoperiosteal thickening suggesting sinusitis, fluid filling in the mastoid air cells. . Family/friend interactions Dr. Morris, Dr. Sunshine and I met with family including Berhane, mother Simona Mei, sister Yessenia Lilly, sister Jannette Reyna and sister Hermelinda Lilly. Dr. Sunshine provided medical update. We reviewed treatment options including continued aggressive care including tracheostomy/PEG tube placement versus transition to comfort focused care. Mother and 3 sisters all report that the patient would not want continued aggressive care, additional surgeries. Mother reports the patient told her she did not want any further surgeries, that she would not want to be kept alive by machines or to live in a longterm and that she would wish to be cremated. Siblings have had similar conversations. Patient's does not verbalize any conversations, at the end of the meeting he reports he wants to proceed with tracheostomy/PEG tube and desires FULL CODE status. Mother and siblings are tearful and upset by this conversation. I provided palliative care number as the patient's son is expected to arrive later today, offered to answer any questions he may have. Dr. Sunshine notified that patient's spouse wants to proceed with continued aggressive care, tracheostomy/PEG tube and desires FULL CODE. . Advance Directives Living Will: Never completed Health Care Surrogate: Never completed Durable Power of Speech Therapist: Never completed Advance Directive Specifics Health Care Surrogate(s): Patient has no known written advance directives. Patient is incapacitated, unlikely to repeat gain capacity given anoxic brain injury. According to [place] statutes, health care proxy decision-making falls to the patient's spouse. . Significant change in goals: Spouse desires continued aggressive care including FULL CODE, tracheostomy and PEG tube placement. . Objective Vital Signs Date Time Temp Pulse Resp B/P (MAP) Pulse Ox O2 Delivery O2 Flow Rate FiO2 06/15/17 16:00 30 06/15/17 16:00 74 06/15/17 16:00 98.7 74 15 93/53 (66) 100 06/15/17 15:29 100 30 06/15/17 14:00 75 06/15/17 12:00 98.6 74 14 77/39 (52) 100 06/15/17 12:00 74 06/15/17 12:00 30 06/15/17 11:21 100 30 06/15/17 11:14 76 91/51 (64) 06/15/17 11:00 74/37 (49) 06/15/17 10:00 81 06/15/17 08:00 76 06/15/17 08:00 30 06/15/17 08:00 97.8 76 15 97/49 (65) 100 06/15/17 07:49 100 30 06/15/17 06:00 75 06/15/17 04:27 100 30 06/15/17 04:00 75 06/15/17 04:00 99.1 75 14 95/47 (63) 100 06/15/17 04:00 30 06/15/17 03:39 100 30 06/15/17 02:00 80 06/15/17 00:00 99.2 74 14 97/47 (64) 100 06/15/17 00:00 30 06/15/17 00:00 74 06/14/17 22:00 73 06/14/17 20:23 99 30 06/14/17 20:00 30 06/14/17 20:00 72 06/14/17 20:00 98.7 72 14 107/47 (67) 100 06/14/17 18:00 80 Intake & Output 06/15/17 06/15/17 07:00 19:00 Intake Total 1078.5 ml Output Total 500 ml Balance 578.5 ml IV Total 510.5 ml Tube Feeding 368 ml Tube Irrigant 200 ml Output Urine Total 0 ml Stool Total 500 ml Physical Exam CONSTITUTIONAL/GENERAL: This is an elderly, obese, unresponsive patient, in no apparent distress. TUBES/LINES/DRAINS: ET tube, OG, IV access, rectal tube EYES: eyes closed. NECK: Trachea midline. Supple. CARDIOVASCULAR: irregular rhythm, hypotensive. RESPIRATORY/CHEST: Symmetric, unlabored respirations with ventilator. Scattered rhonchi. GASTROINTESTINAL: Abdomen soft, obese. Bowel sounds present. MUSCULOSKELETAL: bilateral foot partial amputations. Extremities without clubbing, cyanosis. No mottling or clubbing. NEUROLOGICAL: Unresponsive to voice, touch, or pain PSYCHIATRIC: Unable to assess due to clinical condition . Diagnostic Tests Laboratory Laboratory Tests Test 06/13/17 03:15 06/14/17 04:45 06/15/17 05:40 06/15/17 12:25 Phenytoin (Dilantin) Level 5.3 MCG/ML (10.0-20.0) 6.0 MCG/ML (10.0-20.0) 6.9 MCG/ML (10.0-20.0) Valproic Acid (Depakene) Level 51 MCG/ML (50-100) 48 MCG/ML (50-100) Phenobarbital Level 15.9 MCG/ML (15.0-40.0) White Blood Count 16.0 TH/MM3 (4.0-11.0) Red Blood Count 3.07 MIL/MM3 (4.00-5.30) Hemoglobin 8.8 GM/DL (11.6-15.3) Hematocrit 28.0 % (35.0-46.0) Mean Corpuscular Volume 91.0 FL (80.0-100.0) Mean Corpuscular Hemoglobin 28.6 PG (27.0-34.0) Mean Corpuscular Hemoglobin Concent 31.4 % (32.0-36.0) Red Cell Distribution Width 18.6 % (11.6-17.2) Platelet Count 235 TH/MM3 (150-450) Mean Platelet Volume 9.6 FL (7.0-11.0) Blood Urea Nitrogen 56 MG/DL (7-18) Creatinine 5.05 MG/DL (0.50-1.00) Random Glucose 81 MG/DL (74-106) Calcium Level 9.5 MG/DL (8.5-10.1) Sodium Level 142 MEQ/L (136-145) Potassium Level 3.9 MEQ/L (3.5-5.1) Chloride Level 99 MEQ/L (98-107) Carbon Dioxide Level 27.6 MEQ/L (21.0-32.0) Anion Gap 15 MEQ/L (5-15) Estimat Glomerular Filtration Rate 10 ML/MIN (>89) Result Diagram: 06/15/17 1225 06/15/17 1225 Microbiology Microbiology Date/Time Source Procedure Growth Status 06/01/17 11:40 Blood Peripheral Aerobic Blood Culture - Final NO GROWTH IN 5 DAYS Complete 06/01/17 11:40 Blood Peripheral Anaerobic Blood Culture - Final NO GROWTH IN 5 DAYS Complete 06/04/17 05:00 Sputum Endotracheal Gram Stain - Final Complete 06/04/17 05:00 Sputum Endotracheal Sputum Culture - Final MODERATE GROWTH NORMAL RESPIRATORY CLEMENTINE Complete Imaging Last Impressions Brain MRI 06/14/17 0000 Signed Impressions: Service Date/Time: June 15:53 - CONCLUSION: 1. No findings to indicate acute cortical infarct. 2. Extensive T2 signal abnormality in the white matter most consistent with moderate microvascular ischemic demyelinative change. 3. Air-fluid level in the sphenoid sinus with mucoperiosteal thickening suggesting sinusitis. 4. There is fluid filling the mastoid air cells. Caesar Arguelles MD Chest X-Ray 06/12/17 0600 Signed Impressions: Service Date/Time: Monday, June 12, 2017 05:11 - CONCLUSION: 1. Support apparatus in good position, unchanged. Stable bilateral mild basilar airspace disease. Tree Alfred MD Head CT 06/05/17 0000 Signed Impressions: Service Date/Time: Tuesday, June 06, 2017 04:41 - CONCLUSION: 1. Senescent changes. 2. No significant interval change or acute intracranial abnormality. Rodri Leung MD Procedures CPR, resuscitation 06/01/17 INTUBATION 06/01/17 Intraosseous needle placement in left tibia 06/01/17 Central line placement 06/01/17 . Assessment and Plan Disease Oriented Problem List: (1) cardiac arrest, prolonged resuscitation (2) probable anoxic brain injury Comment: With seizure activity (3) end-stage renal disease (4) CHF (5) COPD (6) peripheral vascular disease (7) hypertension (8) obesity (9) asthma (10) gout (11) hypothyroidism (12) depression (13) arthritis (14) history of sleep apnea Symptom Scale: (1) dyspnea 0-10 Scale: Unable to quantify (2) pain 0-10 Scale: Unable to quantify (likely has musculoskeletal pain after the prolonged resuscitation) Pertinent Non-Medical Issues Psychosocial: for 32 years, 3 children (son age 45 in [place], son age 40 in [place], daughter age 38 in [facility]);, former [employer], 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 Spiritual: Sabianist background Legal: The patient lacks capacity for decision-making, and it seems unlikely that she will regain that capacity. Her is the decision making proxy. Ethical issues impacting care: None . Important Contacts Berhane --[phone] (corrected phone number 06/08/17) . Prognosis Her prognosis is quite poor, as it appears she has had a profound anoxic brain injury, and she has multiple other comorbidities. . Code Status: Full Code Plan * FULL CODE * DECISION-MAKING: The patient lacks capacity for decision-making, and she will not regain that capacity. Her is the decision making proxy. * GOALS: Dr. Sunshine and I met with family including Berhane, mother Simona Mei, sister Yessenia Lilly, sister Jannette Reyna and sister Hermelinda Lilly. Dr. Sunshine provided medical update. We reviewed treatment options including continued aggressive care including tracheostomy/PEG tube placement versus transition to comfort focused care. Mother and 3 sisters all report that the patient would not want continued aggressive care, additional surgeries. Mother reports the patient told her she did not want any further surgeries, that she would not want to be kept alive by machines or to live in a longterm and that she would wish to be cremated. Siblings have had similar conversations. Patient's does not verbalize any conversations, at the end of the meeting he reports he wants to proceed with tracheostomy/PEG tube and desires FULL CODE status. Mother and siblings are tearful and upset by this conversation. I provided palliative care number as the patient's son is expected to arrive later today, offered to answer any questions he may have. Patient's understands that there are no signs of neurologic improvement , and that the prognosis is extremely poor for any meaningful neurologic recovery. Spouse/HCP desires continued aggressive care including tracheostomy/ PEG tube and FULL CODE. * Dr. Sunshine notified of spouse decision. * SYMPTOMS: Her dyspnea and likely pain is being managed in the [facility], I have no additional medication recommendations at this time. * Palliative Care will continue to follow the patient during this hospitalization. . Attestation To help prompt me to consider important information that might be impacting today's encounter and assessment, information from prior notes written by myself or my colleagues may have been "brought forward" into today's note. My signature on this note, however, is an attestation that I personally performed the exam, history, and/or decision-making noted today, and, unless otherwise indicated, the interactions with patient, family, and staff as well as the review of records all occurred today. I also attest that the listed assessment and stated plan reflect my best clinical judgment today based on the combination of historical information, prior notes, and today's exam/ interactions. When time spent is documented, it refers only to time spent today by the signer, or if indicated, combined time spent today by collaborating physician/nurse practitioner. Rachel Cleaning Jun 15, 2017 18:09
[2017-06-15] MEDS: PHENYLEPHRINE INJ 40 MG in DEXTROSE 5% IN WATE 500 ML INJ 496 ML IV PRN ×2 (18:22)
[2017-06-16] VITALS (19 sets, daily range): BP systolic 70–135; BP diastolic 47–58; PULSE 79–105; RESP 14–21; TEMP 99–102.2; O2SAT 90–100
[2017-06-16] MEDS: HYDROCORTISONE SOD SUCCINATE 100 MG VIAL IV PUSH SCH (01:31)
[2017-06-16] MEDS: CHLORHEXIDINE GLUCONATE 2 % 1 PACK (2 CLOTHS) TOP SCH (04:00)
[2017-06-16] MEDS: VALPROATE INJ 750 MG in SODIUM CHLORIDE 0.9% INJ 100 ML IV SCH ×3 (05:17→20:52)
[2017-06-16] MEDS: PHENYTOIN 50 MG CHEWABLE TAB PO SCH ×3 (05:20→20:52)
[2017-06-16] MEDS: BENEPROTEIN POWDER 1 PACK G-TUBE SCH ×3 (09:00→17:01)
[2017-06-16] MEDS: VITAMIN B CMPLX/VITC/FOLIC AC CAP PO SCH (09:00)
--- NOTE | 2017-06-16 09:01 | HHI.NPPN ---
Subjective General Problems: Anemia Renal Failure: Chronic, End Stage Renal Disease Interval History patient remains unresponsive. Patient's wants continued aggressive care. Review of Systems General General Remarks unable to obtain Objective Data Data Vital Signs Date Time Temp Pulse Resp B/P (MAP) Pulse Ox O2 Delivery O2 Flow Rate FiO2 06/16/17 08:34 100 30 06/16/17 06:00 93 06/16/17 04:21 100 35 06/16/17 04:00 99.8 94 14 135/58 (83) 100 06/16/17 04:00 30 06/16/17 04:00 94 06/16/17 02:00 79 06/16/17 00:09 98 30 06/16/17 00:00 30 06/16/17 00:00 79 06/16/17 00:00 99.0 79 14 113/56 (75) 100 06/15/17 22:00 86 06/15/17 21:17 100 30 06/15/17 20:00 85 06/15/17 20:00 99.4 85 14 115/57 (76) 100 06/15/17 20:00 30 06/15/17 18:52 81 114/51 06/15/17 18:52 114/51 (72) 06/15/17 18:22 80 81/45 06/15/17 18:06 78 06/15/17 16:00 30 06/15/17 16:00 74 06/15/17 16:00 98.7 74 15 93/53 (66) 100 06/15/17 15:29 100 30 06/15/17 14:00 75 06/15/17 12:00 98.6 74 14 77/39 (52) 100 06/15/17 12:00 74 06/15/17 12:00 30 06/15/17 11:21 100 30 06/15/17 11:14 76 91/51 (64) 06/15/17 11:00 74/37 (49) 06/15/17 10:00 81 -: 06/15/17 1225 06/15/17 1225 Drip Comment versed, fentanyl Physical Exam General Appearance: Well Developed, Sleeping, Obese Eyes Eye Exam: Pupils Equal Throat Throat Exam: Oral Mucosa [place] & Moist Neck Neck Exam: Neck Supple Pulmonary Resp Exam: Breath Sounds Equal, No Distress, Decreased Bases Cardiology CV Exam: Regular, Normal Sinus Rhythm, Good Perfusion Gastrointestinal/Abdomen GI Exam: Soft, Non-Tender, Bowel Sounds Present Musculoskeletal MS Exam: Joints Intact, Normal Tone, Unable to Ambulate Integumentary Skin Exam: Clear, Warm, Dry, Intact Extremeties Extremities Exam: No Edema, Pedal Pulses Palpable Neurologic Neuro Exam: Unresponsive, Sedated Assessment/Plan Assessment Summary: Anemia of CKD, End Stage Renal Disease Problem List: (1) ESRD (end stage renal disease) ICD Codes: N18.6 - End stage renal disease Status: Chronic Plan: Continue dialysis TTS if family desires to continue aggressive care Given albumin BP is better Monitor electrolytes, replace as needed Avoid IVF, Gadolinium in contraindicated Poor prognosis. Hospice is appropriate. (2) Cardiac arrest ICD Codes: I46.9 - Cardiac arrest, cause unspecified Plan: she is unresponsive on ventilator She has suffered anoxic brain injury, had EEG 06/13 Poor prognosis. Neuro and palliative are following Awaiting family decision regarding goals of care; apparently they will be in today to discuss withdrawal of life support. (3) Metabolic bone disease ICD Codes: E88.9 - Metabolic disorder, unspecified; M90.80 - Osteopathy in diseases classified elsewhere, unspecified site Status: Acute Plan: intermittently monitor phosphorus level continue Calcium acetate via OG tube (4) Anemia of chronic renal failure Status: Chronic Plan: continue epogen with HD Follow Hb (5) Hypertension Status: Chronic Plan: Recent hypotension; Antihypertensives on hold. Monitor blood pressure (6) Leukocytosis ICD Codes: D72.829 - Elevated white blood cell count, unspecified Plan: ID following, treating for possible aspiration Pneumonia Off all antibiotics Monitor clinically. She is afebrile. Tyler Ling MD Jun 16, 2017 09:01
[2017-06-16] MEDS: ASPIRIN 81 MG CHEW TAB CHEW SCH (09:05)
[2017-06-16] MEDS: CALCIUM ACETATE 667 MG CAP PO SCH ×3 (09:06→17:01)
[2017-06-16] MEDS: GABAPENTIN 100 MG CAP PO SCH ×2 (09:07→20:52)
[2017-06-16] MEDS: LANSOPRAZOLE SOLUTAB 30 MG TAB NG SCH (09:07)
[2017-06-16] MEDS: TOPIRAMATE 25 MG TAB OG-TUBE SCH ×2 (09:07→20:51)
[2017-06-16] MEDS: HEPARIN SODIUM - SQ 10,000 UNITS/ML VIAL SQ SCH ×2 (09:08→20:52)
[2017-06-16] MEDS: ARTIFICIAL TEARS OPTH SOLN 15 ML BTL EACH EYE SCH ×3 (09:08→17:00)
[2017-06-16] MEDS: SODIUM CHLOR 0.9% 1000 ML INJ 1,000 ML OTHER PRN (14:50)
[2017-06-16] MEDS: GELATIN 12 MM/7 MM FOAM TOP PRN (14:50)
[2017-06-16] MEDS: EPOETIN ALFA 10,000 UNITS/ML VIAL IV PRN (14:50)
--- NOTE | 2017-06-16 15:46 | HHI.CCPN ---
Subjective Remarks/Hospital Course Patient is 67-year-old female with multiple comorbidities which include end- stage renal disease on hemodialysis Sunday, Sunday, Sunday, hypertension, COPD on home oxygen, morbid obesity with obstructive sleep apnea, CHF. The patient was at the dialysis center today, she reported to the staff that she did not feel well and all the sudden she became unresponsive. The patient was given CPR which was continued in en route to the hospital. She was in PEA arrest. The patient was given epi, bicarb and D50. After approximately 30 minutes. She had successful return of spontaneous circulation and was started on dopamine. The patient also was intubated and placed on full mechanical ventilation. Her ABG post intubation showed a pH of 7.39, CO2 45, pAO2 238 and bicarb 27 and saturation of 97%. Her laboratory data showed the potassium 4.1, creatinine 6.23 and corrected calcium of 7.3. Other significant labs showed mild leukocytosis with a Review WBC of 12.7. A chest x-ray post intubation showed a bilateral pulmonary infiltrates and ET tube approximately 4 cm above the isabel. In the ER she was given calcium gluconate and started on dopamine as stated above. Right femoral central line was attempted by the ED physician without any success. The patient was also seen by Dr. Macho francois in the ER from nephrology service and she is scheduled to undergo CT scan of the brain. The patient is unresponsive. 06/02 No events overnight. On fentanyl infusion for sedation however patient has her eyes open unresponsive. Afebrile. 06/03 No events overnight. Sedated with Fentanyl and intubated. On Levophed 11mics. EEG yesterday showed seizures started on Cerebyx. 06/04 Patient remains intubated and sedated with Versed and Fentanyl drip. Had seizure overnight given Ativan 1mg x1. Levophed down 1mic and on vasopressin. For HD today. T:100.4 last night 06/05 Patient remains intubated and sedated. On Levophed 1mic and Vasopressin. afebrile. Repeat EEG yesterday showed seizure like activity. 06/06 TMax 99.2. Vasopressin has been discontinued, the patient continues on Norepinephrine at 1 mcg. The patient has been transitioned to phenylephrine via peripheral IV low dose, to maintain MAP > 65 06/07 Afebrile. The patient continues to have leukocytosis, antibiotics changed per ID,Dr. Cazares following. Neurologically the patient continues on Versed infusion for continued seizure activity. Repeat EEG ordered, results pending. AED levels of phenobarbital,phenytoin, and valproic acid all remain subtherapeutic . Right groin femoral line was discontinued the patient remains with peripheral IVs, no vasopressors support needed. Wound care was consulted regarding dry ulcers on right foot and implementation of measures. 06/08: No acute events overnight. EEG performed today the patient continues to have seizure activity. Dr. Garcia notified the patient continues on phenobarbital, fosphenytoin and valproic acid level slightly increased but still remains subtherapeutic at this time. The propofol infusion and Topamax added to medication regimen. WBC count continues to increase most likely reactive. ID following patient continues on antibiotics. 06/09: The patient was noted to have spontaneous eye opening, tracking or following. The patient also was noted to have withdrawal to pain, which is changed from complete unresponsiveness noted for the last 3 days at which time patient was probably having subclinical seizure activity. Patient continues on propofol and low dose and Topamax was added to antiepileptic drug (AED) regimen yesterday. 06/10: Afebrile. Started on Kenney-Synephrine and a left IJ CVL was placed overnight. EEG continued with subclinical seizure activity. Unresponsive on the ventilator. Tolerating tube feeding. 06/11: Afebrile. Currently resting in bed. No gag reflexes AM. Going to feeding. Discussed with mother yesterday/sons are plain to coming from [place] in [place] this week. She is leaning towards comfort measures patient to be vent dependent and unresponsive. 06/12: No change in neurological status. Palliative care medicine steam and power superintendent Dr. Reynoso attempted to contact family today unsuccessful. Dialysis today only to remove approximately 500 cc secondary to hemodynamic instability. 06/13: no neurologic improvements. palliative talking with family. awaiting MRI results. 06/14: no clinical improvements. remains encephalopathic. MRI unchanged with significant areas of small vessel ischemia. 06/15: borderline hypotensive today, but no other associated changes. no fever. wbc stable. encephalopathy persists. long family discussion today and despite patient's clear expressed wishes to multiple family members that she would "never want to be hooked up to machines", wants to proceed with trach/peg and long-term placement. Subjective 06/16: slightly hypotensive on minimal phenylephrine dose. febrile today. neuro exam still poor. family wants aggressive care. [facility] could accept patient as early as tomorrow. Objective Vital Signs Date Time Temp Pulse Resp B/P (MAP) Pulse Ox O2 Delivery O2 Flow Rate FiO2 06/16/17 14:00 89 06/16/17 13:34 99 30 06/16/17 12:00 101.8 14 129/58 (81) 06/14/17 17:21 Ventilator Intake and Output 06/16/17 06/16/17 06/17/17 08:00 16:00 00:00 Intake Total 735 ml Output Total 275 ml Balance 460 ml Result Diagram: 06/15/17 1225 06/15/17 1225 Imaging Last Impressions Chest X-Ray 06/10/17 0000 Signed Impressions: Service Date/Time: Saturday, June 10, 2017 07:02 - CONCLUSION: 1. Left IJ central line distal tip in the superior vena cava. No pneumothorax is seen. 2. Stable linear high density along the right pleural surface from uncertain etiology. There is also volume loss in the right lung. 3. Stable airspace opacity in the left mid and lower lung zone. Joshua Aguayo MD Head CT 06/05/17 0000 Signed Impressions: Service Date/Time: Tuesday, June 06, 2017 04:41 - CONCLUSION: 1. Senescent changes. 2. No significant interval change or acute intracranial abnormality. Rodri Leung MD Objective Remarks GENERAL: Patient is 67yo obese female s/p PEA arrest intubated , with spontaneous eye opening SKIN: Warm and dry. HEAD: Normocephalic. EYES: No scleral icterus. No injection or drainage. NECK: Supple, trachea midline. No JVD. Orally intubated. CARDIOVASCULAR: Regular rate and rhythm . RESPIRATORY: Mechanical ventilation .Breath sounds equal bilaterally. No accessory muscle use. GASTROINTESTINAL: Abdomen soft, non-tender, nondistended. MUSCULOSKELETAL: No cyanosis, b/l mid foot amputation, noted dry ulcers 3 on the right foot with gauze dressing Neuro: GCS 9T E4 V1 M 4 Intubated, does not track, does not follow commands. No movement of extremities with the exception of withdraws to painful stimuli. A/P Assessment and Plan Assessment: 67yF s/p PEA arrest with severe anoxic brain injury. poor prognosis. palliative on board. no real hope for meaningful recovery. At 's request, will pursue trach/peg and placement and LTAC placement. Fevers today, and slightly hypotensive, although she has been intermittently hypotensive for days now, and clinically appears non-toxic. will add midodrine and benoit-culture, but at this point, risk/benefit of adding back broad spectrum abx is in favor of conservative management and holding off until cultures result. Can still go to LTAC. Neuro/Psych: Status epilepticus History of CVA Anoxic brain injury Currently on Diprivan at 10 mics grams per kilogram per minute and midazolam 7 mg an hour for sedation while intubated infusion for sedation/ and subclinical seizure activity. Monitor neuro status closely Goal of RASS -4-5 CT brain 06/06-no interval change CT brain 06/01: atrophy no acute findings, EEG 06/08: Burst suppression every 3-5 seconds status/sharp activity. EEG 06/04: Seizure like activity likely related to severe anoxic brain injury. EEG 06/03: Epileptiform discharges EEG 06/02: Seizure activity, on fosphenytoin 100mg Q8, valproic acid, lorazepam 1mg Q4 PRN Neuro is following- Dr. Garcia. Currently on valproic acid 750 mg IV every 8 hours, fosphenytoin 250 mg IV every 8 hours, phenobarbital 100 mg IV every 8 hours and topiramate 50 mg by tube twice a day. Phenytoin level 6, valproic acid level LIII. Phenobarbital level 14 on 06/10 Holding gabapentin 300 mg by mouth 3 times a day Holding clonazepam 0.5 mg twice a day when necessary Holding cyclobenzaprine 10 mEq 3 times a day when necessary muscle relaxant Neurology following Dr. Garcia Pulm: Acute hypoxemic respiratory failure Obstructive sleep apnea COPD [facility] 14/02/27 Ventilator bundle Continue with vent support and maintain sats above 92%. Albuterol/ipratropium every 6 hours and albuterol aerosols every 2 hours when necessary 06/06 CXR Day 12 ET tube At home on albuterol/ipratropium nebulizers every 6 hours along with tiotropium 18 inhaled daily CV: PEA arrest Severe pulmonary hypertension Hypertension Dyslipidemia Claudication Peripheral vascular disease On midodrine 10 mg every Sunday with hemodialysis Monitor HR and BP maintain MAP> 65 mmHg. Lactic acid 1.2 Echo 06/01: EF 55-60%. Severe pulmonary hypertension Continue Aspirin 81 mg daily. Stress dose steroids- weaning Hydrocortisone 50mg IV Q8, continue taper: 50 q12h, 50 q24h, 25 q24h, then off. Holding pentoxifylline 400 mg daily for claudication Add midodrine 10mg po TID. Renal/ End-stage renal disease on hemodialysis Sunday Left upper extremity fistula Secondary hyperparathyroidism Hypokalemia Monitor renal function I&Os and avoid nephrotoxins. Renal is following- Dr. Ling HD per renal. On calcium acetate 667 milligrams 3 times a day with meals. On sevelamer 800 mg 3 times a day at home Continue cinacalcet 90 mg by mouth daily for secondary hyperparathyroidism GI: Gastroesophageal reflux disease Tube feeds- Nepro with goal 40ml/hr Lansoprazole for GI prophylaxis Docusate sodium/senna 1 tablet twice a day for bowel regimen ID: s/p full course of abx. send new cultures today. will not re-broaden. Follow up on blood 06/01: NGTD, sputum 06/01: normal resp kaylene, sputum 06/04 no growth Nasal washing is negative for influenza in the ED. Heme: Leukocytosis Anemia /normocytic Monitor CBC daily. Follow trends. Does not meet transfusion threshold at this time Endo: Hyperglycemia Gout History of hypothyroidism Sliding-scale insulin with Novulin R to maintain tingling euglycemia MSK: Morbid obesity Weight loss encouraged GI prophylaxis with lansoprazole 30 mg daily, DVT prophylaxis with SCDs./ heparin Subcu prophylaxis Lines: piv Palliative care is following Wound care following for dry ulcers on right forefoot Discussed with MANAGER INVESTMENT BANKING at bedside Leonidas Sunshine MD Jun 16, 2017 15:45
[2017-06-16] MEDS: MIDODRINE 5 MG TAB PO SCH (17:01)
[2017-06-16 19:22] LABS: HEMATOCRIT 28.7 % (35.0-46.0); MEAN CELL VOLUME 90.2 FL (80.0-100.0); MEAN CORPUSCULAR HEMOGLOBIN 27.7 PG (27.0-34.0); MEAN CORPUSCULAR HGB CONC 30.8 % (32.0-36.0); PLATELET COUNT 321 TH/MM3 (150-450); RED BLOOD COUNT 3.18 MIL/MM3 (4.00-5.30); RED CELL DISTRIBUTION WIDTH 19.5 % (11.6-17.2)
[2017-06-16 19:26] LABS: REVIEW FLAG FINAL
[2017-06-16] MEDS: ACETAMINOPHEN 325 MG TAB PO PRN (20:51)
[2017-06-16] MEDS: PHENYLEPHRINE INJ 40 MG in DEXTROSE 5% IN WATE 500 ML INJ 496 ML IV PRN ×2 (21:10)
[2017-06-17] VITALS (18 sets, daily range): BP systolic 96–115; BP diastolic 45–73; PULSE 73–86; RESP 14–22; TEMP 98.8–99.6; O2SAT 98–100
[2017-06-17] MEDS: CHLORHEXIDINE GLUCONATE 2 % 1 PACK (2 CLOTHS) TOP SCH (04:00)
[2017-06-17] MEDS: PHENYLEPHRINE INJ 40 MG in DEXTROSE 5% IN WATE 500 ML INJ 496 ML IV PRN ×2 (04:20)
[2017-06-17] MEDS: PHENYTOIN 50 MG CHEWABLE TAB PO SCH ×3 (04:21→20:20)
[2017-06-17] MEDS: VALPROATE INJ 750 MG in SODIUM CHLORIDE 0.9% INJ 100 ML IV SCH ×3 (04:21→20:20)
[2017-06-17] MEDS: ASPIRIN 81 MG CHEW TAB CHEW SCH (08:51)
[2017-06-17] MEDS: BENEPROTEIN POWDER 1 PACK G-TUBE SCH ×3 (08:52→17:49)
[2017-06-17] MEDS: MIDODRINE 5 MG TAB PO SCH ×3 (08:52→16:38)
[2017-06-17] MEDS: TOPIRAMATE 25 MG TAB OG-TUBE SCH ×2 (08:52→20:21)
[2017-06-17] MEDS: LANSOPRAZOLE SOLUTAB 30 MG TAB NG SCH (08:52)
[2017-06-17] MEDS: HEPARIN SODIUM - SQ 10,000 UNITS/ML VIAL SQ SCH ×2 (08:52→20:20)
[2017-06-17] MEDS: CALCIUM ACETATE 667 MG CAP PO SCH ×3 (08:52→17:49)
[2017-06-17] MEDS: GABAPENTIN 100 MG CAP PO SCH ×2 (08:52→20:20)
[2017-06-17] MEDS: VITAMIN B CMPLX/VITC/FOLIC AC CAP PO SCH (08:53)
[2017-06-17] MEDS: ARTIFICIAL TEARS OPTH SOLN 15 ML BTL EACH EYE SCH ×3 (08:53→17:49)
[2017-06-17 09:28] LABS: HEMATOCRIT 29.5 % (35.0-46.0); MEAN CELL VOLUME 90.7 FL (80.0-100.0); MEAN CORPUSCULAR HEMOGLOBIN 27.8 PG (27.0-34.0); MEAN CORPUSCULAR HGB CONC 30.6 % (32.0-36.0); PLATELET COUNT 249 TH/MM3 (150-450); RED BLOOD COUNT 3.25 MIL/MM3 (4.00-5.30); RED CELL DISTRIBUTION WIDTH 19.8 % (11.6-17.2); REVIEW FLAG FINAL
[2017-06-17 10:03] LABS: BICARBONATE 29.4 MEQ/L (21.0-32.0)
[2017-06-17 10:06] LABS: POTASSIUM 4.1 MEQ/L (3.5-5.1)
--- NOTE | 2017-06-17 13:30 | HHI.CCPN ---
Subjective Remarks/Hospital Course Patient is 67-year-old female with multiple comorbidities which include end- stage renal disease on hemodialysis Sunday, Sunday, Sunday, hypertension, COPD on home oxygen, morbid obesity with obstructive sleep apnea, CHF. The patient was at the dialysis center today, she reported to the staff that she did not feel well and all the sudden she became unresponsive. The patient was given CPR which was continued in en route to the hospital. She was in PEA arrest. The patient was given epi, bicarb and D50. After approximately 30 minutes. She had successful return of spontaneous circulation and was started on dopamine. The patient also was intubated and placed on full mechanical ventilation. Her ABG post intubation showed a pH of 7.39, CO2 45, pAO2 238 and bicarb 27 and saturation of 97%. Her laboratory data showed the potassium 4.1, creatinine 6.23 and corrected calcium of 7.3. Other significant labs showed mild leukocytosis with a Review WBC of 12.7. A chest x-ray post intubation showed a bilateral pulmonary infiltrates and ET tube approximately 4 cm above the isabel. In the ER she was given calcium gluconate and started on dopamine as stated above. Right femoral central line was attempted by the ED physician without any success. The patient was also seen by Dr. Macho francois in the ER from nephrology service and she is scheduled to undergo CT scan of the brain. The patient is unresponsive. 06/02 No events overnight. On fentanyl infusion for sedation however patient has her eyes open unresponsive. Afebrile. 06/03 No events overnight. Sedated with Fentanyl and intubated. On Levophed 11mics. EEG yesterday showed seizures started on Cerebyx. 06/04 Patient remains intubated and sedated with Versed and Fentanyl drip. Had seizure overnight given Ativan 1mg x1. Levophed down 1mic and on vasopressin. For HD today. T:100.4 last night 06/05 Patient remains intubated and sedated. On Levophed 1mic and Vasopressin. afebrile. Repeat EEG yesterday showed seizure like activity. 06/06 TMax 99.2. Vasopressin has been discontinued, the patient continues on Norepinephrine at 1 mcg. The patient has been transitioned to phenylephrine via peripheral IV low dose, to maintain MAP > 65 06/07 Afebrile. The patient continues to have leukocytosis, antibiotics changed per ID,Dr. Cazares following. Neurologically the patient continues on Versed infusion for continued seizure activity. Repeat EEG ordered, results pending. AED levels of phenobarbital,phenytoin, and valproic acid all remain subtherapeutic . Right groin femoral line was discontinued the patient remains with peripheral IVs, no vasopressors support needed. Wound care was consulted regarding dry ulcers on right foot and implementation of measures. 06/08: No acute events overnight. EEG performed today the patient continues to have seizure activity. Dr. Garcia notified the patient continues on phenobarbital, fosphenytoin and valproic acid level slightly increased but still remains subtherapeutic at this time. The propofol infusion and Topamax added to medication regimen. WBC count continues to increase most likely reactive. ID following patient continues on antibiotics. 06/09: The patient was noted to have spontaneous eye opening, tracking or following. The patient also was noted to have withdrawal to pain, which is changed from complete unresponsiveness noted for the last 3 days at which time patient was probably having subclinical seizure activity. Patient continues on propofol and low dose and Topamax was added to antiepileptic drug (AED) regimen yesterday. 06/10: Afebrile. Started on Kenney-Synephrine and a left IJ CVL was placed overnight. EEG continued with subclinical seizure activity. Unresponsive on the ventilator. Tolerating tube feeding. 06/11: Afebrile. Currently resting in bed. No gag reflexes AM. Going to feeding. Discussed with mother yesterday/sons are plain to coming from [place] in [place] this week. She is leaning towards comfort measures patient to be vent dependent and unresponsive. 06/12: No change in neurological status. Palliative care medicine production team member Dr. Reynoso attempted to contact family today unsuccessful. Dialysis today only to remove approximately 500 cc secondary to hemodynamic instability. 06/13: no neurologic improvements. palliative talking with family. awaiting MRI results. 06/14: no clinical improvements. remains encephalopathic. MRI unchanged with significant areas of small vessel ischemia. 06/15: borderline hypotensive today, but no other associated changes. no fever. wbc stable. encephalopathy persists. long family discussion today and despite patient's clear expressed wishes to multiple family members that she would "never want to be hooked up to machines", wants to proceed with trach/peg and long-term placement. Subjective 06/16: slightly hypotensive on minimal phenylephrine dose. febrile today. neuro exam still poor. family wants aggressive care. [facility] could accept patient as early as tomorrow. 06/17: No acute events overnight. Repeat blood cultures were obtained yesterday noted patient's white count trending down. The patient underwent hemodialysis with approximately 2 L off yesterday. Objective Vital Signs Date Time Temp Pulse Resp B/P (MAP) Pulse Ox O2 Delivery O2 Flow Rate FiO2 06/17/17 12:00 30 06/17/17 12:00 78 06/17/17 12:00 99.2 18 111/73 (86) 100 06/14/17 17:21 Ventilator Intake and Output 06/17/17 06/17/17 06/18/17 08:00 16:00 00:00 Intake Total 1188 ml Output Total 350 ml Balance 838 ml Result Diagram: 06/17/17 0755 06/17/17 0755 Imaging Last Impressions Chest X-Ray 06/10/17 0000 Signed Impressions: Service Date/Time: Saturday, June 10, 2017 07:02 - CONCLUSION: 1. Left IJ central line distal tip in the superior vena cava. No pneumothorax is seen. 2. Stable linear high density along the right pleural surface from uncertain etiology. There is also volume loss in the right lung. 3. Stable airspace opacity in the left mid and lower lung zone. Joshua Aguayo MD Head CT 06/05/17 0000 Signed Impressions: Service Date/Time: Tuesday, June 06, 2017 04:41 - CONCLUSION: 1. Senescent changes. 2. No significant interval change or acute intracranial abnormality. Rodri Leung MD Objective Remarks GENERAL: Patient is 67yo obese female s/p PEA arrest intubated , with spontaneous eye opening SKIN: Warm and dry. HEAD: Normocephalic. EYES: No scleral icterus. No injection or drainage. NECK: Supple, trachea midline. No JVD. Orally intubated. CARDIOVASCULAR: Regular rate and rhythm . RESPIRATORY: Mechanical ventilation .Breath sounds equal bilaterally. No accessory muscle use. GASTROINTESTINAL: Abdomen soft, non-tender, nondistended. MUSCULOSKELETAL: No cyanosis, b/l mid foot amputation, noted dry ulcers 3 on the right foot with gauze dressing Neuro: GCS 9T E4 V1 M 4 Intubated, does not track, does not follow commands. No movement of extremities with the exception of withdraws to painful stimuli. A/P Assessment and Plan Assessment: 67yF s/p PEA arrest with severe anoxic brain injury. poor prognosis. palliative on board. no real hope for meaningful recovery. At 's request, will pursue trach/peg and placement and LTAC placement. Fevers today, and slightly hypotensive, although she has been intermittently hypotensive for days now, and clinically appears non-toxic. will add midodrine and benoit-culture, but at this point, risk/benefit of adding back broad spectrum abx is in favor of conservative management and holding off until cultures result. [facility] Neuro/Psych: Status epilepticus History of CVA Anoxic brain injury No sedation at this time. No change in neurological status patient does not follow, does not track only spontaneous eye opening Monitor neuro status closely Continue to monitor neuro status CT brain 06/06-no interval change CT brain 06/01: atrophy no acute findings, EEG 06/08: Burst suppression every 3-5 seconds status/sharp activity. EEG 06/04: Seizure like activity likely related to severe anoxic brain injury. EEG 06/03: Epileptiform discharges EEG 06/02: Seizure activity, on fosphenytoin 100mg Q8, valproic acid, lorazepam 1mg Q4 PRN Neuro is following- Dr. Garcia. Currently on valproic acid 750 mg IV every 8 hours, fosphenytoin 250 mg IV every 8 hours, phenobarbital 100 mg IV every 8 hours and topiramate 50 mg by tube twice a day. Phenytoin level 6, valproic acid level LIII. Phenobarbital level 14 on 06/10 Holding gabapentin 300 mg by mouth 3 times a day Holding clonazepam 0.5 mg twice a day when necessary Holding cyclobenzaprine 10 mEq 3 times a day when necessary muscle relaxant Neurology following Dr. Garcia Pulm: Acute hypoxemic respiratory failure Obstructive sleep apnea COPD [facility] /02/27 Ventilator bundle Continue with vent support and maintain sats above 92%. Albuterol/ipratropium every 6 hours and albuterol aerosols every 2 hours when necessary 06/06 CXR Day 12 ET tube At home on albuterol/ipratropium nebulizers every 6 hours along with tiotropium 18 inhaled daily CV: PEA arrest Severe pulmonary hypertension Hypertension Dyslipidemia Claudication Peripheral vascular disease On midodrine 10 mg every Sunday with hemodialysis Monitor HR and BP maintain MAP> 65 mmHg. Lactic acid 1.2 Echo 06/01: EF 55-60%. Severe pulmonary hypertension Continue Aspirin 81 mg daily. Stress dose steroids- weaning Hydrocortisone 50mg IV Q8, continue taper: 50 q12h, 50 q24h, 25 q24h, then off. Holding pentoxifylline 400 mg daily for claudication Add midodrine 10mg po TID. Kenney-Synephrine discontinued this a.m.-hemodynamically stable Renal/ End-stage renal disease on hemodialysis Sunday Left upper extremity fistula Secondary hyperparathyroidism Hypokalemia Monitor renal function I&Os and avoid nephrotoxins. Renal is following- Dr. Ling HD per renal. On calcium acetate 667 milligrams 3 times a day with meals. On sevelamer 800 mg 3 times a day at home Continue cinacalcet 90 mg by mouth daily for secondary hyperparathyroidism GI: Gastroesophageal reflux disease Tube feeds- Nepro with goal 40ml/hr Lansoprazole for GI prophylaxis Docusate sodium/senna 1 tablet twice a day for bowel regimen ID: s/p full course of abx. send new cultures today. will not re-broaden. Follow up on blood 06/01: NGTD, sputum 06/01: normal resp kaylene, sputum 06/04 no growth Nasal washing is negative for influenza in the ED. 06/16-repeat blood cultures- NGTD Heme: Leukocytosis Anemia /normocytic Monitor CBC daily. Follow trends. Does not meet transfusion threshold at this time Endo: Hyperglycemia Gout History of hypothyroidism Sliding-scale insulin with Novulin R to maintain tingling euglycemia MSK: Morbid obesity Weight loss encouraged GI prophylaxis with lansoprazole 30 mg daily, DVT prophylaxis with SCDs./ heparin Subcu prophylaxis Lines: PIV's Palliative care is following Wound care following for dry ulcers on right forefoot Dispo: Plan transferred to [facility] in the a.m. spoke with Jeny William RN of [facility] [phone] Discussed with PURCHASE PRICE ANALYST at bedside Physician Lauren Varghese MD Jun 17, 2017 13:30
[2017-06-18] VITALS (14 sets, daily range): BP systolic 99–145; BP diastolic 53–77; PULSE 80–92; RESP 14–23; TEMP 98.5–99.3; O2SAT 97–100
[2017-06-18] MEDS: CHLORHEXIDINE GLUCONATE 2 % 1 PACK (2 CLOTHS) TOP SCH (03:32)
[2017-06-18] MEDS: PHENYTOIN 50 MG CHEWABLE TAB PO SCH ×2 (05:06→13:04)
[2017-06-18] MEDS: VALPROATE INJ 750 MG in SODIUM CHLORIDE 0.9% INJ 100 ML IV SCH ×2 (05:06→13:04)
[2017-06-18 05:44] LABS: MEAN CELL VOLUME 90.7 FL (80.0-100.0); MEAN CORPUSCULAR HEMOGLOBIN 28.4 PG (27.0-34.0); MEAN CORPUSCULAR HGB CONC 31.3 % (32.0-36.0); PLATELET COUNT 306 TH/MM3 (150-450); RED BLOOD COUNT 3.09 MIL/MM3 (4.00-5.30); RED CELL DISTRIBUTION WIDTH 19.6 % (11.6-17.2); REVIEW FLAG FINAL; WHITE BLOOD COUNT 16.9 TH/MM3 (4.0-11.0)
[2017-06-18 06:07] LABS: BICARBONATE 27.2 MEQ/L (21.0-32.0); MAGNESIUM 2.2 MG/DL (1.5-2.5); POTASSIUM 3.9 MEQ/L (3.5-5.1)
[2017-06-18] MEDS: MIDODRINE 5 MG TAB PO SCH ×3 (06:25→17:04)
[2017-06-18] MEDS: CALCIUM ACETATE 667 MG CAP PO SCH ×3 (07:52→17:03)
[2017-06-18] MEDS: HEPARIN SODIUM - SQ 10,000 UNITS/ML VIAL SQ SCH (07:52)
[2017-06-18] MEDS: GABAPENTIN 100 MG CAP PO SCH (07:52)
[2017-06-18] MEDS: TOPIRAMATE 25 MG TAB OG-TUBE SCH (07:53)
[2017-06-18] MEDS: LANSOPRAZOLE SOLUTAB 30 MG TAB NG SCH (07:53)
[2017-06-18] MEDS: ASPIRIN 81 MG CHEW TAB CHEW SCH (07:53)
[2017-06-18] MEDS: VITAMIN B CMPLX/VITC/FOLIC AC CAP PO SCH (07:54)
[2017-06-18] MEDS: BENEPROTEIN POWDER 1 PACK G-TUBE SCH ×3 (07:55→17:04)
[2017-06-18] MEDS: ARTIFICIAL TEARS OPTH SOLN 15 ML BTL EACH EYE SCH ×3 (07:55→17:04)
--- NOTE | 2017-06-18 09:30 | HHI.IDPN ---
Subjective Subjective Remarks Patient is a 67-year-old female, brought into the hospital after she became unresponsive during her hemodialysis. She has end-stage renal disease, and goes to dialysis every Sunday and Sunday. She was apparently undergoing dialysis on the day of admission, and she told the staff that she was not feeling well. She suddenly became unresponsive. EMS was called, and patient was found to be in PEA arrest. She underwent CPR, and intubation. After about 30 minutes she was successfully resuscitated and was on pressors. Patient has remained intubated since. She has since then been having problem with seizure activity on her EEG. Patient is currently on multiple anticonvulsant agents. Her WBC has remained elevated. She started having fevers about 2 days ago. She's had blood culture that were negative, and sputum culture with normal respiratory [place]. Patient is anuric. She has been on Zosyn empirically. She has a femoral line on the right. She's had diarrhea , and stool for C. difficile is negative. Patient currently is sedated on the vent. She is still on pressors. Infectious disease consultation has been requested to evaluate the patient with fevers and persistent leukocytosis. Notes reviewed Had fevers 06/16, afebrile since Was on pressors this weekend, off now Remains on the vent No change in neuro status Husbands wishes to continue aggressive care, trach and PEG She is off Abx She finished her Abx 06/14 Last CXR 06/12 - stable mild basilar infiltrates Has diarrhea WBC elevated Antibiotics None Past Medical History End-stage renal disease on hemodialysis Sunday, Sunday, Sunday Hypertension Hyperlipidemia anemia of chronic disease Arthritis. Congestive heart failure. Cerebrovascular accident. Gastroesophageal reflux disease. Obstructive sleep apnea on C-PAP q.h.s. Hypothyroidism Vertigo Anxiety / depression Chronic obstructive pulmonary disease. Past Surgical History Previous bilateral TMA x3 Left upper extremity AV fistula Left breast lumpectomy Partial hysterectomy. Allergies: Coded Allergies: diatrizoate meglumine (Unverified Allergy, Severe, Joint Pain, 05/15/17) pt states she is not allergic to this gadobenic acid (Unverified Allergy, Severe, Joint Pain, 05/15/17) pt states she is not allergic to this gadodiamide (Unverified Allergy, Severe, Joint Pain, 05/15/17) pt states she is not allergic to this gadoteridol (Unverified Allergy, Severe, Joint Pain, 05/15/17) pt states she is not allergic to this iodine (Unverified Allergy, Severe, ORAL CONTRAST [place], 05/15/17) pt states she is not allergic to this iodixanol (Unverified Allergy, Severe, Joint Pain, 05/15/17) pt states she is not allergic to this iohexol (Unverified Allergy, Severe, Joint Pain, 05/15/17) pt states she is not allergic to this morphine (Unverified Allergy, Severe, ITCH, 05/15/17) pt states she is not allergic to this potassium iodide (Unverified Allergy, Severe, ORAL CONTRAST [place], 05/15/17) pt states she is not allergic to this povidone-iodine (Unverified Allergy, Severe, ORAL CONTRAST [place], 05/15/17) pt states she is not allergic to this sodium iodide (Unverified Allergy, Severe, ORAL CONTRAST [place], 05/15/17) pt states she is not allergic to this sodium iodide (Unverified Allergy, Severe, ORAL CONTRAST [place], 05/15/17) pt states she is not allergic to this vancomycin (Unverified Allergy, Unknown, 05/15/17) PT STATES UNKNOWN IF SHE IS ALLERGIC. Objective . Vital Signs Date Time Temp Pulse Resp B/P (MAP) Pulse Ox O2 Delivery O2 Flow Rate FiO2 06/18/17 08:04 100 30 06/18/17 08:00 99.2 85 23 145/56 (85) 100 06/18/17 08:00 30 06/18/17 06:00 88 06/18/17 04:20 98 30 06/18/17 04:00 30 06/18/17 04:00 91 06/18/17 04:00 99.0 91 14 115/77 (90) 98 06/18/17 02:00 92 06/18/17 01:42 98 30 06/18/17 00:00 99.3 90 14 114/53 (73) 98 06/18/17 00:00 90 06/18/17 00:00 30 06/17/17 22:33 98 30 06/17/17 22:00 86 06/17/17 20:40 99 30 06/17/17 20:00 30 06/17/17 20:00 99.6 84 22 98/55 (69) 100 06/17/17 20:00 84 06/17/17 18:00 78 06/17/17 16:00 99.4 83 18 98/49 (65) 100 06/17/17 16:00 83 06/17/17 16:00 30 06/17/17 15:10 100 30 06/17/17 14:00 78 06/17/17 12:00 30 06/17/17 12:00 78 06/17/17 12:00 99.2 78 18 111/73 (86) 100 06/17/17 10:17 99 30 06/17/17 10:00 75 . Laboratory Tests Test 06/16/17 19:05 06/17/17 07:55 06/18/17 04:36 White Blood Count 32.0 TH/MM3 22.0 TH/MM3 16.9 TH/MM3 Red Blood Count 3.18 MIL/MM3 3.25 MIL/MM3 3.09 MIL/MM3 Hemoglobin 8.8 GM/DL 9.0 GM/DL 8.8 GM/DL Hematocrit 28.7 % 29.5 % 28.0 % Mean Corpuscular Volume 90.2 FL 90.7 FL 90.7 FL Mean Corpuscular Hemoglobin 27.7 PG 27.8 PG 28.4 PG Mean Corpuscular Hemoglobin Concent 30.8 % 30.6 % 31.3 % Red Cell Distribution Width 19.5 % 19.8 % 19.6 % Platelet Count 321 TH/MM3 249 TH/MM3 306 TH/MM3 Mean Platelet Volume 9.0 FL 10.0 FL 8.8 FL Laboratory Tests Test 06/16/17 19:05 06/17/17 07:55 06/18/17 04:36 Procalcitonin 4.59 ng/mL Blood Urea Nitrogen 55 MG/DL 59 MG/DL Creatinine 5.16 MG/DL 5.90 MG/DL Random Glucose 85 MG/DL 85 MG/DL Calcium Level 10.2 MG/DL 9.8 MG/DL Sodium Level 133 MEQ/L 132 MEQ/L Potassium Level 4.1 MEQ/L 3.9 MEQ/L Chloride Level 93 MEQ/L 93 MEQ/L Carbon Dioxide Level 29.4 MEQ/L 27.2 MEQ/L Anion Gap 11 MEQ/L 12 MEQ/L Estimat Glomerular Filtration Rate 10 ML/MIN 9 ML/MIN Phosphorus Level 4.6 MG/DL Magnesium Level 2.2 MG/DL Microbiology Date/Time Source Procedure Growth Status 06/16/17 19:05 Blood Peripheral Aerobic Blood Culture - Preliminary NO GROWTH IN 1 DAY Resulted 06/16/17 19:05 Blood Peripheral Anaerobic Blood Culture - Preliminary NO GROWTH IN 1 DAY Resulted 06/16/17 18:55 Blood Peripheral Aerobic Blood Culture - Preliminary NO GROWTH IN 1 DAY Resulted 06/16/17 18:55 Blood Peripheral Anaerobic Blood Culture - Preliminary NO GROWTH IN 1 DAY Resulted Imaging Last 48 hours Impressions Chest X-Ray 06/08/17 0600 Signed Impressions: Service Date/Time: Thursday, June 08, 2017 05:56 - CONCLUSION: 1. Grossly stable ETT and NGT. 2. Cardiomegaly with positive fluid balance. 3. Stable bilateral lower lung zone airspace disease. 4. No significant interval change. Rodri Leung MD Chest X-Ray 06/07/17 0600 Signed Impressions: Service Date/Time: June 05:48 - CONCLUSION: 1. Stable ETT and NGT. 2. Cardiomegaly with mild positive fluid balance. 3. Stable bibasilar airspace disease, likely atelectasis. 4. Probable trace left pleural effusion. 5. No significant interval change. Rodri Leung MD Chest X-Ray 06/06/17 0000 Signed Impressions: Service Date/Time: Tuesday, June 06, 2017 03:30 - CONCLUSION: 1. Cardiomegaly with positive fluid balance. 2. Stable mild bibasilar airspace disease, likely atelectasis. 3. No significant interval change. Rodri Leung MD Head CT 06/05/17 0000 Signed Impressions: Service Date/Time: Tuesday, June 06, 2017 04:41 - CONCLUSION: 1. Senescent changes. 2. No significant interval change or acute intracranial abnormality. Rodri Leung MD Physical Exam GENERAL: sedated, on the vent, not in respiratory distress. SKIN: Warm and dry. No generalized rash HEAD: Atraumatic. Normocephalic. No temporal wasting, or tenderness. EYES: [place] conjunctiva. No petechia or hemorrhage. Has dirty sclera. No injection or drainage. EARS, NOSE AND THROAT: Nose without bleeding or purulent nasal discharge. She is orally intubated. NECK: Trachea midline. Supple, no meningeal signs CARDIOVASCULAR: Regular rate and rhythm. No murmurs, rubs or gallops heard RESPIRATORY: Coarse BS giovanny, decreased at bases EXTREMITIES: No clubbing, cyanosis, or edema. Giovanny TMA, has dry dressing on his R foot. NEUROLOGICAL: Sedated PSYCHIATRIC: Unable to assess LINE: No evidence of infection Assessment & Plan Remarks IMPRESSION Fevers, recurrent, etiology, temps better Persistent leukocytosis, etiology? - still with ongoing seizures on her EEG Respiratory failure, possible aspiration PNA - S/P Abx Rx for PNA Seizures due to anoxic injury S/P PEA arrest Likely with anoxic injury ESRD on HD MWF RECOMMENDATION Monitor temps If recurrent temps, CXR and check sputum C/S Monitor progress Monitor off Abx Jasmyne Cazares MD Jun 18, 2017 09:30
--- NOTE | 2017-06-18 10:57 | HHI.NPPN ---
Subjective General Problems: Anemia Renal Failure: Chronic, End Stage Renal Disease Interval History Events of the weekend noted. Fever on on the 16th, off antibiotics. Review of Systems General General Remarks unable to obtain Objective Data Data Vital Signs Date Time Temp Pulse Resp B/P (MAP) Pulse Ox O2 Delivery O2 Flow Rate FiO2 06/18/17 08:04 100 30 06/18/17 08:00 99.2 85 23 145/56 (85) 100 06/18/17 08:00 30 06/18/17 06:00 88 06/18/17 04:20 98 30 06/18/17 04:00 30 06/18/17 04:00 91 06/18/17 04:00 99.0 91 14 115/77 (90) 98 06/18/17 02:00 92 06/18/17 01:42 98 30 06/18/17 00:00 99.3 90 14 114/53 (73) 98 06/18/17 00:00 90 06/18/17 00:00 30 06/17/17 22:33 98 30 06/17/17 22:00 86 06/17/17 20:40 99 30 06/17/17 20:00 30 06/17/17 20:00 99.6 84 22 98/55 (69) 100 06/17/17 20:00 84 06/17/17 18:00 78 06/17/17 16:00 99.4 83 18 98/49 (65) 100 06/17/17 16:00 83 06/17/17 16:00 30 06/17/17 15:10 100 30 06/17/17 14:00 78 06/17/17 12:00 30 06/17/17 12:00 78 06/17/17 12:00 99.2 78 18 111/73 (86) 100 -: 06/18/17 0436 06/18/17 0436 Drip Comment versed, fentanyl Physical Exam General Appearance: Well Developed, Sleeping, Obese Eyes Eye Exam: Pupils Equal Throat Throat Exam: Oral Mucosa [place] & Moist Neck Neck Exam: Neck Supple Pulmonary Resp Exam: Breath Sounds Equal, No Distress, Decreased Bases Cardiology CV Exam: Regular, Normal Sinus Rhythm, Good Perfusion Gastrointestinal/Abdomen GI Exam: Soft, Non-Tender, Bowel Sounds Present Musculoskeletal MS Exam: Joints Intact, Normal Tone, Unable to Ambulate Integumentary Skin Exam: Clear, Warm, Dry, Intact Extremeties Extremities Exam: No Edema, Pedal Pulses Palpable Neurologic Neuro Exam: Unresponsive, Sedated Assessment/Plan Assessment Summary: Anemia of CKD, End Stage Renal Disease Problem List: (1) ESRD (end stage renal disease) ICD Codes: N18.6 - End stage renal disease Status: Chronic Plan: Continue dialysis TTS if family desires to continue aggressive care Given albumin BP is better Monitor electrolytes, replace as needed Avoid IVF, Gadolinium in contraindicated Poor prognosis. Hospice is appropriate. (2) Cardiac arrest ICD Codes: I46.9 - Cardiac arrest, cause unspecified Plan: she is unresponsive on ventilator She has suffered anoxic brain injury, had EEG 06/13 Poor prognosis. Neuro and palliative are following Awaiting family decision regarding goals of care; apparently they will be in today to discuss withdrawal of life support. (3) Metabolic bone disease ICD Codes: E88.9 - Metabolic disorder, unspecified; M90.80 - Osteopathy in diseases classified elsewhere, unspecified site Status: Acute Plan: intermittently monitor phosphorus level continue Calcium acetate via OG tube (4) Anemia of chronic renal failure Status: Chronic Plan: continue epogen with HD Follow Hb (5) Hypertension Status: Chronic Plan: Recent hypotension; Antihypertensives on hold. Monitor blood pressure (6) Leukocytosis ICD Codes: D72.829 - Elevated white blood cell count, unspecified Plan: ID following, Off all antibiotics Monitor clinically. She is afebrile. Tyler Ling MD Jun 18, 2017 10:57
--- NOTE | 2017-06-18 11:14 | HHI.HCPN ---
Reason for visit a. To assist with evaluation and management of symptoms including: dyspnea , pain, seizures b. To assist medical decision maker(s) with: better understanding of current medical conditions; weighing benefits/burdens of medical treatment options; making medical treatment decisions. . Subjective/Interval History Patient seen and examined in ICU. No family at bedside. Patient remains sedated on mechanical ventilation. Tmax 99.6. Hypotensive, systolic blood pressure is running 70-90 today. Hemodialysis with removal of one liter. WBC 16.9. hemoglobin 8.8, platelet 306. Creatinine 5.9, potassium 3.9. Nurse indicates possible DC to [facility], CM notes indicate no bed at this time. . Family/friend interactions No family at bedside, palliative care number previously provided. goals remain aggressive including trach/PEG. . Advance Directives Living Will: Never completed Health Care Surrogate: Never completed Durable Power of As[employer]er [employer] Ring: Never completed Advance Directive Specifics Health Care Surrogate(s): Patient has no known written advance directives. Patient is incapacitated, unlikely to repeat gain capacity given anoxic brain injury. According to [place] statutes, health care proxy decision-making falls to the patient's spouse. . Significant change in goals: FULL CODE. Goals remain aggressive including trach/PEG. . Objective Vital Signs Date Time Temp Pulse Resp B/P (MAP) Pulse Ox O2 Delivery O2 Flow Rate FiO2 06/18/17 08:04 100 30 06/18/17 08:00 99.2 85 23 145/56 (85) 100 06/18/17 08:00 30 06/18/17 06:00 88 06/18/17 04:20 98 30 06/18/17 04:00 30 06/18/17 04:00 91 06/18/17 04:00 99.0 91 14 115/77 (90) 98 06/18/17 02:00 92 06/18/17 01:42 98 30 06/18/17 00:00 99.3 90 14 114/53 (73) 98 06/18/17 00:00 90 06/18/17 00:00 30 06/17/17 22:33 98 30 06/17/17 22:00 86 06/17/17 20:40 99 30 06/17/17 20:00 30 06/17/17 20:00 99.6 84 22 98/55 (69) 100 06/17/17 20:00 84 06/17/17 18:00 78 06/17/17 16:00 99.4 83 18 98/49 (65) 100 06/17/17 16:00 83 06/17/17 16:00 30 06/17/17 15:10 100 30 06/17/17 14:00 78 06/17/17 12:00 30 06/17/17 12:00 78 06/17/17 12:00 99.2 78 18 111/73 (86) 100 Intake & Output 06/18/17 06/18/17 07:00 19:00 Intake Total 747.0 ml Output Total 100 ml Balance 647.0 ml Intake Oral 0 ml IV Total 215.0 ml Tube Feeding 472 ml Tube Irrigant 60 ml Output Urine Total 0 ml Stool Total 100 ml Physical Exam CONSTITUTIONAL/GENERAL: This is an elderly, obese, unresponsive patient, in no apparent distress. TUBES/LINES/DRAINS: ET tube, OG, IV access, rectal tube EYES: eyes open, not tracking. NECK: Trachea midline. Supple. CARDIOVASCULAR: irregular rhythm, hypotensive. RESPIRATORY/CHEST: Symmetric, unlabored respirations with ventilator. Scattered rhonchi. GASTROINTESTINAL: Abdomen soft, obese. Bowel sounds present. MUSCULOSKELETAL: bilateral foot partial amputations. Extremities without clubbing, cyanosis. No mottling or clubbing. NEUROLOGICAL: Unresponsive to voice, touch, or pain PSYCHIATRIC: Unable to assess due to clinical condition . Diagnostic Tests Laboratory Laboratory Tests Test 06/15/17 12:25 06/16/17 13:27 06/16/17 19:05 06/17/17 07:55 White Blood Count 16.0 TH/MM3 (4.0-11.0) 32.0 TH/MM3 (4.0-11.0) 22.0 TH/MM3 (4.0-11.0) Red Blood Count 3.07 MIL/MM3 (4.00-5.30) 3.18 MIL/MM3 (4.00-5.30) 3.25 MIL/MM3 (4.00-5.30) Hemoglobin 8.8 GM/DL (11.6-15.3) 8.8 GM/DL (11.6-15.3) 9.0 GM/DL (11.6-15.3) Hematocrit 28.0 % (35.0-46.0) 28.7 % (35.0-46.0) 29.5 % (35.0-46.0) Mean Corpuscular Volume 91.0 FL (80.0-100.0) 90.2 FL (80.0-100.0) 90.7 FL (80.0-100.0) Mean Corpuscular Hemoglobin 28.6 PG (27.0-34.0) 27.7 PG (27.0-34.0) 27.8 PG (27.0-34.0) Mean Corpuscular Hemoglobin Concent 31.4 % (32.0-36.0) 30.8 % (32.0-36.0) 30.6 % (32.0-36.0) Red Cell Distribution Width 18.6 % (11.6-17.2) 19.5 % (11.6-17.2) 19.8 % (11.6-17.2) Platelet Count 235 TH/MM3 (150-450) 321 TH/MM3 (150-450) 249 TH/MM3 (150-450) Mean Platelet Volume 9.6 FL (7.0-11.0) 9.0 FL (7.0-11.0) 10.0 FL (7.0-11.0) Blood Urea Nitrogen 56 MG/DL (7-18) 55 MG/DL (7-18) Creatinine 5.05 MG/DL (0.50-1.00) 5.16 MG/DL (0.50-1.00) Random Glucose 81 MG/DL (74-106) 85 MG/DL (74-106) Calcium Level 9.5 MG/DL (8.5-10.1) 10.2 MG/DL (8.5-10.1) Sodium Level 142 MEQ/L (136-145) 133 MEQ/L (136-145) Potassium Level 3.9 MEQ/L (3.5-5.1) 4.1 MEQ/L (3.5-5.1) Chloride Level 99 MEQ/L (98-107) 93 MEQ/L (98-107) Carbon Dioxide Level 27.6 MEQ/L (21.0-32.0) 29.4 MEQ/L (21.0-32.0) Anion Gap 15 MEQ/L (5-15) 11 MEQ/L (5-15) Estimat Glomerular Filtration Rate 10 ML/MIN (>89) 10 ML/MIN (>89) Phenytoin (Dilantin) Level 6.7 MCG/ML (10.0-20.0) Procalcitonin 4.59 ng/mL (0.00-0.50) Test 06/18/17 04:36 White Blood Count 16.9 TH/MM3 (4.0-11.0) Red Blood Count 3.09 MIL/MM3 (4.00-5.30) Hemoglobin 8.8 GM/DL (11.6-15.3) Hematocrit 28.0 % (35.0-46.0) Mean Corpuscular Volume 90.7 FL (80.0-100.0) Mean Corpuscular Hemoglobin 28.4 PG (27.0-34.0) Mean Corpuscular Hemoglobin Concent 31.3 % (32.0-36.0) Red Cell Distribution Width 19.6 % (11.6-17.2) Platelet Count 306 TH/MM3 (150-450) Mean Platelet Volume 8.8 FL (7.0-11.0) Blood Urea Nitrogen 59 MG/DL (7-18) Creatinine 5.90 MG/DL (0.50-1.00) Random Glucose 85 MG/DL (74-106) Calcium Level 9.8 MG/DL (8.5-10.1) Phosphorus Level 4.6 MG/DL (2.5-4.9) Magnesium Level 2.2 MG/DL (1.5-2.5) Sodium Level 132 MEQ/L (136-145) Potassium Level 3.9 MEQ/L (3.5-5.1) Chloride Level 93 MEQ/L (98-107) Carbon Dioxide Level 27.2 MEQ/L (21.0-32.0) Anion Gap 12 MEQ/L (5-15) Estimat Glomerular Filtration Rate 9 ML/MIN (>89) Result Diagram: 06/18/17 0436 06/18/17 0436 Microbiology Microbiology Date/Time Source Procedure Growth Status 06/16/17 19:05 Blood Peripheral Aerobic Blood Culture - Preliminary Gram Negative Yuniel Resulted 06/16/17 19:05 Blood Peripheral Anaerobic Blood Culture - Preliminary NO GROWTH IN 1 DAY Resulted 06/16/17 18:55 Blood Peripheral Aerobic Blood Culture - Preliminary Gram Negative Yuniel Resulted 06/16/17 18:55 Anaerobic Blood Culture - Preliminary Gram Negative Yuniel Resulted Imaging Last Impressions Brain MRI 06/14/17 0000 Signed Impressions: Service Date/Time: June 15:53 - CONCLUSION: 1. No findings to indicate acute cortical infarct. 2. Extensive T2 signal abnormality in the white matter most consistent with moderate microvascular ischemic demyelinative change. 3. Air-fluid level in the sphenoid sinus with mucoperiosteal thickening suggesting sinusitis. 4. There is fluid filling the mastoid air cells. Caesar Arguelles MD Chest X-Ray 06/12/17 0600 Signed Impressions: Service Date/Time: Monday, June 12, 2017 05:11 - CONCLUSION: 1. Support apparatus in good position, unchanged. Stable bilateral mild basilar airspace disease. Tree Alfred MD Head CT 06/05/17 0000 Signed Impressions: Service Date/Time: Tuesday, June 06, 2017 04:41 - CONCLUSION: 1. Senescent changes. 2. No significant interval change or acute intracranial abnormality. Rodri Leung MD Procedures CPR, resuscitation 06/01/17 INTUBATION 06/01/17 Intraosseous needle placement in left tibia 06/01/17 Central line placement 06/01/17 . Assessment and Plan Disease Oriented Problem List: (1) cardiac arrest, prolonged resuscitation (2) probable anoxic brain injury Comment: With seizure activity (3) end-stage renal disease (4) CHF (5) COPD (6) peripheral vascular disease (7) hypertension (8) obesity (9) asthma (10) gout (11) hypothyroidism (12) depression (13) arthritis (14) history of sleep apnea Symptom Scale: (1) dyspnea 0-10 Scale: Unable to quantify (2) pain 0-10 Scale: Unable to quantify (likely has musculoskeletal pain after the prolonged resuscitation) Pertinent Non-Medical Issues Psychosocial: for 32 years, 3 children (son age 45 in [place], son age 40 in [place], daughter age 38 in [facility]);, former [employer], 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 Spiritual: [employer] background Legal: The patient lacks capacity for decision-making, and it seems unlikely that she will regain that capacity. Her is the decision making proxy. Ethical issues impacting care: None . Important Contacts Berhane --[phone] (corrected phone number 06/08/17) . Prognosis Her prognosis is quite poor, as it appears she has had a profound anoxic brain injury, and she has multiple other comorbidities. . Code Status: Full Code Plan * FULL CODE * DECISION-MAKING: The patient lacks capacity for decision-making, and she will not regain that capacity. Her is the decision making proxy. * 06/15/17: GOALS: Dr. Sunshine and I met with family including Berhane, mother Simona Mei, sister Yessenia Lilly, sister Jannette Reyna and sister Hermelinda Lilly. Dr. Sunshine provided medical update. We reviewed treatment options including continued aggressive care including tracheostomy/PEG tube placement versus transition to comfort focused care. Mother and 3 sisters all report that the patient would not want continued aggressive care, additional surgeries. Mother reports the patient told her she did not want any further surgeries, that she would not want to be kept alive by machines or to live in a group home and that she would wish to be cremated. Siblings have had similar conversations. Patient's does not verbalize any conversations, at the end of the meeting he reports he wants to proceed with tracheostomy/PEG tube and desires FULL CODE status. Mother and siblings are tearful and upset by this conversation. I provided palliative care number as the patient's son is expected to arrive later today, offered to answer any questions he may have. Patient's understands that there are no signs of neurologic improvement , and that the prognosis is extremely poor for any meaningful neurologic recovery. Spouse/HCP desires continued aggressive care including tracheostomy/ PEG tube and FULL CODE. * SYMPTOMS: Her dyspnea and likely pain is being managed in the [facility], I have no additional medication recommendations at this time. * Palliative Care will continue to follow the patient during this hospitalization. . Attestation To help prompt me to consider important information that might be impacting today's encounter and assessment, information from prior notes written by myself or my colleagues may have been "brought forward" into today's note. My signature on this note, however, is an attestation that I personally performed the exam, history, and/or decision-making noted today, and, unless otherwise indicated, the interactions with patient, family, and staff as well as the review of records all occurred today. I also attest that the listed assessment and stated plan reflect my best clinical judgment today based on the combination of historical information, prior notes, and today's exam/ interactions. When time spent is documented, it refers only to time spent today by the signer, or if indicated, combined time spent today by collaborating physician/nurse practitioner. Rachel Cleaning Jun 18, 2017 11:14
--- NOTE | 2017-06-18 13:03 | HHI.CCPN ---
Subjective Remarks/Hospital Course Patient is 67-year-old female with multiple comorbidities which include end- stage renal disease on hemodialysis Sunday, Sunday, Sunday, hypertension, COPD on home oxygen, morbid obesity with obstructive sleep apnea, CHF. The patient was at the dialysis center today, she reported to the staff that she did not feel well and all the sudden she became unresponsive. The patient was given CPR which was continued in en route to the hospital. She was in PEA arrest. The patient was given epi, bicarb and D50. After approximately 30 minutes. She had successful return of spontaneous circulation and was started on dopamine. The patient also was intubated and placed on full mechanical ventilation. Her ABG post intubation showed a pH of 7.39, CO2 45, pAO2 238 and bicarb 27 and saturation of 97%. Her laboratory data showed the potassium 4.1, creatinine 6.23 and corrected calcium of 7.3. Other significant labs showed mild leukocytosis with a Review WBC of 12.7. A chest x-ray post intubation showed a bilateral pulmonary infiltrates and ET tube approximately 4 cm above the isabel. In the ER she was given calcium gluconate and started on dopamine as stated above. Right femoral central line was attempted by the ED physician without any success. The patient was also seen by Dr. Macho francois in the ER from nephrology service and she is scheduled to undergo CT scan of the brain. The patient is unresponsive. 06/02 No events overnight. On fentanyl infusion for sedation however patient has her eyes open unresponsive. Afebrile. 06/03 No events overnight. Sedated with Fentanyl and intubated. On Levophed 11mics. EEG yesterday showed seizures started on Cerebyx. 06/04 Patient remains intubated and sedated with Versed and Fentanyl drip. Had seizure overnight given Ativan 1mg x1. Levophed down 1mic and on vasopressin. For HD today. T:100.4 last night 06/05 Patient remains intubated and sedated. On Levophed 1mic and Vasopressin. afebrile. Repeat EEG yesterday showed seizure like activity. 06/06 TMax 99.2. Vasopressin has been discontinued, the patient continues on Norepinephrine at 1 mcg. The patient has been transitioned to phenylephrine via peripheral IV low dose, to maintain MAP > 65 06/07 Afebrile. The patient continues to have leukocytosis, antibiotics changed per ID,Dr. Cazares following. Neurologically the patient continues on Versed infusion for continued seizure activity. Repeat EEG ordered, results pending. AED levels of phenobarbital,phenytoin, and valproic acid all remain subtherapeutic . Right groin femoral line was discontinued the patient remains with peripheral IVs, no vasopressors support needed. Wound care was consulted regarding dry ulcers on right foot and implementation of measures. 06/08: No acute events overnight. EEG performed today the patient continues to have seizure activity. Dr. Garcia notified the patient continues on phenobarbital, fosphenytoin and valproic acid level slightly increased but still remains subtherapeutic at this time. The propofol infusion and Topamax added to medication regimen. WBC count continues to increase most likely reactive. ID following patient continues on antibiotics. 06/09: The patient was noted to have spontaneous eye opening, tracking or following. The patient also was noted to have withdrawal to pain, which is changed from complete unresponsiveness noted for the last 3 days at which time patient was probably having subclinical seizure activity. Patient continues on propofol and low dose and Topamax was added to antiepileptic drug (AED) regimen yesterday. 06/10: Afebrile. Started on Kenney-Synephrine and a left IJ CVL was placed overnight. EEG continued with subclinical seizure activity. Unresponsive on the ventilator. Tolerating tube feeding. 06/11: Afebrile. Currently resting in bed. No gag reflexes AM. Going to feeding. Discussed with mother yesterday/sons are plain to coming from [place] in [place] this week. She is leaning towards comfort measures patient to be vent dependent and unresponsive. 06/12: No change in neurological status. Palliative care medicine team leader Dr. Reynoso attempted to contact family today unsuccessful. Dialysis today only to remove approximately 500 cc secondary to hemodynamic instability. 06/13: no neurologic improvements. palliative talking with family. awaiting MRI results. 06/14: no clinical improvements. remains encephalopathic. MRI unchanged with significant areas of small vessel ischemia. 06/15: borderline hypotensive today, but no other associated changes. no fever. wbc stable. encephalopathy persists. long family discussion today and despite patient's clear expressed wishes to multiple family members that she would "never want to be hooked up to machines", wants to proceed with trach/peg and long-term placement. Subjective 06/16: slightly hypotensive on minimal phenylephrine dose. febrile today. neuro exam still poor. family wants aggressive care. [facility] could accept patient as early as tomorrow. 06/17: No acute events overnight. Repeat blood cultures were obtained yesterday noted patient's white count trending down. The patient underwent hemodialysis with approximately 2 L off yesterday. 06/18: No neuro status changes at this time. The patient remains encephalopathic. Patient has a tentative transfer to [facility] upon bed availability. Objective Vital Signs Date Time Temp Pulse Resp B/P (MAP) Pulse Ox O2 Delivery O2 Flow Rate FiO2 06/18/17 12:00 30 06/18/17 11:08 100 06/18/17 08:00 99.2 85 23 145/56 (85) 06/14/17 17:21 Ventilator Intake and Output 06/18/17 06/18/17 06/19/17 08:00 16:00 00:00 Intake Total 639.5 ml Output Total 100 ml Balance 539.5 ml Result Diagram: 06/18/17 0436 06/18/17 0436 Imaging Last Impressions Chest X-Ray 06/10/17 0000 Signed Impressions: Service Date/Time: Saturday, June 10, 2017 07:02 - CONCLUSION: 1. Left IJ central line distal tip in the superior vena cava. No pneumothorax is seen. 2. Stable linear high density along the right pleural surface from uncertain etiology. There is also volume loss in the right lung. 3. Stable airspace opacity in the left mid and lower lung zone. Joshua Aguayo MD Head CT 06/05/17 0000 Signed Impressions: Service Date/Time: Tuesday, June 06, 2017 04:41 - CONCLUSION: 1. Senescent changes. 2. No significant interval change or acute intracranial abnormality. Rodri Leung MD Objective Remarks GENERAL: Patient is 67yo obese female s/p PEA arrest intubated , with spontaneous eye opening SKIN: Warm and dry. HEAD: Normocephalic. EYES: No scleral icterus. No injection or drainage. NECK: Supple, trachea midline. No JVD. Orally intubated. CARDIOVASCULAR: Regular rate and rhythm . RESPIRATORY: Mechanical ventilation .Breath sounds equal bilaterally. No accessory muscle use. GASTROINTESTINAL: Abdomen soft, non-tender, nondistended. MUSCULOSKELETAL: No cyanosis, b/l mid foot amputation, noted dry ulcers 3 on the right foot with gauze dressing Neuro: GCS 9T E4 V1 M 4 Intubated, does not track, does not follow commands. No movement of extremities with the exception of withdraws to painful stimuli. A/P Assessment and Plan Assessment: 67yF s/p PEA arrest with severe anoxic brain injury. poor prognosis. palliative on board. no real hope for meaningful recovery. At 's request, will pursue trach/peg and placement and LTAC placement. Fevers today, and slightly hypotensive, although she has been intermittently hypotensive for days now, and clinically appears non-toxic. will add midodrine and benoit-culture, but at this point, risk/benefit of adding back broad spectrum abx is in favor of conservative management and holding off until cultures result. [facility] Neuro/Psych: Status epilepticus History of CVA Anoxic brain injury No sedation at this time. No change in neurological status patient does not follow, does not track only spontaneous eye opening Monitor neuro status closely Continue to monitor neuro status CT brain 06/06-no interval change CT brain 06/01: atrophy no acute findings, EEG 06/08: Burst suppression every 3-5 seconds status/sharp activity. EEG 06/04: Seizure like activity likely related to severe anoxic brain injury. EEG 06/03: Epileptiform discharges EEG 06/02: Seizure activity, on fosphenytoin 100mg Q8, valproic acid, lorazepam 1mg Q4 PRN Neuro is following- Dr. Garcia. Currently on valproic acid 750 mg IV every 8 hours, fosphenytoin 250 mg IV every 8 hours, phenobarbital 100 mg IV every 8 hours and topiramate 50 mg by tube twice a day. Phenytoin level 6, valproic acid level 53. Phenobarbital level 14 on 06/10 Holding gabapentin 300 mg by mouth 3 times a day Holding clonazepam 0.5 mg twice a day when necessary Holding cyclobenzaprine 10 mEq 3 times a day when necessary muscle relaxant Neurology following Dr. Garcia Pulm: Acute hypoxemic respiratory failure Obstructive sleep apnea COPD PRVC 14/550/30 Ventilator bundle Continue with vent support and maintain sats above 92%. Albuterol/ipratropium every 6 hours and albuterol aerosols every 2 hours when necessary 06/06 CXR Day 12 ET tube At home on albuterol/ipratropium nebulizers every 6 hours along with tiotropium 18 inhaled daily CV: PEA arrest Severe pulmonary hypertension Hypertension Dyslipidemia Claudication Peripheral vascular disease On midodrine 10 mg every Sunday with hemodialysis Monitor HR and BP maintain MAP> 65 mmHg. Lactic acid 1.2 Echo 06/01: EF 55-60%. Severe pulmonary hypertension Continue Aspirin 81 mg daily. Stress dose steroids- weaning Hydrocortisone 50mg IV Q8, continue taper: 50 q12h, 50 q24h, 25 q24h, then off. Holding pentoxifylline 400 mg daily for claudication Add midodrine 10mg po TID. Kenney-Synephrine discontinued this a.m.-hemodynamically stable Renal/ End-stage renal disease on hemodialysis Sunday Left upper extremity fistula Secondary hyperparathyroidism Hypokalemia Monitor renal function I&Os and avoid nephrotoxins. Renal is following- Dr. Ling HD per renal. On calcium acetate 667 milligrams 3 times a day with meals. On sevelamer 800 mg 3 times a day at home Continue cinacalcet 90 mg by mouth daily for secondary hyperparathyroidism GI: Gastroesophageal reflux disease Tube feeds- Nepro with goal 40ml/hr Lansoprazole for GI prophylaxis Docusate sodium/senna 1 tablet twice a day for bowel regimen ID: s/p full course of abx. send new cultures today. will not re-broaden. Follow up on blood 06/01: NGTD, sputum 06/01: normal resp kaylene, sputum 06/04 no growth Nasal washing is negative for influenza in the ED. 06/16-repeat blood cultures- NGTD Heme: Leukocytosis Anemia /normocytic Monitor CBC daily. Follow trends. Does not meet transfusion threshold at this time Endo: Hyperglycemia Gout History of hypothyroidism Sliding-scale insulin with Novulin R to maintain tingling euglycemia MSK: Morbid obesity Weight loss encouraged GI prophylaxis with lansoprazole 30 mg daily, DVT prophylaxis with SCDs./ heparin Subcu prophylaxis Lines: PIV's Palliative care is following Wound care following for dry ulcers on right forefoot Dispo: Level 3 [facility] . Discussed with RADIOLOGIC THERAPIST at bedside Physician Lauren Varghese MD Jun 18, 2017 13:03
--- NOTE | 2017-06-18 17:47 | HHI.DS ---
Discharge Summary Admission Date Jun 01, 2017 at 15:29 Admitting Diagnosis S/P CARDIORESP ARREST WITH ROSC CBC/BMP: 06/18/17 0436 06/18/17 0436 Significant Findings Laboratory Tests Test 06/16/17 13:27 06/16/17 19:05 06/17/17 07:55 06/18/17 04:36 Phenytoin (Dilantin) Level 6.7 MCG/ML (10.0-20.0) White Blood Count 32.0 TH/MM3 (4.0-11.0) 22.0 TH/MM3 (4.0-11.0) 16.9 TH/MM3 (4.0-11.0) Red Blood Count 3.18 MIL/MM3 (4.00-5.30) 3.25 MIL/MM3 (4.00-5.30) 3.09 MIL/MM3 (4.00-5.30) Hemoglobin 8.8 GM/DL (11.6-15.3) 9.0 GM/DL (11.6-15.3) 8.8 GM/DL (11.6-15.3) Hematocrit 28.7 % (35.0-46.0) 29.5 % (35.0-46.0) 28.0 % (35.0-46.0) Mean Corpuscular Hemoglobin Concent 30.8 % (32.0-36.0) 30.6 % (32.0-36.0) 31.3 % (32.0-36.0) Red Cell Distribution Width 19.5 % (11.6-17.2) 19.8 % (11.6-17.2) 19.6 % (11.6-17.2) Procalcitonin 4.59 ng/mL (0.00-0.50) Blood Urea Nitrogen 55 MG/DL (7-18) 59 MG/DL (7-18) Creatinine 5.16 MG/DL (0.50-1.00) 5.90 MG/DL (0.50-1.00) Calcium Level 10.2 MG/DL (8.5-10.1) Sodium Level 133 MEQ/L (136-145) 132 MEQ/L (136-145) Chloride Level 93 MEQ/L (98-107) 93 MEQ/L (98-107) Estimat Glomerular Filtration Rate 10 ML/MIN (>89) 9 ML/MIN (>89) Hospital Course Patient is 67-year-old female with multiple comorbidities which include end- stage renal disease on hemodialysis Sunday, Sunday, Sunday, hypertension, COPD on home oxygen, morbid obesity with obstructive sleep apnea, CHF. The patient was at the dialysis center today, she reported to the staff that she did not feel well and all the sudden she became unresponsive. The patient was given CPR which was continued in en route to the hospital. She was in PEA arrest. The patient was given epi, bicarb and D50. After approximately 30 minutes. She had successful return of spontaneous circulation and was started on dopamine. The patient also was intubated and placed on full mechanical ventilation. Her ABG post intubation showed a pH of 7.39, CO2 45, pAO2 238 and bicarb 27 and saturation of 97%. Her laboratory data showed the potassium 4.1, creatinine 6.23 and corrected calcium of 7.3. Other significant labs showed mild leukocytosis with a Review WBC of 12.7. A chest x-ray post intubation showed a bilateral pulmonary infiltrates and ET tube approximately 4 cm above the isabel. In the ER she was given calcium gluconate and started on dopamine as stated above. Right femoral central line was attempted by the ED physician without any success. The patient was also seen by Dr. Macho francois in the ER from nephrology service and she is scheduled to undergo CT scan of the brain. The patient is unresponsive. 06/02 No events overnight. On fentanyl infusion for sedation however patient has her eyes open unresponsive. Afebrile. 06/03 No events overnight. Sedated with Fentanyl and intubated. On Levophed 11mics. EEG yesterday showed seizures started on Cerebyx. 06/04 Patient remains intubated and sedated with Versed and Fentanyl drip. Had seizure overnight given Ativan 1mg x1. Levophed down 1mic and on vasopressin. For HD today. T:100.4 last night 06/05 Patient remains intubated and sedated. On Levophed 1mic and Vasopressin. afebrile. Repeat EEG yesterday showed seizure like activity. 06/06 TMax 99.2. Vasopressin has been discontinued, the patient continues on Norepinephrine at 1 mcg. The patient has been transitioned to phenylephrine via peripheral IV low dose, to maintain MAP > 65 06/07 Afebrile. The patient continues to have leukocytosis, antibiotics changed per ID,Dr. Cazares following. Neurologically the patient continues on Versed infusion for continued seizure activity. Repeat EEG ordered, results pending. AED levels of phenobarbital,phenytoin, and valproic acid all remain subtherapeutic . Right groin femoral line was discontinued the patient remains with peripheral IVs, no vasopressors support needed. Wound care was consulted regarding dry ulcers on right foot and implementation of measures. 06/08: No acute events overnight. EEG performed today the patient continues to have seizure activity. Dr. Garcia notified the patient continues on phenobarbital, fosphenytoin and valproic acid level slightly increased but still remains subtherapeutic at this time. The propofol infusion and Topamax added to medication regimen. WBC count continues to increase most likely reactive. ID following patient continues on antibiotics. 06/09: The patient was noted to have spontaneous eye opening, tracking or following. The patient also was noted to have withdrawal to pain, which is changed from complete unresponsiveness noted for the last 3 days at which time patient was probably having subclinical seizure activity. Patient continues on propofol and low dose and Topamax was added to antiepileptic drug (AED) regimen yesterday. 06/10: Afebrile. Started on Kenney-Synephrine and a left IJ CVL was placed overnight. EEG continued with subclinical seizure activity. Unresponsive on the ventilator. Tolerating tube feeding. 06/11: Afebrile. Currently resting in bed. No gag reflexes AM. Going to feeding. Discussed with mother yesterday/sons are plain to coming from [place] in [place] this week. She is leaning towards comfort measures patient to be vent dependent and unresponsive. 06/12: No change in neurological status. Palliative care medicine receiving team member Dr. Reynoso attempted to contact family today unsuccessful. Dialysis today only to remove approximately 500 cc secondary to hemodynamic instability. 06/13: no neurologic improvements. palliative talking with family. awaiting MRI results. 06/14: no clinical improvements. remains encephalopathic. MRI unchanged with significant areas of small vessel ischemia. 06/15: borderline hypotensive today, but no other associated changes. no fever. wbc stable. encephalopathy persists. long family discussion today and despite patient's clear expressed wishes to multiple family members that she would "never want to be hooked up to machines", wants to proceed with trach/peg and long-term placement. Subjective 06/16: slightly hypotensive on minimal phenylephrine dose. febrile today. neuro exam still poor. family wants aggressive care. [facility] could accept patient as early as tomorrow. 06/17: No acute events overnight. Repeat blood cultures were obtained yesterday noted patient's white count trending down. The patient underwent hemodialysis with approximately 2 L off yesterday. 06/18: No neuro status changes at this time. The patient remains encephalopathic. patient to be transferred to [facility] this evening. Pt Condition on Discharge: Stable Discharge Disposition: Trnsfr to Other Facility Discharge Instructions DIET: Follow Instructions for: On Tube Feeding Activities you can perform: Continue Lauren Kilpatrick MD Jun 18, 2017 17:47
== END 2017-06-18 18:30 | DRG 296 ==
LOC: NEPE 11:05 → NEDA 15:29 → HIMN 15:33 → HIMW 06-08 15:40
PROVIDERS: ADMIT Internal Medicine Critical Care Medicine; ATTEND Internal Medicine Critical Care Medicine
PROC: 5A1955Z Respiratory Ventilation, Greater than 96 Consecutive Hours (ICD-10-PCS; principal; 2017-06-01)
PROC: 0BH17EZ Insertion of Endotracheal Airway into Trachea, Via Natural or Artificial Opening (ICD-10-PCS; 2017-06-01)
PROC: 06HM33Z Insertion of Infusion Device into Right Femoral Vein, Percutaneous Approach (ICD-10-PCS; 2017-06-01)
PROC: 5A1D60Z (ICD-10-PCS; 2017-06-02)
PROC: 02HV33Z Insertion of Infusion Device into Superior Vena Cava, Percutaneous Approach (ICD-10-PCS; 2017-06-10)
DX: I46.9 Cardiac arrest, cause unspecified (principal); N18.6 End stage renal disease; J96.01 Acute respiratory failure with hypoxia; G93.1 Anoxic brain damage, not elsewhere classified; I13.2 Hypertensive heart and chronic kidney disease with heart failure and with stage 5 chronic kidney disease, or end stage renal disease; Z99.11 Dependence on respirator [ventilator] status; J18.9 Pneumonia, unspecified organism; N25.81 Secondary hyperparathyroidism of renal origin; I27.2 Other secondary pulmonary hypertension; Z68.41 Body mass index [BMI] 40.0-44.9, adult; I95.9 Hypotension, unspecified; I50.9 Heart failure, unspecified; J44.9 Chronic obstructive pulmonary disease, unspecified; Z99.81 Dependence on supplemental oxygen; G47.33 Obstructive sleep apnea (adult) (pediatric); E66.01 Morbid (severe) obesity due to excess calories; D72.829 Elevated white blood cell count, unspecified; E78.5 Hyperlipidemia, unspecified; M19.90 Unspecified osteoarthritis, unspecified site; D63.1 Anemia in chronic kidney disease; K21.9 Gastro-esophageal reflux disease without esophagitis; M10.9 Gout, unspecified; M79.1 Myalgia; L97.519 Non-pressure chronic ulcer of other part of right foot with unspecified severity; R73.9 Hyperglycemia, unspecified; I73.9 Peripheral vascular disease, unspecified; G31.9 Degenerative disease of nervous system, unspecified; F32.9 Major depressive disorder, single episode, unspecified; E03.9 Hypothyroidism, unspecified; Z51.5 Encounter for palliative care; E87.6 Hypokalemia; G40.901 Epilepsy, unspecified, not intractable, with status epilepticus; R19.7 Diarrhea, unspecified; Z99.2 Dependence on renal dialysis; Z79.82 Long term (current) use of aspirin; Z79.899 Other long term (current) drug therapy; Z88.1 Allergy status to other antibiotic agents; Z86.73 Personal history of transient ischemic attack (TIA), and cerebral infarction without residual deficits
CPT/HCPCS: 36556; 36591; 36600; 36620; 70450; 70551; 71010; 76937; 80048; 80053; 80069; 80164; 80184; 80185; 80186; 80307; 82140; 82550; 82552; 82805; 82948; 83605; 83690; 83735; 84100; 84145; 84484; 85007; 85025; 85027; 85610; 87040; 87070; 87077; 87186; 87205; 87493; 87641; 87804; 90935; 93005; 93306; 94002; 94003; 94640; 94664; 95819; 96374; 96375; C9113; J0456; J0610; J0692; J0696; J1265; J1644; J1720; J2060; J2250; J2370; J2543; J2560; J3010; J3480; J7030; J7050; J7060; P9047; Q2009; Q4081